=== PATIENT | male | born 1935 | race Caucasian/White ===

== ENCOUNTER 2016-07-13 09:41 | Day surgery (SDC) | payer OTHER ==
[2016-07-09 09:10] VITALS: BMI 25.0
--- NOTE | 2016-07-09 09:57 | PAT Medication Instructions ---
Service Date Jul 09, 2016. Current Home Medication List Cyanocobalamin (Vitamin B-12), Unknown Dose PO QD Enoxaparin (Lovenox), 120 MG BT Mesalamine (Asacol Hd), 1,600 MG PO QAM Omeprazole (Prilosec), 20 MG PO HS Warfarin Sod (Jantoven), 5 MG PO 4XWK Medication Instructions For Your Scheduled Surgery - Per surgeon/prescribing physician instructions: Enoxaparin (Lovenox), 120 MG BT Warfarin Sod (Jantoven), 5 MG PO 4XWK Mesalamine (Asacol Hd), 1,600 MG PO QAM - Hold the following medications the morning of surgery: Cyanocobalamin (Vitamin B-12), Unknown Dose PO QD - Take the following medications as scheduled the night before surgery: Omeprazole (Prilosec), 20 MG PO HS If you have any questions please call us at [phone] (Krystal Oviedo PA-C ) or [phone] or [phone]
[~2016-07-13] VITALS: Ht 172.7 cm; Wt 76.8 kg
[~2016-07-13 09:41] MED LIST: CEFAZOLIN 2000 MG/60 ML D5W 60 ML IV SCH; CYAN100T PO; ENOX120I BT; LACTATED RINGER'S 1000ML IV SCH; MESA800T6 PO; PRLSR20 PO; WARF5TAB7 PO
[2016-07-13 09:58] VITALS: BP 161/98; PULSE 65; TEMP 36.9; O2SAT 98; Ht 172.7 cm; Wt 76.8 kg
[2016-07-13 10:28] LABS: PARTIAL THROMBOPLASTIN RATIO 1.1
[2016-07-13] MEDS ORDERED: GLYCOPYRROLATE INJ 0.2 MG/ML VIAL ONE (10:42)
[2016-07-13] MEDS ORDERED: LIDOCAINE HCL 2% 2 ML VIAL (20MG/ML) ONE (10:42)
[2016-07-13] MEDS ORDERED: PROPOFOL IV EMULSION 10 MG/ML 20 ML VIAL IV ONE (10:42)
[2016-07-13] MEDS ORDERED: FENTANYL CITRATE INJ 50 MCG/1 ML 2 ML VIAL ONE ×2 (10:42→13:03)
[2016-07-13] MEDS ORDERED: DEXAMETHASONE SOD INJ 4 MG/ML VIAL ONE (10:42)
[2016-07-13] MEDS ORDERED: ONDANSETRON INJ 2 MG/ML 2 ML VIAL ONE (10:42)
[2016-07-13] MEDS ORDERED: NEOSTIGMINE METHYLSULFATE 5 MG/5 ML SYR ONE (10:42)
--- NOTE | 2016-07-13 10:59 | History & Physical Bridge Note ---
H&P Re-Evaluation Bridge Note: I have examined the patient, reviewed the History & Physical and in the interval since the performance of the History & Physical I have noted the following changes of clinical significance: No changes noted
[2016-07-13] MEDS ORDERED: LABETALOL HCL IV 5 MG/ML 20ML ONE (11:57)
[2016-07-13] MEDS ORDERED: ORM MISCELLANEOUS MED XX ONE ×2 (11:59→12:24)
[2016-07-13] MEDS ORDERED: EpHEDrine SULFATE INJ 50 MG/ML AMP IV PRN (12:00)
[2016-07-13] MEDS ORDERED: MEPERIDINE HCL 25 MG/ML CARP IV PRN (12:00)
[2016-07-13] MEDS ORDERED: FENTANYL CITRATE INJ 50 MCG/1 ML 2 ML VIAL IV PRN (12:00)
[2016-07-13] MEDS ORDERED: ATROPINE SULFATE 0.1 MG/ML 5ML SYR IV PRN (12:00)
[2016-07-13] MEDS ORDERED: ONDANSETRON INJ 2 MG/ML 2 ML VIAL IV PRN ×2 (12:00→12:45)
[2016-07-13] MEDS ORDERED: HYDROmorphone INJ 1 MG/ML SYR IV PRN (12:00)
[2016-07-13] MEDS ORDERED: LABETALOL HCL IV 5 MG/ML 20ML IV PRN (12:00)
[2016-07-13] MEDS ORDERED: HydrALAZINE HCL 20 MG/ML VIAL ONE (12:01)
[2016-07-13] MEDS ORDERED: KETOROLAC TROMETHAMINE 30 MG/ML VIAL ONE (12:39)
[2016-07-13] MEDS ORDERED: BUPIVACAINE 0.5 % 5 MG/1 ML MPF 30ML VIAL INJ ONE (12:41)
[2016-07-13] MEDS ORDERED: SODIUM CHLORIDE 0.9% 1000ML 1,000 ML IV SCH (12:44)
[2016-07-13] MEDS ORDERED: MoRPHine SULFATE 4 MG/ML 1 ML CARP\\VIAL IV PRN (12:45)
[2016-07-13] MEDS ORDERED: OXYCODONE/ACETAMINOPHEN 5-325 TAB PO PRN (12:45)
--- NOTE | 2016-07-13 12:51 | [facility] Post Operative Brief Note ---
Immediate Operative Summary Operative Date Jul 13, 2016. Pre-Operative Diagnosis Symptomatic cholelithiasis Post-Operative Diagnosis Same Procedure(s) Performed Laparoscopic Cholecystectomy Surgeon Dr Gustafson Aboriginal Liaison Officer Surgeon(s) none Estimated Blood Loss 5 ml Findings See dictation Specimens A. Gallbladder Drains None Anesthesia General Complication(s) None Disposition Recovery Room / PACU
--- NOTE | 2016-07-13 12:53 | Discharge Instructions ---
Discharge Instructions Admission Reason for Admission: Cholelithiasis Discharge Discharge Diagnosis / Problem: Same Discharge Goals Goal(s): Decrease discomfort Activity Recommendations Activity Limitations: per Instructions/Follow-up section Lifting Limitations: no more than 10 pounds Shower/Bathe: tomorrow (Shower only) . Instructions / Follow-Up Instructions / Follow-Up Post-Surgical ~ Discharge Instructions Activity Recommendations: - lifting limitation: (10 pounds for 2 weeks), - exercise/sex/sports limit: (nonstrenuous for 2 weeks), - driving or machine use limit: (none for 1 week), - Shower/bathe limit: (may shower beginning tomorrow) Diet: - Resume previous diet SPECIAL CARE INSTRUCTIONS: - May shower in 24 hours. Let water run over area and pat dry. - Leave steri strips on for one week. - Call the surgeon's office with any questions or concerns - - (ex. temperature higher than 101 degrees F, excessive bleeding or pain). MEDICATIONS: - Resume previous medications unless instructed otherwise by your surgeon. - Ibuprofen 600 mg every 6 hours with food - Percocet 1 every 4 hours, as needed for pain FOLLOW UP VISIT: - If not already scheduled, please call the office to schedule a two week follow-up appointment. Office number Current Hospital Diet Patient's current hospital diet: Discharge Diet Recommended Diet: Regular Diet Procedures Procedures Performed: Laparoscopic Cholecystectomy Pending Studies Studies pending at discharge: no Medical Emergencies . Who to Call and When: Medical Emergencies: If at any time you feel your situation is an emergency, please call 911 immediately. . Non-Emergent Contact Non-Emergency issues call your: Primary Care Provider, Surgeon Call Non-Emergent contact if: your pain is worsening, wound has increased redness, wound has increased pain . "Provider Documentation" section prepared by Emile Gustafson. VTE Core Measure Inpt VTE Proph given/why not?: Warfarin (Coumadin) (Resume as per coumadin clinic instructions)
--- NOTE | 2016-07-13 13:15 | OPERATIVE REPORT ---
DATE OF OPERATION: 07/13/2016 PREOPERATIVE DIAGNOSIS: Cholelithiasis, chronic cholecystitis. POSTOPERATIVE DIAGNOSIS: Same. PROCEDURE: Laparoscopic cholecystectomy. SURGEON: Dr. Gsutafson. FINDINGS: The gallbladder was mildly dilated. The cystic duct was not dilated. The liver was of normal size and contour. The visible bowel was normal. No stones were identified. OPERATION AND FINDINGS: TECHNIQUE: The patient was given a general anesthetic and the area was prepped and draped in the usual sterile fashion. Transverse incision was made below the umbilicus, carried down through the subcutaneous tissue to the fascia which was grasped with 2 Sushant clamps and incised between. The peritoneum was identified, incised, and the introducer was placed bluntly. The abdomen was then insufflated to a pressure of 15 mmHg with carbon dioxide. The upper midline, mid clavicular and anterior axillary introducers were placed under direct vision through small skin incisions. Traction was placed on the gallbladder beginning on the anterior surface of the infundibulum. There was a generous amount of fatty tissue. The peritoneum was opened and peeled down towards the common bile duct and then that dissection was carried towards the lateral and medial sides entering the triangle of Calot. Further dissection was carried out of the infundibulum away from the liver first on the lateral side, then the medial side allowing for better mobility. The fatty tissue was peeled and the cystic duct was identified. The cystic duct was skeletonized on the lateral and medial side, allowing me to identify the cystic duct gallbladder junction. I was then able to establish a plane behind the cystic duct isolating it 360 degrees. Three clips were placed on the proximal cystic duct, 1 near the gallbladder and it was divided. The infundibulum was elevated and dissection was carried out behind there. There was a tubular structure that was either a branch of the artery or a large lymphatic that was clipped. Further dissection was carried out exposing the cystic artery which was clipped 3 times proximally and once near the gallbladder and divided. The gallbladder was then peeled off the liver bed. There was some spillage of bile from the gallbladder and then one of the graspers created a hole. The gallbladder was dissected off the liver bed using cautery with ease. It was placed into an Endobag and brought out through the upper midline incision. The subdiaphragmatic and subhepatic spaces were irrigated and the irrigation was removed and that was repeated until the return was fairly clear. The gallbladder bed of the liver was inspected. There were a few areas of oozing that was easily controlled with cautery. That area was irrigated again and after irrigation was completed, this was inspected and there was no bleeding. The gas was allowed to escape and removed using suction. The introducers were removed and the fascia of the umbilical and upper midline introducer sites was closed with interrupted 0 Vicryl and skin of all the incisions was closed with 4-0 Monocryl in either an interrupted or running subcuticular fashion. The skin was anesthetized with 0.5% Marcaine. The skin was cleansed, dried, benzoin placed, Steri-Strips applied. Estimated blood loss was 5 mL. Sponge, needle and instrument counts were correct prior to closure. The patient tolerated the surgical procedure without complication and was transferred to recovery. I attest to the content of the Intraoperative Record and any orders documented therein. Any exceptio ns are noted below.
[2016-07-13 14:00] VITALS: BP 137/80; PULSE 61; TEMP 36.4; O2SAT 97
[2016-07-13 14:33] VITALS: BP 123/75; PULSE 62; TEMP 36.5; O2SAT 95
[2016-07-13 15:00] VITALS: BP 131/79; PULSE 75; O2SAT 99
--- NOTE | 2016-07-13 15:15 | Anesthesiology Progress Note ---
Anesthesia Post Op Note Date & Time Jul 13, 2016 at 15:15 Vital Signs Pain Intensity: 3 Vital Signs Past 12 Hours Date Time Temp Pulse Resp B/P Pulse Ox O2 Delivery O2 Flow Rate FiO2 07/13/16 14:33 36.5 62 16 123/75 95 Nasal Cannula 2 07/13/16 14:00 36.4 61 16 137/80 97 Room Air 07/13/16 13:50 36.0 61 16 121/78 96 Nasal Cannula 2 07/13/16 13:40 62 13 134/81 96 Nasal Cannula 2 07/13/16 13:30 65 12 133/80 96 Nasal Cannula 3 07/13/16 13:20 72 12 139/89 92 Nasal Cannula 3 07/13/16 13:10 70 16 141/89 99 Mask 10 07/13/16 13:00 70 15 142/86 99 Mask 10 07/13/16 12:52 36.2 71 18 137/89 99 Mask 10 07/13/16 09:58 36.9 65 20 161/98 98 Room Air Notes Mental Status: alert / awake / arousable, participated in evaluation Pt Amnestic to Procedure: Yes Nausea / Vomiting: adequately controlled Pain: adequately controlled Airway Patency, RR, SpO2: stable & adequate BP & HR: stable & adequate Hydration State: stable & adequate Anesthetic Complications: no major complications apparent
[2016-07-13 15:40] VITALS: BP 145/79; PULSE 75; TEMP 36.6; O2SAT 94
[2016-11-26] MEDS ORDERED: VITATAB19 PO (14:21)
[2016-11-26] MEDS ORDERED: FIBER PILL PO (14:21)
[2016-11-26] MEDS ORDERED: VITAMIN D PO (14:21)
[2016-11-26] MEDS ORDERED: TURMERIC PO (14:22)
== END 2016-07-13 15:45 | disposition home or self-care (01) ==
LOC: C.ACU 09:41
PROVIDERS: ATTEND Surgery
DX: K80.10 Calculus of gallbladder with chronic cholecystitis without obstruction (principal); D68.51 Activated protein C resistance; Z79.01 Long term (current) use of anticoagulants; Z87.891 Personal history of nicotine dependence

== ENCOUNTER 2016-12-06 08:12 | Day surgery (SDC) | payer OTHER ==
[2016-11-26 14:24] VITALS: BMI 27.0
[~2016-12-06] VITALS: Ht 167.6 cm; Wt 77.3 kg
[~2016-12-06 08:12] MED LIST changes: -CEFAZOLIN 2000 MG/60 ML D5W 60 ML IV SCH; +FIBER PILL PO; +LACTATED RINGER'S 1000ML 1,000 ML IV SCH; -LACTATED RINGER'S 1000ML IV SCH; +MESA1TAB4 PO; -MESA800T6 PO; +TURMERIC PO; +VITAMIN D PO; +VITATAB19 PO
[2016-12-06] MEDS ORDERED: LACTATED RINGER'S 1000ML 1,000 ML IV ONE (08:23)
[2016-12-06 08:45] VITALS: BP 149/87; PULSE 65; TEMP 36.8; O2SAT 97; Ht 167.6 cm; Wt 77.3 kg
[2016-12-06 08:51] LABS: HEMATOCRIT 45.1 % (42-52); MEAN CELL VOLUME 88.3 fL (80-100); MEAN CORPUSCULAR HEMOGLOBIN 27.2 pg (25-34); MEAN PLATELET VOLUME 9.8 fL (7.4-10.4); PLATELET COUNT 185 K/uL (130-400); RED BLOOD COUNT 5.11 M/uL (4.7-6.1); WHITE BLOOD COUNT 6.64 K/uL (4.8-10.8)
[2016-12-06] MEDS ORDERED: MIDAZOLAM HCL 1 MG/ML 2ML VIAL ONE (09:00)
[2016-12-06] MEDS ORDERED: FENTANYL CITRATE INJ 50 MCG/1 ML 2 ML VIAL ONE (09:00)
[2016-12-06] MEDS ORDERED: DEXAMETHASONE SOD INJ 4 MG/ML VIAL ONE (09:00)
[2016-12-06] MEDS ORDERED: LIDOCAINE HCL 2% 2 ML VIAL (20MG/ML) ONE (09:00)
[2016-12-06] MEDS ORDERED: LARYING-O-JET KIT (LTA) ONE ×2 (09:00)
[2016-12-06] MEDS ORDERED: PROPOFOL IV EMULSION 10 MG/ML 20 ML VIAL IV ONE (09:00)
[2016-12-06] MEDS ORDERED: ONDANSETRON INJ 2 MG/ML 2 ML VIAL ONE (09:00)
[2016-12-06] MEDS ORDERED: SUCCINYLCHOLINE CHLORIDE 20 MG/ML 10 ML VIAL IV ONE (09:00)
[2016-12-06 09:01] LABS: MEAN CORPUSCULAR HGB CONC 30.8 g/dl (32-36)
[2016-12-06 09:12] LABS: PARTIAL THROMBOPLASTIN RATIO 1.1; PROTHROMBIN TIME (PATIENT) 10.5 SECONDS (9.0-12.0)
[2016-12-06] MEDS ORDERED: MEPERIDINE HCL 25 MG/ML CARP IV PRN (09:45)
[2016-12-06] MEDS ORDERED: FENTANYL CITRATE INJ 50 MCG/1 ML 2 ML VIAL IV PRN (09:45)
[2016-12-06] MEDS ORDERED: HYDROmorphone INJ 2 MG/ML SYR/VIAL IV PRN (09:45)
[2016-12-06] MEDS ORDERED: LABETALOL HCL IV 5 MG/ML 20ML IV PRN (09:45)
[2016-12-06] MEDS ORDERED: EpHEDrine SULFATE INJ 50 MG/ML AMP IV PRN (09:45)
[2016-12-06] MEDS ORDERED: NALOXONE HCL 0.4 MG/1 ML VIAL/CARP IV PRN (09:45)
[2016-12-06] MEDS ORDERED: ONDANSETRON INJ 2 MG/ML 2 ML VIAL IV PRN ×2 (09:45→11:00)
[2016-12-06] MEDS ORDERED: ATROPINE SULFATE 0.1 MG/ML 5ML SYR IV PRN (09:45)
[2016-12-06] MEDS ORDERED: PHENYLEPHRINE 100MCG/ML 5ML SYR IV PRN (09:45)
[2016-12-06] MEDS ORDERED: FLUMAZENIL 0.1 MG/1 ML 10 ML VIAL IV PRN (09:45)
--- NOTE | 2016-12-06 09:45 | History & Physical Bridge Note ---
H&P Re-Evaluation Bridge Note: I have examined the patient, reviewed the History & Physical and in the interval since the performance of the History & Physical I have noted the following changes of clinical significance: No changes noted Plan EGD and EUS for evaluation of abdominal pain
--- NOTE | 2016-12-06 10:57 | [facility] Post Operative Brief Note ---
Immediate Operative Summary Operative Date Dec 06, 2016. Pre-Operative Diagnosis Right sided abdominal discomfort Post-Operative Diagnosis Same as preoperative diagnosis Procedure(s) Performed Upper Endoscopy, Upper Endoscopic Ultrasonography Surgeon Dr. José Luis Richards Voy[employer] Management System Operator Surgeon(s) None Estimated Blood Loss 0 mL Findings Mild gastritis Hiatal hernia Barretts esophagus Normal Common bile duct. Specimens Pathology specimens to be labeled and handled by endoscopy staff Anesthesia Genera Complication(s) None Disposition Recovery Room / PACU
--- NOTE | 2016-12-06 10:58 | Discharge Instructions ---
Endoscopy Patient Instructions Date / Procedure(s) Performed Dec 06, 2016. EGD, Other (Endoscopic Ultrasound) Allergy Information Coded Allergies: Red Dye (Unverified Allergy, Unknown, SEVERE MIGRAINES, 12/06/16) Unclassified Drugs (Unverified Allergy, Unknown, STEROIDS-FACIAL SWELLING, EXTREMITIES, 12/06/16) Aspirin (Verified Adverse Reaction, Mild, UPSETS STOMACH, 12/06/16) Codeine (Verified Adverse Reaction, Mild, "JUST DON'T SEEM TO AGREE WITH ME", 12/06/16) Discharge Date / Findings Dec 06, 2016. Mild gastritis Short Segment Barretts Esophagus Normal common bile duct. Medication Instructions Reported Home Medications Medications Dose Route/Sig Max Daily Dose Days Date Category Dose Instructions [Turmeric] 1 Tab PO QAM 11/26/16 Reported [Vitamin D] 1 Tab PO QAM 11/26/16 Reported Vitamin A (Vitamin A-Beta Carotene) 1 Tab Tab 1 Tab PO QAM 11/26/16 Reported [Fiber Pill ] 1 Tab PO QAM 11/26/16 Reported Vitamin B-12 (Cyanocobalamin) Unknown Strength Tab Unknown Dose PO QD 07/09/16 Reported TAKES ON OCC REPORTS THESE TABS ARE CHEWABLES Lovenox (Enoxaparin Sodium) 120 Mg/0.8 Ml Inj 120 Mg BT 07/09/16 Reported WILL FOLLOW INSTRUCTIONS GIVEN FROM [facility] Asacol Hd (Mesalamine) 800 Mg Tab 1,600 Mg PO QAM 06/13/16 Reported PT INSTRUCTED TO CHECK WITH SURGEON FOR DIRECTIONS- MAY TAKE UP TO 5X A DAY PRN Prilosec (Omeprazole) 20 Mg Capcr 20 Mg PO QPM 01/05/16 Reported Jantoven (Warfarin Sodium) 5 Mg Tab 5 Mg PO QPM 12/07/15 Reported PT WILL FOLLOW INSTRUCTIONS GIVEN FROM [facility]- PATIENT REPORTS TAKING ONE TABLET SOMETIMES AND OTHER DAYS TWO - PATIENT WILL NOT PROVIDE FURTHER DETAILS Provider Instructions Activity Restrictions - No exercising or heavy lifting for 24 hours. - Do not drink alcohol the day of the procedure. - Do not drive a car or operate machinery until the day after the procedure. - Do not make any important decisions or sign important papers in 24 hours after the procedure. Following Day: - Return to full activity which may include returning to work/school. Diet Start your diet with liquids and light foods (jello, soup, juice, toast). Then eat your usual diet if not nauseated. Treatment For Common After Affects For mild abdominal pain, bloating, or excessive gas: - Rest - Eat lightly - Lie on right side Follow-Up Information Follow-up with Dr. Richards in 6 months Try Bentyl 10 mg 3 times daily Anesthesia Information What You Should Know You have had a procedure that required some medicine to reduce anxiety and discomfort. This treatment is called moderate sedation. After receiving the treatment, you may be sleepy, but you will be able to breathe on your own. The effects of the treatment may last for several hours. Follow these instructions along with Activity/Diet recommendations noted above: * Do NOT do anything where dizziness or clumsiness would be dangerous. * Rest quietly at home today, then you can be up and about tomorrow. * Have a responsible person stay with you the rest of today. * You may have had an I.V. today. If so, you may take the dressing off later today. Recommendations Call your doctor if: * Trouble breathing * Continuous vomiting for more than 24 hours * Temperature above 101 degrees * Severe abdominal pain or bloating * Pain not relieved by pain medicine ordered * There is increased drainage or redness from any incision * A large amount of rectal bleeding greater than 2-3 tablespoons. (If you had a polyp/s removed or have hemorrhoids, a small amount of blood - from the rectum is to be expected.) * You have any unanswered questions or concerns. IN THE EVENT OF A SERIOUS EMERGENCY, GO TO THE NEAREST EMERGENCY ROOM Your discharge instructions were prepared by provider José Luis Richards. Patient Instructions Signature Page [facility] Patient (or Guardian) Signature/Date: I have read and understand the instructions given to me by my caregivers. Caregiver/RN/Doctor Signature/Date: The above-named patient and/or guardian has received patient instructions on this date. + Original Patient Signature Page (only) stays with chart. Please make copy for patient.
--- NOTE | 2016-12-06 11:03 | GI REPORT ---
Procedure Date: 12/06/2016 10:01 AM Procedure: Upper GI endoscopy Indications: Epigastric abdominal pain, Abdominal pain in the right upper quadrant Medicines: General Anesthesia Complications: No immediate complications. Estimated blood loss: Minimal. Estimated Blood Loss: Estimated blood loss was minimal. Procedure: Pre-Anesthesia Assessment: - Prior to the procedure, a History and Physical was performed, and patient medications, allergies and sensitivities were reviewed. The patient's tolerance of previous anesthesia was reviewed. - The risks and benefits of the procedure and the sedation options and risks were discussed with the patient. All questions were answered and informed consent was obtained. - Patient identification and proposed procedure were verified prior to the procedure by the physician, the nurse and the manager sound. The procedure was verified in the procedure room. - Pre-procedure physical examination revealed no contraindications to sedation. - ASA Grade Assessment: III - A patient with severe systemic disease. - After reviewing the risks and benefits, the patient was deemed in satisfactory condition to undergo the procedure. - The anesthesia plan was to use general anesthesia. - Immediately prior to administration of medications, the patient was re-assessed for adequacy to receive sedatives. - The heart rate, respiratory rate, oxygen saturations, blood pressure, adequacy of pulmonary ventilation, and response to care were monitored throughout the procedure. - The physical status of the patient was re-assessed after the procedure. After obtaining informed consent, the endoscope was passed under direct vision. Throughout the procedure, the patient's blood pressure, pulse, and oxygen saturations were monitored continuously. The scope was introduced through the mouth, and advanced to the third part of duodenum. The upper GI endoscopy was accomplished without difficulty. The patient tolerated the procedure well. Findings: Localized mild mucosal changes characterized by discoloration were found in the upper third of the esophagus. Biopsies were taken with a cold forceps for histology. Estimated blood loss was minimal. The esophagus and gastroesophageal junction were examined with white light. 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 These changes involved the mucosa at the upper extent of the gastric folds (38 cm from the incisors) extending to the Z-line (27 cm from the incisors). Circumferential salmon-colored mucosa was present from 27 to 38 cm. Biopsies were taken with a cold forceps for histology. Estimated blood loss was minimal. A small hiatus hernia was found. The proximal extent of the gastric folds (end of tubular esophagus) was 38 cm from the incisors. The hiatal narrowing was 40 cm from the incisors. The Z-line was 27 cm from the incisors. The entire examined stomach was normal. Biopsies were taken with a cold forceps for histology. Estimated blood loss was minimal. The examined duodenum was normal. Biopsies were taken with a cold forceps for histology. Estimated blood loss was minimal. Impression: - Discolored mucosa in the esophagus. Biopsied. 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 Biopsied. - Normal stomach. Biopsied. - Normal examined duodenum. Biopsied. Recommendation: - Perform an upper endoscopic ultrasound (UEUS) today. - Await pathology results. José Luis Richards D.O. José Luis Richards, 12/06/2016 11:02:52 AM This report has been signed electronically. Note Initiated On: 12/06/2016 10:01 AM I attest to the content of the Intraoperative Record and orders documented therein, exceptions below
--- NOTE | 2016-12-06 11:10 | GI REPORT ---
Procedure Date: 12/06/2016 10:30 AM Procedure: Upper EUS Indications: Suspected choledocholithiasis, Epigastric abdominal pain, Abdominal pain in the right upper quadrant Medicines: General Anesthesia Complications: No immediate complications. Estimated blood loss: Minimal. Estimated Blood Loss: Estimated blood loss was minimal. Procedure: Pre-Anesthesia Assessment: - Prior to the procedure, a History and Physical was performed, and patient medications, allergies and sensitivities were reviewed. The patient's tolerance of previous anesthesia was reviewed. - The risks and benefits of the procedure and the sedation options and risks were discussed with the patient. All questions were answered and informed consent was obtained. - Patient identification and proposed procedure were verified prior to the procedure by the physician, the nurse and the head athletic trainer/strength coach. The procedure was verified in the procedure room. - Pre-procedure physical examination revealed no contraindications to sedation. - ASA Grade Assessment: III - A patient with severe systemic disease. - After reviewing the risks and benefits, the patient was deemed in satisfactory condition to undergo the procedure. - The anesthesia plan was to use general anesthesia. - Immediately prior to administration of medications, the patient was re-assessed for adequacy to receive sedatives. - The heart rate, respiratory rate, oxygen saturations, blood pressure, adequacy of pulmonary ventilation, and response to care were monitored throughout the procedure. - The physical status of the patient was re-assessed after the procedure. After obtaining informed consent, the endoscope was passed under direct vision. Throughout the procedure, the patient's blood pressure, pulse, and oxygen saturations were monitored continuously. The Endosonoscope was introduced through the mouth, and advanced to the second part of duodenum. The upper EUS was accomplished without difficulty. The patient tolerated the procedure well. The Endosonoscope was introduced through the mouth, and advanced to the third part of duodenum. The upper EUS was accomplished without difficulty. Findings: Endosonographic Finding : There was no sign of significant endosonographic abnormality in the ampulla. No masses were identified. Evidence of a previous cholecystectomy was identified endosonographically. There was no sign of significant endosonographic abnormality in the common bile duct. The maximum diameter of the duct was 4.7 mm. No stones, no biliary sludge and ducts of normal caliber were identified. There was no sign of significant endosonographic abnormality in the left lobe of the liver. Homogeneous parenchyma and no focal pathology were identified. There was no sign of significant endosonographic abnormality in the entire pancreas. The pancreatic duct measured up to 3 mm in diameter in the head and 1.1 mm in the body. No masses, no cysts, the pancreatic duct was thin in caliber. There was no sign of significant endosonographic abnormality in the left adrenal gland. No abnormal echogenicity and no adrenal gland enlargement were identified. No lymph nodes were seen during endosonographic examination in the gastrohepatic ligament (level 18), in the celiac region (level 20), in the perigastric region, in the peripancreatic region and in the santiago hepatis region. One benign appearing lymph node was visualized with the ultrasound probe in the subcarinal mediastinum (level 7). The node was oval. It measured 11 mm by 5.6 mm. Impression: - Normal ampulla. - Evidence of a cholecystectomy. - Normal common bile duct. - There was no evidence of significant pathology in the left lobe of the liver. - There was no sign of significant pathology in the entire pancreas. - Endosonographic images of the left adrenal gland were unremarkable. - One benign appearing lymph node was visualized and measured in the subcarinal mediastinum (level 7). Recommendation: - Discharge patient to home (ambulatory). - Advance diet as tolerated today. - Observe patient's clinical course. - Try Bentyl 10 mg TID José Luis Richards D.O. José Luis Richards, 12/06/2016 11:09:56 AM This report has been signed electronically. Note Initiated On: 12/06/2016 10:30 AM I attest to the content of the Intraoperative Record and orders documented therein, exceptions below
[2016-12-06 11:45] VITALS: BP 147/87; PULSE 60; TEMP 36.7; O2SAT 94
[2016-12-06 12:15] VITALS: BP 136/87; PULSE 85; TEMP 36.7; O2SAT 97
[2016-12-06 12:45] VITALS: BP 131/80; PULSE 65; TEMP 36.2; O2SAT 99
--- NOTE | 2016-12-06 17:57 | Anesthesiology Progress Note ---
Anesthesia Post Op Note Date & Time Dec 06, 2016 at 17:56 Vital Signs Pain Intensity: 0 Vital Signs Past 12 Hours Date Time Temp Pulse Resp B/P (MAP) Pulse Ox O2 Delivery O2 Flow Rate FiO2 12/06/16 12:45 36.2 65 16 131/80 99 Room Air 0 12/06/16 12:15 36.7 85 16 136/87 97 Room Air 0 12/06/16 11:45 36.7 60 16 147/87 94 Room Air 0 12/06/16 11:30 36.5 79 16 141/87 94 Room Air 12/06/16 11:20 65 16 144/90 100 Room Air 12/06/16 11:10 68 16 157/91 100 Mask 10 12/06/16 11:00 57 16 132/83 98 Mask 10 12/06/16 10:50 36.1 56 16 130/79 98 Mask 10 12/06/16 08:45 36.8 65 20 149/87 (107) 97 Room Air Notes Mental Status: alert / awake / arousable, participated in evaluation Pt Amnestic to Procedure: Yes Nausea / Vomiting: adequately controlled Pain: adequately controlled Airway Patency, RR, SpO2: stable & adequate BP & HR: stable & adequate Hydration State: stable & adequate Anesthetic Complications: no major complications apparent
== END 2016-12-06 13:05 | disposition home or self-care (01) ==
LOC: C.ACU 08:12
PROVIDERS: ATTEND Internal Medicine Gastroenterology
DX: R10.13 Epigastric pain (principal); R10.11 Right upper quadrant pain; D68.51 Activated protein C resistance; K22.8 Other specified diseases of esophagus; Z88.5 Allergy status to narcotic agent; Z68.27 Body mass index [BMI] 27.0-27.9, adult; Z79.01 Long term (current) use of anticoagulants; Z86.718 Personal history of other venous thrombosis and embolism; Z87.891 Personal history of nicotine dependence; Z90.49 Acquired absence of other specified parts of digestive tract

== ENCOUNTER → 2017-06-13 | Outpatient (CLI) | payer OTHER ==
[~2017-06-13] MED LIST changes: -LACTATED RINGER'S 1000ML 1,000 ML IV SCH
--- NOTE | 2017-06-13 17:40 | DIAGNOSTIC IMAGING REPORT ---
R LOWER EXT JOINT WITHOUT CLINICAL HISTORY: 82 years-old Male presenting with KNEE PAIN, pain and difficulty ambulating, pain involving the entire right knee, no history of trauma or surgery, history of knee dislocation as a child, possible pars defect. TECHNIQUE: Multisequence, multiplanar MR imaging of the right knee was performed without the use of intravenous contrast. IV contrast: None. COMPARISON: None. FINDINGS: Localizer images: Unremarkable. Bony edema and subchondral cystic change in the patella and anterior aspect of the lateral femoral condyle. Associated with this is full-thickness articular cartilage defects in the lateral patellar facet and apposing lateral aspect of the trochlea. The patellar chondral defect measures up to 11 mm in width obliquely oriented from the superior median prominence toward the lateral aspect inferiorly. The trochlea is articular cartilage defect and ureters this distribution. Small focal defect in the posterior weightbearing surface of the lateral femoral condyle also appears full-thickness or near full-thickness and measures 3 mm in width. The remainder of the articular cartilage is intact. Anterior and posterior cruciate ligaments intact. Horizontal tear of the posterior horn of the medial meniscus extending to the tibial articular surface and involving the posterior aspect of the body of the medial meniscus. The lateral meniscus is intact. Meniscocapsular ligaments are grossly intact. Medial collateral ligament intact. Lateral collateral ligament complex including the biceps femoris tendon, fibular collateral ligament, popliteus tendon, and iliotibial band intact. Patellar and quadriceps tendons intact. Nonspecific anterior subcutaneous edema in the knee. Minimal infiltration of Hoffa's fat pad. Small knee joint effusion. No popliteal cyst. IMPRESSION: 1. 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 Extensive subchondral cystic change and bony edema further evidence the full-thickness cartilage injury. 2. Smaller focal cartilage defect in the posterior weightbearing surface of the lateral femoral condyle. 3. Degenerative type tear of the posterior horn of the medial meniscus. 4. Nonspecific subcutaneous edema. 5. Small knee joint effusion. Electronically signed by: Kameron Kaur M.D. 06/13/2017 5:39 PM Dictated Date/Time: 06/13/2017 5:32 PM
== END | disposition home or self-care (01) ==
LOC: C.MRIBC 16:14
PROVIDERS: ATTEND Orthopaedic Surgery
DX: M94.8X6 Other specified disorders of cartilage, lower leg (principal); M23.321 Other meniscus derangements, posterior horn of medial meniscus, right knee

== ENCOUNTER 2018-02-21 08:14 | Emergency (ER) | payer OTHER ==
[~2018-02-21] VITALS: Ht 175.3 cm; Wt 76.3 kg
[2018-02-21 08:19] VITALS: TEMP 36.9; Ht 175.3 cm; Wt 76.3 kg
--- NOTE | 2018-02-21 08:55 | EMERGENCY ROOM VISIT NOTE ---
History Report prepared by Sammy: [facility] Under the Supervision of: Dr. Andrew Foley D.O. First contact with patient: 08:33 Chief Complaint: CHEST PAIN Stated Complaint: CHEST PAIN Nursing Triage Summary: Pt c/o pain straight across chest on and off for the past week. pt reports the pain woke him from sleep this am. denies SOB. reports a slight headache History of Present Illness The patient is an 82 year old male who presents to the Emergency Room with complaints of intermittent chest pain that first presented last week. The patient states that he first experienced his chest discomfort last week. The pain was resolved for the past 2-3 days, and returned again this morning at 0300 , 6 hours ago. The pain is still randomly intermittent and is not worsened/ precipitated by exertion. He describes his chest pain as a "pressure." There is no radiation of the pain. The patient is also short of breath, but notes that he is always short of breath. He denies any nausea, but does have a headache. Source of History: patient Onset: last week, 6 hours Position: chest Quality: pressure Timing: intermittent Associated Symptoms: + headache, + SOB, No nausea Review of Systems See HPI for pertinent positives & negatives. A total of 10 systems reviewed and were otherwise negative. Past Medical & Surgical Medical Problems: (1) Appendicitis (2) Barretts esophagus (3) Diverticulitis Colon (W/O Ment Of Hemorrhage) (4) Esophageal Reflux (5) Factor V Leiden (6) History of DVT (deep vein thrombosis) (7) Ulcerative colitis Surgical Problems: (1) H/O colonoscopy (2) H/O esophagogastroduodenoscopy Family History No pertinent family history Social History Smoking Status: Former Smoker Alcohol Use: occasionally Drug Use: none Marital Status: Housing Status: lives with family Occupation Status: retired, other Current/Historical Medications Scheduled Cyanocobalamin (Vitamin B-12), Unknown Dose PO QD Mesalamine (Asacol Hd), 1,600 MG PO QAM Omeprazole (Prilosec), 20 MG PO QPM Warfarin Sod (Jantoven), 5 MG PO QPM [Fiber Pill ], 1 TAB PO QAM [Turmeric], 1 TAB PO QAM [Vitamin D], 1 TAB PO QAM Miscellaneous Medications Enoxaparin (Lovenox), 120 MG BT Allergies Coded Allergies: Red Dye (Unverified Allergy, Unknown, SEVERE MIGRAINES, 02/21/18) Unclassified Drugs (Unverified Allergy, Unknown, STEROIDS-FACIAL SWELLING, EXTREMITIES, 02/21/18) Aspirin (Verified Adverse Reaction, Mild, UPSETS STOMACH, 02/21/18) Codeine (Verified Adverse Reaction, Mild, "JUST DON'T SEEM TO AGREE WITH ME", 02/21/18) Physical Exam Vital Signs Date Time Temp Pulse Resp B/P (MAP) Pulse Ox O2 Delivery O2 Flow Rate FiO2 02/21/18 10:19 59 16 02/21/18 10:00 137/88 02/21/18 09:49 64 22 02/21/18 09:19 65 18 02/21/18 09:14 65 18 02/21/18 09:00 137/85 02/21/18 08:44 68 23 02/21/18 08:43 67 02/21/18 08:32 166/90 02/21/18 08:24 94 Room Air 02/21/18 08:19 36.9 72 20 159/82 99 Room Air Physical Exam CONSTITUTIONAL/VITAL SIGNS: Reviewed / noted above. GENERAL: Non-toxic in appearance. INTEGUMENTARY: Warm, dry, and [place]. HEAD: Normocephalic. EYES: without scleral icterus or trauma. ENT/OROPHARYNX: clear and moist. LYMPHADENOPATHY/NECK: Is supple without lymphadenopathy or meningismus. RESPIRATORY: Lungs clear and equal. CARDIOVASCULAR: Regular rate and rhythm. GI/ABDOMEN: Soft and nontender. No organomegaly or pulsatile mass. No rebound or guarding. Normal bowel sounds. EXTREMITIES: Warm and well perfused. BACK: No CVA tenderness. NEUROLOGICAL: Intact without focal deficits. PSYCHIATRIC: normal affect. MUSCULOSKELETAL: Normally developed with good muscle tone. Medical Decision & Procedures ER Provider Diagnostic Interpretation: Radiology results as stated below per my review and radiologist interpretation: CHEST ONE VIEW PORTABLE CLINICAL HISTORY: Evaluate Fever/Sepsis COMPARISON STUDY: 06/13/2016 FINDINGS: Mild stable cardiomegaly. Fixed lateral hernia. Lungs are clear. Diaphragms smooth. IMPRESSION: Chronic change. No acute process. The above report was generated using voice recognition software. It may contain grammatical, syntax or spelling errors. Electronically signed by: Emile Vann M.D. 02/21/2018 9:01 AM Dictated Date/Time: 02/21/2018 9:00 AM Laboratory Results 02/21/18 08:34 Red Blood Count 5.30, Mean Corpuscular Volume 91.1, Mean Corpuscular Hemoglobin 29.4, Mean Corpuscular Hemoglobin Concent 32.3, Mean Platelet Volume 10.1, Neutrophils (%) (Auto) 64.3, Lymphocytes (%) (Auto) 23.1, Monocytes (%) (Auto) 6.8, Eosinophils (%) (Auto) 5.2, Basophils (%) (Auto) 0.3, Neutrophils # (Auto) 4.18, Lymphocytes # (Auto) 1.50, Monocytes # (Auto) 0.44, Eosinophils # (Auto) 0.34, Basophils # (Auto) 0.02 02/21/18 08:34 Test 02/21/18 08:34 White Blood Count 6.50 K/uL (4.8-10.8) Red Blood Count 5.30 M/uL (4.7-6.1) Hemoglobin 15.6 g/dL (14.0-18.0) Hematocrit 48.3 % (42-52) Mean Corpuscular Volume 91.1 fL (80-100) Mean Corpuscular Hemoglobin 29.4 pg (25-34) Mean Corpuscular Hemoglobin Concent 32.3 g/dl (32-36) Platelet Count 170 K/uL (130-400) Mean Platelet Volume 10.1 fL (7.4-10.4) Neutrophils (%) (Auto) 64.3 % Lymphocytes (%) (Auto) 23.1 % Monocytes (%) (Auto) 6.8 % Eosinophils (%) (Auto) 5.2 % Basophils (%) (Auto) 0.3 % Neutrophils # (Auto) 4.18 K/uL (1.4-6.5) Lymphocytes # (Auto) 1.50 K/uL (1.2-3.4) Monocytes # (Auto) 0.44 K/uL (0.11-0.59) Eosinophils # (Auto) 0.34 K/uL (0-0.5) Basophils # (Auto) 0.02 K/uL (0-0.2) RDW Standard Deviation 47.6 fL (36.4-46.3) RDW Coefficient of Variation 14.2 % (11.5-14.5) Immature Granulocyte % (Auto) 0.3 % Immature Granulocyte # (Auto) 0.02 K/uL (0.00-0.02) Prothrombin Time 22.1 SECONDS (9.0-12.0) Prothromb Time International Ratio 2.1 (0.9-1.1) Activated Partial Thromboplast Time 33.5 SECONDS (21.0-31.0) Partial Thromboplastin Ratio 1.3 Anion Gap 8.0 mmol/L (3-11) Est Creatinine Clear Calc Drug Dose 66.2 ml/min Estimated GFR () 93.6 Estimated GFR (Non- 80.8 BUN/Creatinine Ratio 21.2 (10-20) Calcium Level 8.2 mg/dl (8.5-10.1) Total Bilirubin 0.5 mg/dl (0.2-1) Direct Bilirubin 0.2 mg/dl (0-0.2) Aspartate Amino Transf (AST/SGOT) 20 U/L (15-37) Alanine Aminotransferase (ALT/SGPT) 24 U/L (12-78) Alkaline Phosphatase 72 U/L (45-117) Total Creatine Kinase 72 U/L (39-308) Creatine Kinase MB 2.8 ng/ml (0.5-3.6) Creatine Kinase MB Ratio 3.9 (0-3.0) Troponin I < 0.015 ng/ml (0-0.045) Total Protein 7.0 gm/dl (6.4-8.2) Albumin 3.4 gm/dl (3.4-5.0) Lipase 124 U/L (73-393) Laboratory results as stated above per my review. Medications Administered Medications (Trade) Dose Ordered Sig/Oscar Route Start Time Stop Time Status Last Admin Dose Admin Ketorolac Tromethamine (Toradol Inj) 30 mg NOW STAT IV 02/21/18 10:31 02/21/18 10:32 DC 02/21/18 10:39 30 MG ECG Per My Interpretation Indication: chest pain Rate (beats per minute): 72 Rhythm: normal sinus Findings: no ectopy, other (No URMILA) ED Course 0849: Previous medical records were reviewed. The patient was evaluated in room A9B. A complete history and physical examination was performed. 1031: Ordered Toradol 30 mg IV. 1043: On reevaluation, the patient is resting in bed. I discussed the results and findings with the patient. She verbalized agreement of the treatment plan. The patient was discharged home. Medical Decision the differential was considered includes acute myocardial infarction, acute coronary syndrome, myocarditis, pericarditis, pericardial effusions /tamponade, esophageal perforation, thoracic aortic dissection, pulmonary embolism, pneumonia, pneumothorax, pancreatitis, shingles, acute cholecystitis, perforated abdominal viscus. . This is an 82-year-old male who presents to the ED with a chief complaint of chest pain. The patient states that last Tuesday he feels like he strained his chest by picking up some tables. He states that his pain lasted for a couple of days and then went away but his pain returned. He states that he had the pain this morning around 3 AM and described as a pressure. He reports that his pain seems to be random and comes and goes. He denies it being related to exertion. He denies recent illness, fevers or shortness of breath. He denies any nausea or diaphoresis. He has no additional symptoms. His physical exam was unremarkable. CBC is normal, INR is 2.1. He is on Coumadin for history of blood clots. Troponin was negative and a lipase was negative. Chest x-ray did not show acute process. EKG shows a sinus rhythm without ischemic changes. The patient was told the results. He was given Toradol IV for his discomfort. He was told to follow-up with his PCP for reevaluation and return for any new symptoms. He was advised that testing today was not predictive in nature and he is to return for any worsening or new concerns. Medication Reconcilliation Current Medication List: was personally reviewed by me Blood Pressure Screening Patient's blood pressure: Normal blood pressure Impression Primary Impression: Substernal precordial chest pain Scribe Attestation The scribe's documentation has been prepared under my direction and personally reviewed by me in its entirety. I confirm that the note above accurately reflects all work, treatment, procedures, and medical decision making performed by me. Departure Information Dispostion Home / Self-Care Referrals Chivo Velez D.O. (PCP) Patient Instructions My [facility] Additional Instructions Follow-up with your doctor for further care and evaluation in 1-2 days. Return to the emergency department for worsening or new symptoms or any concerns. You have been examined and treated today on an emergency basis only. This is not a substitute for, or an effort to provide, complete comprehensive medical care. It is impossible to recognize and treat all injuries or illnesses in a single emergency department visit. It is therefore important that you follow up closely with your doctor. Call as soon as possible for an appointment. Testing has no predictive value. Return for any worsening or new symptoms.
[2018-02-21 08:59] LABS: BASO % 0.3 %; BASO ABS # 0.02 K/uL (0-0.2); EOS % 5.2 %; EOS ABS # 0.34 K/uL (0-0.5); HEMATOCRIT 48.3 % (42-52); HEMOGLOBIN 15.6 g/dL (14.0-18.0); IG# 0.02 K/uL (0.00-0.02); LYMPH % 23.1 %; MEAN CELL VOLUME 91.1 fL (80-100); MEAN CORPUSCULAR HEMOGLOBIN 29.4 pg (25-34); MEAN CORPUSCULAR HGB CONC 32.3 g/dl (32-36); MEAN PLATELET VOLUME 10.1 fL (7.4-10.4); MONO % 6.8 %; MONO ABS # 0.44 K/uL (0.11-0.59); NEUT % 64.3 %; NEUT ABS # 4.18 K/uL (1.4-6.5); PLATELET COUNT 170 K/uL (130-400); RED CELL DISTRIBUTION WIDTH CV 14.2 % (11.5-14.5); RED CELL DISTRIBUTION WIDTH SD 47.6 fL (36.4-46.3)
--- NOTE | 2018-02-21 09:02 | DIAGNOSTIC IMAGING REPORT ---
CHEST ONE VIEW PORTABLE CLINICAL HISTORY: Evaluate Fever/Sepsis COMPARISON STUDY: 06/13/2016 FINDINGS: Mild stable cardiomegaly. Fixed lateral hernia. Lungs are clear. Diaphragms smooth. IMPRESSION: Chronic change. No acute process. The above report was generated using voice recognition software. It may contain grammatical, syntax or spelling errors. Electronically signed by: Emile Vann M.D. 02/21/2018 9:01 AM Dictated Date/Time: 02/21/2018 9:00 AM
[2018-02-21 09:07] LABS: INR 2.1 (0.9-1.1); PTT PATIENT 33.5 SECONDS (21.0-31.0)
[2018-02-21 09:11] LABS: ALBUMIN 3.4 gm/dl (3.4-5.0); ALKALINE PHOSPHATASE 72 U/L (45-117); ALT/SGPT 24 U/L (12-78); AST/SGOT 20 U/L (15-37); BLOOD UREA NITROGEN 19 mg/dl (7-18); CALCIUM 8.2 mg/dl (8.5-10.1); CARBON DIOXIDE 26 mmol/L (21-32); CKMB 2.8 ng/ml (0.5-3.6); CREATININE 0.89 mg/dl (0.60-1.40); GLUCOSE 105 mg/dl (70-99); LIPASE 124 U/L (73-393); POTASSIUM 3.3 mmol/L (3.5-5.1); SODIUM 141 mmol/L (136-145)
[2018-02-21] MEDS ORDERED: KETOROLAC TROMETHAMINE 30 MG/ML VIAL IV STA (10:31)
[2018-02-21 11:16] VITALS: BP 159/65; PULSE 65; O2SAT 95
== END 2018-02-21 11:15 | disposition home or self-care (01) ==
LOC: C.EDB 08:15 → C.EDA 11:15
DX: R07.2 Precordial pain (principal); K22.70 Barrett's esophagus without dysplasia; K21.9 Gastro-esophageal reflux disease without esophagitis; D68.51 Activated protein C resistance; Z86.718 Personal history of other venous thrombosis and embolism; Z87.891 Personal history of nicotine dependence; Z79.01 Long term (current) use of anticoagulants; Z79.899 Other long term (current) drug therapy; Z88.5 Allergy status to narcotic agent; Z88.6 Allergy status to analgesic agent; Z88.8 Allergy status to other drugs, medicaments and biological substances; Z91.048 Other nonmedicinal substance allergy status

== ENCOUNTER 2020-11-06 18:31 | Inpatient (IN) ==
--- NOTE | 2020-11-06 19:16 | Emergency Department Note ---
Impression & Plan Abdominal pain, Headache, Dizziness ED Provider Note Provider: Markos Almaguer MD DATE OF SERVICE: 11/06/2020 CHIEF COMPLAINT: Severe abdominal pain, dizziness, nausea HISTORY OF PRESENT ILLNESS: Patient is a 85-year-old gent with a past medical history including hearing loss, atrial fibrillation on Coumadin, ulcerative colitis, and recent evaluation here this past weekend for dizziness and vertiginous symptoms. These are persisted. Patient and state the patient did have some melanotic stools but this is resolved today he denies significant diarrhea. States he was sitting in was having dinner and had a bite or 2 and then all of a sudden had severe left upper quadrant abdominal pain. States 10 of 10 pain in left upper quadrant and tenderness here. EMS was called and received aspirin as well as some morphine prior to arrival his pain significantly improved. Denies any faintness or trauma. States he still feeling dizzy but denies any acute visual changes. Denies acute numbness or weakness in the extremities. States he does have a bit of a headache today. Left upper quadrant pain significantly improved now. Denies any radiation to the back. Patient was recently started on lisinopril yesterday. REVIEW OF SYSTEMS: A total of 10 review of systems was obtained and negative except as stated above in the HPI. PAST MEDICAL HISTORY: As noted above MEDICATIONS: Reviewed home medication list SOCIAL HISTORY: lives at home PHYSICAL EXAM: GENERAL: alert and oriented in no acute distress on stretcher, hard of hearing Head: normocephalic and atraumatic EYES: No injection, discharge or icterus. NECK: Trachea midline. ENT: Mucous membranes pink and moist. LUNGS: Airway patent. No retractions. Breath sounds clear HEART: Regular rate and rhythm. No chest wall tenderness ABDOMEN: Soft with some epigastric and left upperr quadrant tenderness even to mild touch. SKIN: Acyanotic, warm, dry, without rashes EXTREMITIES: Without swelling, tenderness or deformity NEUROLOGICAL: No focal deficits. No aphasia. No facial droop or slurred speech.. Sensation to gross touch normal. EK bpm normal sinus rhythm without PVC or PAC. No acute ST segment elevation or depression noted. Normal QTC. Normal axis. CONTINUOUS CARDIAC MONITORING: was ordered and showed a heart rate of 50s to 60s bpm in sinus bradycardia to normal sinus rhythm Patient's laboratory studies and imaging reviewed. Differential includes Infection, gastrointestinal, dehydration, metabolic abnormality, hypo/hyperglycemia, electrolyte disturbance, anemia, hypoxia, cardiac sources, intracerebral event, toxicologic, neurologic, as well as other pathologies. IMPRESSION/MEDICAL DECISION MAKING: Patient presents with sudden onset of severe upper abdominal pain and bloating after a bite or 2 of dinner. Patient received morphine and aspirin some improvement of pain for EMS. Has had chronic vertiginous and nausea symptoms over the past approximate 6 days but resolution of previous melanotic stools. Headache today reported which is new. Denies focal numbness or weakness. CT the head given the headache without significant findings. Would expect given the prolonged nature of his symptoms if this was truly a CVA some findings would be noted on the plain head CT. Still significantly tender in the upper left abdomen. Given this CT scan was completed here of the abdomen pelvis. CT scan without evidence of bowel obstruction or free air. Hiatal hernia is present wi thout evidence of diverticulitis and findings consistent with chronic inflammatory bowel disease. Cannot having significant diarrhea and lower suspicion for IBD flare. Chest x-ray with persistent hiatal hernia. Wonder if his symptoms are related to discomfort related to hiatal hernia. Lactate not elevated and pains improved at this point and lower suspicion for strangulation of the hernia or ischemic bowel. Blood work without significant anemia or leukocytosis. No severe electrolyte abnormalities signs of renal dysfunction. No evidence of LFT abnormality or lipase elevation. Blood pressure mildly elevated but she started lisinopril yesterday. Do not believe this consistent with hypertensive emergency given the mild to moderate nature of the hypertension. EKG and troponin without abnormality. Seems atypical of cardiac pain and low suspicion of this. Unsure the exact etiology of the pain but while moderated at this time, unsure after the morphine wears off the pain returned. Discussed with the patient could possibly gastritis or related to hiatal hernia. Discussion with the patient and his given his persistent dizziness symptoms however with a significant abdominal pain he has had were still somewhat vocal if he moves or touches the area discussed further observation here and possible GI consultation in the morning. Patient was agreeable with this plan and the hospitalist was contacted. DIAGNOSIS: Abdominal pain, dizziness, headache DISPOSITION: Hospitalist will evaluate Patient was agreeable with this plan. Past Med/Surg History Medical History Appendicitis Barretts esophagus "EGD 07/29/2014-shows Barretts Esophagus with no CA; follows with GI, Dr. José Luis Richards" Factor V Leiden "on chronic anticoagulation" Gastro-esophageal reflux disease with esophagitis History of DVT (deep vein thrombosis) Ulcerative colitis Surgical History H/O colonoscopy H/O esophagogastroduodenoscopy Family History Other Family history non-contributory Social History Smoking Status: Former smoker Tobacco Type: Cigarettes Cigarettes Per Day: "alot"; Second Hand Exposure: No; Do You Dip or Chew Tobacco: No; Hx Alcohol Use: Yes Alcohol type: wine Alcohol type Comment: "enough" Hx Substance Use: No Preferred Language: [place] Communication Ability: Effective Compliance Nurse Required: No Beliefs That Will Affect Care: None marital status: Current Living Situation: Spouse Other Information That Helps Us Care for You: No Feels Safe at Home: Yes Safety Concerns: Feels Safe At This Time Assistive Devices: Hearing Aid - Bilateral Allergies Allergies Allergy/AdvReac Type Severity Reaction Status Date / Time red dye Allergy Unknown SEVERE Unverified 11/01/20 11:15 MIGRAINES aspirin AdvReac Mild UPSETS Verified 11/01/20 11:15 STOMACH codeine AdvReac Mild "JUST Verified 11/01/20 11:15 DON'T SEEM TO AGREE WITH ME" Unclassified Drugs Allergy Unknown STEROIDS-FACIAL Uncoded 11/01/20 11:15 SWELLING,EXTREMITIES Home Meds Home Medications Medication Instructions Recorded Confirmed omeprazole 20 mg PO DAILY 03/15/18 11/06/20 mesalamine [Apriso] 0.75 g PO BID 07/21/19 11/06/20 warfarin 5 mg PO [id number] 07/21/19 11/06/20 warfarin 10 mg PO WK 07/21/19 11/06/20 lisinopril 20 mg PO DAILY 11/06/20 11/06/20 Previous Rx's Medication Instructions Recorded meclizine 25 mg PO TID PRN #14 tab 11/01/20 ondansetron 4 mg PO Q6H PRN #14 tab 11/01/20 Results & Data (ED) Vital Signs Vital Signs - 24 hr 11/06/20 18:46 11/06/20 19:00 11/06/20 19:11 Temperature 36.7 C Temperature Source Oral Pulse Rate 64 65 67 Pulse Rate from SpO2 Sensor 65 Pulse Rhythm Regular Pulse Strength Normal Respiratory Rate 18 17 18 Respiratory Effort / Characteristics Non-Labored Spontaneous Respiratory Depth Normal Respiratory Pattern Regular Blood Pressure 158/93 H 153/91 H 156/91 H Blood Pressure Mean 114 111 112 Blood Pressure Position Sitting Pulse Oximetry 95 94 96 Oxygen Delivery Method Room Air Room Air Room Air Sepsis Recent Fever Within 48 Hours No Sepsis New/Unexplained Change in Mental Status N/A Sepsis Action Taken by Nursing No Action Required 11/06/20 19:30 11/06/20 19:48 11/06/20 20:00 Temperature Temperature Source Pulse Rate 63 68 Pulse Rate from SpO2 Sensor 64 68 Pulse Rhythm Pulse Strength Respiratory Rate 15 19 Respiratory Effort / Characteristics Respiratory Depth Respiratory Pattern Blood Pressure 165/96 H 151/92 H Blood Pressure Mean 119 111 Blood Pressure Position Pulse Oximetry 96 95 94 Oxygen Delivery Method Room Air Room Air Room Air Sepsis Recent Fever Within 48 Hours Sepsis New/Unexplained Change in Mental Status Sepsis Action Taken by Nursing 11/06/20 20:30 11/06/20 20:51 11/06/20 21:00 Temperature Temperature Source Pulse Rate 63 63 65 Pulse Rate from SpO2 Sensor 63 64 Pulse Rhythm Pulse Strength Respiratory Rate 18 18 18 Respiratory Effort / Characteristics Respiratory Depth Respiratory Pattern Blood Pressure 154/90 H 140/87 152/89 H Blood Pressure Mean 111 104 110 Blood Pressure Position Pulse Oximetry 94 94 Oxygen Delivery Method Room Air Room Air Room Air Sepsis Recent Fever Within 48 Hours Sepsis New/Unexplained Change in Mental Status Sepsis Action Taken by Nursing 11/06/20 21:30 11/06/20 22:00 Temperature Temperature Source Pulse Rate 66 62 Pulse Rate from SpO2 Sensor 65 62 Pulse Rhythm Pulse Strength Respiratory Rate 16 20 Respiratory Effort / Characteristics Respiratory Depth Respiratory Pattern Blood Pressure 145/84 H 156/87 H Blood Pressure Mean 104 110 Blood Pressure Position Pulse Oximetry 95 96 Oxygen Delivery Method Room Air Room Air Sepsis Recent Fever Within 48 Hours Sepsis New/Unexplained Change in Mental Status Sepsis Action Taken by Nursing Laboratory Data Result diagrams: 11/06/20 18:59 11/06/20 18:18 Lab Results 11/06/20 11/06/20 11/06/20 Range/Units 18:18 18:59 18:59 WBC 7.05 (4.8-10.8) K/uL RBC 5.11 (4.7-6.1) M/uL Hgb 14.7 (14.0-18.0) g/dL Hct 45.7 (42-52) % MCV 89.4 (80-100) fL MCH 28.8 (25-34) pg MCHC 32.2 (32-36) g/dL RDW Std Deviation 47.0 H (36.4-46.3) fL RDW Coeff of Dmitri 14.4 (11.5-14.5) % Plt Count 201 (130-400) K/uL MPV 10.5 H (7.4-10.4) fL Immature Gran % (Auto) 0.1 % Neut % (Auto) 68.5 % Lymph % (Auto) 22.3 % [place] % (Auto) 6.7 % Eos % (Auto) 2.3 % Baso % (Auto) 0.1 % Neut # (Auto) 4.83 (1.4-6.5) K/uL Lymph # (Auto) 1.57 (1.2-3.4) K/uL [place] # (Auto) 0.47 (0.11-0.59) K/uL Eos # (Auto) 0.16 (0-0.5) K/uL Baso # (Auto) 0.01 (0-0.2) K/uL Immature Gran # (Auto) 0.01 (0.00-0.02) K/uL PT 19.2 H (9.0-12.0) Seconds INR 2.0 H (0.9-1.1) Sodium 142 (136-145) mmol/L Potassium 3.9 (3.5-5.1) mmol/L Chloride 109 H (98-107) mmol/L Carbon Dioxide 28 (21-32) mmol/L Anion Gap 5.0 (3-11) BUN 16 (7-18) mg/dl Creatinine 0.87 (0.6-1.4) mg/dl Est Cr Clr Drug Dosing 62.2 ml/min Est GFR ( Amer) 92.5 ml/min Est GFR (Non-Af Amer) 79.8 ml/min BUN/Creatinine Ratio 18.7 (10-20) Glucose 93 (70-99) mg/dl Lactate (0.4-2.0) mmol/L Calcium 8.5 (8.5-10.1) mg/dl Total Bilirubin 0.5 (0.2-1) mg/dl AST 25 (15-37) U/L ALT 23 (12-78) U/L Alkaline Phosphatase 88 (45-117) U/L Troponin I < 0.015 (0-0.045) ng/ml Total Protein 7.3 (6.4-8.2) gm/dl Albumin 3.7 (3.4-5.0) gm/dl Globulin 3.6 (2.5-4.0) gm/dl Albumin/Globulin Ratio 1.0 (0.9-2) Lipase 128 (73-393) U/L COVID-19 Eval Order SARS-CoV-2 (PCR) (Negative) 11/06/20 11/06/20 11/06/20 Range/Units 19:23 19:23 19:27 WBC (4.8-10.8) K/uL RBC (4.7-6.1) M/uL Hgb (14.0-18.0) g/dL Hct (42-52) % MCV (80-100) fL MCH (25-34) pg MCHC (32-36) g/dL RDW Std Deviation (36.4-46.3) fL RDW Coeff of Dmitri (11.5-14.5) % Plt Count (130-400) K/uL MPV (7.4-10.4) fL Immature Gran % (Auto) % Neut % (Auto) % Lymph % (Auto) % [place] % (Auto) % Eos % (Auto) % Baso % (Auto) % Neut # (Auto) (1.4-6.5) K/uL Lymph # (Auto) (1.2-3.4) K/uL [place] # (Auto) (0.11-0.59) K/uL Eos # (Auto) (0-0.5) K/uL Baso # (Auto) (0-0.2) K/uL Immature Gran # (Auto) (0.00-0.02) K/uL PT (9.0-12.0) Seconds INR (0.9-1.1) Sodium (136-145) mmol/L Potassium (3.5-5.1) mmol/L Chloride (98-107) mmol/L Carbon Dioxide (21-32) mmol/L Anion Gap (3-11) BUN (7-18) mg/dl Creatinine (0.6-1.4) mg/dl Est Cr Clr Drug Dosing ml/min Est GFR ( Amer) ml/min Est GFR (Non-Af Amer) ml/min BUN/Creatinine Ratio (10-20) Glucose (70-99) mg/dl Lactate 0.9 (0.4-2.0) mmol/L Calcium (8.5-10.1) mg/dl Total Bilirubin (0.2-1) mg/dl AST (15-37) U/L ALT (12-78) U/L Alkaline Phosphatase (45-117) U/L Troponin I (0-0.045) ng/ml Total Protein (6.4-8.2) gm/dl Albumin (3.4-5.0) gm/dl Globulin (2.5-4.0) gm/dl Albumin/Globulin Ratio (0.9-2) Lipase (73-393) U/L COVID-19 Eval Order Covid19 at [facility] SARS-CoV-2 (PCR) NEGATIVE (Negative) Administered Medications Pantoprazole Sodium 40 mg/ (Syringe) 10 mls @ 5 mls/min IV BID RAI Stop: 12/07/20 00:00 Last Admin: 11/06/20 23:56 Dose: 5 mls/min Documented by: [id number] Dextrose/Sodium Chloride (D5w And Nss) 1,000 mls @ 100 mls/hr IV .Q10H RAI Stop: 12/06/20 23:38 Last Admin: 11/06/20 23:56 Dose: 100 mls/hr Documented by: [id number] Miscellaneous (Apriso: Order Awaiting Action) 1 ea N/A QS RAI Stop: 12/07/20 00:00 Last Admin: 11/07/20 00:02 Dose: Not Given Documented by: [id number] Discontinued Medications Famotidine (Pepcid 20mg Iv Push) 20 mg in 5 mls @ 2.5 mls/min IV NOW STA Stop: 11/06/20 20:50 Last Admin: 11/06/20 21:04 Dose: 2.5 mls/min Documented by: [id number] Ioversol (Optiray 300 100ml) 86 ml IV ONCE ONE Stop: 11/06/20 19:49 Last Admin: 11/06/20 19:49 Dose: 86 ml Documented by: [id number] Imaging Data Radiologist's Impression: Abdomen/Pelvis CT 11/06/20 18:59 CT abd pelvis IV con only CLINICAL HISTORY: abdominal pain, nausea COMPARISON STUDY: 11/13/2020 TECHNIQUE: The patient was scanned in a dynamic helical fashion during intravenous administration of 86 cc of Optiray 300 A dose lowering technique was utilized adhering to the principles of ALARA. CT DOSE: FINDINGS: Lower chest: There are dependent airspace opacities, likely atelectatic. The heart is mildly enlarged. There are coronary calcifications. There is a large hiatal hernia, with a paraesophageal component.. Liver: The contrast-enhanced liver is normal in size, contour, and attenuation. There is no intrahepatic biliary ductal dilatation. The hepatic veins and portal veins are patent. Gallbladder: Surgically absent Spleen: Normal in size and attenuation. Pancreas: Unremarkable. Adrenal glands: There is mild bilateral nodular adrenal thickening. Kidneys: There are no solid renal masses. There is a 12 mm left renal cyst. Additional smaller renal hypodensities likely represent additional cysts. There is mild perinephric stranding. Bowel: There are no transition zones to indicate bowel obstruction. By history the appendix is surgically absent. There is no evidence of acute diverticulitis. There is submucosal fat deposition within the colon particularly the left colon. The findings suggest a chronic inflammatory process. Peritoneum: There is no intraperitoneal free air or abdominal ascites. There is a tiny fat-containing left inguinal hernia Vasculature: The abdominal aorta is normal in course and caliber. Adenopathy: None. Pelvic viscera: The prostate is enlarged. Skeletal structures: No destructive osseous lesions are seen. IMPRESSION: 1. No evidence of bowel obstruction. No evidence of free air 2. Moderate hiatal hernia with a paraesophageal component 3. No evidence of acute diverticulitis 4. Prostatomegaly 5. Submucosal fat deposition within the colon, a finding suggestive of chronic inflammatory bowel disease. ACT 112: Negative or not required by law. Electronically signed by: Paulino Perez M.D. 11/06/2020 7:[address] 11/06/20 19:13 CT head/brain wo con CLINICAL HISTORY: Dizziness, headache. ABDOMINAL PAIN COMPARISON STUDY: 11/13/2020 TECHNIQUE: Axial CT of the brain is performed from the vertex to the skull base. IV contrast was not administered for this examination. A dose lowering technique was utilized adhering to the principles of ALARA. CT DOSE: FINDINGS: No intra or extra-axial mass lesions are visualized. There is no CT evidence of acute cortical infarction. There is no evidence of midline shift. There is no acute hemorrhage. No calvarial fractures are visualized. There are patchy white matter hypodensities likely on a small vessel basis. There is no evidence of pathologic ventricular dilatation. There is no evidence of acute sinusitis IMPRESSION: No acute intracranial findings ACT 112: Negative or not required by law. Electronically signed by: Paulino Perez M.D. 11/06/2020 7:54 PM Chest X-Ray 11/06/20 19:21 XR chest 1V portable CLINICAL HISTORY: abd pain, dizzy COMPARISON STUDY: 11/13/2020 FINDINGS: The heart is borderline enlarged. There is a retrocardiac opacity consistent with a hiatal hernia. There is mild interstitial thickening similar to the prior study. There is no lobar consolidation. There are no large pleural effusions. There is no free intraperitoneal air.[ IMPRESSION: No significant change from the prior study. Persistent hiatal hernia. No acute findings. ACT 112: Negative or not required by law. Electronically signed by: Paulino Perez M.D. 11/06/2020 8:11 PM Discharge Plan Visit Data Chief Complaint: Abdominal Pain Stated Complaint: abd pain ED Provider: Markos Almaguer Discharge Problem: Abdominal pain, Headache, Dizziness Patient Disposition: Admitted As Inpatient Discharge Instructions Interventions: ED Discharge Assessment Last Done: 11/06/20 22:45 Discharge Problem: Abdominal pain Qualifiers: Abdominal location: upper abdomen, unspecified Qualified Code(s): R10.10 - Upper abdominal pain, unspecified Headache Qualifiers: Headache type: unspecified Headache chronicity pattern: acute headache Intractability: not intractable Qualified Code(s): R51.9 - Headache, unspecified
[2020-11-06 19:21] LABS: Basophils # (auto) 0.01 K/uL (0-0.2); Basophils % (auto) 0.1 %; Eosinophils # (auto) 0.16 K/uL (0-0.5); Eosinophils % (auto) 2.3 %; Hematocrit (blood only) 45.7 % (42-52); Hemoglobin 14.7 g/dL (14.0-18.0); Immature Granulocytes # (auto) 0.01 K/uL (0.00-0.02); Immature Granulocytes % (auto) 0.1 %; Lymphocytes # (auto) 1.57 K/uL (1.2-3.4); Lymphocytes % (auto) 22.3 %; Mean Corpuscular Hemoglobin 28.8 pg (25-34); Mean Corpuscular Hgb Conc 32.2 g/dL (32-36); Mean Corpuscular Volume 89.4 fL (80-100); Mean Platelet Volume 10.5 fL (7.4-10.4); Monocytes # (auto) 0.47 K/uL (0.11-0.59); Monocytes % (auto) 6.7 %; Neutrophils # (auto) 4.83 K/uL (1.4-6.5); Neutrophils % (auto) 68.5 %; Platelet Count 201 K/uL (130-400); RDW Coefficient of Variation 14.4 % (11.5-14.5); Red Blood Count 5.11 M/uL (4.7-6.1); White Blood Count 7.05 K/uL (4.8-10.8)
[2020-11-06 19:29] LABS: Alanine Aminotransferase 23 U/L (12-78); Albumin Level 3.7 gm/dl (3.4-5.0); Aspartate Aminotransferase 25 U/L (15-37); BUN Creatinine Ratio 18.7 (10-20); Blood Urea Nitrogen 16 mg/dl (7-18); Calcium 8.5 mg/dl (8.5-10.1); Carbon Dioxide 28 mmol/L (21-32); Chloride 109 mmol/L (98-107); Creatinine Clr Calc Pharmacy 62.2 ml/min; Est GFR (African American) 92.5 ml/min; Est GFR (Non-African American) 79.8 ml/min; Glucose 93 mg/dl (70-99); Lipase 128 U/L (73-393); Potassium 3.9 mmol/L (3.5-5.1); Sodium 142 mmol/L (136-145)
[2020-11-06 19:34] LABS: Alkaline Phosphatase 88 U/L (45-117); Bilirubin,Total 0.5 mg/dl (0.2-1); Globulin 3.6 gm/dl (2.5-4.0); Total Protein 7.3 gm/dl (6.4-8.2); Troponin I < 0.015 ng/ml (0-0.045)
[2020-11-06 19:38] LABS: Prothrombin Time 19.2 Seconds (9.0-12.0)
[2020-11-06] MEDS ORDERED: OPTIRAY 300 100mL IV ONE (19:48)
--- NOTE | 2020-11-06 19:56 | CT Scan Report ---
CT head/brain wo con CLINICAL HISTORY: Dizziness, headache. ABDOMINAL PAIN COMPARISON STUDY: 11/13/2020 TECHNIQUE: Axial CT of the brain is performed from the vertex to the skull base. IV contrast was not administered for this examination. A dose lowering technique was utilized adhering to the principles of ALARA. CT DOSE: FINDINGS: No intra or extra-axial mass lesions are visualized. There is no CT evidence of acute cortical infarc tion. There is no evidence of midline shift. There is no acute hemorrhage. No calvarial fractures ar e visualized. There are patchy white matter hypodensities likely on a small vessel basis. There is no evidence of pathologic ventricular dilatation. There is no evidence of acute sinusitis IMPRESSION: No acute intracranial findings ACT 112: Negative or not required by law. Electronically signed by: Paulino Perez M.D. 11/06/2020 7:54 PM
--- NOTE | 2020-11-06 20:01 | CT Scan Report ---
CT abd pelvis IV con only CLINICAL HISTORY: abdominal pain, nausea COMPARISON STUDY: 11/13/2020 TECHNIQUE: The patient was scanned in a dynamic helical fashion during intravenous administration of 86 cc of Optiray 300 A dose lowering technique was utilized adhering to the principles of ALARA. CT DOSE: FINDINGS: Lower chest: There are dependent airspace opacities, likely atelectatic. The heart is mildly enlarged . There are coronary calcifications. There is a large hiatal hernia, with a paraesophageal component. . Liver: The contrast-enhanced liver is normal in size, contour, and attenuation. There is no intrahepa tic biliary ductal dilatation. The hepatic veins and portal veins are patent. Gallbladder: Surgically absent Spleen: Normal in size and attenuation. Pancreas: Unremarkable. Adrenal glands: There is mild bilateral nodular adrenal thickening. Kidneys: There are no solid renal masses. There is a 12 mm left renal cyst. Additional smaller renal hypodensities likely represent additional cysts. There is mild perinephric stranding. Bowel: There are no transition zones to indicate bowel obstruction. By history the appendix is surgic ally absent. There is no evidence of acute diverticulitis. There is submucosal fat deposition within the colon particularly the left colon. The findings suggest a chronic inflammatory process. Peritoneum: There is no intraperitoneal free air or abdominal ascites. There is a tiny fat-containing left inguinal hernia Vasculature: The abdominal aorta is normal in course and caliber. Adenopathy: None. Pelvic viscera: The prostate is enlarged. Skeletal structures: No destructive osseous lesions are seen. IMPRESSION: 1. No evidence of bowel obstruction. No evidence of free air 2. Moderate hiatal hernia with a paraesophageal component 3. No evidence of acute diverticulitis 4. Prostatomegaly 5. Submucosal fat deposition within the colon, a finding suggestive of chronic inflammatory bowel dis ease. ACT 112: Negative or not required by law. Electronically signed by: Paulino Perez M.D. 11/06/2020 7:59 PM
--- NOTE | 2020-11-06 20:13 | XRay Report ---
XR chest 1V portable CLINICAL HISTORY: abd pain, dizzy COMPARISON STUDY: 11/13/2020 FINDINGS: The heart is borderline enlarged. There is a retrocardiac opacity consistent with a hiatal hernia. There is mild interstitial thickening similar to the prior study. There is no lobar consolida tion. There are no large pleural effusions. There is no free intraperitoneal air.[ IMPRESSION: No significant change from the prior study. Persistent hiatal hernia. No acute findings. ACT 112: Negative or not required by law. Electronically signed by: Paulino Perez M.D. 11/06/2020 8:11 PM
[2020-11-06] MEDS ORDERED: FAMOTIDINE 20MG IV PUSH 20 MG/5 ML SYR IV STA (20:49)
[2020-11-06] MEDS ORDERED: ONDANSETRON INJ 2 MG/ML 2 ML VIAL IV PRN (23:39)
[2020-11-06] MEDS ORDERED: ACETAMINOPHEN 325 MG TAB PO PRN (23:39)
[2020-11-06] MEDS ORDERED: HYDROmorphone INJ 0.5 MG/0.5 ML SYR IV PRN (23:39)
[2020-11-06] MEDS ORDERED: MECLIZINE HCL 25 MG TAB PO PRN (23:42)
[2020-11-06] MEDS: D5W AND NSS 1,000 ML IV SCH (23:56)
[2020-11-06] MEDS: PANTOprazole 40 MG in SYRINGE 0 ML IV SCH (23:56)
--- NOTE | 2020-11-07 00:09 | History and Physical Report ---
DATE OF ADMISSION: 11/06/2020 CHIEF COMPLAINT: Abdominal pain. HISTORY OF PRESENT ILLNESS: This is an 85-year-old male with past medical history significant for paroxysmal atrial fibrillation, venous thrombosis after a long flight, GERD, esophageal varices without bleeding, ulcerative proctitis, ulcerative colitis, Canales's esophagus, history of basal cell carcinoma, sensorineural hearing loss, factor V Leiden deficiency, who presents with severe abdominal pain in the epigastric region that started at 5:30 p.m. after eating half of his dinner. The pain was not resolving and he came to the ER. He says his pain was 10/10 in severity, no radiation. In the ER, he received famotidine, currently pain is improved. He is also having nausea and dizziness that is going for last 3 days. He said he was in the ER on 11/01/2020 with severe dizziness, and nausea. At that time imaging studies were done and was discharged home and today again he has some dizziness and nausea. Three days ago, he said he had a black stool, but that is resolved now, he no longer has black stools. No blood in the stools. Normal bladder movements. No hematuria or burning micturition. No chest pain, no shortness of breath, no cough. Currently has some mild headache, no blurred visions. Hard of hearing. No runny nose, no sore throat, no dysphagia. Appetite is okay. Otherwise, ambulates okay. Currently resting comfortably and hemodynamically stable. ALLERGIES: CODEINE, RED DYE, SALICYLATES. PAST MEDICAL HISTORY: As mentioned above. PAST SURGICAL HISTORY: Amputation of right toe, colonoscopy with biopsies, EGDs with biopsy, EGD with endoscopic ultrasound, laparoscopic cholecystectomy, laparoscopic appendectomy. MEDICATIONS: The patient is on lisinopril 20 mg p.o. daily, meclizine 25 mg p.o. t.i.d. p.r.n., mesalamine 0.75 g p.o. b.i.d., omeprazole 20 mg p.o. daily, Zofran 4 mg p.o. q. 6 hours p.r.n., warfarin 5 mg p.o. 6 times a week, warfarin 10 mg p.o. one time a week. FAMILY HISTORY: Significant for father ____ amputation, peripheral vascular disease. SOCIAL HISTORY: . Former smoker, quit in 1984, smoked 1.5 packs a day for 20 years. Alcohol, two glasses of wine daily. No drug use currently. REVIEW OF SYSTEMS: As per HPI. Rest of the review of systems negative. PHYSICAL EXAMINATION: GENERAL: The patient is of moderate build, not in acute distress. VITAL SIGNS: Temperature 36.7, pulse 63, respiratory rate 18, blood pressure 154/90, oxygen 94% on room air. HEENT: Pupils equal, round, and reactive to light. Oral mucosa moist. NECK: No JVD. No neck masses. CARDIOVASCULAR: S1, S2 heard, regular rate and rhythm, no murmur, no gallop. RESPIRATORY SYSTEM: Normal AP diameter. No accessory muscle use. No wheezing, no crackles. ABDOMEN: Soft, bowel sounds present. Tenderness in the epigastric region, mild guarding present. No distention. CENTRAL NERVOUS SYSTEM: Cranial nerves II-XII are grossly intact. Nonfocal. EXTREMITIES: No edema, no erythema. LABORATORY DATA: WBC 7, hemoglobin 14.7, hematocrit 45.7, platelets 201. PT 19.2, INR 2. Sodium 142, potassium 3.9, chloride 109, bicarbonate 28, BUN 16, creatinine 0.8, serum glucose 93, lactate 0.9, calcium 8.5, total bilirubin 0.5, AST 25, ALT 23, alkaline phosphatase 88. Troponin I less than 0.015. Lipase 128. SARS-CoV-2 PCR negative. IMAGING DATA: Chest x-ray, no significant change from prior study,no acute findings. CT of the head, no acute intracranial findings. CT of the abdomen and pelvis, no evidence of bowel obstruction, no evidence of free air, moderate hiatal hernia with paraesophageal component. No evidence of acute diverticulitis. Prostatomegaly. Submucosal fat deposition with the colon, findings suggestive of chronic inflammatory bowel disease. EKG: Normal sinus rhythm at a rate of 66, no significant change was found. ASSESSMENT AND PLAN: This is an 85-year-old male who presents with abdominal pain. 1. Abdominal pain in the epigastric region: Mostly possible gastritis, improved with the famotidine in the ER. Will continue with Protonix b.i.d. n.p.o., IV fluids, pain control. Consult GI in the a.m. 2. History of ulcerative colitis: Continue his mesalamine. 3. History of atrial fibrillation: Rate is under control, on Coumadin. INR is 2 currently. Holding Coumadin for any procedure tomorrow. 4. History of DVT and factor V Leiden deficiency. INR is 2. Coumadin on hold. If no procedure, to restart Coumadin tomorrow. Will follow the PT/INR. 5. Ongoing dizziness. 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 Deep venous thrombosis prophylaxis: Currently INR is 2. DISPOSITION: Closely monitor in the medical floor. Expect to discharge home and follow with family doctor. Level 1 full code. MTDD
[2020-11-07] MEDS ORDERED: PNEUMOCOCCAL POLYSACCHARIDES 25 MCG/0.5 ML VIAL/SYR IM ONE (00:38)
[2020-11-07 05:52] LABS: Basophils # (auto) 0.01 K/uL (0-0.2); Basophils % (auto) 0.2 %; Eosinophils # (auto) 0.15 K/uL (0-0.5); Eosinophils % (auto) 3.2 %; Hematocrit (blood only) 40.1 % (42-52); Hemoglobin 12.8 g/dL (14.0-18.0); Lymphocytes # (auto) 1.45 K/uL (1.2-3.4); Lymphocytes % (auto) 30.8 %; Mean Corpuscular Hemoglobin 29.2 pg (25-34); Mean Corpuscular Hgb Conc 31.9 g/dL (32-36); Mean Corpuscular Volume 91.3 fL (80-100); Mean Platelet Volume 10.3 fL (7.4-10.4); Monocytes % (auto) 8.5 %; Neutrophils % (auto) 57.3 %; Platelet Count 168 K/uL (130-400); RDW Coefficient of Variation 14.6 % (11.5-14.5); RDW Standard Deviation 49.3 fL (36.4-46.3); Red Blood Count 4.39 M/uL (4.7-6.1); White Blood Count 4.71 K/uL (4.8-10.8)
[2020-11-07 06:03] LABS: INR 2.1 (0.9-1.1); Prothrombin Time 19.7 Seconds (9.0-12.0)
[2020-11-07 06:16] LABS: Appearance Urine Clear (Clear); Bilirubin Urine Negative (Negative); Blood Urine Negative (Negative); Color Urine Yellow; Glucose Urine UA Negative (Negative); Ketones Urine Negative (Negative); Leukocyte Esterase Urine Negative (Negative); Nitrite Urine Negative (Negative); Protein Urine Negative (Negative); Specific Gravity Urine > 1.045 (1.000-1.030); Urobilinogen Urine Negative (Negative); pH Urine 5.5 (4.5-7.5)
[2020-11-07 06:37] LABS: Creatinine Clr Calc Pharmacy 80.8 ml/min; Est GFR (Non-African American) 88.9 ml/min; Magnesium 2.4 mg/dl (1.8-2.4); Potassium 3.6 mmol/L (3.5-5.1)
--- NOTE | 2020-11-07 08:26 | Hospitalist Progress Note ---
Date of Service November 07, 2020 Assessment & Plan (1) Abdominal pain: (2) Ulcerative colitis: (3) Barretts esophagus: This is an 85-year-old male who presents with abdominal pain. 1. Abdominal pain in the epigastric region: Mostly possible gastritis, improved with the famotidine in the ER. Continue with IV Protonix n.p.o. on admission, will try clear liquids, cont. IV fluids, pain control. Consult GI - cont. IV PPI, advance diet - clear liquid Pt will likely need outpt EGD/ colonoscopy Will discuss further details regarding the plan w/ GI 2. History of ulcerative colitis: Continue his mesalamine. 3. History of atrial fibrillation: Rate is under control, on Coumadin. INR is 2 currently. Holding Coumadin on admission for any poss. procedure. 4. History of DVT and factor V Leiden deficiency. INR is 2. Coumadin on hold. If no procedure, restart Coumadin. Will follow the PT/INR. (4) Vertigo: Ongoing dizziness. Recent ER visit CTA head and neck showed moderate stenosis at the origin of right vertebral artery, and moderate to severe multifocal stenoses, most pronounced within the b/l posterior cerebral arteries. 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 Also recommend cervical MRI to rule out spinal instability. For above mentioned arterial stenoses, patient is already on Coumadin, to continue. Will order cervical MRI, will continue Coumadin as long as there is no procedure planned per GI, will monitor INR DVT prophylaxis: Currently INR is 2. Admission and Anticipated Discharge Date Admission Date: November 06, 2020 Subjective Patient seen in follow-up of abdominal pain, dizziness, neck pain Patient presented with abdominal pain on current admission, however had to dizziness and presented in the ED on November 01 He currently still complains of some dizziness Abdominal pain, started last evening, comes and goes, feels a jabbing After eating last evening, patient reports having pain 10 out of 10, no nausea or vomiting or diarrhea Currently he is laying in bed, appears in no acute distress, his is at the bedside, helps with communication as patient has difficulty hearing Patient denies any chest pain or shortness of breath Reports he had another episode of driving abdominal/epigastric pain about an hour ago He has been n.p.o. since admission He was seen by GI in the morning, follow-up rounds planned for this afternoon Patient was seen by neurology, at this point recommend to obtain cervical imaging and likely BPPV, therefore Blake maneuvers. Patient however has some neck pain and these maneuvers may be difficult for him. Plan to obtain cervical imaging to rule out spinal instability Review of Systems Review of Systems: All systems reviewed & are unremarkable except as noted in HPI & below Constitutional: no fever and no chills Respiratory: no cough and no dyspnea Cardiovascular: no chest pain and no palpitations Gastrointestinal: + abdominal pain (on and off jabbing epigastric pain); no nausea and no vomiting Physical Exam Physical Exam: GENERAL: The patient is of moderate build, not in acute distress. HEENT: NC, EOMI, Pupils equal, round, and reactive to light. Oral mucosa moist. NECK: No JVD. No neck masses. CARDIOVASCULAR: S1, S2 heard, regular rate and rhythm, no murmur, no gallop. RESPIRATORY: Normal AP diameter. No accessory muscle use. CTAB No wheezing, rhonchi or crackles. ABDOMEN: Soft, bowel sounds present. Tenderness in the epigastric region, mild guarding present. No distention. NEURO: alert and oriented x3, speech fluent, no facial asymmetry, very hard of hearing, Cranial nerves II-XII are grossly intact. Moves extremities. EXTREMITIES: No edema, no erythema. Results & Data Results & Data ([facility]) Vital Signs (Past 12 Hours) Vital Signs Temp Pulse Pulse Resp BP BP Pulse Ox 11/07/20 06:10 36.6 C 57 L 18 145/79 H 96 11/06/20 23:20 36.7 C 59 L 16 179/98 H 97 11/06/20 22:30 58 L 15 138/81 95 11/06/20 22:00 62 20 156/87 H 96 11/06/20 21:30 66 16 145/84 H 95 11/06/20 21:00 65 18 152/89 H 11/06/20 20:51 63 18 140/87 94 11/06/20 20:30 63 18 154/90 H 94 Laboratory Results 11/07/20 11/07/20 11/07/20 Range/Units 06:05 05:28 05:28 WBC 4.71 L (4.8-10.8) K/uL RBC 4.39 L (4.7-6.1) M/uL Hgb 12.8 L (14.0-18.0) g/dL Hct 40.1 L (42-52) % MCV 91.3 (80-100) fL MCH 29.2 (25-34) pg MCHC 31.9 L (32-36) g/dL RDW Std Deviation 49.3 H (36.4-46.3) fL RDW Coeff of Dmitri 14.6 H (11.5-14.5) % Plt Count 168 (130-400) K/uL MPV 10.3 (7.4-10.4) fL Immature Gran % (Auto) 0.0 % Neut % (Auto) 57.3 % Lymph % (Auto) 30.8 % Collin % (Auto) 8.5 % Eos % (Auto) 3.2 % Baso % (Auto) 0.2 % Neut # (Auto) 2.70 (1.4-6.5) K/uL Lymph # (Auto) 1.45 (1.2-3.4) K/uL Collin # (Auto) 0.40 (0.11-0.59) K/uL Eos # (Auto) 0.15 (0-0.5) K/uL Baso # (Auto) 0.01 (0-0.2) K/uL Immature Gran # (Auto) 0.00 (0.00-0.02) K/uL PT (9.0-12.0) Seconds INR (0.9-1.1) Sodium 144 (136-145) mmol/L Potassium 3.6 (3.5-5.1) mmol/L Chloride 112 H (98-107) mmol/L Carbon Dioxide 29 (21-32) mmol/L Anion Gap 3.0 (3-11) BUN 18 (7-18) mg/dl Creatinine 0.67 (0.6-1.4) mg/dl Est Cr Clr Drug Dosing 80.8 ml/min Est GFR ( Amer) 103.0 ml/min Est GFR (Non-Af Amer) 88.9 ml/min BUN/Creatinine Ratio 26.0 H (10-20) Glucose 81 (70-99) mg/dl Lactate (0.4-2.0) mmol/L Calcium 8.0 L (8.5-10.1) mg/dl Magnesium 2.4 (1.8-2.4) mg/dl Total Bilirubin (0.2-1) mg/dl AST (15-37) U/L ALT (12-78) U/L Alkaline Phosphatase (45-117) U/L Troponin I (0-0.045) ng/ml Total Protein (6.4-8.2) gm/dl Albumin (3.4-5.0) gm/dl Globulin (2.5-4.0) gm/dl Albumin/Globulin Ratio (0.9-2) Lipase (73-393) U/L Urine Color Yellow Urine Appearance Clear (Clear) Urine pH 5.5 (4.5-7.5) Ur Specific [place] > 1.045 H (1.000-1.030) Urine Protein Negative (Negative) Urine Glucose (UA) Negative (Negative) Urine Ketones Negative (Negative) Urine Blood Negative (Negative) Urine Nitrite Negative (Negative) Urine Bilirubin Negative (Negative) Urine Urobilinogen Negative (Negative) Ur Leukocyte Esterase Negative (Negative) COVID-19 Eval Order SARS-CoV-2 (PCR) (Negative) 11/07/20 11/06/20 11/06/20 Range/Units 05:28 19:27 19:23 WBC (4.8-10.8) K/uL RBC (4.7-6.1) M/uL Hgb (14.0-18.0) g/dL Hct (42-52) % MCV (80-100) fL MCH (25-34) pg MCHC (32-36) g/dL RDW Std Deviation (36.4-46.3) fL RDW Coeff of Dmitri (11.5-14.5) % Plt Count (130-400) K/uL MPV (7.4-10.4) fL Immature Gran % (Auto) % Neut % (Auto) % Lymph % (Auto) % Collin % (Auto) % Eos % (Auto) % Baso % (Auto) % Neut # (Auto) (1.4-6.5) K/uL Lymph # (Auto) (1.2-3.4) K/uL [place]lin # (Auto) (0.11-0.59) K/uL Eos # (Auto) (0-0.5) K/uL Baso # (Auto) (0-0.2) K/uL Immature Gran # (Auto) (0.00-0.02) K/uL PT 19.7 H (9.0-12.0) Seconds INR 2.1 H (0.9-1.1) Sodium (136-145) mmol/L Potassium (3.5-5.1) mmol/L Chloride (98-107) mmol/L Carbon Dioxide (21-32) mmol/L Anion Gap (3-11) BUN (7-18) mg/dl Creatinine (0.6-1.4) mg/dl Est Cr Clr Drug Dosing ml/min Est GFR ( Amer) ml/min Est GFR (Non-Af Amer) ml/min BUN/Creatinine Ratio (10-20) Glucose (70-99) mg/dl Lactate 0.9 (0.4-2.0) mmol/L Calcium (8.5-10.1) mg/dl Magnesium (1.8-2.4) mg/dl Total Bilirubin (0.2-1) mg/dl AST (15-37) U/L ALT (12-78) U/L Alkaline Phosphatase (45-117) U/L Troponin I (0-0.045) ng/ml Total Protein (6.4-8.2) gm/dl Albumin (3.4-5.0) gm/dl Globulin (2.5-4.0) gm/dl Albumin/Globulin Ratio (0.9-2) Lipase (73-393) U/L Urine Color Urine Appearance (Clear) Urine pH (4.5-7.5) Ur Specific [place] (1.000-1.030) Urine Protein (Negative) Urine Glucose (UA) (Negative) Urine Ketones (Negative) Urine Blood (Negative) Urine Nitrite (Negative) Urine Bilirubin (Negative) Urine Urobilinogen (Negative) Ur Leukocyte Esterase (Negative) COVID-19 Eval Order SARS-CoV-2 (PCR) NEGATIVE (Negative) 11/06/20 11/06/20 11/06/20 Range/Units 19:23 18:59 18:59 WBC 7.05 (4.8-10.8) K/uL RBC 5.11 (4.7-6.1) M/uL Hgb 14.7 (14.0-18.0) g/dL Hct 45.7 (42-52) % MCV 89.4 (80-100) fL MCH 28.8 (25-34) pg MCHC 32.2 (32-36) g/dL RDW Std Deviation 47.0 H (36.4-46.3) fL RDW Coeff of Dmitri 14.4 (11.5-14.5) % Plt Count 201 (130-400) K/uL MPV 10.5 H (7.4-10.4) fL Immature Gran % (Auto) 0.1 % Neut % (Auto) 68.5 % Lymph % (Auto) 22.3 % Collin % (Auto) 6.7 % Eos % (Auto) 2.3 % Baso % (Auto) 0.1 % Neut # (Auto) 4.83 (1.4-6.5) K/uL Lymph # (Auto) 1.57 (1.2-3.4) K/uL Collin # (Auto) 0.47 (0.11-0.59) K/uL Eos # (Auto) 0.16 (0-0.5) K/uL Baso # (Auto) 0.01 (0-0.2) K/uL Immature Gran # (Auto) 0.01 (0.00-0.02) K/uL PT 19.2 H (9.0-12.0) Seconds INR 2.0 H (0.9-1.1) Sodium (136-145) mmol/L Potassium (3.5-5.1) mmol/L Chloride (98-107) mmol/L Carbon Dioxide (21-32) mmol/L Anion Gap (3-11) BUN (7-18) mg/dl Creatinine (0.6-1.4) mg/dl Est Cr Clr Drug Dosing ml/min Est GFR ( Amer) ml/min Est GFR (Non-Af Amer) ml/min BUN/Creatinine Ratio (10-20) Glucose (70-99) mg/dl Lactate (0.4-2.0) mmol/L Calcium (8.5-10.1) mg/dl Magnesium (1.8-2.4) mg/dl Total Bilirubin (0.2-1) mg/dl AST (15-37) U/L ALT (12-78) U/L Alkaline Phosphatase (45-117) U/L Troponin I (0-0.045) ng/ml Total Protein (6.4-8.2) gm/dl Albumin (3.4-5.0) gm/dl Globulin (2.5-4.0) gm/dl Albumin/Globulin Ratio (0.9-2) Lipase (73-393) U/L Urine Color Urine Appearance (Clear) Urine pH (4.5-7.5) Ur Specific [place] (1.000-1.030) Urine Protein (Negative) Urine Glucose (UA) (Negative) Urine Ketones (Negative) Urine Blood (Negative) Urine Nitrite (Negative) Urine Bilirubin (Negative) Urine Urobilinogen (Negative) Ur Leukocyte Esterase (Negative) COVID-19 Eval Order Covid19 at [facility] SARS-CoV-2 (PCR) (Negative) 11/06/20 Range/Units 18:18 WBC (4.8-10.8) K/uL RBC (4.7-6.1) M/uL Hgb (14.0-18.0) g/dL Hct (42-52) % MCV (80-100) fL MCH (25-34) pg MCHC (32-36) g/dL RDW Std Deviation (36.4-46.3) fL RDW Coeff of Dmitri (11.5-14.5) % Plt Count (130-400) K/uL MPV (7.4-10.4) fL Immature Gran % (Auto) % Neut % (Auto) % Lymph % (Auto) % [place]lin % (Auto) % Eos % (Auto) % Baso % (Auto) % Neut # (Auto) (1.4-6.5) K/uL Lymph # (Auto) (1.2-3.4) K/uL [place]lin # (Auto) (0.11-0.59) K/uL Eos # (Auto) (0-0.5) K/uL Baso # (Auto) (0-0.2) K/uL Immature Gran # (Auto) (0.00-0.02) K/uL PT (9.0-12.0) Seconds INR (0.9-1.1) Sodium 142 (136-145) mmol/L Potassium 3.9 (3.5-5.1) mmol/L Chloride 109 H (98-107) mmol/L Carbon Dioxide 28 (21-32) mmol/L Anion Gap 5.0 (3-11) BUN 16 (7-18) mg/dl Creatinine 0.87 (0.6-1.4) mg/dl Est Cr Clr Drug Dosing 62.2 ml/min Est GFR ( Amer) 92.5 ml/min Est GFR (Non-Af Amer) 79.8 ml/min BUN/Creatinine Ratio 18.7 (10-20) Glucose 93 (70-99) mg/dl Lactate (0.4-2.0) mmol/L Calcium 8.5 (8.5-10.1) mg/dl Magnesium (1.8-2.4) mg/dl Total Bilirubin 0.5 (0.2-1) mg/dl AST 25 (15-37) U/L ALT 23 (12-78) U/L Alkaline Phosphatase 88 (45-117) U/L Troponin I < 0.015 (0-0.045) ng/ml Total Protein 7.3 (6.4-8.2) gm/dl Albumin 3.7 (3.4-5.0) gm/dl Globulin 3.6 (2.5-4.0) gm/dl Albumin/Globulin Ratio 1.0 (0.9-2) Lipase 128 (73-393) U/L Urine Color Urine Appearance (Clear) Urine pH (4.5-7.5) Ur Specific [place] (1.000-1.030) Urine Protein (Negative) Urine Glucose (UA) (Negative) Urine Ketones (Negative) Urine Blood (Negative) Urine Nitrite (Negative) Urine Bilirubin (Negative) Urine Urobilinogen (Negative) Ur Leukocyte Esterase (Negative) COVID-19 Eval Order SARS-CoV-2 (PCR) (Negative) Medications Administered Current Inpatient Medications Acetaminophen (Acetaminophen 325 Mg Tab) 650 mg PO Q4H PRN PRN Reason: pain/fever Stop: 12/06/20 23:38 Hydromorphone HCl (Hydromorphone Inj 0.5 Mg/0.5 Ml Syr) 0.5 mg IV Q3H PRN PRN Reason: Pain Stop: 11/20/20 23:38 Pantoprazole Sodium 40 mg/ (Syringe) 10 mls @ 5 mls/min IV BID RAI Stop: 12/07/20 00:00 Last Admin: 11/06/20 23:56 Dose: 5 mls/min Documented by: Dextrose/Sodium Chloride (D5w And Nss) 1,000 mls @ 100 mls/hr IV .Q10H RAI Stop: 12/06/20 23:38 Last Admin: 11/06/20 23:56 Dose: 100 mls/hr Documented by: Lisinopril (Lisinopril 20 Mg Tab) 20 mg PO DAILY RAI Stop: 12/07/20 08:59 Meclizine HCl (Meclizine Hcl 25 Mg Tab) 25 mg PO TID PRN PRN Reason: dizziness Stop: 12/06/20 23:41 Miscellaneous (Apriso: Order Awaiting Action) 1 ea N/A QS RAI Stop: 12/07/20 00:00 Last Admin: 11/07/20 00:02 Dose: Not Given Documented by: Ondansetron HCl (Ondansetron Inj 2 Mg/Ml 2 Ml Vial) 4 mg IV Q6H PRN PRN Reason: Nausea Stop: 12/06/20 23:38 (1) Abdominal pain Abdominal location: upper abdomen, unspecified Qualified Code(s): R10.10 - Upper abdominal pain, unspecified (2) Ulcerative colitis Digestive disease complication type: without complication Ulcerative colitis location: unspecified ulcerative colitis location Qualified Code(s): K51.90 - Ulcerative colitis, unspecified, without complications
[2020-11-07] MEDS: lisinopril 20 MG TAB PO SCH (08:49)
[2020-11-07] MEDS: PANTOprazole 40 MG in SYRINGE 0 ML IV SCH ×2 (08:49→19:49)
--- NOTE | 2020-11-07 09:08 | Gastrointestinal Consultation ---
Date of Consultation November 07, 2020 Assessment & Plan (1) Abdominal pain: 85 year old male admitted w/ acute onset upper abd pain w/o nausea/vomiting or diarrhea. He does note that he had some black stools about 1 week ago but this has since resolved. No acute findings on CT but it does questi on chronic inflammation, he has known history of UC. Would treat conservatively Clear liquids for bowel rest then advance as tolerated GERD dietary and lifestyle changes ETOH and smoking cessation Analgesia PRN Antiemetics PRN IV PPI BID x 48 hours then PO PPI BID Continue home mesalamine OP EGD/Colonoscopy to be scheduled Recall with any questions. Thank you for allowing us to participate in the care of this patient. Please call with any acute changes, questions or concerns. Please see addendum below with additional recommendation from my supervising physician. Supervising Physician Co-Signing Physician Notes I performed a history and physical examination of the patient today, including specifically on physical exam - soft abdomen. I have discussed the patient's management with the advanced practitioner. Please refer to the nurse practitioner's note for the documented findings and plan of care. Pain resolved. CT unremarkable for acute pathology. EGD/colonoscopy as OP. PO PPI. Recall GI if needed. History of Present Illness Reason for Consultation: abd pain Requesting Physician: Mansi Attending Physician: Pete Nazario MD History of Present Illness 85 year old male with history of factor V, afib, UC, GERD, Barretts admitted through the ED with abd pain - GI asked to evaluate. Pt was seen and evaluated, chart reviewed. He is extremely hard of hearing, history is limited. He notes abd pain, acute onset yesterday. This was after PO. abd pain is midline, epigastric in location. Sharp, severe, stabbing. no associated symptoms. Denies nausea/vomiting. About 1 week before the pain he did notice some dark, brown/black stools. No black or bloody stools since per pt. The EMR does suggests some blood tinged stool last evening. Denies weight loss. no fever, chills, CP, SOB. CTAP 2020: . Submucosal fat deposition within the colon suggests a chronic inflammatory process. Prominent pericolonic vessels. These findings suggest colitis. Although age indeterminate, the findings are probably chronic. No definite acute inflammation. No bowel obstruction.Moderate sized hiatal hernia. CTAP 2020: . No evidence of bowel obstruction. No evidence of free airModerate hiatal hernia with a paraesophageal component No evidence of acute diverticulitis ProstatomegalySubmucosal fat deposition within the colon, a finding suggestive of chronic inflammatory bowel disease. EUS 2017: - Normal ampulla. - Evidence of a cholecystectomy. - Normal common bile duct. - There was no evidence of significant pathology in the left lobe of the liver. - There was no sign of significant pathology in the entire pancreas. - Endosonographic images of the left adrenal gland were unremarkable. - One benign appearing lymph node was visualized and measured in the subcarinal mediastinum EGD 2017: Discolored mucosa in the esophagus. 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 Biopsied.-Normal stomach. Biopsied.-Normal examined duodenum. Biopsied. EGD 2014: Tortuous esophagus. - 8 cm Hiatus hernia. 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 Biopsied at 30, 28 and 27 cm. - Normal gastric body, incisura and antrum. - Normal duodenal bulb and 2nd part of the duodenum. Colonoscopy 2018: Hemorrhoids found on digital rectal exam. - The examined portion of the ileum was normal. - Normal mucosa in the mid transverse colon, in the ascending colon and in the cecum. Biopsied. - Ulcerative colitis. Inflammation was found from the rectum to the mid-transverse colon. This was mild in severity. The findings are unchanged compared to previous examinations. Fluid aspiration performed. Biopsied. - Internal hemorrhoids. - Mild diverticulosis in the sigmoid colon. - The examination was otherwise normal. Allergies Allergy/AdvReac Type Severity Reaction Status Date / Time red dye Allergy Unknown SEVERE Unverified 11/01/20 11:15 MIGRAINES aspirin AdvReac Mild UPSETS Verified 11/01/20 11:15 STOMACH codeine AdvReac Mild "JUST Verified 11/01/20 11:15 DON'T SEEM TO AGREE WITH ME" Unclassified Drugs Allergy Unknown STEROIDS-FACIAL Uncoded 11/01/20 11:15 SWELLING,EXTREMITIES Home Medications Medication Instructions Recorded Confirmed Type omeprazole 20 mg PO DAILY 03/15/18 11/06/20 History mesalamine [Apriso] 0.75 g PO BID 07/21/19 11/06/20 History warfarin 5 mg PO [id number] 07/21/19 11/06/20 History warfarin 10 mg PO WK 07/21/19 11/06/20 History meclizine 25 mg PO TID PRN #14 tab 11/01/20 11/06/20 Rx ondansetron 4 mg PO Q6H PRN #14 tab 11/01/20 11/06/20 Rx lisinopril 20 mg PO DAILY 11/06/20 11/06/20 History Patient History Medical History Appendicitis Barretts esophagus "EGD 07/29/2014-shows Barretts Esophagus with no CA; follows with GI, Dr. José Luis Richards" Factor V Leiden "on chronic anticoagulation" Gastro-esophageal reflux disease with esophagitis History of DVT (deep vein thrombosis) Ulcerative colitis Surgical History H/O colonoscopy H/O esophagogastroduodenoscopy Family History Other Family history non-contributory Social History Smoking Status: Former smoker Tobacco Type: Cigarettes Cigarettes Per Day: "alot"; Second Hand Exposure: No; Do You Dip or Chew Tobacco: No; Hx Alcohol Use: Yes Alcohol type: wine Alcohol type Comment: "enough" Hx Substance Use: No Preferred Language: Urugu[place] Communication Ability: Impaired Controller Repairer And Tester Required: No Beliefs That Will Affect Care: None marital status: Current Living Situation: Spouse Other Information That Helps Us Care for You: No Feels Safe at Home: Yes Safety Concerns: Feels Safe At This Time Assistive Devices: Denture - Upper Review of Systems Review of Systems: All systems reviewed & are unremarkable except as noted in HPI & below Physical Exam Constitutional: well developed and well nourished; no acute distress and not ill appearing Neck: trachea midline, no thyromegaly Respiratory: normal respiratory effort, lungs clear to auscultation Cardiovascular: RRR, no murmur, no edema Gastrointestinal (Abdomen): normal bowel sounds, soft, nontender, no hepatosplenomegaly Skin: no rashes, warm and dry Results & Data ([facility]) Vital Signs (Past 12 Hours) Vital Signs Temp Pulse Pulse Resp BP BP Pulse Ox 11/07/20 06:10 36.6 C 57 L 18 145/79 H 96 11/06/20 23:20 36.7 C 59 L 16 179/98 H 97 11/06/20 22:30 58 L 15 138/81 95 11/06/20 22:00 62 20 156/87 H 96 11/06/20 21:30 66 16 145/84 H 95 Laboratory Results 11/07/20 11/07/20 11/07/20 Range/Units 06:05 05:28 05:28 WBC 4.71 L (4.8-10.8) K/uL RBC 4.39 L (4.7-6.1) M/uL Hgb 12.8 L (14.0-18.0) g/dL Hct 40.1 L (42-52) % MCV 91.3 (80-100) fL MCH 29.2 (25-34) pg MCHC 31.9 L (32-36) g/dL RDW Std Deviation 49.3 H (36.4-46.3) fL RDW Coeff of Dmitri 14.6 H (11.5-14.5) % Plt Count 168 (130-400) K/uL MPV 10.3 (7.4-10.4) fL Immature Gran % (Auto) 0.0 % Neut % (Auto) 57.3 % Lymph % (Auto) 30.8 % Hardeman % (Auto) 8.5 % Eos % (Auto) 3.2 % Baso % (Auto) 0.2 % Neut # (Auto) 2.70 (1.4-6.5) K/uL Lymph # (Auto) 1.45 (1.2-3.4) K/uL Hardeman # (Auto) 0.40 (0.11-0.59) K/uL Eos # (Auto) 0.15 (0-0.5) K/uL Baso # (Auto) 0.01 (0-0.2) K/uL Immature Gran # (Auto) 0.00 (0.00-0.02) K/uL PT (9.0-12.0) Seconds INR (0.9-1.1) Sodium 144 (136-145) mmol/L Potassium 3.6 (3.5-5.1) mmol/L Chloride 112 H (98-107) mmol/L Carbon Dioxide 29 (21-32) mmol/L Anion Gap 3.0 (3-11) BUN 18 (7-18) mg/dl Creatinine 0.67 (0.6-1.4) mg/dl Est Cr Clr Drug Dosing 80.8 ml/min Est GFR ( Amer) 103.0 ml/min Est GFR (Non-Af Amer) 88.9 ml/min BUN/Creatinine Ratio 26.0 H (10-20) Glucose 81 (70-99) mg/dl Lactate (0.4-2.0) mmol/L Calcium 8.0 L (8.5-10.1) mg/dl Magnesium 2.4 (1.8-2.4) mg/dl Total Bilirubin (0.2-1) mg/dl AST (15-37) U/L ALT (12-78) U/L Alkaline Phosphatase (45-117) U/L Troponin I (0-0.045) ng/ml Total Protein (6.4-8.2) gm/dl Albumin (3.4-5.0) gm/dl Globulin (2.5-4.0) gm/dl Albumin/Globulin Ratio (0.9-2) Lipase (73-393) U/L Urine Color Yellow Urine Appearance Clear (Clear) Urine pH 5.5 (4.5-7.5) Ur Specific [place] > 1.045 H (1.000-1.030) Urine Protein Negative (Negative) Urine Glucose (UA) Negative (Negative) Urine Ketones Negative (Negative) Urine Blood Negative (Negative) Urine Nitrite Negative (Negative) Urine Bilirubin Negative (Negative) Urine Urobilinogen Negative (Negative) Ur Leukocyte Esterase Negative (Negative) COVID-19 Eval Order SARS-CoV-2 (PCR) (Negative) 11/07/20 11/06/20 11/06/20 Range/Units 05:28 19:27 19:23 WBC (4.8-10.8) K/uL RBC (4.7-6.1) M/uL Hgb (14.0-18.0) g/dL Hct (42-52) % MCV (80-100) fL MCH (25-34) pg MCHC (32-36) g/dL RDW Std Deviation (36.4-46.3) fL RDW Coeff of Dmitri (11.5-14.5) % Plt Count (130-400) K/uL MPV (7.4-10.4) fL Immature Gran % (Auto) % Neut % (Auto) % Lymph % (Auto) % Hardeman % (Auto) % Eos % (Auto) % Baso % (Auto) % Neut # (Auto) (1.4-6.5) K/uL Lymph # (Auto) (1.2-3.4) K/uL Hardeman # (Auto) (0.11-0.59) K/uL Eos # (Auto) (0-0.5) K/uL Baso # (Auto) (0-0.2) K/uL Immature Gran # (Auto) (0.00-0.02) K/uL PT 19.7 H (9.0-12.0) Seconds INR 2.1 H (0.9-1.1) Sodium (136-145) mmol/L Potassium (3.5-5.1) mmol/L Chloride (98-107) mmol/L Carbon Dioxide (21-32) mmol/L Anion Gap (3-11) BUN (7-18) mg/dl Creatinine (0.6-1.4) mg/dl Est Cr Clr Drug Dosing ml/min Est GFR ( Amer) ml/min Est GFR (Non-Af Amer) ml/min BUN/Creatinine Ratio (10-20) Glucose (70-99) mg/dl Lactate 0.9 (0.4-2.0) mmol/L Calcium (8.5-10.1) mg/dl Magnesium (1.8-2.4) mg/dl Total Bilirubin (0.2-1) mg/dl AST (15-37) U/L ALT (12-78) U/L Alkaline Phosphatase (45-117) U/L Troponin I (0-0.045) ng/ml Total Protein (6.4-8.2) gm/dl Albumin (3.4-5.0) gm/dl Globulin (2.5-4.0) gm/dl Albumin/Globulin Ratio (0.9-2) Lipase (73-393) U/L Urine Color Urine Appearance (Clear) Urine pH (4.5-7.5) Ur Specific [place] (1.000-1.030) Urine Protein (Negative) Urine Glucose (UA) (Negative) Urine Ketones (Negative) Urine Blood (Negative) Urine Nitrite (Negative) Urine Bilirubin (Negative) Urine Urobilinogen (Negative) Ur Leukocyte Esterase (Negative) COVID-19 Eval Order SARS-CoV-2 (PCR) NEGATIVE (Negative) 11/06/20 11/06/20 11/06/20 Range/Units 19:23 18:59 18:59 WBC 7.05 (4.8-10.8) K/uL RBC 5.11 (4.7-6.1) M/uL Hgb 14.7 (14.0-18.0) g/dL Hct 45.7 (42-52) % MCV 89.4 (80-100) fL MCH 28.8 (25-34) pg MCHC 32.2 (32-36) g/dL RDW Std Deviation 47.0 H (36.4-46.3) fL RDW Coeff of Dmitri 14.4 (11.5-14.5) % Plt Count 201 (130-400) K/uL MPV 10.5 H (7.4-10.4) fL Immature Gran % (Auto) 0.1 % Neut % (Auto) 68.5 % Lymph % (Auto) 22.3 % Hardeman % (Auto) 6.7 % Eos % (Auto) 2.3 % Baso % (Auto) 0.1 % Neut # (Auto) 4.83 (1.4-6.5) K/uL Lymph # (Auto) 1.57 (1.2-3.4) K/uL Hardeman # (Auto) 0.47 (0.11-0.59) K/uL Eos # (Auto) 0.16 (0-0.5) K/uL Baso # (Auto) 0.01 (0-0.2) K/uL Immature Gran # (Auto) 0.01 (0.00-0.02) K/uL PT 19.2 H (9.0-12.0) Seconds INR 2.0 H (0.9-1.1) Sodium (136-145) mmol/L Potassium (3.5-5.1) mmol/L Chloride (98-107) mmol/L Carbon Dioxide (21-32) mmol/L Anion Gap (3-11) BUN (7-18) mg/dl Creatinine (0.6-1.4) mg/dl Est Cr Clr Drug Dosing ml/min Est GFR ( Amer) ml/min Est GFR (Non-Af Amer) ml/min BUN/Creatinine Ratio (10-20) Glucose (70-99) mg/dl Lactate (0.4-2.0) mmol/L Calcium (8.5-10.1) mg/dl Magnesium (1.8-2.4) mg/dl Total Bilirubin (0.2-1) mg/dl AST (15-37) U/L ALT (12-78) U/L Alkaline Phosphatase (45-117) U/L Troponin I (0-0.045) ng/ml Total Protein (6.4-8.2) gm/dl Albumin (3.4-5.0) gm/dl Globulin (2.5-4.0) gm/dl Albumin/Globulin Ratio (0.9-2) Lipase (73-393) U/L Urine Color Urine Appearance (Clear) Urine pH (4.5-7.5) Ur Specific [place] (1.000-1.030) Urine Protein (Negative) Urine Glucose (UA) (Negative) Urine Ketones (Negative) Urine Blood (Negative) Urine Nitrite (Negative) Urine Bilirubin (Negative) Urine Urobilinogen (Negative) Ur Leukocyte Esterase (Negative) COVID-19 Eval Order Cov[facility]19 at [facility] SARS-CoV-2 (PCR) (Negative) 11/06/20 Range/Units 18:18 WBC (4.8-10.8) K/uL RBC (4.7-6.1) M/uL Hgb (14.0-18.0) g/dL Hct (42-52) % MCV (80-100) fL MCH (25-34) pg MCHC (32-36) g/dL RDW Std Deviation (36.4-46.3) fL RDW Coeff of Dmitri (11.5-14.5) % Plt Count (130-400) K/uL MPV (7.4-10.4) fL Immature Gran % (Auto) % Neut % (Auto) % Lymph % (Auto) % Hardeman % (Auto) % Eos % (Auto) % Baso % (Auto) % Neut # (Auto) (1.4-6.5) K/uL Lymph # (Auto) (1.2-3.4) K/uL [place]eman # (Auto) (0.11-0.59) K/uL Eos # (Auto) (0-0.5) K/uL Baso # (Auto) (0-0.2) K/uL Immature Gran # (Auto) (0.00-0.02) K/uL PT (9.0-12.0) Seconds INR (0.9-1.1) Sodium 142 (136-145) mmol/L Potassium 3.9 (3.5-5.1) mmol/L Chloride 109 H (98-107) mmol/L Carbon Dioxide 28 (21-32) mmol/L Anion Gap 5.0 (3-11) BUN 16 (7-18) mg/dl Creatinine 0.87 (0.6-1.4) mg/dl Est Cr Clr Drug Dosing 62.2 ml/min Est GFR ( Amer) 92.5 ml/min Est GFR (Non-Af Amer) 79.8 ml/min BUN/Creatinine Ratio 18.7 (10-20) Glucose 93 (70-99) mg/dl Lactate (0.4-2.0) mmol/L Calcium 8.5 (8.5-10.1) mg/dl Magnesium (1.8-2.4) mg/dl Total Bilirubin 0.5 (0.2-1) mg/dl AST 25 (15-37) U/L ALT 23 (12-78) U/L Alkaline Phosphatase 88 (45-117) U/L Troponin I < 0.015 (0-0.045) ng/ml Total Protein 7.3 (6.4-8.2) gm/dl Albumin 3.7 (3.4-5.0) gm/dl Globulin 3.6 (2.5-4.0) gm/dl Albumin/Globulin Ratio 1.0 (0.9-2) Lipase 128 (73-393) U/L Urine Color Urine Appearance (Clear) Urine pH (4.5-7.5) Ur Specific [place] (1.000-1.030) Urine Protein (Negative) Urine Glucose (UA) (Negative) Urine Ketones (Negative) Urine Blood (Negative) Urine Nitrite (Negative) Urine Bilirubin (Negative) Urine Urobilinogen (Negative) Ur Leukocyte Esterase (Negative) COVID-19 Eval Order SARS-CoV-2 (PCR) (Negative) (1) Abdominal pain Abdominal location: upper abdomen, unspecified Qualified Code(s): R10.10 - Upper abdominal pain, unspecified
[2020-11-07] MEDS: D5W AND NSS 1,000 ML IV SCH ×2 (10:02→19:50)
[2020-11-07] MEDS: MESALAMINE PO SCH ×2 (14:58→19:49)
--- NOTE | 2020-11-07 15:56 | Communication Note ---
Date of Service: November 07, 2020 Nahid Wynn is an 85-year-old man who was admitted to the hospital last night for severe abdominal pain and also complained of neck pain which has been chronic headache which is also some degree of chronic and continued vertigo which sounds very much like benign positional vertigo has been present for perhaps several weeks and for which she was assessed in our emergency room fairly extensively about a week ago with MRI scan of the brain showing no evidence for an acoustic neuroma or cerebrovascular accident, CT angiography which revealed some mild stenosis of vertebral artery but nothing else of significance and he was also seen in follow-up by his primary care physician was told to drink extra fluids as this was part of the diagnostic impression (dehydration) and who now continues to have very short duration head position change induced vertigo which I think is reducing in frequency but still is present. He is able to compensate for it he knows how to precipitate it he cannot predict its occurrence and its more more annoyance than anything else at this time This is a reason we are asked to see him in neurologic consultation As an outpatient he has not been seen by ear nose and throat nor evaluated by vestibular therapy His other problems are outlined very well include chronic atrial fibrillation, factor V Leiden deficiency, chronic Coumadin therapy, sensorineural hearing loss of chronic type, ulcerative colitis, Canales's esophagus, chronic recurrent abdominal pain with rectal bleeding, history of appendicitis, and a history of endoscopy colonoscopy hypokalemia Medications at home include lisinopril, meclizine 25 mg 3 times a day as needed which has not really helped the vertigo nor will it in this particular situation (meclizine has very little effect on benign positional vertigo) mesalamine, omeprazole, Zofran, Coumadin, His allergies to red dye aspirin codeine Family history and social history are as recorded on other provider notes Systems review is positive only for the abdominal pain the vertigo and neck pain which is chronic and low-grade headaches probably are cervicogenic and otherwise reveals no's significant recent systemic illnesses no issues referable to HEENT other than the vertigo, no cardiovascular pulmonary gastrointestinal genitourinary musculoskeletal dermatologic or hematologic issues other than those related to his chronic illnesses On exam blood pressure 147/86 pulse is 57 respirations are 16 he is awake alert oriented 3 spheres with very hearing impaired Cranial nerve examination is normal terms of revealing no extraocular dysmotility visual field loss facial weakness loss of facial sensation dysarthric speech I can induce brief duration vertigo by lateral movements of the head and to some degree by vertical movements but horizontal movements seem to be most likely to reproduce his symptoms. Unfortunately he cannot really tolerate a lot of this because of his cervicogenic issues with a lot of pain with even mild head rotation I see no tremors tics or choreiform activity drift or pronation sign Reflexes 1+ symmetrical toes are downgoing no Mckinnon signs are seen Strength testing is normal and sensation is grossly intact I believe this vertigo is of the benign positional type. The history certainly supports this. He has had an evaluation including CT angiography and MR I imaging that exclude significant structural disease in the posterior fossa or significant vertebrobasilar ischemia At this point I would recommend physical therapy evaluation for potential Blake maneuver and vestibular exercises but he needs to be recognized that this man has very significant neck discomfort may not be able to fully participate in inpatient or outpatient therapy I understand he is going to be kept here for observation so I will suggest a physical therapy evaluation be scheduled although not sure this is going to be a possible on the weekend I do note that we have no records at least in our hospital system of any cervical spine imaging and since this is a major concern of the patient I wonder if an MRI of the cervical spine might not be a reasonable thing to do if he is going to be here for the next few days just to be sure there is no underlying spinal instability. I'll let this decision up to Roselia as well I am going to communicate my feelings to his hospitalist Dr. Veloz I do not see any further role for neurology in this case but will drop by periodically over the weekend see how he is doing or at least will make chart review rounds Mckinley Ramos MD
[2020-11-07] MEDS ORDERED: WARFARIN SOD 5 MG TAB PO STA (17:24)
--- NOTE | 2020-11-07 19:49 | Magnetic Resonance Report ---
MRI OF THE CERVICAL SPINE WITHOUT CONTRAST CLINICAL HISTORY: neck pain, dizziness/ eval for spinal instability COMPARISON: CT of the neck November 01, 2020. TECHNIQUE: Utilizing a 1.5 Karen magnet and dedicated coil, multiplanar, multiecho imaging of the ce rvical spine was performed without IV contrast. FINDINGS: Alignment of the cervical spine is anatomic. Vertebral body heights are maintained. Cervical cord sig nal and caliber are normal. There is no intracanalicular mass or fluid collection. There is no eviden ce for fracture. There is no suspicious marrow replacement. C2-C3: The central canal and neural foramen are patent. C3-C4: There is disc space narrowing. Posterior disc osteophyte complex contacts the ventral aspect of the cord. There is mild to moderate central canal stenosis. Mild right and severe left neural fora kyler stenosis is present. C4-C5: There is disc space narrowing. Posterior disc osteophyte complex is noted with ligamentous hy pertrophy. There is moderate central canal stenosis. There is severe bilateral neural foraminal steno sis. C5-C6: There is disc space narrowing with posterior disc osteophyte complex. There is moderate centr al canal stenosis. Severe bilateral neural foraminal stenosis is present. C6-C7: The central canal is patent. There is moderate bilateral neural foraminal stenosis. C7-T1: The central canal is patent. Neural foramen are patent. IMPRESSION: 1. No cervical spine fracture. No suspicious marrow replacement. 2. 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 Mild to moderate central canal stenosis at C3-C4. 3. Severe multilevel neural foraminal stenosis, as detailed above. ACT 112: Negative or not required by law. Electronically signed by: Jomar Hannah M.D. 11/07/2020 7:48 PM
--- NOTE | 2020-11-07 23:24 | Electrocardiogram Report ---
Test Reason : Blood Pressure : / mmHG Vent. Rate : 066 BPM Atrial Rate : 066 BPM P-R Int : 196 ms QRS Dur : 082 ms QT Int : 394 ms P-R-T Axes : 038 -07 027 degrees QTc Int : 413 ms Normal sinus rhythm Normal ECG When compared with ECG of 01-NOV-2020 09:03, No significant change was found Confirmed by Camden Alexander ([id number]) on 11/07/2020 11:24:02 PM Referred By: REFERRED SELF Confirmed By:Camden Alexander
[2020-11-08] MEDS: D5W AND NSS 1,000 ML IV SCH (05:28)
--- NOTE | 2020-11-08 08:00 | Hospitalist Progress Note ---
Date of Service November 08, 2020 Assessment & Plan (1) Abdominal pain: (2) Ulcerative colitis: (3) Barretts esophagus: This is an 85-year-old male who presents with abdominal pain. 1. Abdominal pain in the epigastric region: Mostly possible gastritis, improved with the famotidine in the ER. Continued with IV Protonix since admission n.p.o. on admission, tolerates clear liquids, interested in advancing diet, pain now resolved Consulted GI - cont. PO PPI BID, outpt EGD/ colonoscopy 2. History of ulcerative colitis: Continue his mesalamine. 3. History of atrial fibrillation: Rate is under control, on Coumadin. INR is 2 currently. Holding Coumadin on admission for any poss. procedure. 4. History of DVT and factor V Leiden deficiency. INR is 2. Cont. coumadin. Follow the PT/INR. (4) Vertigo: Recent ER visit CTA head and neck showed moderate stenosis at the origin of right vertebral artery, and moderate to severe multifocal stenoses, most pronounced within the b/l posterior cerebral arteries. 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 Also recommend cervical MRI to rule out spinal instability. For above mentioned arterial stenoses, patient is already on Coumadin, to continue. Obtained cervical MRI -no cervical spine fracture no suspicious marrow replacement. 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 Mild to moderate central canal stenosis at C3-C4. Severe multilevel neural foraminal stenosis, as detailed in full report. Discussed the findings of MRI with the patient, who reports that he is well aware, he had cervical spine issues for years, in early 90s he was evaluated and was supposed to undergo surgery at [facility]. Patient says that the surgeon decided not to operate at the last minute. He is very careful about his neck and at this moment does not wish to proceed with any surgical evaluation. Discussed that if that would change, any spine surgeon can now access his MRI for further consultation and recommendations. He is in full understanding and agreement. Dizziness is minimal at this time, and not very bothersome. Patient is interested in going home. DVT prophylaxis: on coumadin Admission and Anticipated Discharge Date Admission Date: November 06, 2020 Subjective Patient seen in follow-up of abdominal pain, dizziness, neck pain Patient presented with abdominal pain on current admission, however had dizziness and presented in the ED on November 01 His dizziness and abdominal discomfort is now much improved. Patient tolerated clear liquid diet, and would like to advance his diet, he is inquiring about going home. His dizziness is minimal, after discussing with neurology, Blake maneuvers, patient very hesitant about maneuvers due to chronic neck issues. Currently he is sitting up in bed, in no acute distress, his is at the bedside, helps with communication as patient has difficulty hearing Patient denies any chest pain or shortness of breath He was seen by GI yesterday, recommend PPI, this was discussed in detail with patient and Review of Systems Review of Systems: All systems reviewed & are unremarkable except as noted in HPI & below Constitutional: no fever and no chills Respiratory: no cough and no dyspnea Cardiovascular: no chest pain and no palpitations Gastrointestinal: no abdominal pain, no nausea and no vomiting Physical Exam Physical Exam: GENERAL: The patient is of moderate build, not in acute distress. HEENT: NC, EOMI, Pupils equal, round, and reactive to light. Oral mucosa moist. NECK: No JVD. No neck masses. CARDIOVASCULAR: S1, S2 heard, regular rate and rhythm, no murmur, no gallop. RESPIRATORY: Normal AP diameter. No accessory muscle use. CTAB No wheezing, rhonchi or crackles. ABDOMEN: Soft, bowel sounds present. No distention. No tenderness to palpation. NEURO: alert and oriented x3, speech fluent, no facial asymmetry, very hard of hearing, Cranial nerves II-XII are grossly intact. Moves extremities. EXTREMITIES: No edema, no erythema. Results & Data Results & Data ([facility]) Vital Signs (Past 12 Hours) Vital Signs Temp Pulse Resp BP Pulse Ox 11/08/20 07:26 36.9 C 57 L 16 152/73 H 97 11/07/20 22:32 37.2 C 56 L 16 156/87 H 97 Laboratory Results 11/08/20 11/08/20 11/08/20 Range/Units 08:10 08:10 08:10 WBC 4.15 L (4.8-10.8) K/uL RBC 4.75 (4.7-6.1) M/uL Hgb 13.9 L (14.0-18.0) g/dL Hct 43.9 (42-52) % MCV 92.4 (80-100) fL MCH 29.3 (25-34) pg MCHC 31.7 L (32-36) g/dL RDW Std Deviation 49.1 H (36.4-46.3) fL RDW Coeff of Dmitri 14.5 (11.5-14.5) % Plt Count 172 (130-400) K/uL MPV 10.4 (7.4-10.4) fL PT 17.7 H (9.0-12.0) Seconds INR 1.8 H (0.9-1.1) Sodium 143 (136-145) mmol/L Potassium 4.0 (3.5-5.1) mmol/L Chloride 112 H (98-107) mmol/L Carbon Dioxide 29 (21-32) mmol/L Anion Gap 2.0 L (3-11) BUN 9 D (7-18) mg/dl Creatinine 0.69 (0.6-1.4) mg/dl Est Cr Clr Drug Dosing 78.5 ml/min Est GFR ( Amer) 101.8 ml/min Est GFR (Non-Af Amer) 87.8 ml/min BUN/Creatinine Ratio 12.5 (10-20) Glucose 95 (70-99) mg/dl Calcium 8.3 L (8.5-10.1) mg/dl Phosphorus 2.7 (2.5-4.9) mg/dl Magnesium 2.3 (1.8-2.4) mg/dl Medications Administered Current Inpatient Medications Acetaminophen (Acetaminophen 325 Mg Tab) 650 mg PO Q4H PRN PRN Reason: pain/fever Stop: 12/06/20 23:38 Last Admin: 11/07/20 19:50 Dose: 650 mg Documented by: Hydromorphone HCl (Hydromorphone Inj 0.5 Mg/0.5 Ml Syr) 0.5 mg IV Q3H PRN PRN Reason: Pain Stop: 11/20/20 23:38 Pantoprazole Sodium 40 mg/ (Syringe) 10 mls @ 5 mls/min IV BID RAI Stop: 12/07/20 00:00 Last Admin: 11/07/20 19:49 Dose: 5 mls/min Documented by: Dextrose/Sodium Chloride (D5w And Nss) 1,000 mls @ 100 mls/hr IV .Q10H RAI Stop: 12/06/20 23:38 Last Admin: 11/08/20 05:28 Dose: 100 mls/hr Documented by: Lisinopril (Lisinopril 20 Mg Tab) 20 mg PO DAILY RAI Stop: 12/07/20 08:59 Last Admin: 11/07/20 08:49 Dose: 20 mg Documented by: Meclizine HCl (Meclizine Hcl 25 Mg Tab) 25 mg PO TID PRN PRN Reason: dizziness Stop: 12/06/20 23:41 Last Admin: 11/07/20 09:58 Dose: 25 mg Documented by: Mesalamine (Mesalamine Extended-Release 0.375g/Capsule) 2 ea PO BID RAI; Protocol Stop: 12/07/20 12:59 Last Admin: 11/07/20 19:49 Dose: 2 ea Documented by: Ondansetron HCl (Ondansetron Inj 2 Mg/Ml 2 Ml Vial) 4 mg IV Q6H PRN PRN Reason: Nausea Stop: 12/06/20 23:38 (1) Abdominal pain Abdominal location: upper abdomen, unspecified Qualified Code(s): R10.10 - Upper abdominal pain, unspecified (2) Ulcerative colitis Digestive disease complication type: without complication Ulcerative colitis location: unspecified ulcerative colitis location Qualified Code(s): K51.90 - Ulcerative colitis, unspecified, without complications
[2020-11-08 08:22] LABS: Hematocrit (blood only) 43.9 % (42-52); Hemoglobin 13.9 g/dL (14.0-18.0); Mean Corpuscular Hemoglobin 29.3 pg (25-34); Mean Corpuscular Hgb Conc 31.7 g/dL (32-36); Mean Corpuscular Volume 92.4 fL (80-100); Mean Platelet Volume 10.4 fL (7.4-10.4); Platelet Count 172 K/uL (130-400); RDW Coefficient of Variation 14.5 % (11.5-14.5); RDW Standard Deviation 49.1 fL (36.4-46.3); Red Blood Count 4.75 M/uL (4.7-6.1); White Blood Count 4.15 K/uL (4.8-10.8)
[2020-11-08 08:30] LABS: INR 1.8 (0.9-1.1); Prothrombin Time 17.7 Seconds (9.0-12.0)
[2020-11-08] MEDS: lisinopril 20 MG TAB PO SCH (08:33)
[2020-11-08] MEDS: MESALAMINE PO SCH (08:33)
[2020-11-08] MEDS: PANTOprazole 40 MG in SYRINGE 0 ML IV SCH (08:34)
[2020-11-08 08:53] LABS: BUN Creatinine Ratio 12.5 (10-20); Calcium 8.3 mg/dl (8.5-10.1); Creatinine Clr Calc Pharmacy 78.5 ml/min; Est GFR (African American) 101.8 ml/min; Est GFR (Non-African American) 87.8 ml/min; Magnesium 2.3 mg/dl (1.8-2.4); Phosphorus 2.7 mg/dl (2.5-4.9)
--- NOTE | 2020-11-08 11:44 | Communication Note ---
Date of Service: November 08, 2020 I saw Mckinley today exiting from the bathroom and we had a long conversation. He is walking well he still has a little vertigo when he moves his head rapidly f rom side to side but is aware of this and can inhibit these movements most of the time He did have a cervical MRI which shows multilevel degenerative disease but no odontoid instability or other issues of concern and when I mention the option of trying some pain management with injections he was not interested He is off the meclizine which I do not think was helping anyway and may have been contributing to some of the anticholinergic effects and may have even helped precipitate some of the acute abdominal pain and certainly would be something that would sedate him so I think at this point we can stop it and I do not think his vertigo will be changed in its absence His exam remains essentially normal neurologically I see no nystagmus ataxia cerebellar dysmetria or indeed any other concerning neurologic signs and mentally he is quite clear At this point neurology is going to sign off he is going to follow-up with Dr. Maki continue his Coumadin and follow-up with gastroenterology His MR shows no acoustic tumor or significant vascular issues, CT angiographic studies that showed a mild left vertebral artery stenosis and some intracranial atherosclerotic changes in the posterior circulation but at this point since he is already on Coumadin I certainly would not add antiplatelet drugs as a treatment for intracranial small vessel disease is either Coumadin or aspirin but not both as the risk of bleeding is heightened and the benefit is minimal At this point neurology is going to sign off. He does not need to see us in follow-up on outpatient basis and return Mckinley Ramos MD
--- NOTE | 2020-11-08 14:35 | Discharge Summary ---
Date of Service November 08, 2020 Admission HPI Per Admitting Provider This is an 85-year-old male with past medical history significant for paroxysmal atrial fibrillation, venous thrombosis after a long flight, GERD, esophageal varices without bleeding, ulcerative proctitis, ulcerative colitis, Canales's esophagus, history of basal cell carcinoma, sensorineural hearing loss, factor V Leiden deficiency, who presents with severe abdominal pain in the epigastric region that started at 5:30 p.m. after eating half of his dinner. The pain was not resolving and he came to the ER. He says his pain was 10/10 in severity, no radiation. In the ER, he received famotidine, currently pain is improved. He is also having nausea and dizziness that is going for last 3 days. He said he was in the ER on 11/01/2020 with severe dizziness, and nausea. At that time imaging studies were done and was discharged home and today again he has some dizziness and nausea. Three days ago, he said he had a black stool, but that is resolved now, he no longer has black stools. No blood in the stools. Normal bladder movements. No hematuria or burning micturition. No chest pain, no shortness of breath, no cough. Currently has some mild headache, no blurred visions. Hard of hearing. No runny nose, no sore throat, no dysphagia. Appetite is okay. Otherwise, ambulates okay. Currently resting comfortably and hemodynamically stable. Admission Exam Per Admitting Provider GENERAL: The patient is of moderate build, not in acute distress. VITAL SIGNS: Temperature 36.7, pulse 63, respiratory rate 18, blood pressure 154/90, oxygen 94% on room air. HEENT: Pupils equal, round, and reactive to light. Oral mucosa moist. NECK: No JVD. No neck masses. CARDIOVASCULAR: S1, S2 heard, regular rate and rhythm, no murmur, no gallop. RESPIRATORY SYSTEM: Normal AP diameter. No accessory muscle use. No wheezing, no crackles. ABDOMEN: Soft, bowel sounds present. Tenderness in the epigastric region, mild guarding present. No distention. CENTRAL NERVOUS SYSTEM: Cranial nerves II-XII are grossly intact. Nonfocal. EXTREMITIES: No edema, no erythema. Principal Diagnosis Abdominal pain, possibly due to gastritis Vertigo History of ulcerative colitis Discharge Exam GENERAL: The patient is of moderate build, not in acute distress. HEENT: NC, EOMI, Pupils equal, round, and reactive to light. Oral mucosa moist. NECK: No JVD. No neck masses. CARDIOVASCULAR: S1, S2 heard, regular rate and rhythm, no murmur, no gallop. RESPIRATORY: Normal AP diameter. No accessory muscle use. CTAB No wheezing, rhonchi or crackles. ABDOMEN: Soft, bowel sounds present. No distention. No tenderness to palpation. NEURO: alert and oriented x3, speech fluent, no facial asymmetry, very hard of hearing, Cranial nerves II-XII are grossly intact. Moves extremities. EXTREMITIES: No edema, no erythema. Discharge Data Allergies Allergy/AdvReac Type Severity Reaction Status Date / Time red dye Allergy Unknown SEVERE Unverified 11/01/20 11:15 MIGRAINES aspirin AdvReac Mild UPSETS Verified 11/01/20 11:15 STOMACH codeine AdvReac Mild "JUST Verified 11/01/20 11:15 DON'T SEEM TO AGREE WITH ME" Unclassified Drugs Allergy Unknown STEROIDS-FACIAL Uncoded 11/01/20 11:15 SWELLING,EXTREMITIES Consultations 11/06/20 21:06 ED Decision to Admit Stat 11/07/20 08:00 Consult Gastroenterology Routine Consult Neurology Routine Ordered Studies 11/06/20 18:59 CT abd pelvis IV con only Stat IMPRESSION: 1. Submucosal fat deposition within the colon suggests a chronic inflammatory process. Prominent pericolonic vessels. These findings suggest colitis. Although age indeterminate, the findings are probably chronic. No definite acute inflammation. No bowel obstruction. 2. Moderate sized hiatal hernia. 11/06/20 19:13 CT head/brain wo con Stat IMPRESSION: No acute intracranial findings 11/07/20 16:18 MR cervical spine wo con Urgent IMPRESSION: 1. No cervical spine fracture. No suspicious marrow replacement. 2. 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 Mild to moderate central canal stenosis at C3-C4. 3. Severe multilevel neural foraminal stenosis, as detailed in full report. Hospital Course (1) Abdominal pain: (2) Ulcerative colitis: (3) Barretts esophagus: This is an 85-year-old male who presents with abdominal pain. 1. Abdominal pain in the epigastric region: Mostly possible gastritis, improved with the famotidine in the ER. Continued with IV Protonix since admission n.p.o. on admission, tolerates clear liquids, interested in advancing diet, pain now resolved Consulted GI - cont. PO PPI BID, outpt EGD/ colonoscopy 2. History of ulcerative colitis: Continue his mesalamine. 3. History of atrial fibrillation: Rate is under control, on Coumadin. INR is 2 currently. Holding Coumadin on admission for any poss. procedure. 4. History of DVT and factor V Leiden deficiency. INR is 2. Cont. coumadin. Follow the PT/INR. (4) Vertigo: Recent ER visit CTA head and neck showed moderate stenosis at the origin of right vertebral artery, and moderate to severe multifocal stenoses, most pronounced within the b/l posterior cerebral arteries. 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 Also recommend cervical MRI to rule out spinal instability. For above mentioned arterial stenoses, patient is already on Coumadin, to continue. Obtained cervical MRI -no cervical spine fracture no suspicious marrow replacem ent. 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 Mild to moderate central canal stenosis at C3-C4. Severe multilevel neural foraminal stenosis, as detailed in full report. Discussed the findings of MRI with the patient, who reports that he is well aware, he had cervical spine issues for years, in early 90s he was evaluated and was supposed to undergo surgery at [facility]. Patient says that the surgeon decided not to operate at the last minute. He is very careful about his neck and at this moment does not wish to proceed with any surgical evaluation. Discussed that if that would change, any spine surgeon can now access his MRI for further consultation and recommendations. He is in full understanding and agreement. Dizziness is minimal at this time, and not very bothersome. Patient is interested in going home. Total Time Total Time Spent Total Time Spent (In Minutes): 40 Total Time Includes: Examination of the Patient, Discharge Planning, Medication Reconciliation and Communication With Other Providers Discharge Plan Discharge Items Patient Disposition: Home - Self-Care Reason For Visit: abd pain Discharge Diagnosis: Abdominal pain, possibly due to gastritis Vertigo History of ulcerative colitis Activity: Per Instructions section Non-emergency contact: Primary Care Provider and [employer] Web Developer Call non-emergency contact if: you have any medication questions and your symptoms worsen Follow-up/Referrals: Chivo Velez, DO [Primary Care Provider] - Diet: Regular Diet Comment: Recommend to avoid acidic, spicy or caffeinated foods or drinks Addtl Attending Provider Instructions: Follow-up with your primary care doctor and coordinator of rehabilitation services. Take pantoprazole twice a day until advised otherwise by your family doctor or coordinator of rehabilitation services. You may stop taking meclizine as it will likely not help with your type of vertigo. Per coordinator of rehabilitation services, you will need to have outpatient upper endoscopy and colonoscopy. If you wish to undergo consultation regarding your cervical spine in the future, MRI records can be obtained from this hospital at any time. Pending Studies at Discharge: No Stand-Alone Forms: [facility], Smoking Cessation Medications and DC Order Prescriptions: New pantoprazole 40 mg tablet,delayed release (DR/EC) 40 mg PO BID Qty: 60 RF: 0 Continued mesalamine [Apriso] 0.375 gram capsule,extended release 24hr 0.75 g PO BID RF: 0 warfarin 5 mg Tablet 5 mg PO [id number] RF: 0 warfarin 5 mg Tablet 10 mg PO WK RF: 0 ondansetron 4 mg tablet,disintegrating 4 mg PO Q6H PRN (Reason: nausea and vomiting) Qty: 14 RF: 0 lisinopril 20 mg tablet 20 mg PO DAILY RF: 0 Discontinued omeprazole 20 mg Capsule,Delayed Release(Dr/Ec) 20 mg PO DAILY RF: 0 meclizine 25 mg tablet 25 mg PO TID PRN (Reason: dizziness) Qty: 14 RF: 0 Discharge Orders: Discharge Order (Routine); Ordered 11/08/20 Ordered By: Pete Givens/Other Patient Handouts: Vertigo Staying Safe Admission Data Admit Date/Time: 11/06/20 22:11 Attending Provider: Pete Nazario Admit Provider: Jamel Villafana Primary Care Provider: Chivo Velez Other Providers: Jamel Villafana ; José Luis Richards ; Sonia Loza ; Mckinley Ramos ; Sonia Leslie ; Reed Ramírez
[2020-11-08] MEDS ORDERED: WARFARIN SOD 5 MG TAB PO SCH (16:00)
[2020-11-09] MEDS ORDERED: WARFARIN SOD 10 MG TAB PO SCH (16:00)
== END 2020-11-08 15:22 | disposition home or self-care (01) | DRG 392 ==
LOC: ED 18:31 → SUATTDRO 22:11 → 3N 22:11

== ENCOUNTER 2022-02-03 17:36 | Observation (INO) ==
[2022-02-03] MEDS ORDERED: SODIUM CHLORIDE 0.9% 1000ML 1,000 ML IV STA (17:41)
[2022-02-03] MEDS ORDERED: FAMOTIDINE 20MG IV PUSH 20 MG/5 ML SYR IV STA (17:58)
[2022-02-03 18:04] LABS: Basophils # (auto) 0.03 K/uL (0-0.2); Basophils % (auto) 0.4 %; Eosinophils # (auto) 0.22 K/uL (0-0.50); Eosinophils % (auto) 2.9 %; Hematocrit (blood only) 45.3 % (40.1-51.0); Hemoglobin 14.2 g/dl (14.0-18.0); Immature Granulocytes # (auto) 0.01 K/uL (0.00-0.02); Immature Granulocytes % (auto) 0.1 %; Lymphocytes # (auto) 1.65 K/uL (1.2-3.4); Lymphocytes % (auto) 21.9 %; Mean Corpuscular Hemoglobin 28.1 pg (25.0-34.0); Mean Corpuscular Hgb Conc 31.3 g/dL (32.0-36.0); Mean Corpuscular Volume 89.7 fL (80.0-100.0); Mean Platelet Volume 10.1 fL (9.4-12.4); Monocytes % (auto) 6.6 %; Neutrophils # (auto) 5.12 K/uL (1.4-6.5); Neutrophils % (auto) 68.1 %; Platelet Count 182 K/uL (130-400); RDW Standard Deviation 45.6 fL (36.4-46.3); Red Blood Count 5.05 M/uL (4.63-6.08); White Blood Count 7.53 K/ul (4.8-10.8)
[2022-02-03 18:21] LABS: D Dimer 410 ug/L FEU (0-500); INR 1.6 (0.9-1.1); Partial Thromboplastin Ratio 1.2; Partial Thromboplastin Time 32.5 Seconds (21.0-31.0)
[2022-02-03 18:34] LABS: Alanine Aminotransferase 12 U/L (7-52); Albumin Globulin Ratio 1.5 (0.9-2); Albumin Level 4.1 gm/dl (3.4-5.0); Alkaline Phosphatase 80 U/L (34-104); Anion Gap 7 (3-11); Aspartate Aminotransferase 17 U/L (13-39); BUN Creatinine Ratio 26.5 (10-20); Bilirubin,Total 0.7 mg/dl (0.2-1.0); Blood Urea Nitrogen 22 mg/dl (6-23); Calcium 8.8 mg/dl (8.5-10.1); Carbon Dioxide 26 mmol/L (21-32); Chloride 107 mmol/L (98-107); Est GFR (African American) 93.6 ml/min; Est GFR (Non-African American) 80.8 ml/min; Globulin 2.8 gm/dl (2.5-4.0); Glucose 96 mg/dl (70-99(Fasting)); Lipase 17 U/L (11-82); Potassium 3.6 mmol/L (3.5-5.1); Sodium 140 mmol/L (136-145); Total Protein 6.9 gm/dl (6.0-8.3)
[2022-02-03] MEDS ORDERED: MoRPHine SULFATE 2 MG/ML CARP IV PRN ×2 (20:28→23:36)
[2022-02-03] MEDS ORDERED: MoRPHine SULFATE 2 MG/ML CARP IV STA (20:28)
[2022-02-03] MEDS ORDERED: ACETAMINOPHEN 1000 MG/100 ML IV IV STA (20:28)
[2022-02-03] MEDS ORDERED: ONDANSETRON INJ 2 MG/ML 2 ML VIAL IV STA (20:29)
--- NOTE | 2022-02-03 20:33 | Emergency Department Note ---
Impression & Plan Precordial chest pain, Jaw pain, LUQ abdominal pain, Hiatal hernia ED Provider Note NAME: SHAWN ESTRELLA AGE: 86 SEX: M : 1935 ARRIVES VIA: Walk-In INFORMANT: [Patient] ED PROVIDER(S): [Yrn Thomson MD] CHIEF COMPLAINT: Abdominal and chest pain. HISTORY OF PRESENT ILLNESS: The patient is a 86-year-old male who presents with about 3 hours of epigastric and left upper quadrant abdominal pain. The pain really is also at the lower chest. The pain is a 6/10. There is some radiation of pain to the left jaw. The pain began while he was eating, it has been persistent. He does not feel short of breath although, taking a deep breath seems to worsen the pain. He has a bit of nausea. There has been no fever, no cough or congestion. The patient has been in baseline health. He has a history of what sounds like atrial fibrillation and is on Coumadin. He denies having any history of coronary disease. Of note, the patient has had his gallbladder and appendix removed. REVIEW OF SYSTEMS: See HPI for pertinent positives and negatives. A total of ten systems were reviewed and were otherwise negative. PMHx/PSHx: See Below SOCIAL HISTORY: See Below. PHYSICAL EXAM: GENERAL: Patient is in no acute distress. HEENT: No acute trauma, normocephalic atraumatic, mucous membranes moist, no nasal congestion, no scleral icterus. NECK: No stridor, no adenopathy, no meningismus, trachea is midline. LUNGS: Clear to auscultation bilaterally, no wheeze, no rhonchi, breath sounds equal. HEART: Without murmurs gallops or rubs, regular rate and rhythm. ABDOMEN: Soft, moderately tender in the epigastrium and left upper quadrant, no peritonitis. EXTREMITIES: No cyanosis or edema, full range of motion of all the joints without pain or difficulty, no signs for acute trauma. NEUROLOGIC: Oriented x 3, no acute motor or sensory deficits, no focal weakness. SKIN: No rash, no jaundice, no diaphoresis. DIFFERENTIAL DIAGNOSIS: Cardiac ischemia, aortic dissection, pulmonary embolism, pneumothorax, pneumonia, pericarditis, myocarditis, esophageal rupture, GERD, cholecystitis, pancreatitis, bowel obstruction, musculoskeletal, as well as other pathologies. EMERGENCY DEPARTMENT COURSE/PROCEDURES: ECG: Indication was abdominal and chest pain. The ECG shows a sinus bradycardia with a rate of 59. There is no ST elevation, no PVCs. The QTc is 417. Repeat ECG: Indication was chest pain. The ECG shows a sinus bradycardia with a rate of 58. There is no ST elevation, no PVCs. QTC was 416. No change in the ECG compared to the earlier 1 today. Continuous Cardiac Monitoring: An order was placed for continuous cardiac monitoring. The monitor shows a rate of 57 with sinus bradycardia. MEDICAL DECISION MAKING: There is no leukocytosis or concerning anemia. There is a normal platelet count. INR is 1.6, subtherapeutic for someone who uses Coumadin. There was no renal failure or significant electrolyte abnormality. No concerning liver enzyme elevation. No pancreatitis. D-dimer testing was negative. With a negative D-dimer and my low suspicion for PE, I will stop the work-up for this diagnosis. ECG showed a sinus bradycardia, no ischemia. Repeat EKG showed the same findings. Cardiac enzyme testing x2 does not suggest acute cardiac injury. Chest x-ray does not show mediastinal widening, pneumonia or pneumothorax. Abdominal and pelvis CT shows a hiatal hernia, no acute surgical process by CT imaging. On exam, the patient was tender in the epigastrium and left upper quadrant. He complained of lower chest pain and some occasional pain in the left jaw. He also had some left upper quadrant abdominal pain. The patient was given IV Tylenol, IV Pepcid, IV morphine and IV Zofran, he received IV saline. Patient does feel improved but still has some discomfort. At this point, the cause for his complaints is unclear. I do think a hospital stay, further testing, further work-up would be warranted. I did speak with the patient and case management. The on-call hospitalist was consulted. Past Med/Surg History Medical History Appendicitis Barretts esophagus "EGD 07/29/2014-shows Barretts Esophagus with no CA; follows with GI, Dr. José Luis Richards" Factor V Leiden "on chronic anticoagulation" Gastro-esophageal reflux disease with esophagitis History of DVT (deep vein thrombosis) Ulcerative colitis Surgical History H/O colonoscopy H/O esophagogastroduodenoscopy Family History Other Family history non-contributory Social History Smoking Status: Never smoker Tobacco Type: Cigarettes Cigarettes Per Day: "alot"; Second Hand Exposure: No; Hx Alcohol Use: Yes Alcohol type: wine Alcohol type Comment: "enough" Hx Substance Use: No Preferred Language: Malian Communication Ability: Impaired X Ray Nurse Required: No Beliefs That Will Affect Care: None marital status: Current Living Situation: Spouse Feels Safe at Home: Yes Assistive Devices: Hearing Aid - Bilateral Allergies Allergies Allergy/AdvReac Type Severity Reaction Status Date / Time red dye Allergy Severe SEVERE Verified 02/03/22 21:26 MIGRAINES aspirin AdvReac Intermediate UPSETS Verified 02/03/22 21:26 STOMACH codeine AdvReac Intermediate "JUST Verified 02/03/22 21:26 DON'T SEEM TO AGREE WITH ME" Unclassified Drugs Allergy Severe STEROIDS-FACIAL Uncoded 02/03/22 21:26 SWELLING,EXTREMITIES Home Meds Home Medications Medication Instructions Recorded Confirmed mesalamine 0.375 gram 0.75 g PO BID 07/21/19 02/03/22 capsule,extended release 24 hr (Apriso) warfarin 5 mg tablet See Rx Instructions .Route .COMPLEX 07/21/19 02/03/22 lisinopril 20 mg tablet 20 mg PO DAILY 11/06/20 02/03/22 omeprazole 20 mg capsule,delayed 20 mg PO DAILY 02/03/22 02/03/22 release Previous Rx's Medication Instructions Recorded ondansetron 4 mg disintegrating 4 mg PO Q6H PRN nausea and 11/01/20 tablet vomiting #14 tabs Results & Data (ED) Vital Signs Vital Signs - 24 hr 02/03/22 17:41 02/03/22 18:00 02/03/22 20:15 Temperature 36.6 C Temperature Source Temporal Artery Scan Pulse Rate 63 Pulse Rate [Apical] Respiratory Rate 18 Respiratory Effort / Characteristics Non-Labored Spontaneous Respiratory Depth Normal Blood Pressure 166/95 H Blood Pressure [Right Arm] Blood Pressure Mean 118 Blood Pressure Mean [Right Arm] Pulse Oximetry 97 98 Oxygen Delivery Method Room Air Room Air Room Air Sepsis Recent Fever Within 48 Hours No Sepsis New/Unexplained Change in Mental Status No Sepsis Action Taken by Nursing No Action Required 02/03/22 20:15 02/03/22 21:30 Temperature 36.8 C Temperature Source Oral Pulse Rate Pulse Rate [Apical] 57 L 58 L Respiratory Rate 18 18 Respiratory Effort / Characteristics Non-Labored Respiratory Depth Normal Blood Pressure Blood Pressure [Right Arm] 170/94 H 154/90 H Blood Pressure Mean Blood Pressure Mean [Right Arm] 119 111 Pulse Oximetry 98 96 Oxygen Delivery Method Room Air Room Air Sepsis Recent Fever Within 48 Hours Sepsis New/Unexplained Change in Mental Status Sepsis Action Taken by [facility] Medications Current Medication List: was personally reviewed by me Laboratory Data Attestation: I reviewed the patient's lab results. Result diagrams: 02/03/22 17:56 02/03/22 17:56 Lab Results 02/03/22 02/03/22 02/03/22 Range/Units 17:56 17:56 17:56 WBC 7.53 (4.8-10.8) K/ul RBC 5.05 (4.63-6.08) M/uL Hgb 14.2 (14.0-18.0) g/dl Hct 45.3 (40.1-51.0) % MCV 89.7 (80.0-100.0) fL MCH 28.1 (25.0-34.0) pg MCHC 31.3 L (32.0-36.0) g/dL RDW Std Deviation 45.6 (36.4-46.3) fL RDW Coeff of Dmitri 14.0 (11.5-14.5) % Plt Count 182 (130-400) K/uL MPV 10.1 (9.4-12.4) fL Immature Gran % (Auto) 0.1 % Neut % (Auto) 68.1 % Lymph % (Auto) 21.9 % Knox % (Auto) 6.6 % Eos % (Auto) 2.9 % Baso % (Auto) 0.4 % Neut # (Auto) 5.12 (1.4-6.5) K/uL Lymph # (Auto) 1.65 (1.2-3.4) K/uL [place] # (Auto) 0.50 (0.24-0.82) K/uL Eos # (Auto) 0.22 (0-0.50) K/uL Baso # (Auto) 0.03 (0-0.2) K/uL Immature Gran # (Auto) 0.01 (0.00-0.02) K/uL PT 17.0 H (9.0-12.0) Seconds INR 1.6 H (0.9-1.1) APTT 32.5 H (21.0-31.0) Seconds PTT Ratio 1.2 D-Dimer 410 (0-500) ug/L FEU Sodium 140 (136-145) mmol/L Potassium 3.6 (3.5-5.1) mmol/L Chloride 107 (98-107) mmol/L Carbon Dioxide 26 (21-32) mmol/L Anion Gap 7 (3-11) BUN 22 (6-23) mg/dl Creatinine 0.83 (0.6-1.4) mg/dl Est Cr Clr Drug Dosing Not Reportable Est GFR ( Amer) 93.6 ml/min Est GFR (Non-Af Amer) 80.8 ml/min BUN/Creatinine Ratio 26.5 H (10-20) Glucose 96 (70-99(Fasting)) mg/dl Calcium 8.8 (8.5-10.1) mg/dl Total Bilirubin 0.7 (0.2-1.0) mg/dl AST 17 (13-39) U/L ALT 12 (7-52) U/L Alkaline Phosphatase 80 (34-104) U/L Troponin I High Sens 4.0 (0-20) pg/ml Total Protein 6.9 (6.0-8.3) gm/dl Albumin 4.1 (3.4-5.0) gm/dl Globulin 2.8 (2.5-4.0) gm/dl Albumin/Globulin Ratio 1.5 (0.9-2) Lipase 17 (11-82) U/L 02/03/22 Range/Units 20:23 WBC (4.8-10.8) K/ul RBC (4.63-6.08) M/uL Hgb (14.0-18.0) g/dl Hct (40.1-51.0) % MCV (80.0-100.0) fL MCH (25.0-34.0) pg MCHC (32.0-36.0) g/dL RDW Std Deviation (36.4-46.3) fL RDW Coeff of Dmitri (11.5-14.5) % Plt Count (130-400) K/uL MPV (9.4-12.4) fL Immature Gran % (Auto) % Neut % (Auto) % Lymph % (Auto) % [place] % (Auto) % Eos % (Auto) % Baso % (Auto) % Neut # (Auto) (1.4-6.5) K/uL Lymph # (Auto) (1.2-3.4) K/uL Knox # (Auto) (0.24-0.82) K/uL Eos # (Auto) (0-0.50) K/uL Baso # (Auto) (0-0.2) K/uL Immature Gran # (Auto) (0.00-0.02) K/uL PT (9.0-12.0) Seconds INR (0.9-1.1) APTT (21.0-31.0) Seconds PTT Ratio D-Dimer (0-500) ug/L FEU Sodium (136-145) mmol/L Potassium (3.5-5.1) mmol/L Chloride (98-107) mmol/L Carbon Dioxide (21-32) mmol/L Anion Gap (3-11) BUN (6-23) mg/dl Creatinine (0.6-1.4) mg/dl Est Cr Clr Drug Dosing Est GFR ( Amer) ml/min Est GFR (Non-Af Amer) ml/min BUN/Creatinine Ratio (10-20) Glucose (70-99(Fasting)) mg/dl Calcium (8.5-10.1) mg/dl Total Bilirubin (0.2-1.0) mg/dl AST (13-39) U/L ALT (7-52) U/L Alkaline Phosphatase (34-104) U/L Troponin I High Sens 4.7 (0-20) pg/ml Total Protein (6.0-8.3) gm/dl Albumin (3.4-5.0) gm/dl Globulin (2.5-4.0) gm/dl Albumin/Globulin Ratio (0.9-2) Lipase (11-82) U/L Administered Medications Discontinued Medications Acetaminophen (Acetaminophen 1000 Mg/100 Ml Iv) 1,000 mg IV NOW STA Stop: 02/03/22 20:29 Last Admin: 02/03/22 20:50 Dose: 1,000 mg Documented By: RIZWAN Sodium Chloride (Nss 1000ml) 1,000 mls @ 999 mls/hr IV .Q1H1M STA Stop: 02/03/22 18:41 Last Infusion: 02/03/22 21:19 Dose: 0 mls/hr Documented By: Admin: 02/03/22 20:19 Dose: 999 mls/hr Documented By: ILA Famotidine (Pepcid 20mg Iv Push) 20 mg in 5 mls @ 2.5 mls/min IV NOW STA Stop: 02/03/22 17:59 Last Admin: 02/03/22 18:04 Dose: 2.5 mls/min Documented By: JODY Ioversol (Optiray 300 100ml) 83 ml IV ONCE ONE Stop: 02/03/22 21:13 Last Admin: 02/03/22 21:13 Dose: 83 ml Documented By: MARISSA Morphine Sulfate (Morphine Sulfate 2 Mg/Ml Carp) 2 mg IV NOW STA Stop: 02/03/22 20:29 Last Admin: 02/03/22 20:49 Dose: 2 mg Documented By: RIZWAN Ondansetron HCl (Ondansetron Inj 2 Mg/Ml 2 Ml Vial) 4 mg IV NOW STA Stop: 02/03/22 20:30 Last Admin: 02/03/22 20:49 Dose: 4 mg Documented By: RIZWAN Imaging Data Radiologist's Impression: Chest X-Ray 02/03/22 17:41 XR chest 1V portable HISTORY: 86 years-old Male Chest Pain acute atypical chest pain COMPARISON: Chest radiograph 11/06/2020 TECHNIQUE: AP view of the chest FINDINGS: Cardiac silhouette is enlarged. No pneumothorax, large pleural effusion or overt pulmonary edema. No lobar airspace consolidation. Hiatal hernia. Degenerative changes of the shoulders and spine. IMPRESSION: 1. Cardiomegaly without acute process. 2. Hiatal hernia. ACT 112: Negative or not required by law. The above report was generated using voice recognition software. It may contain grammatical, syntax or spelling errors. Electronically signed by: Mychal Ortega M.D. 02/03/2022 9:03 PM Abdominal and pelvis CT with IV contrast: No acute findings in the abdomen and pelvis. Status post cholecystectomy. Mild intrahepatic biliary dilatation, expected. Moderate hiatal hernia as previously seen. Status post appendectomy. Prostatomegaly. Right adrenal nodule, previously seen. Discharge Plan Visit Data Chief Complaint: Arrhythmia/Palpitations Stated Complaint: POSSIBLE HEART ATTACK ED Provider: Yrn Thomson Discharge Problem: Precordial chest pain, Jaw pain, LUQ abdominal pain, Hiatal hernia Patient Disposition: Admitted As Inpatient Condition: Fair Forms Stand Alone Forms: [facility] Prescriptions Prescriptions: No Action mesalamine [Apriso] 0.375 gram capsule,extended release 24hr 0.75 g PO BID warfarin 5 mg Tablet See Rx Instructions .ROUTE .COMPLEX Rx Instructions: 5 mg orally; TAKE 5 MG EVERY DAY EXCEPT TUESDAY; ON SUNDAYS TAKE 10 MG. ondansetron 4 mg tablet,disintegrating 4 mg PO Q6H PRN (Reason: nausea and vomiting) Qty: 14 0RF lisinopril 20 mg tablet 20 mg PO DAILY omeprazole 20 mg capsule,delayed release(DR/EC) 20 mg PO DAILY Referrals Referrals: Chivo Velez DO [Primary Care Provider] -
--- NOTE | 2022-02-03 21:05 | XRay Report ---
XR chest 1V portable HISTORY: 86 years-old Male Chest Pain acute atypical chest pain COMPARISON: Chest radiograph 11/06/2020 TECHNIQUE: AP view of the chest FINDINGS: Cardiac silhouette is enlarged. No pneumothorax, large pleural effusion or overt pulmonary edema. No lobar airspace consolidation. Hiatal hernia. Degenerative changes of the shoulders and spine. IMPRESSION: 1. Cardiomegaly without acute process. 2. Hiatal hernia. ACT 112: Negative or not required by law. The above report was generated using voice recognition software. It may contain grammatical, syntax o r spelling errors. Electronically signed by: Mychal Ortega M.D. 02/03/2022 9:03 PM
[2022-02-03] MEDS ORDERED: OPTIRAY 300 100mL IV ONE (21:12)
--- NOTE | 2022-02-03 22:24 | History & Physical Report ---
Date of Service February 03, 2022 Assessment & Plan (1) Chest pain: Plan: Rule out ACS hx PAF/recurrent DVT on Coumadin/history of factor V Leiden mutation INR subtherapeutic hypertension, slight elevated Canales's esophagus stable on regimen ulcerative colitis as per records, stable on current regimen Hyperglycemia, possible prediabetes, hemoglobin A1c of 5.8 from 2010 past tobacco abuse OBS PCU Aspirin for CAD prevention until ACS ruled out follow troponin Cardiology consult Re: Chest pain N.p.o. until patient seen by Cardiology in anticipation of ischemic work-up Hold Coumadin until patient seen by cardiology IV heparin interim in light of subtherapeutic INR Update hemoglobin A1c DVT prophylaxis. IV heparin DNR Text document was generated using [employer] voice recognition software. It may contain grammatical or spelling errors. Kindly contact undersigned for clarification of any documentation item in question. History of Present Illness Chief Complaint: Chest pain Primary Care Provider: Chivo Velez DO History obtained from patient and records. Medical history significant for PAF/recurrent DVT on Coumadin, history of factor V Leiden mutation, hypertension, Canales's esophagus, ulcerative colitis as per records, past tobacco abuse. Last confinement October 2020 for abdominal pain attributed to gastritis. Patient had left-sided chest pain last year. No inducible ischemia on outpatient stress test November 2020. Patient was about to have dinner a few hours ago when he experience achy left- sided abdominal pain going to the chest and jaw. May have had a short-lived episode 6 months ago as per patient. Different from reflux as per patient. Patient consulted ER for evaluation of symptoms. 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 Allergies Allergy/AdvReac Type Severity Reaction Status Date / Time red dye Allergy Severe SEVERE Verified 02/03/22 21:26 MIGRAINES aspirin AdvReac Intermediate UPSETS Verified 02/03/22 21:26 STOMACH codeine AdvReac Intermediate "JUST Verified 02/03/22 21:26 DON'T SEEM TO AGREE WITH ME" Unclassified Drugs Allergy Severe STEROIDS-FACIAL Uncoded 02/03/22 21:26 SWELLING,EXTREMITIES Home Medications Medication Instructions Recorded Confirmed Type mesalamine 0.375 gram 0.75 g PO BID 07/21/19 02/03/22 History capsule,extended release 24 hr (Apriso) warfarin 5 mg tablet See Rx Instructions .Route .COMPLEX 07/21/19 02/03/22 History ondansetron 4 mg disintegrating 4 mg PO Q6H PRN nausea and 11/01/20 02/03/22 Rx tablet vomiting #14 tabs lisinopril 20 mg tablet 20 mg PO DAILY 11/06/20 02/03/22 History omeprazole 20 mg capsule,delayed 20 mg PO DAILY 02/03/22 02/03/22 History release Past Med/Surg History Medical History Appendicitis Barretts esophagus "EGD 07/29/2014-shows Barretts Esophagus with no CA; follows with GI, Dr. José Luis Richards" Factor V Leiden "on chronic anticoagulation" Gastro-esophageal reflux disease with esophagitis History of DVT (deep vein thrombosis) Ulcerative colitis Surgical History H/O colonoscopy H/O esophagogastroduodenoscopy Family History Other Family history non-contributory Social History Smoking Status: Never smoker Tobacco Type: Cigarettes Cigarettes Per Day: "alot"; Second Hand Exposure: No; Hx Alcohol Use: No Hx Substance Use: No Preferred Language: Upper Sorbian Communication Ability: Effective Director Weights And Measures Required: No Beliefs That Will Affect Care: None marital status: Current Living Situation: Spouse Other Information That Helps Us Care for You: No Feels Safe at Home: Yes Assistive Devices: Denture - Upper, Glasses and Hearing Aid - Bilateral Review of Systems Review of Systems: As per HPI, all other systems reviewed and negative Physical Exam Physical Exam: GENERAL: Comfortable, pleasant, hard of hearing, looks younger for stated age, no respiratory distress SKIN: Normal color, warm HEENT: [place] palpebral conjunctivae, no ptosis, moist buccal mucosa NECK : Supple, no tenderness CHEST : CTA, no tenderness HEART : Bradycardic, systolic murmur noted over left sternal border ABDOMEN: Some distention, nontender EXTREMITIES : No LE swelling/tenderness, no other conspicuous deformities noted NEUROLOGIC : Coherent, no facial asymmetry, hard of hearing, gait and stance not assessed Results & Data Results & Data ([facility]) Vital Signs (Past 12 Hours) Vital Signs Temp Pulse Pulse Resp BP BP Pulse Ox 02/03/22 21:30 58 L 18 154/90 H 96 02/03/22 20:15 36.8 C 57 L 18 170/94 H 98 02/03/22 20:15 98 02/03/22 18:00 02/03/22 17:41 36.6 C 63 18 166/95 H 97 O2 Del Method 02/03/22 21:30 Room Air 02/03/22 20:15 Room Air 02/03/22 20:15 Room Air 02/03/22 18:00 Room Air 02/03/22 17:41 Room Air Laboratory Results Laboratory Results WBC 7.53 K/ul (4.8-10.8) 02/03/22 17:56 RBC 5.05 M/uL (4.63-6.08) 02/03/22 17:56 Hgb 14.2 g/dl (14.0-18.0) 02/03/22 17:56 Hct 45.3 % (40.1-51.0) 02/03/22 17:56 MCV 89.7 fL (80.0-100.0) 02/03/22 17:56 MCH 28.1 pg (25.0-34.0) 02/03/22 17:56 MCHC 31.3 g/dL (32.0-36.0) L 02/03/22 17:56 RDW Std Deviation 45.6 fL (36.4-46.3) 02/03/22 17:56 RDW Coeff of Dmitri 14.0 % (11.5-14.5) 02/03/22 17:56 Plt Count 182 K/uL (130-400) 02/03/22 17:56 MPV 10.1 fL (9.4-12.4) 02/03/22 17:56 Immature Gran % (Auto) 0.1 % 02/03/22 17:56 Neut % (Auto) 68.1 % 02/03/22 17:56 Lymph % (Auto) 21.9 % 02/03/22 17:56 [place] % (Auto) 6.6 % 02/03/22 17:56 Eos % (Auto) 2.9 % 02/03/22 17:56 Baso % (Auto) 0.4 % 02/03/22 17:56 Neut # (Auto) 5.12 K/uL (1.4-6.5) 02/03/22 17:56 Lymph # (Auto) 1.65 K/uL (1.2-3.4) 02/03/22 17:56 [place] # (Auto) 0.50 K/uL (0.24-0.82) 02/03/22 17:56 Eos # (Auto) 0.22 K/uL (0-0.50) 02/03/22 17:56 Baso # (Auto) 0.03 K/uL (0-0.2) 02/03/22 17:56 Immature Gran # (Auto) 0.01 K/uL (0.00-0.02) 02/03/22 17:56 PT 17.0 Seconds (9.0-12.0) H 02/03/22 17:56 INR 1.6 (0.9-1.1) H 02/03/22 17:56 APTT 32.5 Seconds (21.0-31.0) H 02/03/22 17:56 PTT Ratio 1.2 02/03/22 17:56 D-Dimer 410 ug/L FEU (0-500) 02/03/22 17:56 Sodium 140 mmol/L (136-145) 02/03/22 17:56 Potassium 3.6 mmol/L (3.5-5.1) 02/03/22 17:56 Chloride 107 mmol/L (98-107) 02/03/22 17:56 Carbon Dioxide 26 mmol/L (21-32) 02/03/22 17:56 Anion Gap 7 (3-11) 02/03/22 17:56 BUN 22 mg/dl (6-23) 02/03/22 17:56 Creatinine 0.83 mg/dl (0.6-1.4) 02/03/22 17:56 Est Cr Clr Drug Dosing Not Reportable 02/03/22 17:56 Est GFR ( Amer) 93.6 ml/min 02/03/22 17:56 Est GFR (Non-Af Amer) 80.8 ml/min 02/03/22 17:56 BUN/Creatinine Ratio 26.5 (10-20) H 02/03/22 17:56 Glucose 96 mg/dl (70-99(Fasting)) 02/03/22 17:56 Calcium 8.8 mg/dl (8.5-10.1) 02/03/22 17:56 Total Bilirubin 0.7 mg/dl (0.2-1.0) 02/03/22 17:56 AST 17 U/L (13-39) 02/03/22 17:56 ALT 12 U/L (7-52) 02/03/22 17:56 Alkaline Phosphatase 80 U/L (34-104) 02/03/22 17:56 Troponin I High Sens 4.7 pg/ml (0-20) 02/03/22 20:23 Total Protein 6.9 gm/dl (6.0-8.3) 02/03/22 17:56 Albumin 4.1 gm/dl (3.4-5.0) 02/03/22 17:56 Globulin 2.8 gm/dl (2.5-4.0) 02/03/22 17:56 Albumin/Globulin Ratio 1.5 (0.9-2) 02/03/22 17:56 Lipase 17 U/L (11-82) 02/03/22 17:56 Impressions Chest X-Ray 02/03/22 17:41 XR chest 1V portable HISTORY: 86 years-old Male Chest Pain acute atypical chest pain COMPARISON: Chest radiograph 11/06/2020 TECHNIQUE: AP view of the chest FINDINGS: Cardiac silhouette is enlarged. No pneumothorax, large pleural effusion or overt pulmonary edema. No lobar airspace consolidation. Hiatal hernia. Degenerative changes of the shoulders and spine. IMPRESSION: 1. Cardiomegaly without acute process. 2. Hiatal hernia. ACT 112: Negative or not required by law. The above report was generated using voice recognition software. It may contain grammatical, syntax or spelling errors. Electronically signed by: Mychal Ortega M.D. 02/03/2022 9:[address] abdomen pelvis initial read: No acute findings in the abdomen or pelvis. Status post cholecystectomywith mild intrahepatic biliarydilatation, which can be an expected finding in the postsurgical state. Moderate hiatal hernia, as seen previously. Status post appendectomy. Incidental findings: Prostatomegaly. 7 mmindeterminate right adrenal nodule, as seen previously EKG as per my interpretation : Rate 55, sinus bradycardia, normal axis, no ischemia
[2022-02-03] MEDS ORDERED: MESALAMINE 250 MG CAPCR PO STA (23:24)
[2022-02-03] MEDS ORDERED: Heparin IV Adult Wt-Based Standard *NO* Bolus Protocol IV SCH (23:24)
[2022-02-03] MEDS ORDERED: ASPIRIN 81 MG ECTAB PO STA ×2 (23:25→23:37)
[2022-02-03] MEDS ORDERED: LACTATED RINGER'S 1,000 ML IV ONE (23:36)
[2022-02-03] MEDS ORDERED: PROMETHAZINE HCL 6.25 MG in SODIUM CHLORIDE 0.9% 50 ML IV PRN (23:36)
[2022-02-03] MEDS ORDERED: traMADol HCL 50 MG TABLET PO PRN (23:36)
[2022-02-03] MEDS ORDERED: NITROGLYCERIN SL 0.4 MG/TAB TAB SL PRN (23:43)
[2022-02-03] MEDS ORDERED: ACETAMINOPHEN 325 MG TAB PO PRN (23:43)
[2022-02-03] MEDS ORDERED: HEPARIN SODIUM/DEXTROSE 25,000 UNITS/500 ML BAG IV SCH (23:45)
[2022-02-04] MEDS ORDERED: lisinopril 10 MG TAB PO SCH (06:30)
[2022-02-04 07:25] LABS: Basophils # (auto) 0.02 K/uL (0-0.2); Basophils % (auto) 0.4 %; Eosinophils # (auto) 0.21 K/uL (0-0.50); Eosinophils % (auto) 4.2 %; Hematocrit (blood only) 39.6 % (40.1-51.0); Hemoglobin 12.8 g/dl (14.0-18.0); Immature Granulocytes # (auto) 0.02 K/uL (0.00-0.02); Immature Granulocytes % (auto) 0.4 %; Lymphocytes # (auto) 1.47 K/uL (1.2-3.4); Lymphocytes % (auto) 29.1 %; Mean Corpuscular Hemoglobin 28.6 pg (25.0-34.0); Mean Corpuscular Hgb Conc 32.3 g/dL (32.0-36.0); Mean Corpuscular Volume 88.6 fL (80.0-100.0); Mean Platelet Volume 10.2 fL (9.4-12.4); Monocytes # (auto) 0.38 K/uL (0.24-0.82); Monocytes % (auto) 7.5 %; Neutrophils # (auto) 2.95 K/uL (1.4-6.5); Neutrophils % (auto) 58.4 %; Platelet Count 149 K/uL (130-400); RDW Coefficient of Variation 14.1 % (11.5-14.5); RDW Standard Deviation 45.1 fL (36.4-46.3); Red Blood Count 4.47 M/uL (4.63-6.08); White Blood Count 5.05 K/ul (4.8-10.8)
[2022-02-04 07:45] LABS: BUN Creatinine Ratio 24.7 (10-20); Calcium 7.9 mg/dl (8.5-10.1); Chol HDL Ratio 5.4 (0-5); Creatinine Clr Calc Pharmacy 71.4 ml/min; Est GFR (African American) 96.6 ml/min; Est GFR (Non-African American) 83.3 ml/min; Potassium 3.8 mmol/L (3.5-5.1)
[2022-02-04 07:50] LABS: Troponin I High Sensitivity 4.7 pg/ml (0-20)
[2022-02-04 07:55] LABS: INR 1.6 (0.9-1.1); Partial Thromboplastin Ratio > 5.1
[2022-02-04 08:11] LABS: Partial Thromboplastin Time > 139.0 Seconds (21.0-31.0)
--- NOTE | 2022-02-04 08:12 | CT Scan Report ---
CT OF THE ABDOMEN AND PELVIS WITH CONTRAST CLINICAL HISTORY: Epigastric pain. COMPARISON STUDY: CT of the abdomen and pelvis November 06, 2020. TECHNIQUE: Following IV administration of 83 mL of Optiray, axial images of the abdomen and pelvis we re obtained from the lung bases to the proximal femurs. Images were reviewed in the axial, sagittal, and coronal planes. IV contrast was administered without complication. Automated exposure control wa s utilized for the study. A dose lowering technique was utilized adhering to the principles of ALARA . CT DOSE: 343.63 mGy.cm FINDINGS: A hiatal hernia with partially intrathoracic stomach is noted. No pneumatosis, free air or portal venous gas is present. There is no significant biliary ductal dilatation status post cholecyst ectomy. No hepatic lesions are present. The spleen and pancreas are unremarkable as are the kidneys. Subcentimeter cyst within the upper pole the left kidney is noted. Small right adrenal nodules are un changed since prior CT. These are benign. The appendix is surgically absent. There is no evidence for a bowel obstruction. Submucosal fat deposition within the colon is again noted. Prostate is enlarged , measuring 5.3 cm in transverse dimension. There is no lymphadenopathy. Moderate atherosclerotic jorge que of the abdominal aorta is noted. No fluid collection is suggest an abscess. There is no acute fra cture or suspicious lesion within visualized skeletal structures. IMPRESSION: 1. No acute process within the abdomen or pelvis. 2. No bowel obstruction. No bowel wall thickening. 3. Hiatal hernia with partially intrathoracic stomach. ACT 112: Negative or not required by law. Electronically signed by: Jomar Hannah M.D. 02/04/2022 8:10 AM
[2022-02-04] MEDS ORDERED: ASPIRIN 81 MG ECTAB PO SCH (09:00)
[2022-02-04] MEDS ORDERED: lisinopril 20 MG TAB PO SCH (09:00)
[2022-02-04] MEDS ORDERED: PANTOprazole 40 MG TAB PO SCH (09:00)
--- NOTE | 2022-02-04 12:57 | Cardiology Consultation ---
Date of Consultation February 04, 2022 Assessment & Plan (1) Chest pain: (2) LUQ abdominal pain: (3) Hiatal hernia: Patient's presenting symptoms have resolved. High-sensitivity troponin negative x3 which is reassuring. Vague epigastric discomfort reproduced on exam today with negative CT of the abdomen and pelvis. At present recommend repeating EKG, and advancing his diet. EKG reveals stable findings, and he tolerates his diet, I think consideration could be made with regards to discharging the patient without further cardiac testing. 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 Given the nature of his symptoms especially with radiation, observation on telemetry overnight and measurement of serial troponin levels certainly had been indicated, but thus far work-up has been reassuring. (4) Factor V Leiden: - If discharged, Coumadin can be resumed. Currently his heparin bridge is on hold as his PTT has been high this morning. (5) Atrial fibrillation: -As noted above. History of Present Illness Attending Physician: Jaron Rubi MD History of Present Illness Nahid Harris is an 86-year-old male seen in cardiology consultation per the request of Dr. Dalal for the evaluation of epigastric and chest discomfort. 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 Medel of our practice. Patient is seen in the emergency department, as a telemetry hold patient, room C5. He is accompanied by his spouse, Paulette. The patient was in his normal state of health. The patient and spouse describe him as being very physically active, performing physical chores on a daily basis. Last evening after having a few bites of his evening meal he developed severe 6/10 epigastric and discomfort that radiated to his lower chest and even into his neck/jaw. The pain persisted for 5 hours. At the time of my assessment in the emergency room, patient was completely asymptomatic. High-sensitivity troponin has been negative x3 measurements of 4, 4.7, and 4.7 PG per mL. Initial EKG 02/03/2022 revealed sinus bradycardia, no repolarization changes. CT of the abdomen pelvis revealed no acute process, no bowel obstruction, there was hiatal hernia with partially visualized intrathoracic stomach. Patient has been seen by Dr. Medel in 2018 for a brief episode of atrial fibrillation with spontaneous conversion to sinus rhythm. He is not on AV ana maria blocking medication as chronic sinus bradycardia noted. He was previously treated with chronic Coumadin due to his history of factor V Leiden. His most recent ischemic work-up took place in November,, exercising into stage III, 7 minutes on a standard Fly protocol, with nonischemic stress echocardiogram at that time. Frequent PACs noted. PAST MEDICAL HISTORY: 1. Ulcerative colitis. 2. Depression. 3. Factor V Leiden, on chronic anticoagulation. 4. Canales esophagitis. 5. History of DVT. 6. GERD. 7. History of esophageal varices. 8. History of basal cell carcinoma. Allergies Allergy/AdvReac Type Severity Reaction Status Date / Time red dye Allergy Severe SEVERE Verified 02/03/22 21:26 MIGRAINES aspirin AdvReac Intermediate UPSETS Verified 02/03/22 21:26 STOMACH codeine AdvReac Intermediate "JUST Verified 02/03/22 21:26 DON'T SEEM TO AGREE WITH ME" Unclassified Drugs Allergy Severe STEROIDS-FACIAL Uncoded 02/03/22 21:26 SWELLING,EXTREMITIES Home Medications Medication Instructions Recorded Confirmed Type mesalamine 0.375 gram 0.75 g PO BID 07/21/19 02/03/22 History capsule,extended release 24 hr (Apriso) warfarin 5 mg tablet See Rx Instructions .Route .COMPLEX 07/21/19 02/03/22 History ondansetron 4 mg disintegrating 4 mg PO Q6H PRN nausea and 11/01/20 02/03/22 Rx tablet vomiting #14 tabs lisinopril 20 mg tablet 20 mg PO DAILY 11/06/20 02/03/22 History omeprazole 20 mg capsule,delayed 20 mg PO DAILY 02/03/22 02/03/22 History release Patient History Medical History Appendicitis Barretts esophagus "EGD 07/29/2014-shows Barretts Esophagus with no CA; follows with GI, Dr. José Luis Richards" Factor V Leiden "on chronic anticoagulation" Gastro-esophageal reflux disease with esophagitis History of DVT (deep vein thrombosis) Ulcerative colitis Surgical History H/O colonoscopy H/O esophagogastroduodenoscopy Family History Other Family history non-contributory Social History Smoking Status: Never smoker Tobacco Type: Cigarettes Cigarettes Per Day: "alot"; Second Hand Exposure: No; Hx Alcohol Use: No Hx Substance Use: No Preferred Language: Tajik Communication Ability: Effective Intelligence Operations Specialist Required: No Beliefs That Will Affect Care: None marital status: Current Living Situation: Spouse Other Information That Helps Us Care for You: No Feels Safe at Home: Yes Assistive Devices: Denture - Upper, Glasses and Hearing Aid - Bilateral Review of Systems Review of Systems: All systems reviewed & are unremarkable except as noted in HPI & below Physical Exam Physical Exam: Temp Pulse Resp BP Pulse Ox O2 Del Method O2 Flow Rate 36.8 C 52 L 22 140/88 94 2 02/03/22 20:15 02/04/22 09:00 02/04/22 11:00 02/04/22 10:00 02/04/22 11:00 02/04/22 06:00 02/04/22 06:00 Constitutional: WD/WN, vitals as above Eyes: PERRL, conjunctivae normal, anicteric sclerae Respiratory: normal respiratory effort, lungs clear to auscultation Cardiovascular: RRR, no murmur, no edema Gastrointestinal (Abdomen): Mild vague epigastric tenderness on palpation. Neurologic: PERRL, EOMI, accommodation nl, no face palsy, no dysarthria Results & Data ([facility]) Laboratory Results Cardiac Enzymes 02/03/22 02/03/22 02/04/22 Range/Units 17:56 20:23 07:14 AST 17 (13-39) U/L Troponin I High Sens 4.0 4.7 4.7 (0-20) pg/ml Coagulation 02/03/22 02/04/22 02/04/22 Range/Units 17:56 07:14 07:14 PT 17.0 H Cancelled 17.0 H (9.0-12.0) Seconds APTT 32.5 H > 139.0 H* (21.0-31.0) Seconds Lipids 02/04/22 Range/Units 07:14 Triglycerides 72 (0-150) mg/dl Cholesterol 156 (0-200) mg/dl HDL Cholesterol 29 mg/dl Cholesterol/HDL Ratio 5.4 H (0-5) CBC 02/03/22 02/04/22 Range/Units 17:56 07:14 WBC 7.53 5.05 (4.8-10.8) K/ul RBC 5.05 4.47 L (4.63-6.08) M/uL Hgb 14.2 12.8 L (14.0-18.0) g/dl Hct 45.3 39.6 L (40.1-51.0) % Plt Count 182 149 (130-400) K/uL Neut # (Auto) 5.12 2.95 (1.4-6.5) K/uL Lymph # (Auto) 1.65 1.47 (1.2-3.4) K/uL [place] # (Auto) 0.50 0.38 (0.24-0.82) K/uL Eos # (Auto) 0.22 0.21 (0-0.50) K/uL Baso # (Auto) 0.03 0.02 (0-0.2) K/uL Comprehensive Metabolic Panel 02/03/22 02/04/22 Range/Units 17:56 07:14 Sodium 140 139 (136-145) mmol/L Potassium 3.6 3.8 (3.5-5.1) mmol/L Chloride 107 108 H (98-107) mmol/L Carbon Dioxide 26 29 (21-32) mmol/L BUN 22 19 (6-23) mg/dl Creatinine 0.83 0.77 (0.6-1.4) mg/dl Glucose 96 84 (70-99(Fasting)) mg/dl Calcium 8.8 7.9 L (8.5-10.1) mg/dl AST 17 (13-39) U/L ALT 12 (7-52) U/L Alkaline Phosphatase 80 (34-104) U/L Total Protein 6.9 (6.0-8.3) gm/dl Albumin 4.1 (3.4-5.0) gm/dl
[2022-02-04] MEDS ORDERED: WARFARIN SOD 2.5 MG TAB PO ONE (14:45)
--- NOTE | 2022-02-04 15:00 | Discharge Summary ---
Date of Service February 04, 2022 Admission HPI Per Admitting Provider History obtained from patient and records. Medical history significant for PAF/recurrent DVT on Coumadin, history of factor V Leiden mutation, hypertension, Canales's esophagus, ulcerative colitis as per records, past tobacco abuse. Last confinement October 2020 for abdominal pain attributed to gastritis. Patient had left-sided chest pain last year. No inducible ischemia on outpatient stress test November 2020. Patient was about to have dinner a few hours ago when he experience achy left- sided abdominal pain going to the chest and jaw. May have had a short-lived episode 6 months ago as per patient. Different from reflux as per patient. Patient consulted ER for evaluation of symptoms. 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 Admission Exam Per Admitting Provider GENERAL: Comfortable, pleasant, hard of hearing, looks younger for stated age, no respiratory distress SKIN: Normal color, warm HEENT: [place] palpebral conjunctivae, no ptosis, moist buccal mucosa NECK : Supple, no tenderness CHEST : CTA, no tenderness HEART : Bradycardic, systolic murmur noted over left sternal border ABDOMEN: Some distention, nontender EXTREMITIES : No LE swelling/tenderness, no other conspicuous deformities noted NEUROLOGIC : Coherent, no facial asymmetry, hard of hearing, gait and stance not assessed Principal Diagnosis Chest pain rule out ACS 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 NAD, on RA. HEENT: No pallor, no icterus. Pupils equal, round and reactive to light. Oral mucosa moist. NECK: No JVD, no neck masses. HEART: S1 and S2 heard. Regular rate and rhythm. No murmur, no gallop. RESPIRATORY SYSTEM: Normal AP diameter. No accessory muscle use. No wheezing, no crackles. ABDOMEN: Soft, bowel sounds present, vague epi tender, no distention. surrounding erythema on recent biopsy site, nontender. CENTRAL NERVOUS SYSTEM: No facial droop. Speech is clear. Obeys simple commands. Moves extremities. EXTREMITIES: trace ble edema, no erythema seen. Discharge Data Allergies Allergy/AdvReac Type Severity Reaction Status Date / Time red dye Allergy Severe SEVERE Verified 02/03/22 21:26 MIGRAINES aspirin AdvReac Intermediate UPSETS Verified 02/03/22 21:26 STOMACH codeine AdvReac Intermediate "JUST Verified 02/03/22 21:26 DON'T SEEM TO AGREE WITH ME" Unclassified Drugs Allergy Severe STEROIDS-FACIAL Uncoded 02/03/22 21:26 SWELLING,EXTREMITIES Consultations 02/03/22 21:56 ED Decision to Admit Stat 02/03/22 23:43 Consult Cardiology Routine Ordered Studies 02/03/22 20:27 CT abd pelvis IV con only Urgent Hospital Course (1) Chest pain: Patient was admitted for chest pain rule out ACS, patient had upper epigastric pain for 4 hours which resolved after presenting to the ED yesterday night and no further chest pain. Patient does take small dose of omeprazole at home. Troponin x3 were negative, EKG without acute ST or T changes. Patient without further chest pain since last night. Discussed with cardiology, okay for discharge from cardiac standpoint. Patient symptomatology likely from acid peptic disease, will discharge patient on pantoprazole 40 mg twice a day and to be followed by PCP for further management. Patient advised to take [id number] Tums for acute flare of indigestion. Patient to follow-up with PCP and cardiology as an outpatient. Patient does also have some erythema surrounding the biopsy site in his belly, will discharge patient on Keflex for 7 days to cover for cellulitis. Patient's INR was 1.6 today, given extra dose of Coumadin 2.5 mg on top of his regular dose of 5 mg. Patient to follow-up with Coumadin clinic tomorrow and get PT/INR done and necessary dose adjustment on his Coumadin, patient and his made aware at bedside. Patient being discharged home with following instructions at the point of discharge: Follow-up with your primary care physician within 1 week time. Follow-up with cardiology as an outpatient. You are being discharged on pantoprazole 40 Mg twice a day for first 14 days then once a day. Follow-up with your primary care physician if symptoms do not improve/do not get controlled and for further discussion and management on this. You can also use [id number] Tums as needed for your acute indigestion. For your postbiopsy related cellulitis in your abdomen, you are being discharged on antibiotics for 7 days. Follow-up with your Coumadin clinic tomorrow, get your PT/INR done. Your PT/INR was 1.6 today and you were given 2.5 mg extra dose of Coumadin today on top of your regular 5 mg daily dose. Follow further instruction from your Coumadin clinic. Get your blood work CBC and CMP done in a week time and have the results forwarded to your primary care physician. Take your medications as prescribed. 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 Follow-up with cardiology as an outpatient. You are being discharged on pantoprazole 40 Mg twice a day for first 14 days then once a day. Follow-up with your primary care physician if symptoms do not improve/do not get controlled and for further discussion and management on this. You can also use [id number] Tums as needed for your acute indigestion. For your postbiopsy related cellulitis in your abdomen, you are being discharged on antibiotics for 7 days. Follow-up with your Coumadin clinic tomorrow, get your PT/INR done. Your PT/INR was 1.6 today and you were given 2.5 mg extra dose of Coumadin today on top of your regular 5 mg daily dose. Follow further instruction from your Coumadin clinic. Get your blood work CBC and CMP done in a week time and have the results forwarded to your primary care physician. Take your medications as prescribed. Pending Studies at Discharge: No Stand-Alone Forms: My [employer], Smoking Cessation Medications and DC Order Prescriptions: New cephalexin 500 mg Capsule 500 mg PO BID 7 Days Qty: 14 0RF pantoprazole 40 mg Tablet,Delayed Release (Dr/Ec) 40 mg PO BID Qty: 60 0RF Continued mesalamine [Apriso] 0.375 gram capsule,extended release 24hr 0.75 g PO BID warfarin 5 mg Tablet See Rx Instructions .ROUTE .COMPLEX Rx Instructions: 5 mg orally; TAKE 5 MG EVERY DAY EXCEPT TUESDAY; ON SUNDAYS TAKE 10 MG. ondansetron 4 mg tablet,disintegrating 4 mg PO Q6H PRN (Reason: nausea and vomiting) Qty: 14 0RF Changed lisinopril 20 mg tablet 30 mg PO DAILY Qty: 45 0RF Discontinued omeprazole 20 mg capsule,delayed release(DR/EC) 20 mg PO DAILY Discharge Orders: Discharge Order (Routine); Ordered 02/04/22 Ordered By: Jaron Rubi Admission Data Admit Date/Time: 02/03/22 23:34 Attending Provider: Jaron Rubi Admit Provider: Kevin Dalal Primary Care Provider: Chivo Velez Other Providers: Kevin Dalal ; Ozzy Medel ; Juan Carlos Khan ; Enrike Quiroz ; Jeffery Sanchez ; Murtaza Valdez ; Emile Burr ; Alley Moses ; Sonia Rahman ; Trista Koch ; Michael Baez
[2022-02-04] MEDS ORDERED: WARFARIN SOD 5 MG TAB PO SCH ×2 (16:00)
[2022-02-04] MEDS ORDERED: cephALEXin 500 MG CAP PO SCH (21:00)
--- NOTE | 2022-02-05 06:02 | Electrocardiogram Report ---
Test Reason : Blood Pressure : / mmHG Vent. Rate : 059 BPM Atrial Rate : 059 BPM P-R Int : 176 ms QRS Dur : 086 ms QT Int : 422 ms P-R-T Axes : -23 -04 032 degrees QTc Int : 417 ms Sinus bradycardia Otherwise normal ECG When compared with ECG of 06-NOV-2020 18:42, No significant change was found Confirmed by Camden Alexander ([id number]) on 02/05/2022 6:02:04 AM Referred By: REFERRED SELF Confirmed By:Camden Alexander
--- NOTE | 2022-02-06 05:44 | Electrocardiogram Report ---
Test Reason : Blood Pressure : / mmHG Vent. Rate : 057 BPM Atrial Rate : 057 BPM P-R Int : 172 ms QRS Dur : 074 ms QT Int : 422 ms P-R-T Axes : -26 002 032 degrees QTc Int : 410 ms Sinus bradycardia Otherwise normal ECG When compared with ECG of 03-FEB-2022 17:45, No significant change was found Confirmed by Camden Alexander ([id number]) on 02/06/2022 5:44:07 AM Referred By: REFERRED SELF Confirmed By:Camden Alexander
[2022-02-07] MEDS ORDERED: WARFARIN SOD 5 MG TAB PO SCH (16:00)
== END 2022-02-04 15:25 | disposition home or self-care (01) ==
LOC: EDINP 17:36 → ED 17:36 → EDINP 02-04 01:00
DX: Z88.6 Allergy status to analgesic agent; Z79.899 Other long term (current) drug therapy; Z79.01 Long term (current) use of anticoagulants; Z88.5 Allergy status to narcotic agent; R10.13 Epigastric pain; K44.9 Diaphragmatic hernia without obstruction or gangrene; R07.2 Precordial pain

== ENCOUNTER 2023-02-10 21:35 | Inpatient (IN) ==
[2023-02-10 22:37] LABS: Basophils # (auto) 0.04 K/uL (0-0.2); Basophils % (auto) 0.7 %; Eosinophils # (auto) 0.31 K/uL (0-0.50); Eosinophils % (auto) 5.5 %; Hematocrit (blood only) 39.8 % (42.0-52.0); Hemoglobin 12.9 g/dl (14.0-18.0); Immature Granulocytes # (auto) 0.01 K/uL (0.01-0.20); Immature Granulocytes % (auto) 0.2 %; Lymphocytes # (auto) 1.69 K/uL (1.2-3.4); Lymphocytes % (auto) 29.9 %; Mean Corpuscular Hemoglobin 28.6 pg (25.0-34.0); Mean Corpuscular Hgb Conc 32.4 g/dL (32.0-36.0); Mean Corpuscular Volume 88.2 fL (80.0-100.0); Mean Platelet Volume 10.6 fL (9.4-12.4); Monocytes # (auto) 0.49 K/uL (0.11-0.59); Monocytes % (auto) 8.7 %; Neutrophils # (auto) 3.11 K/uL (1.40-6.50); Platelet Count 179 K/uL (130-400); RDW Coefficient of Variation 14.7 % (11.5-14.5); RDW Standard Deviation 47.8 fL (36.4-46.3); Red Blood Count 4.51 M/uL (4.70-6.10); White Blood Count 5.65 K/ul (4.8-10.8)
[2023-02-10 23:00] LABS: Albumin Level 3.8 gm/dl (3.4-5.0); Anion Gap 6 (3-11); Bilirubin,Total 0.4 mg/dl (0.2-1.0); Calcium 8.7 mg/dl (8.6-10.3); Carbon Dioxide 27 mmol/L (21-32); Chloride 107 mmol/L (98-107); INR 2.6 (0.9-1.1); Magnesium 2.2 mg/dl (1.7-2.4); Partial Thromboplastin Ratio 1.3; Potassium 3.8 mmol/L (3.5-5.1); Prothrombin Time 27.2 Seconds (9.0-12.0); Sodium 140 mmol/L (136-145)
[2023-02-10 23:05] LABS: Troponin I High Sensitivity 4.1 pg/ml (0-20)
[2023-02-10 23:06] LABS: Alanine Aminotransferase 10 U/L (7-52); Albumin Globulin Ratio 1.5 (0.9-2); Alkaline Phosphatase 65 U/L (34-104); Aspartate Aminotransferase 15 U/L (13-39); BUN Creatinine Ratio 24.4 (10-20); Blood Urea Nitrogen 20 mg/dl (6-23); C Reactive Protein < 0.50 mg/dl (0-0.5); Creatine Kinase 77 U/L (30-223); Creatinine Clr Calc Pharmacy 63.7 ml/min; Est GFR (African American) 93.5 ml/min; Est GFR (Non-African American) 80.6 ml/min; Globulin 2.6 gm/dl (2.5-4.0); Glucose 94 mg/dl (70-99(Fasting)); Total Protein 6.4 gm/dl (6.0-8.3)
[2023-02-10 23:12] LABS: Lyme Ab IgG w/WB Rflx Negative (Negative); Lyme Ab IgM w/WB Rflx Negative (Negative)
[2023-02-10] MEDS ORDERED: IOVERSOL 350 MG 125mL Prefilled Syringe IV ONE (23:29)
[2023-02-10 23:56] LABS: Adenovirus PCR Not Detected (NotDetected); Bordetella parapertussis PCR Not Detected (NotDetected); Bordetella pertussis PCR Not Detected (NotDetected); Chlamydia pneumoniae PCR Not Detected (NotDetected); Coronavirus 229E PCR Not Detected (NotDetected); Coronavirus CoV-2 (COVID19)PCR Not Detected (NotDetected); Coronavirus HKU1 PCR Not Detected (NotDetected); Coronavirus NL63 PCR Not Detected (NotDetected); Coronavirus OC43PCR Not Detected (NotDetected); Human Metapneumovirus PCR Not Detected (NotDetected); Influenza A PCR Not Detected (NotDetected); Influenza B PCR Not Detected (NotDetected); Mycoplasma pneumoniae PCR Not Detected (NotDetected); Parainfluenza Virus 1 PCR Not Detected (NotDetected); Parainfluenza Virus 2 PCR Not Detected (NotDetected); Parainfluenza Virus 3 PCR Not Detected (NotDetected); Parainfluenza Virus 4 PCR Not Detected (NotDetected); Respiratory Syncytial VirusPCR Not Detected (NotDetected); Rhinovirus/Enterovirus PCR Not Detected (NotDetected)
--- NOTE | 2023-02-11 00:01 | Emergency Department Note ---
History of Present Illness General Chief complaint: Weakness Stated complaint: WEAKNESS, UNABLE TO STAND/AMBULATE Time Seen by Provider: 02/10/23 21:50 History of Present Illness This 87-year-old male presents to the ER complaining of his arms and legs feeling like rubber and weak for half hour tonight that have now pretty much resolved. He states his head slightly bothers him. Patient states he is normally pretty active gentleman. Patient denies chest pain, dyspnea, ascending paralysis, fever, chills, flulike illness. He had shingles a few weeks ago. He has been outside working in the yard. Unknown tick bite. Home Medications Medication Instructions Recorded Confirmed Type mesalamine 0.375 gram 0.75 g PO BID 07/21/19 02/10/23 History capsule,extended release 24 hr (Apriso) warfarin 5 mg tablet See Rx Instructions .Route .COMPLEX 07/21/19 02/10/23 History lisinopril 20 mg tablet 20 mg PO QAM 12/17/22 02/10/23 History hyoscyamine sulfate 0.125 mg tablet 0.125 mg PO AMPM 02/10/23 02/10/23 History pantoprazole 40 mg tablet,delayed 40 mg PO AMHS 02/10/23 02/10/23 History release Allergies Allergy/AdvReac Type Severity Reaction Status Date / Time red dye Allergy Severe SEVERE Verified 12/17/22 03:14 MIGRAINES aspirin AdvReac Intermediate UPSETS Verified 12/17/22 03:14 STOMACH codeine AdvReac Intermediate "JUST Verified 12/17/22 03:14 DON'T SEEM TO AGREE WITH ME" Unclassified Drugs Allergy Severe STEROIDS-FACIAL Uncoded 12/17/22 03:14 SWELLING,EXTREMITIES Past Med/Surg History Medical History Appendicitis Atrial fibrillation Barretts esophagus "EGD 07/29/2014-shows Barretts Esophagus with no CA; follows with GI, Dr. José Luis Richards" Factor V Leiden "on chronic anticoagulation" Gastro-esophageal reflux disease with esophagitis History of DVT (deep vein thrombosis) Ulcerative colitis Surgical History H/O colonoscopy H/O esophagogastroduodenoscopy Family History Other Family history non-contributory Social History Smoking Status: Former smoker Tobacco Type: Cigarettes Cigarettes Per Day: "alot"; Second Hand Exposure: No; Do You Dip or Chew Tobacco: No; Hx Alcohol Use: No Hx Substance Use: No Preferred Language: [place] Citizen Communication Ability: Effective Communication Ability Comment: No communication barrier 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 Beliefs That Will Affect Care: None marital status: Current Living Situation: Spouse Feels Safe at Home: Yes Assistive Devices: None Review of Systems A total of 10 systems reviewed and were otherwise negative Physical Exam Vital Signs Vital Signs - 24 hr 02/10/23 21:41 02/10/23 21:41 02/10/23 21:41 Temperature 36.8 C Temperature Source Oral Pulse Rate 69 Pulse Rate [Finger] Pulse Rhythm [Finger] Pulse Strength Normal Pulse Strength [Finger] Respiratory Rate 18 Respiratory Effort / Characteristics Non-Labored Spontaneous Respiratory Depth Normal Respiratory Pattern Regular Blood Pressure 155/85 H Blood Pressure [Right Arm] Blood Pressure Mean 108 Blood Pressure Mean [Right Arm] Blood Pressure Position Lying Blood Pressure Position [Right Arm] Pulse Oximetry 98 98 Oxygen Delivery Method Room Air Room Air Room Air Sepsis Recent Fever Within 48 Hours No Sepsis New/Unexplained Change in Mental Status No Sepsis Action Taken by Nursing No Action Required 02/10/23 23:03 02/10/23 22:47 02/10/23 23:00 Temperature Temperature Source Pulse Rate 60 60 Pulse Rate [Finger] Pulse Rhythm [Finger] Pulse Strength Pulse Strength [Finger] Respiratory Rate 20 20 Respiratory Effort / Characteristics Respiratory Depth Respiratory Pattern Blood Pressure 145/92 H 156/95 H Blood Pressure [Right Arm] Blood Pressure Mean 109 115 Blood Pressure Mean [Right Arm] Blood Pressure Position Blood Pressure Position [Right Arm] Pulse Oximetry 96 95 95 Oxygen Delivery Method Room Air Room Air Room Air Sepsis Recent Fever Within 48 Hours Sepsis New/Unexplained Change in Mental Status Sepsis Action Taken by Nursing 02/10/23 22:05 02/10/23 23:41 02/10/23 23:20 Temperature Temperature Source Pulse Rate 59 L 57 L Pulse Rate [Finger] 62 Pulse Rhythm [Finger] Regular Pulse Strength Pulse Strength [Finger] Normal Respiratory Rate 16 18 Respiratory Effort / Characteristics Non-Labored Spontaneous Respiratory Depth Normal Respiratory Pattern Regular Blood Pressure 170/145 H Blood Pressure [Right Arm] 170/145 H Blood Pressure Mean 153 Blood Pressure Mean [Right Arm] 153 Blood Pressure Position Blood Pressure Position [Right Arm] Lying Pulse Oximetry 96 95 Oxygen Delivery Method Room Air Room Air Sepsis Recent Fever Within 48 Hours Sepsis New/Unexplained Change in Mental Status Sepsis Action Taken by Nursing 02/11/23 00:00 02/11/23 01:00 Temperature Temperature Source Pulse Rate 56 L 54 L Pulse Rate [Finger] Pulse Rhythm [Finger] Pulse Strength Pulse Strength [Finger] Respiratory Rate 18 18 Respiratory Effort / Characteristics Respiratory Depth Respiratory Pattern Blood Pressure 150/83 H 171/96 H Blood Pressure [Right Arm] Blood Pressure Mean 105 121 Blood Pressure Mean [Right Arm] Blood Pressure Position Blood Pressure Position [Right Arm] Pulse Oximetry 94 96 Oxygen Delivery Method Room Air Room Air Sepsis Recent Fever Within 48 Hours Sepsis New/Unexplained Change in Mental Status Sepsis Action Taken by Nursing VITALS: Vitals are noted on the nurse's note and reviewed by myself. Vital signs stable. GENERAL: Pleasant gentleman able to ambulate without difficulties in front of me, in no acute distress, nondiaphoretic, well-developed well-nourished. SKIN: The skin was without rashes, erythema, edema, or bruising. There is no tenting of the skin. Capillary reflex less than 2 seconds. HEAD: Normocephalic atraumatic. EARS: External auditory canals clear, EYES: Pupils equal round and reactive to light and accommodation. Conjunctivae without injection, sclerae without icterus. Extraocular movements intact. NOSE: Patent, turbinates without inflammation or discharge. MOUTH: Mucous membranes moist. Pharynx without erythema or exudate. Uvula midline. Airway patent. Tongue does not deviate. NECK: Supple without nuchal rigidity. No lymphadenopathy. No thyromegaly. Cervical spine is nontender. No JVD. HEART: Regular rate and rhythm LUNGS: Clear to auscultation bilaterally without wheezes, rales or rhonchi. No retractions or accessory muscle use. ABDOMEN: Positive bowel sounds x 4. Normal tympanic percussion. Soft, nontender, without masses or organomegaly. Valle sign negative. No guarding or rebound tenderness. No CVA tenderness MUSCULOSKELETAL: No muscle atrophy, erythema, or edema noted. 5-5 strength throughout. NEURO: Patient was alert and oriented to person place and time. Normal sensation to light and sharp touch. Cranial nerves II through XII grossly intact. No pronator drift. Cerebellar exam intact. No focal neurological deficits. Course Administered Medications Discontinued Medications Ioversol (Ioversol 350 Mg 125ml Prefilled Syringe) 125 ml IV ONCE ONE Stop: 02/10/23 23:30 Last Admin: 02/10/23 23:30 Dose: 118 ml Documented By: JE Medical Decision Making Medical Records Attestation: I reviewed the patient's medical records. Home Medications Current Medication List: was personally reviewed by ne Laboratory Data Attestation: I reviewed the patient's lab results. 02/10/23 21:44 02/10/23 21:44 Lab Results 02/10/23 02/10/23 02/10/23 Range/Units 21:44 21:44 21:44 WBC 5.65 (4.8-10.8) K/ul RBC 4.51 L (4.70-6.10) M/uL Hgb 12.9 L (14.0-18.0) g/dl Hct 39.8 L (42.0-52.0) % MCV 88.2 (80.0-100.0) fL MCH 28.6 (25.0-34.0) pg MCHC 32.4 (32.0-36.0) g/dL RDW Std Deviation 47.8 H (36.4-46.3) fL RDW Coeff of Dmitri 14.7 H (11.5-14.5) % Plt Count 179 (130-400) K/uL MPV 10.6 (9.4-12.4) fL Immature Gran % (Auto) 0.2 % Neut % (Auto) 55.0 % Lymph % (Auto) 29.9 % Hyde % (Auto) 8.7 % Eos % (Auto) 5.5 % Baso % (Auto) 0.7 % Neut # (Auto) 3.11 (1.40-6.50) K/uL Lymph # (Auto) 1.69 (1.2-3.4) K/uL Hyde # (Auto) 0.49 (0.11-0.59) K/uL Eos # (Auto) 0.31 (0-0.50) K/uL Baso # (Auto) 0.04 (0-0.2) K/uL Immature Gran # (Auto) 0.01 (0.01-0.20) K/uL ESR (0-20) mm/hr PT (9.0-12.0) Seconds INR (0.9-1.1) APTT (21.0-31.0) Seconds PTT Ratio Sodium 140 (136-145) mmol/L Potassium 3.8 (3.5-5.1) mmol/L Chloride 107 (98-107) mmol/L Carbon Dioxide 27 (21-32) mmol/L Anion Gap 6 (3-11) BUN 20 (6-23) mg/dl Creatinine 0.82 (0.6-1.4) mg/dl Est Cr Clr Drug Dosing 63.7 ml/min Est GFR ( Amer) 93.5 ml/min Est GFR (Non-Af Amer) 80.6 ml/min BUN/Creatinine Ratio 24.4 H (10-20) Glucose 94 (70-99(Fasting)) mg/dl Calcium 8.7 (8.6-10.3) mg/dl Magnesium 2.2 (1.7-2.4) mg/dl Total Bilirubin 0.4 (0.2-1.0) mg/dl AST 15 (13-39) U/L ALT 10 (7-52) U/L Alkaline Phosphatase 65 (34-104) U/L Total Creatine Kinase 77 (30-223) U/L Troponin I High Sens 4.1 (0-20) pg/ml C-Reactive Protein < 0.50 (0-0.5) mg/dl Total Protein 6.4 (6.0-8.3) gm/dl Albumin 3.8 (3.4-5.0) gm/dl Globulin 2.6 (2.5-4.0) gm/dl Albumin/Globulin Ratio 1.5 (0.9-2) TSH (0.300-4.500) uIu/ml Urine Color Urine Appearance (Clear) Urine pH (4.5-7.5) Ur Specific [place] (1.000-1.030) Urine Protein (Negative) Urine Glucose (UA) (Negative) Urine Ketones (Negative) Urine Blood (Negative) Urine Nitrite (Negative) Urine Bilirubin (Negative) Urine Urobilinogen (Negative) Ur Leukocyte Esterase (Negative) Adenovirus (PCR) (NotDetected) Anaplasma Smear See Comment Babesia Smear See Comment B. pertussis DNA (PCR) (NotDetected) B.parapertussis DNA PCR (NotDetected) Lyme Disease IgG Ab Negative (Negative) Lyme Disease IgM Ab Negative (Negative) C. pneumoniae DNA (PCR) (NotDetected) Coronavirus OC43 (PCR) (NotDetected) Coronavirus HKU1 (PCR) (NotDetected) Coronavirus 229E (PCR) (NotDetected) SARS-CoV-2 (PCR) (NotDetected) Coronavirus NL63 (PCR) (NotDetected) Human Metapneumovir PCR (NotDetected) Influenza Type A (PCR) (NotDetected) Influenza Type B (PCR) (NotDetected) M. pneumoniae (PCR) (NotDetected) Parainfluenza 1 (PCR) (NotDetected) Parainfluenza 2 (PCR) (NotDetected) Parainfluenza 3 (PCR) (NotDetected) Parainfluenza 4 (PCR) (NotDetected) RSV (PCR) (NotDetected) Entero/Rhino (PCR) (NotDetected) 02/10/23 02/10/23 02/10/23 Range/Units 21:44 21:44 21:44 WBC (4.8-10.8) K/ul RBC (4.70-6.10) M/uL Hgb (14.0-18.0) g/dl Hct (42.0-52.0) % MCV (80.0-100.0) fL MCH (25.0-34.0) pg MCHC (32.0-36.0) g/dL RDW Std Deviation (36.4-46.3) fL RDW Coeff of Dmitri (11.5-14.5) % Plt Count (130-400) K/uL MPV (9.4-12.4) fL Immature Gran % (Auto) % Neut % (Auto) % Lymph % (Auto) % Hyde % (Auto) % Eos % (Auto) % Baso % (Auto) % Neut # (Auto) (1.40-6.50) K/uL Lymph # (Auto) (1.2-3.4) K/uL Hyde # (Auto) (0.11-0.59) K/uL Eos # (Auto) (0-0.50) K/uL Baso # (Auto) (0-0.2) K/uL Immature Gran # (Auto) (0.01-0.20) K/uL ESR 10 (0-20) mm/hr PT 27.2 H (9.0-12.0) Seconds INR 2.6 H (0.9-1.1) APTT 37.0 H (21.0-31.0) Seconds PTT Ratio 1.3 Sodium (136-145) mmol/L Potassium (3.5-5.1) mmol/L Chloride (98-107) mmol/L Carbon Dioxide (21-32) mmol/L Anion Gap (3-11) BUN (6-23) mg/dl Creatinine (0.6-1.4) mg/dl Est Cr Clr Drug Dosing ml/min Est GFR ( Amer) ml/min Est GFR (Non-Af Amer) ml/min BUN/Creatinine Ratio (10-20) Glucose (70-99(Fasting)) mg/dl Calcium (8.6-10.3) mg/dl Magnesium (1.7-2.4) mg/dl Total Bilirubin (0.2-1.0) mg/dl AST (13-39) U/L ALT (7-52) U/L Alkaline Phosphatase (34-104) U/L Total Creatine Kinase (30-223) U/L Troponin I High Sens (0-20) pg/ml C-Reactive Protein (0-0.5) mg/dl Total Protein (6.0-8.3) gm/dl Albumin (3.4-5.0) gm/dl Globulin (2.5-4.0) gm/dl Albumin/Globulin Ratio (0.9-2) TSH 2.853 (0.300-4.500) uIu/ml Urine Color Urine Appearance (Clear) Urine pH (4.5-7.5) Ur Specific [place] (1.000-1.030) Urine Protein (Negative) Urine Glucose (UA) (Negative) Urine Ketones (Negative) Urine Blood (Negative) Urine Nitrite (Negative) Urine Bilirubin (Negative) Urine Urobilinogen (Negative) Ur Leukocyte Esterase (Negative) Adenovirus (PCR) (NotDetected) Anaplasma Smear Babesia Smear B. pertussis DNA (PCR) (NotDetected) B.parapertussis DNA PCR (NotDetected) Lyme Disease IgG Ab (Negative) Lyme Disease IgM Ab (Negative) C. pneumoniae DNA (PCR) (NotDetected) Coronavirus OC43 (PCR) (NotDetected) Coronavirus HKU1 (PCR) (NotDetected) Coronavirus 229E (PCR) (NotDetected) SARS-CoV-2 (PCR) (NotDetected) Coronavirus NL63 (PCR) (NotDetected) Human Metapneumovir PCR (NotDetected) Influenza Type A (PCR) (NotDetected) Influenza Type B (PCR) (NotDetected) M. pneumoniae (PCR) (NotDetected) Parainfluenza 1 (PCR) (NotDetected) Parainfluenza 2 (PCR) (NotDetected) Parainfluenza 3 (PCR) (NotDetected) Parainfluenza 4 (PCR) (NotDetected) RSV (PCR) (NotDetected) Entero/Rhino (PCR) (NotDetected) 02/10/23 02/10/23 Range/Units 22:50 22:55 WBC (4.8-10.8) K/ul RBC (4.70-6.10) M/uL Hgb (14.0-18.0) g/dl Hct (42.0-52.0) % MCV (80.0-100.0) fL MCH (25.0-34.0) pg MCHC (32.0-36.0) g/dL RDW Std Deviation (36.4-46.3) fL RDW Coeff of Dmitri (11.5-14.5) % Plt Count (130-400) K/uL MPV (9.4-12.4) fL Immature Gran % (Auto) % Neut % (Auto) % Lymph % (Auto) % Hyde % (Auto) % Eos % (Auto) % Baso % (Auto) % Neut # (Auto) (1.40-6.50) K/uL Lymph # (Auto) (1.2-3.4) K/uL Hyde # (Auto) (0.11-0.59) K/uL Eos # (Auto) (0-0.50) K/uL Baso # (Auto) (0-0.2) K/uL Immature Gran # (Auto) (0.01-0.20) K/uL ESR (0-20) mm/hr PT (9.0-12.0) Seconds INR (0.9-1.1) APTT (21.0-31.0) Seconds PTT Ratio Sodium (136-145) mmol/L Potassium (3.5-5.1) mmol/L Chloride (98-107) mmol/L Carbon Dioxide (21-32) mmol/L Anion Gap (3-11) BUN (6-23) mg/dl Creatinine (0.6-1.4) mg/dl Est Cr Clr Drug Dosing ml/min Est GFR ( Amer) ml/min Est GFR (Non-Af Amer) ml/min BUN/Creatinine Ratio (10-20) Glucose (70-99(Fasting)) mg/dl Calcium (8.6-10.3) mg/dl Magnesium (1.7-2.4) mg/dl Total Bilirubin (0.2-1.0) mg/dl AST (13-39) U/L ALT (7-52) U/L Alkaline Phosphatase (34-104) U/L Total Creatine Kinase (30-223) U/L Troponin I High Sens (0-20) pg/ml C-Reactive Protein (0-0.5) mg/dl Total Protein (6.0-8.3) gm/dl Albumin (3.4-5.0) gm/dl Globulin (2.5-4.0) gm/dl Albumin/Globulin Ratio (0.9-2) TSH (0.300-4.500) uIu/ml Urine Color Dark Yellow Urine Appearance Clear (Clear) Urine pH 5.0 (4.5-7.5) Ur Specific [place] 1.023 (1.000-1.030) Urine Protein Negative (Negative) Urine Glucose (UA) Negative (Negative) Urine Ketones Negative (Negative) Urine Blood Negative (Negative) Urine Nitrite Negative (Negative) Urine Bilirubin Negative (Negative) Urine Urobilinogen Negative (Negative) Ur Leukocyte Esterase Negative (Negative) Adenovirus (PCR) Not Detected (NotDetected) Anaplasma Smear Babesia Smear B. pertussis DNA (PCR) Not Detected (NotDetected) B.parapertussis DNA PCR Not Detected (NotDetected) Lyme Disease IgG Ab (Negative) Lyme Disease IgM Ab (Negative) C. pneumoniae DNA (PCR) Not Detected (NotDetected) Coronavirus OC43 (PCR) Not Detected (NotDetected) Coronavirus HKU1 (PCR) Not Detected (NotDetected) Coronavirus 229E (PCR) Not Detected (NotDetected) SARS-CoV-2 (PCR) Not Detected (NotDetected) Coronavirus NL63 (PCR) Not Detected (NotDetected) Human Metapneumovir PCR Not Detected (NotDetected) Influenza Type A (PCR) Not Detected (NotDetected) Influenza Type B (PCR) Not Detected (NotDetected) M. pneumoniae (PCR) Not Detected (NotDetected) Parainfluenza 1 (PCR) Not Detected (NotDetected) Parainfluenza 2 (PCR) Not Detected (NotDetected) Parainfluenza 3 (PCR) Not Detected (NotDetected) Parainfluenza 4 (PCR) Not Detected (NotDetected) RSV (PCR) Not Detected (NotDetected) Entero/Rhino (PCR) Not Detected (NotDetected) Imaging Data Attestation: I personally reviewed and interpreted this imaging study as follows: Radiologist's Impression: Head CT 02/10/23 22:05 Exam(s): CT HEAD Without Contrast EXAM: CT Head Without Intravenous Contrast CLINICAL HISTORY: Reason for exam: weakness. TECHNIQUE: Axial computed tomography images of the head/brain without intravenous contrast. CTDI is 36.9 mGy and DLP is 624.41 mGy-cm. Automated exposure control was utilized for the study. A dose lowering technique was utilized adhering to the principles of ALARA. COMPARISON: No relevant prior studies available. FINDINGS: Brain: Unremarkable. No hemorrhage. No significant white matter disease. No edema. Ventricles: Unremarkable. No ventriculomegaly. Bones/joints: Unremarkable. No acute fracture. Soft tissues: Unremarkable. Sinuses: Unremarkable as visualized. No acute sinusitis. Mastoid air cells: Unremarkable as visualized. No mastoid effusion. IMPRESSION: Normal head/brain CT. Electronically signed by: Enrique Rowe MD 02/11/23 01:02 AM Head CTA 02/10/23 22:12 Exam(s): CTA HEAD With Contrast IV Amt: 116 ML OPTIRAY 350 EXAM: CT Angiography Head With Intravenous Contrast CLINICAL HISTORY: Reason for exam: extremity weakness. TECHNIQUE: Axial computed tomographic angiography images of the head with intravenous contrast. CTDI is 24.91 mGy and DLP is 456.85 mGy-cm. Automated exposure control was utilized for the study. A dose lowering technique was utilized adhering to the principles of ALARA. MIP reconstructed images were created and reviewed. CONTRAST: Patient received 116 ML OPTIRAY 350 of IV contrast COMPARISON: No relevant prior studies available. FINDINGS: Right internal carotid artery: No acute findings. Intracranial segment is patent with no significant stenosis. No aneurysm. Right anterior cerebral artery: Unremarkable. No occlusion or significant stenosis. No aneurysm. Right middle cerebral artery: Unremarkable. No occlusion or significant stenosis. No aneurysm. Right posterior cerebral artery: Unremarkable. No occlusion or significant stenosis. No aneurysm. Right vertebral artery: Unremarkable as visualized. Left internal carotid artery: No acute findings. Intracranial segment is patent with no significant stenosis. No aneurysm. Left anterior cerebral artery: Unremarkable. No occlusion or significant stenosis. No aneurysm. Left middle cerebral artery: Unremarkable. No occlusion or significant stenosis. No aneurysm. Left posterior cerebral artery: Unremarkable. No occlusion or significant stenosis. No aneurysm. Left vertebral artery: Unremarkable as visualized. Basilar artery: Unremarkable. No occlusion or significant stenosis. No aneurysm. IMPRESSION: Normal head CTA. Electronically signed by: Enrique Rowe MD 02/11/23 01:05 AM Neck CTA 02/10/23 22:12 Exam(s): CTA NECK With Contrast IV Amt: 116 ML OPTIRAY 350 EXAM: CT Angiography Neck With Intravenous Contrast CLINICAL HISTORY: Reason for exam: extremity weakness. TECHNIQUE: Routine carotid CT angiography protocol was performed with intravenous contrast. NASCET criteria using the distal ICAs for comparison were used for evaluation of stenoses. CTDI is 24.91 mGy and DLP is 12.46 mGy-cm. Automated exposure control was utilized for the study. A dose lowering technique was utilized adhering to the principles of ALARA. MIP reconstructed images were created and reviewed. CONTRAST: Patient received 116 ML OPTIRAY 350 of IV contrast COMPARISON: None. FINDINGS: VASCULATURE: Right common carotid artery: Unremarkable. No occlusion or significant stenosis. No dissection. Right internal carotid artery: Unremarkable. Extracranial segment is patent with no occlusion or significant stenosis. No dissection. Right external carotid artery: Unremarkable. No occlusion. Right vertebral artery: Unremarkable. No occlusion or significant stenosis. No dissection. Left common carotid artery: Unremarkable. No occlusion or significant stenosis. No dissection. Left internal carotid artery: Unremarkable. Extracranial segment is patent with no occlusion or significant stenosis. No dissection. Left external carotid artery: Unremarkable. No occlusion. Left vertebral artery: Unremarkable. No occlusion or significant stenosis. No dissection. NECK: Bones/joints: Unremarkable. Soft tissues: Unremarkable. Lung apices: Clear. CAROTID STENOSIS REFERENCE USING NASCET CRITERIA: % ICA stenosis = (1 - narrowest ICA diameter/diameter of distal cervical ICA) x 100. Mild - <50% stenosis. Moderate - 50-69% stenosis. Severe - 70-94% stenosis. Near occlusion - 95-99% stenosis. Occluded - 100% stenosis. IMPRESSION: Negative CTA neck. Electronically signed by: Enrique Rowe MD 02/11/23 01:04 AM [facility] Narrative Prior records/ancillary studies reviewed and summarized above. Nursing notes reviewed. Additional history obtained from family. The patient's history was concerning for difficulty moving his arms and legs for 30 minutes. Differential diagnosis: Etiologies such as metabolic, infection, hypo/hyperglycemia, electrolyte abno rmalities, cardiac sources, intracerebral event, toxicologic, neurologic, as well as others were entertained. Physical examination: As above. ER treatment provided: IV Lock An order was placed for continuous cardiac monitoring. The monitor shows a rate of 60-100 with a sinus rhythm per my interpretation. Patient was observed On reassessment the patient felt better. Diagnostics interpretation by me: ECG: Ordered for weakness EKG: Normal sinus, no acute ST-T wave changes, rate of 61. Impression normal sinus rhythm rate of 61 independent interpreted by myself The labs Independently Interpreted by myself revealed no worrisome leukocytosis, negative BioFire, negative Lyme's, therapeutic INR Imaging studies: Chest x-ray with no acute consolidation, pneumothorax or free air per my independent interpreted Head CT negative for intracranial bleed per my independent interpretation CTAs of the head and neck negative for stroke Brain MRI ordered at time of admission Consultation: A consultation was placed with the hospitalist. The case was discussed and diagnostics were reviewed. The patient was evaluated in the ER for further treatment. is requesting to be present when neurology is interviewing the . Admitting team was made aware. Exam and history seem consistent with extremity weakness and feeling like rubber for 30 minutes with unclear etiology. Labs and diagnostics were independent interpreted by myself. Radiology read the CAT scans. No obvious signs of infection. X-ray is clear. Negative BioFire. Negative Lyme's. Negative urin e. No signs of stroke on imaging. Medicine was consulted the case was discussed. Patient will be admitted for further evaluation and work-up. By the evaluation outlined above emergent etiologies such as infection, electrolyte abnormalities, cardiac sources, toxologic, abnormalities blood glucose, metabolic, as well as others were deemed relatively unlikely. The pt informed about the findings as listed above. All questions were answered and pleased with the treatment. The chart was completed utilizing [employer] Speech voice recognition software. Grammatical errors, random word insertions, pronoun errors, and incomplete sentences are an occassional consequence of this system due to software limitations, ambient noise, and hardware issues. Any formal questions or concerns about the content, text, or information contained within the body of this dictation should be directly addressed to the physician product safety technical assistant for clarification. Impression & Plan Weakness Discharge Plan Visit Data Chief Complaint: Weakness Stated Complaint: WEAKNESS, UNABLE TO STAND/AMBULATE ED Provider: Jennifer Grover ED Midlevel Provider: Paola Zamarripa Discharge Problem: Weakness Patient Disposition: Admitted As Inpatient Condition: Good Forms Stand Alone Forms: [facility] [employer] Prescriptions Prescriptions: No Action mesalamine [Apriso] 0.375 gram capsule,extended release 24hr 0.75 g PO BID warfarin 5 mg Tablet See Rx Instructions .ROUTE .COMPLEX Rx Instructions: 5 mg orally; TAKE 5 MG EVERY DAY EXCEPT TUESDAY; ON SUNDAYS TAKE 10 MG. hyoscyamine sulfate 0.125 mg tablet 0.125 mg PO AMPM pantoprazole 40 mg tablet,delayed release (DR/EC) 40 mg PO AMHS lisinopril 20 mg tablet 20 mg PO QAM Referrals Referrals: Chivo Velez, [Primary Care Provider] -
[2023-02-11 00:02] LABS: Appearance Urine Clear (Clear); Bilirubin Urine Negative (Negative); Blood Urine Negative (Negative); Color Urine Dark Yellow; Glucose Urine UA Negative (Negative); Ketones Urine Negative (Negative); Leukocyte Esterase Urine Negative (Negative); Nitrite Urine Negative (Negative); Protein Urine Negative (Negative); Specific Gravity Urine 1.023 (1.000-1.030); Urobilinogen Urine Negative (Negative)
--- NOTE | 2023-02-11 01:03 | CT Scan Report ---
Exam(s): CT HEAD Without Contrast EXAM: CT Head Without Intravenous Contrast CLINICAL HISTORY: Reason for exam: weakness. TECHNIQUE: Axial computed tomography images of the head/brain without intravenous contrast. CTDI is 36.9 mGy and DLP is 624.41 mGy-cm. Automated exposure control was utilized for the study. A dose lowering technique was utilized adhering to the principles of ALARA. COMPARISON: No relevant prior studies available. FINDINGS: Brain: Unremarkable. No hemorrhage. No significant white matter disease. No edema. Ventricles: Unremarkable. No ventriculomegaly. Bones/joints: Unremarkable. No acute fracture. Soft tissues: Unremarkable. Sinuses: Unremarkable as visualized. No acute sinusitis. Mastoid air cells: Unremarkable as visualized. No mastoid effusion. IMPRESSION: Normal head/brain CT. Electronically signed by: Enrique Rowe MD 02/11/23 01:02 AM
--- NOTE | 2023-02-11 01:05 | CT Scan Report ---
Exam(s): CTA NECK With Contrast IV Amt: 116 ML OPTIRAY 350 EXAM: CT Angiography Neck With Intravenous Contrast CLINICAL HISTORY: Reason for exam: extremity weakness. TECHNIQUE: Routine carotid CT angiography protocol was performed with intravenous contrast. NASCET criteria using the distal ICAs for comparison were used for evaluation of stenoses. CTDI is 24.91 mGy and DLP is 12.46 mGy-cm. Automated exposure control was utilized for the study. A dose lowering technique was utilized adhering to the principles of ALARA. MIP reconstructed images were created and reviewed. CONTRAST: Patient received 116 ML OPTIRAY 350 of IV contrast COMPARISON: None. FINDINGS: VASCULATURE: Right common carotid artery: Unremarkable. No occlusion or significant stenosis. No dissection. Right internal carotid artery: Unremarkable. Extracranial segment is patent with no occlusion or significant stenosis. No dissection. Right external carotid artery: Unremarkable. No occlusion. Right vertebral artery: Unremarkable. No occlusion or significant stenosis. No dissection. Left common carotid artery: Unremarkable. No occlusion or significant stenosis. No dissection. Left internal carotid artery: Unremarkable. Extracranial segment is patent with no occlusion or significant stenosis. No dissection. Left external carotid artery: Unremarkable. No occlusion. Left vertebral artery: Unremarkable. No occlusion or significant stenosis. No dissection. NECK: Bones/joints: Unremarkable. Soft tissues: Unremarkable. Lung apices: Clear. CAROTID STENOSIS REFERENCE USING NASCET CRITERIA: % ICA stenosis = (1 - narrowest ICA diameter/diameter of distal cervical ICA) x 100. Mild - <50% stenosis. Moderate - 50-69% stenosis. Severe - 70-94% stenosis. Near occlusion - 95-99% stenosis. Occluded - 100% stenosis. IMPRESSION: Negative CTA neck. Electronically signed by: Enrique Rowe MD 02/11/23 01:04 AM
--- NOTE | 2023-02-11 01:06 | CT Scan Report ---
Exam(s): CTA HEAD With Contrast IV Amt: 116 ML OPTIRAY 350 EXAM: CT Angiography Head With Intravenous Contrast CLINICAL HISTORY: Reason for exam: extremity weakness. TECHNIQUE: Axial computed tomographic angiography images of the head with intravenous contrast. CTDI is 24.91 mGy and DLP is 456.85 mGy-cm. Automated exposure control was utilized for the study. A dose lowering technique was utilized adhering to the principles of ALARA. MIP reconstructed images were created and reviewed. CONTRAST: Patient received 116 ML OPTIRAY 350 of IV contrast COMPARISON: No relevant prior studies available. FINDINGS: Right internal carotid artery: No acute findings. Intracranial segment is patent with no significant stenosis. No aneurysm. Right anterior cerebral artery: Unremarkable. No occlusion or significant stenosis. No aneurysm. Right middle cerebral artery: Unremarkable. No occlusion or significant stenosis. No aneurysm. Right posterior cerebral artery: Unremarkable. No occlusion or significant stenosis. No aneurysm. Right vertebral artery: Unremarkable as visualized. Left internal carotid artery: No acute findings. Intracranial segment is patent with no significant stenosis. No aneurysm. Left anterior cerebral artery: Unremarkable. No occlusion or significant stenosis. No aneurysm. Left middle cerebral artery: Unremarkable. No occlusion or significant stenosis. No aneurysm. Left posterior cerebral artery: Unremarkable. No occlusion or significant stenosis. No aneurysm. Left vertebral artery: Unremarkable as visualized. Basilar artery: Unremarkable. No occlusion or significant stenosis. No aneurysm. IMPRESSION: Normal head CTA. Electronically signed by: Enrique Rowe MD 02/11/23 01:05 AM
[2023-02-11] MEDS ORDERED: GADOBUTROL 65ML VIAL IV ONE (02:42)
--- NOTE | 2023-02-11 03:54 | History & Physical Report ---
Date of Service February 11, 2023 Assessment & Plan (1) Weakness: Plan: 87-year-old male with past med significant for paroxysmal atrial fibrillation, venous thrombosis, hypertension, ulcerative colitis, Canales's esophagus, GERD, history of basal cell carcinoma, history of sensory hearing loss, history of factor V Leiden deficiency presents with episode of generalized weakness and ambulatory dysfunction. Labs okay. Lyme screen negative. Respiratory bio fire negative Weakness Moosic rubbery feeling in the arms and legs for about half hour at 9 PM Fell down and had to crawl on the hands and legs and rollover Currently seems resolved Moosic dizzy when he was going to MRI scan. CT head and CTA head and neck unremarkable Currently exam grossly unremarkable Hemodynamically stable We will follow MRI scan If MRI scan Negative probably side effect of Levsin - which was started recently for abdominal pain and seems still taking it as per my discussion with the We will hold Levsin for now Neuro consult if any concerns We will check vitamin B12 levels PT OT Ulcerative colitis on mesalamine Canales's esophagus on Protonix History of A-fib Venous thrombosis History of factor V Leyden deficiency On Coumadin INR therapeutic History of hypertension On lisinopril recent shingles on abdomen in december Levsin was placed for abdominal pain if no improvement there was plan for pain management consult by GI but patient currently no significant complaints of abdominal pain. DVT prophylaxis on Coumadin Disposition med/telemetry Full code History of Present Illness Chief Complaint: Weakness and ambulatory dysfunction Primary Care Provider: Chivo Velez DO 87-year-old male with past med significant for paroxysmal atrial fibrillation, venous thrombosis, hypertension, ulcerative colitis, Canales's esophagus, GERD, history of basal cell carcinoma, history of sensory hearing loss, history of factor V Leiden deficiency presents with episode of generalized weakness and ambulatory dysfunction,. Patient states around 9 PM he suddenly felt rubbery feeling in his hands and legs and whole body he could not he could walk and fell down slowly has to crawl with hands and legs and roll over.It lasted for about half an hour . Patient states again it happened when he was going to MRI when he felt dizzy. Current resting comfortably and stable. Very hard of hearing. Able to give history appropriately. Currently has some headache. No cough. No fevers. No nausea. No chest pain or shortness of breath. No abdominal pain. No pain complaints. Hemodynamically stable. Past medical history as mentioned above Past surgical history amputation of right toe, colonoscopy with biopsy, EGD, EGD with biopsy, EGD with endoscopic ultrasound, laparoscopic cholecystectomy, laparoscopic appendectomy, bilateral cataract Social history quit smoking in 1984 smoked 1.5 packs a day for 20 years. Alcohol 2 glasses daily. No drugs. Family history father had peripheral vascular disease Allergies Allergy/AdvReac Type Severity Reaction Status Date / Time red dye Allergy Severe SEVERE Verified 12/17/22 03:14 MIGRAINES aspirin AdvReac Intermediate UPSETS Verified 12/17/22 03:14 STOMACH codeine AdvReac Intermediate "JUST Verified 12/17/22 03:14 DON'T SEEM TO AGREE WITH ME" Unclassified Drugs Allergy Severe STEROIDS-FACIAL Uncoded 12/17/22 03:14 SWELLING,EXTREMITIES Home Medications Medication Instructions Recorded Confirmed Type mesalamine 0.375 gram 0.75 g PO BID 07/21/19 02/10/23 History capsule,extended release 24 hr (Apriso) warfarin 5 mg tablet See Rx Instructions .Route .COMPLEX 07/21/19 02/10/23 History lisinopril 20 mg tablet 20 mg PO QAM 12/17/22 02/10/23 History hyoscyamine sulfate 0.125 mg tablet 0.125 mg PO AMPM 02/10/23 02/10/23 History pantoprazole 40 mg tablet,delayed 40 mg PO AMHS 02/10/23 02/10/23 History release Past Med/Surg History Medical History Appendicitis Atrial fibrillation Barretts esophagus "EGD 07/29/2014-shows Barretts Esophagus with no CA; follows with GI, Dr. José Luis Richards" Factor V Leiden "on chronic anticoagulation" Gastro-esophageal reflux disease with esophagitis History of DVT (deep vein thrombosis) Ulcerative colitis Surgical History H/O colonoscopy H/O esophagogastroduodenoscopy Family History Other Family history non-contributory Social History Smoking Status: Former smoker Tobacco Type: Cigarettes Cigarettes Per Day: "alot"; Second Hand Exposure: No; Do You Dip or Chew Tobacco: No; Hx Alcohol Use: No Hx Substance Use: No Preferred Language: Croatian Communication Ability: Effective Communication Ability Comment: No communication barrier 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 Heart- regular rate and rhythm; no murmur, no gallop. Abdomen- normal bowel sounds, soft, nontender, no distension. Extremities- no pretibial edema, no erythema seen Neuro- alert, oriented ; PERRL, EOMI; very hard of hearing.no facial palsy; no dysarthria; motor 4/5 bilaterally; coordination of movements normal no pronator drift Skin- warm & dry Results & Data Results & Data Vital Signs (Past 12 Hours) Vital Signs Temp Pulse Pulse Resp BP BP Pulse Ox 02/11/23 01:53 58 L 02/11/23 01:00 54 L 18 171/96 H 96 02/11/23 00:00 56 L 18 150/83 H 94 02/10/23 23:20 57 L 18 170/145 H 95 02/10/23 23:41 62 16 170/145 H 96 02/10/23 22:05 59 L 02/10/23 23:00 60 20 156/95 H 95 02/10/23 22:47 60 20 145/92 H 95 02/10/23 23:03 96 02/10/23 21:41 98 02/10/23 21:41 02/10/23 21:41 36.8 C 69 18 155/85 H 98 O2 Del Method 02/11/23 01:53 02/11/23 01:00 Room Air 02/11/23 00:00 Room Air 02/10/23 23:20 Room Air 02/10/23 23:41 Room Air 02/10/23 22:05 02/10/23 23:00 Room Air 02/10/23 22:47 Room Air 02/10/23 23:03 Room Air 02/10/23 21:41 Room Air 02/10/23 21:41 Room Air 02/10/23 21:41 Room Air Diagnostic Findings Laboratory Results WBC 5.65 K/ul (4.8-10.8) 02/10/23 21:44 RBC 4.51 M/uL (4.70-6.10) L 02/10/23 21:44 Hgb 12.9 g/dl (14.0-18.0) L 02/10/23 21:44 Hct 39.8 % (42.0-52.0) L 02/10/23 21:44 MCV 88.2 fL (80.0-100.0) 02/10/23 21:44 MCH 28.6 pg (25.0-34.0) 02/10/23 21:44 MCHC 32.4 g/dL (32.0-36.0) 02/10/23 21:44 RDW Std Deviation 47.8 fL (36.4-46.3) H 02/10/23 21:44 RDW Coeff of Dmitri 14.7 % (11.5-14.5) H 02/10/23 21:44 Plt Count 179 K/uL (130-400) 02/10/23 21:44 MPV 10.6 fL (9.4-12.4) 02/10/23 21:44 Immature Gran % (Auto) 0.2 % 02/10/23 21:44 Neut % (Auto) 55.0 % 02/10/23 21:44 Lymph % (Auto) 29.9 % 02/10/23 21:44 Barber % (Auto) 8.7 % 02/10/23 21:44 Eos % (Auto) 5.5 % 02/10/23 21:44 Baso % (Auto) 0.7 % 02/10/23 21:44 Neut # (Auto) 3.11 K/uL (1.40-6.50) 02/10/23 21:44 Lymph # (Auto) 1.69 K/uL (1.2-3.4) 02/10/23 21:44 Barber # (Auto) 0.49 K/uL (0.11-0.59) 02/10/23 21:44 Eos # (Auto) 0.31 K/uL (0-0.50) 02/10/23 21:44 Baso # (Auto) 0.04 K/uL (0-0.2) 02/10/23 21:44 Immature Gran # (Auto) 0.01 K/uL (0.01-0.20) 02/10/23 21:44 ESR 10 mm/hr (0-20) 02/10/23 21:44 PT 27.2 Seconds (9.0-12.0) H 02/10/23 21:44 INR 2.6 (0.9-1.1) H 02/10/23 21:44 APTT 37.0 Seconds (21.0-31.0) H 02/10/23 21:44 PTT Ratio 1.3 02/10/23 21:44 Sodium 140 mmol/L (136-145) 02/10/23 21:44 Potassium 3.8 mmol/L (3.5-5.1) 02/10/23 21:44 Chloride 107 mmol/L (98-107) 02/10/23 21:44 Carbon Dioxide 27 mmol/L (21-32) 02/10/23 21:44 Anion Gap 6 (3-11) 02/10/23 21:44 BUN 20 mg/dl (6-23) 02/10/23 21:44 Creatinine 0.82 mg/dl (0.6-1.4) 02/10/23 21:44 Est Cr Clr Drug Dosing 63.7 ml/min 02/10/23 21:44 Est GFR ( Amer) 93.5 ml/min 02/10/23 21:44 Est GFR (Non-Af Amer) 80.6 ml/min 02/10/23 21:44 BUN/Creatinine Ratio 24.4 (10-20) H 02/10/23 21:44 Glucose 94 mg/dl (70-99(Fasting)) 02/10/23 21:44 Calcium 8.7 mg/dl (8.6-10.3) 02/10/23 21:44 Magnesium 2.2 mg/dl (1.7-2.4) 02/10/23 21:44 Total Bilirubin 0.4 mg/dl (0.2-1.0) 02/10/23 21:44 AST 15 U/L (13-39) 02/10/23 21:44 ALT 10 U/L (7-52) 02/10/23 21:44 Alkaline Phosphatase 65 U/L (34-104) 02/10/23 21:44 Total Creatine Kinase 77 U/L (30-223) 02/10/23 21:44 Troponin I High Sens 4.1 pg/ml (0-20) 02/10/23 21:44 C-Reactive Protein < 0.50 mg/dl (0-0.5) 02/10/23 21:44 Total Protein 6.4 gm/dl (6.0-8.3) 02/10/23 21:44 Albumin 3.8 gm/dl (3.4-5.0) 02/10/23 21:44 Globulin 2.6 gm/dl (2.5-4.0) 02/10/23 21:44 Albumin/Globulin Ratio 1.5 (0.9-2) 02/10/23 21:44 TSH 2.853 uIu/ml (0.300-4.500) 02/10/23 21:44 Urine Color Dark Yellow 02/10/23 22:55 Urine Appearance Clear (Clear) 02/10/23 22:55 Urine pH 5.0 (4.5-7.5) 02/10/23 22:55 Ur Specific [place] 1.023 (1.000-1.030) 02/10/23 22:55 Urine Protein Negative (Negative) 02/10/23 22:55 Urine Glucose (UA) Negative (Negative) 02/10/23 22:55 Urine Ketones Negative (Negative) 02/10/23 22:55 Urine Blood Negative (Negative) 02/10/23 22:55 Urine Nitrite Negative (Negative) 02/10/23 22:55 Urine Bilirubin Negative (Negative) 02/10/23 22:55 Urine Urobilinogen Negative (Negative) 02/10/23 22:55 Ur Leukocyte Esterase Negative (Negative) 02/10/23 22:55 Adenovirus (PCR) Not Detected (NotDetected) 02/10/23 22:50 Anaplasma Smear See Comment 02/10/23 21:44 Babesia Smear See Comment 02/10/23 21:44 B. pertussis DNA (PCR) Not Detected (NotDetected) 02/10/23 22:50 B.parapertussis DNA PCR Not Detected (NotDetected) 02/10/23 22:50 Lyme Disease IgG Ab Negative (Negative) 02/10/23 21:44 Lyme Disease IgM Ab Negative (Negative) 02/10/23 21:44 C. pneumoniae DNA (PCR) Not Detected (NotDetected) 02/10/23 22:50 Coronavirus OC43 (PCR) Not Detected (NotDetected) 02/10/23 22:50 Coronavirus HKU1 (PCR) Not Detected (NotDetected) 02/10/23 22:50 Coronavirus 229E (PCR) Not Detected (NotDetected) 02/10/23 22:50 SARS-CoV-2 (PCR) Not Detected (NotDetected) 02/10/23 22:50 Coronavirus NL63 (PCR) Not Detected (NotDetected) 02/10/23 22:50 Human Metapneumovir PCR Not Detected (NotDetected) 02/10/23 22:50 Influenza Type A (PCR) Not Detected (NotDetected) 02/10/23 22:50 Influenza Type B (PCR) Not Detected (NotDetected) 02/10/23 22:50 M. pneumoniae (PCR) Not Detected (NotDetected) 02/10/23 22:50 Parainfluenza 1 (PCR) Not Detected (NotDetected) 02/10/23 22:50 Parainfluenza 2 (PCR) Not Detected (NotDetected) 02/10/23 22:50 Parainfluenza 3 (PCR) Not Detected (NotDetected) 02/10/23 22:50 Parainfluenza 4 (PCR) Not Detected (NotDetected) 02/10/23 22:50 RSV (PCR) Not Detected (NotDetected) 02/10/23 22:50 Entero/Rhino (PCR) Not Detected (NotDetected) 02/10/23 22:[address] 02/10/23 22:05 Exam(s): CT HEAD Without Contrast EXAM: CT Head Without Intravenous Contrast CLINICAL HISTORY: Reason for exam: weakness. TECHNIQUE: Axial computed tomography images of the head/brain without intravenous contrast. CTDI is 36.9 mGy and DLP is 624.41 mGy-cm. Automated exposure control was utilized for the study. A dose lowering technique was utilized adhering to the principles of ALARA. COMPARISON: No relevant prior studies available. FINDINGS: Brain: Unremarkable. No hemorrhage. No significant white matter disease. No edema. Ventricles: Unremarkable. No ventriculomegaly. Bones/joints: Unremarkable. No acute fracture. Soft tissues: Unremarkable. Sinuses: Unremarkable as visualized. No acute sinusitis. Mastoid air cells: Unremarkable as visualized. No mastoid effusion. IMPRESSION: Normal head/brain CT. Electronically signed by: Enrique Rowe MD 02/11/23 01:02 AM Head CTA 02/10/23 22:12 Exam(s): CTA HEAD With Contrast IV Amt: 116 ML OPTIRAY 350 EXAM: CT Angiography Head With Intravenous Contrast CLINICAL HISTORY: Reason for exam: extremity weakness. TECHNIQUE: Axial computed tomographic angiography images of the head with intravenous contrast. CTDI is 24.91 mGy and DLP is 456.85 mGy-cm. Automated exposure control was utilized for the study. A dose lowering technique was utilized adhering to the principles of ALARA. MIP reconstructed images were created and reviewed. CONTRAST: Patient received 116 ML OPTIRAY 350 of IV contrast COMPARISON: No relevant prior studies available. FINDINGS: Right internal carotid artery: No acute findings. Intracranial segment is patent with no significant stenosis. No aneurysm. Right anterior cerebral artery: Unremarkable. No occlusion or significant stenosis. No aneurysm. Right middle cerebral artery: Unremarkable. No occlusion or significant stenosis. No aneurysm. Right posterior cerebral artery: Unremarkable. No occlusion or significant stenosis. No aneurysm. Right vertebral artery: Unremarkable as visualized. Left internal carotid artery: No acute findings. Intracranial segment is patent with no significant stenosis. No aneurysm. Left anterior cerebral artery: Unremarkable. No occlusion or significant stenosis. No aneurysm. Left middle cerebral artery: Unremarkable. No occlusion or significant stenosis. No aneurysm. Left posterior cerebral artery: Unremarkable. No occlusion or significant stenosis. No aneurysm. Left vertebral artery: Unremarkable as visualized. Basilar artery: Unremarkable. No occlusion or significant stenosis. No aneurysm. IMPRESSION: Normal head CTA. Electronically signed by: Enrique Rowe MD 02/11/23 01:05 AM Neck CTA 02/10/23 22:12 Exam(s): CTA NECK With Contrast IV Amt: 116 ML OPTIRAY 350 EXAM: CT Angiography Neck With Intravenous Contrast CLINICAL HISTORY: Reason for exam: extremity weakness. TECHNIQUE: Routine carotid CT angiography protocol was performed with intravenous contrast. NASCET criteria using the distal ICAs for comparison were used for evaluation of stenoses. CTDI is 24.91 mGy and DLP is 12.46 mGy-cm. Automated exposure control was utilized for the study. A dose lowering technique was utilized adhering to the principles of ALARA. MIP reconstructed images were created and reviewed. CONTRAST: Patient received 116 ML OPTIRAY 350 of IV contrast COMPARISON: None. FINDINGS: VASCULATURE: Right common carotid artery: Unremarkable. No occlusion or significant stenosis. No dissection. Right internal carotid artery: Unremarkable. Extracranial segment is patent with no occlusion or significant stenosis. No dissection. Right external carotid artery: Unremarkable. No occlusion. Right vertebral artery: Unremarkable. No occlusion or significant stenosis. No dissection. Left common carotid artery: Unremarkable. No occlusion or significant stenosis. No dissection. Left internal carotid artery: Unremarkable. Extracranial segment is patent with no occlusion or significant stenosis. No dissection. Left external carotid artery: Unremarkable. No occlusion. Left vertebral artery: Unremarkable. No occlusion or significant stenosis. No dissection. NECK: Bones/joints: Unremarkable. Soft tissues: Unremarkable. Lung apices: Clear. CAROTID STENOSIS REFERENCE USING NASCET CRITERIA: % ICA stenosis = (1 - narrowest ICA diameter/diameter of distal cervical ICA) x 100. Mild - <50% stenosis. Moderate - 50-69% stenosis. Severe - 70-94% stenosis. Near occlusion - 95-99% stenosis. Occluded - 100% stenosis. IMPRESSION: Negative CTA neck. Electronically signed by: Enrique Rowe MD 02/11/23 01:04 AM ECG Additional Comments: ECG sinus rhythm with premature supraventricular complexes at rate of 61. No acute ST changes seen Code Status & VTE Plan VTE Prophylaxis Plan VTE Prophylaxis will be ordered: Yes
--- NOTE | 2023-02-11 05:41 | Magnetic Resonance Report ---
Exam(s): MRI HEAD W/WO Contrast IV Amt: 7.5cc gadavist EXAM: MR Head Without and With Intravenous Contrast CLINICAL HISTORY: Reason for exam: Peripheral weakness, headache. TECHNIQUE: Magnetic resonance images of the head/brain without and with intravenous contrast in multiple planes. CONTRAST: Patient received 7.5cc gadavist of IV contrast COMPARISON: No relevant prior studies available. FINDINGS: Brain: There is mild cerebral atrophy. Chronic periventricular ischemic demyelination changes seen due to small vessel disease. No hemorrhage. Ventricles: Unremarkable. No ventriculomegaly. Bones/joints: Unremarkable. Sinuses: Unremarkable as visualized. No acute sinusitis. Mastoid air cells: Unremarkable as visualized. No mastoid effusion. Orbits: Unremarkable as visualized. IMPRESSION: No acute intracranial abnormality Electronically signed by: Enrique Rowe MD 02/11/23 05:40 AM
[2023-02-11] MEDS ORDERED: ACETAMINOPHEN 325 MG TAB PO PRN (05:47)
[2023-02-11] MEDS ORDERED: SODIUM CHLORIDE 0.9% 1000ML 1,000 ML IV SCH (05:47)
[2023-02-11] MEDS ORDERED: POLYETHYLENE (MIRALAX) 17 GM PACK PO PRN (05:47)
--- NOTE | 2023-02-11 07:01 | XRay Report ---
XR chest 1V portable HISTORY: 87 years-old Male weakness acute weakness COMPARISON: 12/17/2022 TECHNIQUE: AP view of the chest FINDINGS: Cardiac mediastinal and hilar silhouettes are unchanged. Hiatal hernia. No pneumothorax, pleural effu gabi, airspace consolidation or pulmonary edema. Bones appear grossly intact. IMPRESSION: 1. No acute process of the chest. 2. Hiatal hernia. ACT 112: Negative or not required by law. The above report was generated using voice recognition software. It may contain grammatical, syntax o r spelling errors. Electronically signed by: Mychal Ortega M.D. 02/11/2023 7:00 AM
[2023-02-11 07:07] LABS: Basophils # (auto) 0.03 K/uL (0-0.2); Basophils % (auto) 0.5 %; Eosinophils # (auto) 0.28 K/uL (0-0.50); Hematocrit (blood only) 39.3 % (42.0-52.0); Hemoglobin 12.6 g/dl (14.0-18.0); Immature Granulocytes # (auto) 0.02 K/uL (0.01-0.20); Immature Granulocytes % (auto) 0.4 %; Lymphocytes # (auto) 1.36 K/uL (1.2-3.4); Lymphocytes % (auto) 24.1 %; Mean Corpuscular Hemoglobin 28.4 pg (25.0-34.0); Mean Corpuscular Hgb Conc 32.1 g/dL (32.0-36.0); Mean Corpuscular Volume 88.7 fL (80.0-100.0); Mean Platelet Volume 10.5 fL (9.4-12.4); Monocytes % (auto) 8.8 %; Neutrophils # (auto) 3.46 K/uL (1.40-6.50); Neutrophils % (auto) 61.2 %; Platelet Count 162 K/uL (130-400); RDW Coefficient of Variation 14.5 % (11.5-14.5); RDW Standard Deviation 46.8 fL (36.4-46.3); Red Blood Count 4.43 M/uL (4.70-6.10); White Blood Count 5.65 K/ul (4.8-10.8)
[2023-02-11 07:30] LABS: BUN Creatinine Ratio 22.9 (10-20); Calcium 8.3 mg/dl (8.6-10.3); Creatinine Clr Calc Pharmacy 74.6 ml/min; Est GFR (African American) 99.7 ml/min; Est GFR (Non-African American) 86.1 ml/min; Magnesium 2.2 mg/dl (1.7-2.4); Potassium 3.8 mmol/L (3.5-5.1)
[2023-02-11] MEDS ORDERED: HYOSCYAMINE SULFATE 0.125 MG TAB PO SCH (09:00)
[2023-02-11] MEDS ORDERED: lisinopril 20 MG TAB PO SCH (09:00)
[2023-02-11] MEDS ORDERED: PANTOprazole 40 MG TAB PO SCH (09:00)
--- NOTE | 2023-02-11 12:42 | Electrocardiogram Report ---
Test Reason : Blood Pressure : / mmHG Vent. Rate : 061 BPM Atrial Rate : 061 BPM P-R Int : 200 ms QRS Dur : 080 ms QT Int : 398 ms P-R-T Axes : 046 005 036 degrees QTc Int : 400 ms Sinus rhythm with Premature supraventricular complexes Otherwise normal ECG When compared with ECG of 17-DEC-2022 03:09, Premature supraventricular complexes are now Present Confirmed by Jose Raul Bruce ([id number]) on 02/11/2023 12:41:36 PM Referred By: REFERRED SELF Confirmed By:Jose Raul Bruce
--- NOTE | 2023-02-11 15:07 | Discharge Summary ---
Date of Service February 11, 2023 Admission HPI Per Admitting Provider 87-year-old male with past med significant for paroxysmal atrial fibrillation, venous thrombosis, hypertension, ulcerative colitis, Canales's esophagus, GERD, history of basal cell carcinoma, history of sensory hearing loss, history of factor V Leiden deficiency presents with episode of generalized weakness and ambulatory dysfunction,. Patient states around 9 PM he suddenly felt rubbery feeling in his hands and legs and whole body he could not he could walk and fell down slowly has to crawl with hands and legs and roll over.It lasted for about half an hour . Patient states again it happened when he was going to MRI when he felt dizzy. Current resting comfortably and stable. Very hard of hearing. Able to give history appropriately. Currently has some headache. No cough. No fevers. No nausea. No chest pain or shortness of breath. No abdominal pain. No pain complaints. Hemodynamically stable. Past medical history as mentioned above Past surgical history amputation of right toe, colonoscopy with biopsy, EGD, EGD with biopsy, EGD with endoscopic ultrasound, laparoscopic cholecystectomy, laparoscopic appendectomy, bilateral cataract Social history quit smoking in 1984 smoked 1.5 packs a day for 20 years. Alcohol 2 glasses daily. No drugs. Family history father had peripheral vascular disease Admission Exam Per Admitting Provider General- Not in distress Head- atraumatic Eyes- PERRL ENT- oropharynx clear Neck- supple, no JVD, no adenopathy, no thyromegaly; carotids +2/2, no bruits appreciated Lungs- clear to auscultation , no wheezing or crackles. Heart- regular rate and rhythm; no murmur, no gallop. Abdomen- normal bowel sounds, soft, nontender, no distension. Extremities- no pretibial edema, no erythema seen Neuro- alert, oriented ; PERRL, EOMI; very hard of hearing.no facial palsy; no dysarthria; motor 4/5 bilaterally; coordination of movements normal no pronator drift Skin- warm & dry Principal Diagnosis Weakness, stroke rule out. Discharge Exam Constitutional: WD/WN, vitals as above, NAD, sitting up in bed, pleasant, conversing easily Respiratory: normal respiratory effort, lungs clear to auscultation, no wheeze, rales, rhonchi. Normal insp/exp effort, no accessory muscle use Cardiovascular: RRR, no murmur, no edema Vessels: no JVD or carotid bruit Chest: normal inspection of chest Abdomen: normal bowel sounds, soft, nontender, no hepatosplenomegaly Musculoskeletal: no cyanosis or clubbing, extremities motor strength 5/5 Skin: no rashes, warm and dry normal turgor Neurologic: PERRL, EOMI, accommodation nl, no face palsy, no dysarthria CN's II- XI intact bilaterally and moves all extremities Psychiatric: A+Ox3, euthymic affect Discharge Data Allergies Allergy/AdvReac Type Severity Reaction Status Date / Time red dye Allergy Severe SEVERE Verified 12/17/22 03:14 MIGRAINES aspirin AdvReac Intermediate UPSETS Verified 12/17/22 03:14 STOMACH codeine AdvReac Intermediate "JUST Verified 12/17/22 03:14 DON'T SEEM TO AGREE WITH ME" Unclassified Drugs Allergy Severe STEROIDS-FACIAL Uncoded 12/17/22 03:14 SWELLING,EXTREMITIES Consultations 02/11/23 01:34 ED Decision to Admit Stat Ordered Studies 02/10/23 22:05 CT head/brain wo con Stat 02/10/23 22:12 CT angio neck with con Stat CTA head w con [CT angio head w con] Stat 02/11/23 01:34 MR brain wo/w con Stat Hospital Course (1) Weakness: 87-year-old male with past med significant for paroxysmal atrial fibrillation, venous thrombosis, hypertension, ulcerative colitis, Canales's esophagus, GERD, history of basal cell carcinoma, history of sensory hearing loss, history of factor V Leiden deficiency presents with episode of generalized weakness and ambulatory dysfunction. On presentation to the ED, patient was afebrile, normotensive and saturating well on room air. Patient underwent CT head without contrast which did not show any abnormality. MRI brain with/without contrast was done which did not show any abnormality. EKG showed sinus rhythm with PVC. High sensitive troponin was negative. CBC and CMP were within normal limits. Patient was walking on the hallways without any difficulty. No further episode of weakness observed. Patient insistent on getting discharged home soon as possible prior to PT OT evaluation. Patient discharged home with close follow-up with primary care doctor. Please note the above document was generated using voice recognition software. It may contain grammatical, syntax or spelling errors. Any formal questions or concerns about the content, text or information contained within the body of this dictation should be directly addressed to the provider for clarification Total Time Total Time Spent Total Time Spent (In Minutes): 36 Total Time Includes: Examination of the Patient, Discharge Planning, Medication Reconciliation, Communication With Other Providers and Other Discharge Plan Discharge Items Patient Disposition: Home - Self-Care Reason For Visit: WEAKNESS, AMBULATORY DYSFUNCTION, TIA? Discharge Diagnosis: Ambulatory dysfunction. Condition on Discharge: Good Activity: Resume your previous activity Non-emergency contact: Primary Care Provider Call non-emergency contact if: you have any medication questions and your symptoms worsen Follow-up/Referrals: Chivo Velez, DO [Primary Care Provider] - (Date & Time 02/18/2023 1:40 PMProvider Chivo Velez [facility] ) Diet: Regular Addtl Attending Provider Instructions: You were admitted to the hospital with generalized weakness. You had CT head and MRI brain done during the hospitalization which did not show any acute abnormality. The lab work done during the hospitalization also did not show any abnormality. An appointment will be set up with your primary care doctor for sometime next week. Pending Studies at Discharge: No Stand-Alone Forms: My [facility] [email or web address], Smoking Cessation Medications and DC Order Prescriptions: Continued mesalamine [Apriso] 0.375 gram capsule,extended release 24hr 0.75 g PO BID warfarin 5 mg Tablet See Rx Instructions .ROUTE .COMPLEX Rx Instructions: 5 mg orally; TAKE 5 MG EVERY DAY EXCEPT TUESDAY; ON SUNDAYS TAKE 10 MG. pantoprazole 40 mg tablet,delayed release (DR/EC) 40 mg PO AMHS lisinopril 20 mg tablet 20 mg PO QAM Discharge Orders: Discharge Order (Routine); Ordered 02/11/23 Ordered By: Ventura Amaral Admission Data Admit Date/Time: 02/11/23 03:31 Attending Provider: Ventura Amaral Admit Provider: Jaeml Villafana Primary Care Provider: Chivo Velez Other Providers: Jamel Villafana Other Interventions: Discharge Summary Assessment (RN) Last Done: 02/11/23 11:02
[2023-02-11] MEDS ORDERED: WARFARIN SOD 5 MG TAB PO SCH (16:00)
--- NOTE | 2023-02-11 16:40 | Communication Note ---
Date of Service: February 11, 2023 Code 44 attestation: The chart of the patient reviewed and found that he was appropriately managed and discharged in a reasonable stable condition. By CMS guidelines, a determination that the admission or continued stay is not medically necessary has been made by a member of the UR committee and a physician for this hospital stay, therefore a Code 44 will be completed and the Inpatient admission will be changed to outpatient. DR Lyndsay Mccauley Member UR Committee
[2023-02-15 05:22] LABS: Babesia microti DNA Not Detected (Not Detected)
[2023-02-16 14:10] LABS: Ehrlichia chaff DNA Bld Negative (Negative)
== END 2023-02-11 11:17 | disposition home or self-care (01) | DRG 948 ==
LOC: ED 21:35 → EDINP 02-11 03:31

== ENCOUNTER 2023-02-11 18:04 | Inpatient (IN) ==
--- NOTE | 2023-02-11 19:13 | Emergency Department Note ---
Impression & Plan Weakness ED Provider Note Provider: Markos Almaguer MD DATE OF SERVICE: 02/11/2023 CHIEF COMPLAINT: Episode of weakness and fall HISTORY OF PRESENT ILLNESS: Patient is a 87-year-old gentleman history of atrial flutter, factor V Leiden on Coumadin, hearing loss, and ulcerative colitis presenting here today after a weakness episode. Evaluated yesterday for similar and stayed overnight. Is feeling better by this morning and wanted to go home. Evidently did okay this afternoon and then just around dinnertime just after 5 PM felt rubbery and weak in all the extremities and went to the ground. No significant fall did not strike his head by his report. Does report he developed a bit of a posterior left lower headache at that time and this is new. Weakness seems to be improving some. Denies significant palpitations. Denies significant GI upset or nausea or vomiting. No fevers reported. States extensive work-up yesterday and is unsure what caused this. Denies history of similar significantly. No LOC reported. Later discussed both with him at bedside as well as his and daughter who later arrived and substantiate this general history. PAST MEDICAL HISTORY: As noted above MEDICATIONS: Reviewed home medications SOCIAL HISTORY: lives at home PHYSICAL EXAM: GENERAL: alert and oriented in no acute distress on stretcher somewhat hard of hearing Head: normocephalic and atraumatic with perhaps some slight tenderness without fluctuance left lateral skull. No evidence of swelling or trauma. EYES: No injection, discharge or icterus. NECK: Trachea midline. Supple without midline tenderness. ENT: Mucous membranes pink and moist. LUNGS: Airway patent. No retractions. Breath sounds clear with good air entry bilaterally. HEART: Regular rate and rhythm. No chest wall tenderness ABDOMEN: Soft and non-tender, without guarding or rebound. SKIN: Acyanotic, warm, dry, without rashes EXTREMITIES: Without swelling, tenderness or deformity NEUROLOGICAL: No focal deficits. No aphasia. No facial droop or slurred speech. Normal strength and tone in the extremities. Sensation to gross touch normal. EK bpm normal sinus rhythm. No PVC or PAC. No acute ST segment elevation or depression with QTc of 420. CONTINUOUS CARDIAC MONITORING: was ordered and showed a heart rate of 50s-60s bpm in normal sinus rhythm to sinus bradycardia GCS 15. Patient's laboratory studies and imaging reviewed. Differential includes Infection, dehydration, metabolic abnormality, hypo/hyperglycemia, electrolyte disturbance, anemia, hypoxia, cardiac sources, intracerebral event, toxicologic, neurologic, as well as other pathologies. IMPRESSION/MEDICAL DECISION MAKING: Patient without significant new focal deficits. Sounds like some generalized weakness but no clear loss of consciousness or syncope. No seizure-like activity reported. Headache there initially upon arrival but by time of reassessment after reviewing the medical records from recent admission this is much improved. Denies significant palpitations but does have a brief history of A-fib by his report. Could possibly be at play. Had extensive work including blood work and MRI. Given his headache complaint we will complete a CT of the head today but do not feel we need to repeat MRI or CT angiograms. Basic blood work obtained. At this point feel discussed with them staying for further evaluation and observation given the recurrence. Patient was reluctantly in agreement but family wished for this and I feel it is prudent given the second event. Does not seem like seizure. Does not appear meningitic. INR therapeutic and blood work otherwise reassuring without significant anemia or chemistry abnormalities. No distal thyroid dysfunction or DARRYL. Negative COVID. Discussed with the hospitalist for further care here given his recurrent episode. DIAGNOSIS: Episodes of weakness DISPOSITION: Hospitalist will evaluate Patient was agreeable with this plan. Past Med/Surg History Medical History Appendicitis Atrial fibrillation Barretts esophagus "EGD 07/29/2014-shows Barretts Esophagus with no CA; follows with GI, Dr. José Luis Richards" Factor V Leiden "on chronic anticoagulation" Gastro-esophageal reflux disease with esophagitis History of DVT (deep vein thrombosis) Ulcerative colitis Surgical History H/O colonoscopy H/O esophagogastroduodenoscopy Family History Other Family history non-contributory Social History Smoking Status: Current every day smoker Tobacco Type: Cigarettes Cigarettes Per Day: "alot"; Second Hand Exposure: No; Do You Dip or Chew Tobacco: No; Hx Alcohol Use: No Hx Substance Use: No Preferred Language: Greenlandic Communication Ability: Impaired Communication Ability Comment: deaf, 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, read writing Machine 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 Required: No Beliefs That Will Affect Care: None marital status: Current Living Situation: Spouse Other Information That Helps Us Care for You: No Feels Safe at Home: Yes Safety Concerns: Feels Safe At This Time Assistive Devices: None Allergies Allergies Allergy/AdvReac Type Severity Reaction Status Date / Time red dye Allergy Severe SEVERE Verified 02/11/23 20:47 MIGRAINES aspirin AdvReac Intermediate UPSETS Verified 02/11/23 20:47 STOMACH codeine AdvReac Intermediate "JUST Verified 02/11/23 20:47 DON'T SEEM TO AGREE WITH ME" steroids Allergy Facial & Uncoded 02/12/23 00:03 Extremity swelling Home Meds Home Medications Medication Instructions Recorded Confirmed mesalamine 0.375 gram 0.75 g PO BID 07/21/19 02/11/23 capsule,extended release 24 hr (Apriso) warfarin 5 mg tablet See Rx Instructions .Route .COMPLEX 07/21/19 02/11/23 lisinopril 20 mg tablet 20 mg PO QAM 12/17/22 02/11/23 pantoprazole 40 mg tablet,delayed 40 mg PO AMHS 02/10/23 02/11/23 release Results & Data (ED) Vital Signs Vital Signs - 24 hr 02/11/23 18:09 02/11/23 18:09 02/11/23 18:31 Temperature 36.6 C Temperature Source Oral Pulse Rate 62 62 Pulse Rate from SpO2 Sensor Respiratory Rate 18 Respiratory Effort / Characteristics Respiratory Depth Blood Pressure 139/77 Blood Pressure Mean 97 Pulse Oximetry 96 Oxygen Delivery Method Room Air Room Air Sepsis Recent Fever Within 48 Hours No Sepsis New/Unexplained Change in Mental Status No Sepsis Action Taken by Nursing No Action Required 02/11/23 19:00 02/11/23 19:57 02/11/23 18:32 Temperature Temperature Source Pulse Rate 63 Pulse Rate from SpO2 Sensor 64 Respiratory Rate 18 Respiratory Effort / Characteristics Non-Labored Respiratory Depth Normal Blood Pressure Blood Pressure Mean Pulse Oximetry 98 97 Oxygen Delivery Method Room Air Sepsis Recent Fever Within 48 Hours Sepsis New/Unexplained Change in Mental Status Sepsis Action Taken by Nursing 02/11/23 18:40 02/11/23 18:50 02/11/23 19:00 Temperature Temperature Source Pulse Rate 58 L 59 L 62 Pulse Rate from SpO2 Sensor 59 L 60 60 Respiratory Rate 19 19 17 Respiratory Effort / Characteristics Respiratory Depth Blood Pressure Blood Pressure Mean Pulse Oximetry 94 93 95 Oxygen Delivery Method Sepsis Recent Fever Within 48 Hours Sepsis New/Unexplained Change in Mental Status Sepsis Action Taken by Nursing 02/11/23 19:10 02/11/23 19:20 02/11/23 19:30 Temperature Temperature Source Pulse Rate 65 63 60 Pulse Rate from SpO2 Sensor 62 59 L Respiratory Rate 19 21 20 Respiratory Effort / Characteristics Respiratory Depth Blood Pressure Blood Pressure Mean Pulse Oximetry 94 94 Oxygen Delivery Method Sepsis Recent Fever Within 48 Hours Sepsis New/Unexplained Change in Mental Status Sepsis Action Taken by Nursing 02/11/23 19:40 02/11/23 19:50 02/11/23 20:00 Temperature Temperature Source Pulse Rate 63 61 60 Pulse Rate from SpO2 Sensor 63 61 60 Respiratory Rate 23 24 22 Respiratory Effort / Characteristics Respiratory Depth Blood Pressure Blood Pressure Mean Pulse Oximetry 95 95 97 Oxygen Delivery Method Sepsis Recent Fever Within 48 Hours Sepsis New/Unexplained Change in Mental Status Sepsis Action Taken by Nursing 02/11/23 20:08 02/11/23 20:08 02/11/23 20:10 Temperature Temperature Source Pulse Rate 61 62 Pulse Rate from SpO2 Sensor 62 57 L Respiratory Rate 25 H 19 Respiratory Effort / Characteristics Respiratory Depth Blood Pressure 159/92 H Blood Pressure Mean 102 Pulse Oximetry 96 99 Oxygen Delivery Method Sepsis Recent Fever Within 48 Hours Sepsis New/Unexplained Change in Mental Status Sepsis Action Taken by Nursing 02/11/23 20:20 02/11/23 20:39 02/11/23 20:40 Temperature Temperature Source Pulse Rate 62 60 61 Pulse Rate from SpO2 Sensor 62 63 55 L Respiratory Rate 18 14 16 Respiratory Effort / Characteristics Respiratory Depth Blood Pressure Blood Pressure Mean Pulse Oximetry 97 97 97 Oxygen Delivery Method Sepsis Recent Fever Within 48 Hours Sepsis New/Unexplained Change in Mental Status Sepsis Action Taken by Nursing 02/11/23 20:50 02/11/23 21:00 02/11/23 21:10 Temperature Temperature Source Pulse Rate 57 L 63 56 L Pulse Rate from SpO2 Sensor 57 L 57 L Respiratory Rate 22 21 19 Respiratory Effort / Characteristics Respiratory Depth Blood Pressure Blood Pressure Mean Pulse Oximetry 96 96 Oxygen Delivery Method Sepsis Recent Fever Within 48 Hours Sepsis New/Unexplained Change in Mental Status Sepsis Action Taken by Nursing 02/11/23 21:20 02/11/23 21:30 02/11/23 21:40 Temperature Temperature Source Pulse Rate 56 L 60 Pulse Rate from SpO2 Sensor 57 L 61 Respiratory Rate 17 13 Respiratory Effort / Characteristics Respiratory Depth Blood Pressure 137/77 Blood Pressure Mean 107 Pulse Oximetry 97 96 Oxygen Delivery Method Sepsis Recent Fever Within 48 Hours Sepsis New/Unexplained Change in Mental Status Sepsis Action Taken by Nursing 02/11/23 21:40 02/11/23 22:41 02/11/23 22:00 Temperature Temperature Source Pulse Rate 57 L 57 L Pulse Rate from SpO2 Sensor 58 L Respiratory Rate 14 Respiratory Effort / Characteristics Non-Labored Respiratory Depth Normal Blood Pressure Blood Pressure Mean Pulse Oximetry 94 Oxygen Delivery Method Room Air Sepsis Recent Fever Within 48 Hours Sepsis New/Unexplained Change in Mental Status Sepsis Action Taken by Nursing 02/11/23 21:50 02/11/23 22:00 02/11/23 22:00 Temperature Temperature Source Pulse Rate 55 L 55 L Pulse Rate from SpO2 Sensor 55 L 57 L Respiratory Rate 12 18 Respiratory Effort / Characteristics Respiratory Depth Blood Pressure 139/80 Blood Pressure Mean 107 Pulse Oximetry 94 92 Oxygen Delivery Method Sepsis Recent Fever Within 48 Hours Sepsis New/Unexplained Change in Mental Status Sepsis Action Taken by Nursing 02/11/23 22:10 02/11/23 22:20 02/11/23 22:30 Temperature Temperature Source Pulse Rate 58 L 58 L 62 Pulse Rate from SpO2 Sensor 57 L 58 L 62 Respiratory Rate 19 18 18 Respiratory Effort / Characteristics Respiratory Depth Blood Pressure Blood Pressure Mean Pulse Oximetry 94 95 97 Oxygen Delivery Method Sepsis Recent Fever Within 48 Hours Sepsis New/Unexplained Change in Mental Status Sepsis Action Taken by Nursing 02/11/23 22:40 02/11/23 22:50 Temperature Temperature Source Pulse Rate 58 L 56 L Pulse Rate from SpO2 Sensor 58 L 56 L Respiratory Rate 24 18 Respiratory Effort / Characteristics Respiratory Depth Blood Pressure Blood Pressure Mean Pulse Oximetry 96 95 Oxygen Delivery Method Sepsis Recent Fever Within 48 Hours Sepsis New/Unexplained Change in Mental Status Sepsis Action Taken by Nursing Laboratory Data 02/11/23 20:21 02/11/23 20:21 Lab Results 02/11/23 02/11/23 02/11/23 Range/Units 20:21 20:21 20:21 WBC 6.18 (4.8-10.8) K/ul RBC 4.52 L (4.70-6.10) M/uL Hgb 12.8 L (14.0-18.0) g/dl Hct 40.1 L (42.0-52.0) % MCV 88.7 (80.0-100.0) fL MCH 28.3 (25.0-34.0) pg MCHC 31.9 L (32.0-36.0) g/dL RDW Std Deviation 47.0 H (36.4-46.3) fL RDW Coeff of Dmitri 14.6 H (11.5-14.5) % Plt Count 169 (130-400) K/uL MPV 10.6 (9.4-12.4) fL Immature Gran % (Auto) 0.2 % Neut % (Auto) 64.7 % Lymph % (Auto) 23.5 % Alexander % (Auto) 7.1 % Eos % (Auto) 3.9 % Baso % (Auto) 0.6 % Neut # (Auto) 4.00 (1.40-6.50) K/uL Lymph # (Auto) 1.45 (1.2-3.4) K/uL Alexander # (Auto) 0.44 (0.11-0.59) K/uL Eos # (Auto) 0.24 (0-0.50) K/uL Baso # (Auto) 0.04 (0-0.2) K/uL Immature Gran # (Auto) 0.01 (0.01-0.20) K/uL PT (9.0-12.0) Seconds INR (0.9-1.1) Sodium 139 (136-145) mmol/L Potassium 3.9 (3.5-5.1) mmol/L Chloride 109 H (98-107) mmol/L Carbon Dioxide 26 (21-32) mmol/L Anion Gap 4 (3-11) BUN 17 (6-23) mg/dl Creatinine 0.72 (0.6-1.4) mg/dl Est Cr Clr Drug Dosing 75.0 ml/min Est GFR ( Amer) 98.6 ml/min Est GFR (Non-Af Amer) 85.1 ml/min BUN/Creatinine Ratio 23.6 H (10-20) Glucose 111 H (70-99(Fasting)) mg/dl Calcium 8.3 L (8.6-10.3) mg/dl Magnesium 2.2 (1.7-2.4) mg/dl Total Bilirubin 0.5 (0.2-1.0) mg/dl AST 14 (13-39) U/L ALT 9 (7-52) U/L Alkaline Phosphatase 63 (34-104) U/L Troponin I High Sens 3.5 (0-20) pg/ml Total Protein 6.1 (6.0-8.3) gm/dl Albumin 3.6 (3.4-5.0) gm/dl Globulin 2.5 (2.5-4.0) gm/dl Albumin/Globulin Ratio 1.4 (0.9-2) TSH 1.924 (0.300-4.500) uIu/ml 02/11/23 Range/Units 20:21 WBC (4.8-10.8) K/ul RBC (4.70-6.10) M/uL Hgb (14.0-18.0) g/dl Hct (42.0-52.0) % MCV (80.0-100.0) fL MCH (25.0-34.0) pg MCHC (32.0-36.0) g/dL RDW Std Deviation (36.4-46.3) fL RDW Coeff of Dmitri (11.5-14.5) % Plt Count (130-400) K/uL MPV (9.4-12.4) fL Immature Gran % (Auto) % Neut % (Auto) % Lymph % (Auto) % Alexander % (Auto) % Eos % (Auto) % Baso % (Auto) % Neut # (Auto) (1.40-6.50) K/uL Lymph # (Auto) (1.2-3.4) K/uL Alexander # (Auto) (0.11-0.59) K/uL Eos # (Auto) (0-0.50) K/uL Baso # (Auto) (0-0.2) K/uL Immature Gran # (Auto) (0.01-0.20) K/uL PT 21.5 H (9.0-12.0) Seconds INR 2.1 H (0.9-1.1) Sodium (136-145) mmol/L Potassium (3.5-5.1) mmol/L Chloride (98-107) mmol/L Carbon Dioxide (21-32) mmol/L Anion Gap (3-11) BUN (6-23) mg/dl Creatinine (0.6-1.4) mg/dl Est Cr Clr Drug Dosing ml/min Est GFR ( Amer) ml/min Est GFR (Non-Af Amer) ml/min BUN/Creatinine Ratio (10-20) Glucose (70-99(Fasting)) mg/dl Calcium (8.6-10.3) mg/dl Magnesium (1.7-2.4) mg/dl Total Bilirubin (0.2-1.0) mg/dl AST (13-39) U/L ALT (7-52) U/L Alkaline Phosphatase (34-104) U/L Troponin I High Sens (0-20) pg/ml Total Protein (6.0-8.3) gm/dl Albumin (3.4-5.0) gm/dl Globulin (2.5-4.0) gm/dl Albumin/Globulin Ratio (0.9-2) TSH (0.300-4.500) uIu/ml Administered Medications Discontinued Medications Pantoprazole Sodium (Pantoprazole 40 Mg Tab) 40 mg PO NOW STA Stop: 02/11/23 20:50 Last Admin: 02/11/23 21:00 Dose: 40 mg Documented By: DAMION Imaging Data Radiologist's Impression: Head CT 02/11/23 19:13 Exam(s): CT HEAD Without Contrast EXAM: CT Head Without Intravenous Contrast CLINICAL HISTORY: Fall. TECHNIQUE: Axial computed tomography images of the head/brain without intravenous contrast. CTDI is 35.92 mGy and DLP is 624.41 mGy-cm. Automated exposure control was utilized for the study. A dose lowering technique was utilized adhering to the principles of ALARA. COMPARISON: CT head 02/10/2023 FINDINGS: Brain: No intracranial hemorrhage, mass-effect or midline shift. No abnormal extra axial fluid. No evidence of acute infarct. Mild periventricular white matter hypodensities are most consistent with chronic microangiopathy. Ventricles: Unremarkable. No ventriculomegaly. Bones/joints: Unremarkable. No acute fracture. Soft tissues: Unremarkable. Sinuses: Unremarkable as visualized. No acute sinusitis. Mastoid air cells: Unremarkable as visualized. No mastoid effusion. IMPRESSION: No acute intracranial finding. Electronically signed by: Betty Jay MD 02/11/23 22:21 PM Discharge Plan Visit Data Chief Complaint: Weakness Stated Complaint: Weakness ED Provider: Markos Almaguer Discharge Problem: Weakness Patient Disposition: Being Evaluated by Hospitalist Discharge Instructions Interventions: ED Discharge Assessment Last Done: 02/12/23 00:18
[2023-02-11 20:39] LABS: Basophils # (auto) 0.04 K/uL (0-0.2); Basophils % (auto) 0.6 %; Eosinophils # (auto) 0.24 K/uL (0-0.50); Eosinophils % (auto) 3.9 %; Hematocrit (blood only) 40.1 % (42.0-52.0); Hemoglobin 12.8 g/dl (14.0-18.0); Immature Granulocytes # (auto) 0.01 K/uL (0.01-0.20); Immature Granulocytes % (auto) 0.2 %; Lymphocytes # (auto) 1.45 K/uL (1.2-3.4); Lymphocytes % (auto) 23.5 %; Mean Corpuscular Hemoglobin 28.3 pg (25.0-34.0); Mean Corpuscular Hgb Conc 31.9 g/dL (32.0-36.0); Mean Corpuscular Volume 88.7 fL (80.0-100.0); Mean Platelet Volume 10.6 fL (9.4-12.4); Monocytes # (auto) 0.44 K/uL (0.11-0.59); Monocytes % (auto) 7.1 %; Neutrophils % (auto) 64.7 %; Platelet Count 169 K/uL (130-400); RDW Coefficient of Variation 14.6 % (11.5-14.5); Red Blood Count 4.52 M/uL (4.70-6.10); White Blood Count 6.18 K/ul (4.8-10.8)
[2023-02-11] MEDS ORDERED: PANTOprazole 40 MG TAB PO STA (20:49)
[2023-02-11 20:57] LABS: INR 2.1 (0.9-1.1); Prothrombin Time 21.5 Seconds (9.0-12.0)
[2023-02-11 21:03] LABS: Albumin Globulin Ratio 1.4 (0.9-2); Albumin Level 3.6 gm/dl (3.4-5.0); BUN Creatinine Ratio 23.6 (10-20); Bilirubin,Total 0.5 mg/dl (0.2-1.0); Calcium 8.3 mg/dl (8.6-10.3); Est GFR (African American) 98.6 ml/min; Est GFR (Non-African American) 85.1 ml/min; Globulin 2.5 gm/dl (2.5-4.0); Magnesium 2.2 mg/dl (1.7-2.4); Potassium 3.9 mmol/L (3.5-5.1); Total Protein 6.1 gm/dl (6.0-8.3)
[2023-02-11 21:07] LABS: Troponin I High Sensitivity 3.5 pg/ml (0-20)
--- NOTE | 2023-02-11 22:22 | CT Scan Report ---
Exam(s): CT HEAD Without Contrast EXAM: CT Head Without Intravenous Contrast CLINICAL HISTORY: Fall. TECHNIQUE: Axial computed tomography images of the head/brain without intravenous contrast. CTDI is 35.92 mGy and DLP is 624.41 mGy-cm. Automated exposure control was utilized for the study. A dose lowering technique was utilized adhering to the principles of ALARA. COMPARISON: CT head 02/10/2023 FINDINGS: Brain: No intracranial hemorrhage, mass-effect or midline shift. No abnormal extra axial fluid. No evidence of acute infarct. Mild periventricular white matter hypodensities are most consistent with chronic microangiopathy. Ventricles: Unremarkable. No ventriculomegaly. Bones/joints: Unremarkable. No acute fracture. Soft tissues: Unremarkable. Sinuses: Unremarkable as visualized. No acute sinusitis. Mastoid air cells: Unremarkable as visualized. No mastoid effusion. IMPRESSION: No acute intracranial finding. Electronically signed by: Betty Jay MD 02/11/23 22:21 PM
--- NOTE | 2023-02-11 23:17 | History & Physical Report ---
Date of Service February 11, 2023 Assessment & Plan (1) Weakness: Plan: 87-year-old male with past med significant for paroxysmal atrial fibrillation, venous thrombosis, hypertension, ulcerative colitis, Canales's esophagus, GERD, history of basal cell carcinoma, history of sensory hearing loss, history of factor V Leiden deficiency presents with recurrent episode of generalized weakness and ambulatory dysfunction Generalized weakness Rubbery feeling of the body lasted for about hour Fell down Similar episode yesterday and work-up was done with CT head CTA head and neck and MRI scan which were unremarkable Labs unremarkable We will monitor on telemetry floor May need Holter PT OT when stable Chest discomfort EKG okay We will follow troponins and echocardiogram npo for now Consult cardiology in a.m. Ulcerative colitis on mesalamine Canales's esophagus on Protonix History of A-fib Venous thrombosis History of factor V Leyden deficiency On Coumadin INR therapeutic History of hypertension On lisinopril DVT prophylaxis on Coumadin will follow PT/INR Disposition telemetry floor Full code History of Present Illness Chief Complaint: Weakness and ambulatory dysfunction Primary Care Provider: Chivo Velez DO 87-year-old male with past med significant for paroxysmal atrial fibrillation, venous thrombosis, hypertension, ulcerative colitis, Canales's esophagus, GERD, history of basal cell carcinoma, history of sensory hearing loss, history of factor V Leiden deficiency presents with recurrent generalized weakness and ambulatory dysfunction where he felt rubbery feeling in his extremities and fell down but no loss of consciousness. Patient states it lasted for about 1 hour this time. Patient was in the hospital last night with a similar episode where labs Lyme screen anaplasmosis. Respiratory bio fire were fine. He also had CT head, CTA of the head and neck and MRI of the head which were unremarkable. He was recently started on Levisin which was stopped for possible cause of his symptoms. Patient did okay last night and and in the morning he was ambulating fine and wanted to be discharged. After going home patient did fine all day but again in the evening felt similar kind of episode and fell down and brought to the hospital. Patient Resting comfortably and hemodynamic stable. The rubbery feeling is gone. He had headache earlier that resolved. But he says he has some chest pain now. Denies shortness of breath. No nausea. No cough. No abdominal pain. Normal bowel movements. Very hard of hearing. Past medical history as mentioned above Past surgical history amputation of right toe, colonoscopy with biopsy, EGD, EGD with biopsy, EGD with endoscopic ultrasound, laparoscopic cholecystectomy, laparoscopic appendectomy, bilateral cataract Social history quit smoking in 1984 smoked 1.5 packs a day for 20 years. Alcohol 2 glasses daily. No drugs. Family history father had peripheral vascular disease Allergies Allergy/AdvReac Type Severity Reaction Status Date / Time red dye Allergy Severe SEVERE Verified 02/11/23 20:47 MIGRAINES aspirin AdvReac Intermediate UPSETS Verified 02/11/23 20:47 STOMACH codeine AdvReac Intermediate "JUST Verified 02/11/23 20:47 DON'T SEEM TO AGREE WITH ME" steroids Allergy Facial & Uncoded 02/12/23 00:03 Extremity swelling Home Medications Medication Instructions Recorded Confirmed Type mesalamine 0.375 gram 0.75 g PO BID 07/21/19 02/11/23 History capsule,extended release 24 hr (Apriso) warfarin 5 mg tablet See Rx Instructions .Route .COMPLEX 07/21/19 02/11/23 History lisinopril 20 mg tablet 20 mg PO QAM 12/17/22 02/11/23 History pantoprazole 40 mg tablet,delayed 40 mg PO AMHS 02/10/23 02/11/23 History release Past Med/Surg History Medical History Appendicitis Atrial fibrillation Barretts esophagus "EGD 07/29/2014-shows Barretts Esophagus with no CA; follows with GI, Dr. José Luis Richards" Factor V Leiden "on chronic anticoagulation" Gastro-esophageal reflux disease with esophagitis History of DVT (deep vein thrombosis) Ulcerative colitis Surgical History H/O colonoscopy H/O esophagogastroduodenoscopy Family History Other Family history non-contributory Social History Smoking Status: Current every day smoker Tobacco Type: Cigarettes Cigarettes Per Day: "alot"; Second Hand Exposure: No; Do You Dip or Chew Tobacco: No; Hx Alcohol Use: No Hx Substance Use: No Preferred Language: Hong Konger Communication Ability: Impaired Communication Ability Comment: deaf, 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, read writing 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 Abdomen- normal bowel sounds, soft, nontender, no distension. Extremities- no pretibial edema, no erythema seen Neuro- alert, oriented x 3; PERRL, ; no facial palsy; no dysarthria; motor 4/5 bilaterally; no pronator drift. obeys commands Skin- warm & dry Results & Data Results & Data Vital Signs (Past 12 Hours) Vital Signs Temp Pulse Resp BP Pulse Ox O2 Del Method 02/11/23 22:50 56 L 18 95 02/11/23 22:40 58 L 24 96 02/11/23 22:30 62 18 97 02/11/23 22:20 58 L 18 95 02/11/23 22:10 58 L 19 94 02/11/23 22:00 55 L 18 92 02/11/23 22:00 139/80 02/11/23 21:50 55 L 12 94 02/11/23 22:00 Room Air 02/11/23 22:41 57 L 02/11/23 21:40 57 L 14 94 02/11/23 21:40 137/77 02/11/23 21:30 60 13 96 02/11/23 21:20 56 L 17 97 02/11/23 21:10 56 L 19 96 02/11/23 21:00 63 21 02/11/23 20:50 57 L 22 96 02/11/23 20:40 61 16 97 02/11/23 20:39 60 14 97 02/11/23 20:20 62 18 97 02/11/23 20:10 62 19 99 02/11/23 20:08 159/92 H 02/11/23 20:08 61 25 H 96 02/11/23 20:00 60 22 97 02/11/23 19:50 61 24 95 02/11/23 19:40 63 23 95 02/11/23 19:30 60 20 94 02/11/23 19:20 63 21 94 02/11/23 19:10 65 19 02/11/23 19:00 62 17 95 02/11/23 18:50 59 L 19 93 02/11/23 18:40 58 L 19 94 02/11/23 18:32 63 18 97 02/11/23 19:00 98 Room Air 02/11/23 18:31 62 02/11/23 18:09 Room Air 02/11/23 18:09 36.6 C 62 18 139/77 96 Room Air Diagnostic Findings Laboratory Results WBC 6.18 K/ul (4.8-10.8) 02/11/23 20:21 RBC 4.52 M/uL (4.70-6.10) L 02/11/23 20:21 Hgb 12.8 g/dl (14.0-18.0) L 02/11/23 20:21 Hct 40.1 % (42.0-52.0) L 02/11/23 20:21 MCV 88.7 fL (80.0-100.0) 02/11/23 20:21 MCH 28.3 pg (25.0-34.0) 02/11/23 20:21 MCHC 31.9 g/dL (32.0-36.0) L 02/11/23 20:21 RDW Std Deviation 47.0 fL (36.4-46.3) H 02/11/23 20:21 RDW Coeff of Dmitri 14.6 % (11.5-14.5) H 02/11/23 20:21 Plt Count 169 K/uL (130-400) 02/11/23 20:21 MPV 10.6 fL (9.4-12.4) 02/11/23 20:21 Immature Gran % (Auto) 0.2 % 02/11/23 20:21 Neut % (Auto) 64.7 % 02/11/23 20:21 Lymph % (Auto) 23.5 % 02/11/23 20:21 [place] % (Auto) 7.1 % 02/11/23 20:21 Eos % (Auto) 3.9 % 02/11/23 20:21 Baso % (Auto) 0.6 % 02/11/23 20:21 Neut # (Auto) 4.00 K/uL (1.40-6.50) 02/11/23 20:21 Lymph # (Auto) 1.45 K/uL (1.2-3.4) 02/11/23 20:21 [place] # (Auto) 0.44 K/uL (0.11-0.59) 02/11/23 20:21 Eos # (Auto) 0.24 K/uL (0-0.50) 02/11/23 20:21 Baso # (Auto) 0.04 K/uL (0-0.2) 02/11/23 20:21 Immature Gran # (Auto) 0.01 K/uL (0.01-0.20) 02/11/23 20:21 PT 21.5 Seconds (9.0-12.0) H 02/11/23 20:21 INR 2.1 (0.9-1.1) H 02/11/23 20:21 Sodium 139 mmol/L (136-145) 02/11/23 20:21 Potassium 3.9 mmol/L (3.5-5.1) 02/11/23 20:21 Chloride 109 mmol/L (98-107) H 02/11/23 20:21 Carbon Dioxide 26 mmol/L (21-32) 02/11/23 20:21 Anion Gap 4 (3-11) 02/11/23 20:21 BUN 17 mg/dl (6-23) 02/11/23 20:21 Creatinine 0.72 mg/dl (0.6-1.4) 02/11/23 20:21 Est Cr Clr Drug Dosing 75.0 ml/min 02/11/23 20:21 Est GFR ( Amer) 98.6 ml/min 02/11/23 20:21 Est GFR (Non-Af Amer) 85.1 ml/min 02/11/23 20:21 BUN/Creatinine Ratio 23.6 (10-20) H 02/11/23 20:21 Glucose 111 mg/dl (70-99(Fasting)) H 02/11/23 20:21 Calcium 8.3 mg/dl (8.6-10.3) L 02/11/23 20:21 Magnesium 2.2 mg/dl (1.7-2.4) 02/11/23 20:21 Total Bilirubin 0.5 mg/dl (0.2-1.0) 02/11/23 20:21 AST 14 U/L (13-39) 02/11/23 20:21 ALT 9 U/L (7-52) 02/11/23 20:21 Alkaline Phosphatase 63 U/L (34-104) 02/11/23 20:21 Troponin I High Sens 3.5 pg/ml (0-20) 02/11/23 20:21 Total Protein 6.1 gm/dl (6.0-8.3) 02/11/23 20:21 Albumin 3.6 gm/dl (3.4-5.0) 02/11/23 20:21 Globulin 2.5 gm/dl (2.5-4.0) 02/11/23 20:21 Albumin/Globulin Ratio 1.4 (0.9-2) 02/11/23 20:21 TSH 1.924 uIu/ml (0.300-4.500) 02/11/23 20:21 SARS-CoV-2, RNA, NAAT NEGATIVE (NEGATIVE) 02/11/[address] 02/11/23 19:13 Exam(s): CT HEAD Without Contrast EXAM: CT Head Without Intravenous Contrast CLINICAL HISTORY: Fall. TECHNIQUE: Axial computed tomography images of the head/brain without intravenous contrast. CTDI is 35.92 mGy and DLP is 624.41 mGy-cm. Automated exposure control was utilized for the study. A dose lowering technique was utilized adhering to the principles of ALARA. COMPARISON: CT head 02/10/2023 FINDINGS: Brain: No intracranial hemorrhage, mass-effect or midline shift. No abnormal extra axial fluid. No evidence of acute infarct. Mild periventricular white matter hypodensities are most consistent with chronic microangiopathy. Ventricles: Unremarkable. No ventriculomegaly. Bones/joints: Unremarkable. No acute fracture. Soft tissues: Unremarkable. Sinuses: Unremarkable as visualized. No acute sinusitis. Mastoid air cells: Unremarkable as visualized. No mastoid effusion. IMPRESSION: No acute intracranial finding. Electronically signed by: Betty Jay MD 02/11/23 22:21 PM ECG Additional Comments: ECG sinus bradycardia rate of 58 no significant change was found Code Status & VTE Plan VTE Prophylaxis Plan VTE Prophylaxis will be ordered: Yes
[2023-02-12] MEDS ORDERED: SODIUM CHLORIDE 0.9% 1,000 ML IV SCH (00:46)
[2023-02-12] MEDS ORDERED: POLYETHYLENE (MIRALAX) 17 GM PACK PO PRN (00:46)
[2023-02-12] MEDS ORDERED: NITROGLYCERIN SL 0.4 MG/TAB TAB SL PRN (00:46)
[2023-02-12] MEDS: ACETAMINOPHEN 325 MG TAB PO PRN ×2 (02:46→11:08)
[2023-02-12 06:52] LABS: BUN Creatinine Ratio 20.8 (10-20); Calcium 8.2 mg/dl (8.6-10.3); Est GFR (African American) 98.6 ml/min; Est GFR (Non-African American) 85.1 ml/min; Magnesium 2.2 mg/dl (1.7-2.4); Potassium 3.7 mmol/L (3.5-5.1)
[2023-02-12 06:59] LABS: Troponin I High Sensitivity 4.6 pg/ml (0-20)
[2023-02-12 07:30] LABS: Basophils # (auto) 0.03 K/uL (0-0.2); Basophils % (auto) 0.5 %; Eosinophils # (auto) 0.29 K/uL (0-0.50); Eosinophils % (auto) 4.7 %; Hematocrit (blood only) 38.8 % (42.0-52.0); Hemoglobin 12.6 g/dl (14.0-18.0); Immature Granulocytes # (auto) 0.01 K/uL (0.01-0.20); Immature Granulocytes % (auto) 0.2 %; Lymphocytes # (auto) 1.62 K/uL (1.2-3.4); Lymphocytes % (auto) 26.3 %; Mean Corpuscular Hemoglobin 28.7 pg (25.0-34.0); Mean Corpuscular Hgb Conc 32.5 g/dL (32.0-36.0); Mean Corpuscular Volume 88.4 fL (80.0-100.0); Mean Platelet Volume 10.8 fL (9.4-12.4); Monocytes # (auto) 0.44 K/uL (0.11-0.59); Monocytes % (auto) 7.1 %; Neutrophils # (auto) 3.77 K/uL (1.40-6.50); Neutrophils % (auto) 61.2 %; Platelet Count 170 K/uL (130-400); RDW Coefficient of Variation 14.6 % (11.5-14.5); RDW Standard Deviation 47.3 fL (36.4-46.3); Red Blood Count 4.39 M/uL (4.70-6.10); White Blood Count 6.16 K/ul (4.8-10.8)
[2023-02-12 07:56] LABS: INR 1.9 (0.9-1.1); Prothrombin Time 19.7 Seconds (9.0-12.0)
--- NOTE | 2023-02-12 08:13 | Cardiology Consultation ---
Date of Consultation February 12, 2023 Assessment & Plan (1) Weakness: (2) Atypical chest pain: (3) Paroxysmal atrial fibrillation: (4) Factor V Leiden: (5) Hiatal hernia: Plan 87-year-old patient presents with profound weakness and fall. Transient episode of atypical left-sided abdominal and lower chest discomfort reported overnight. No ischemic ECG changes, elevated troponin, or dysrhythmia on telemetry. Bedside echocardiogram demonstrating normal wall motion. Possibly related to hiatal hernia. Continue telemetry monitoring and conservative medical management at this time. Outpatient follow-up to consider stress testing. Thank you for allowing me to participate in care of your patient. History of Present Illness Reason for Consultation: chest pain Requesting Physician: Dr. Villafana Attending Physician: Ventura Amaral MD History of Present Illness 87-year-old patient with history of paroxysmal atrial fibrillation, factor V Leiden, DVT, and esophageal varices presented to the emergency department due to generalized weakness and ambulatory dysfunction. Reports legs feeling "rubbery" with a subsequent fall. No loss of consciousness. Patient had presented to the emergency department approximately 24 hours earlier with similar symptoms. After returning home, symptoms recurred. Admitted to the progressive care unit. Feeling somewhat better currently however feeling extremely fatigued. Notes transient episode of left-sided abd ominal and left lower rib pain overnight. Symptoms spontaneously resolved without intervention. Resting comfortably. present at bedside. Denies orthopnea, PND, or lower extremity edema. No fever, chills, or sick contacts. No recent known, tick exposure. Allergies Allergy/AdvReac Type Severity Reaction Status Date / Time red dye Allergy Severe SEVERE Verified 02/11/23 20:47 MIGRAINES aspirin AdvReac Intermediate UPSETS Verified 02/11/23 20:47 STOMACH codeine AdvReac Intermediate "JUST Verified 02/11/23 20:47 DON'T SEEM TO AGREE WITH ME" steroids Allergy Facial & Uncoded 02/12/23 00:03 Extremity swelling Home Medications Medication Instructions Recorded Confirmed Type mesalamine 0.375 gram 0.75 g PO BID 07/21/19 02/11/23 History capsule,extended release 24 hr (Apriso) warfarin 5 mg tablet See Rx Instructions .Route .COMPLEX 07/21/19 02/11/23 History lisinopril 20 mg tablet 20 mg PO QAM 06/23/23 08/18/23 History pantoprazole 40 mg tablet,delayed 40 mg PO AMHS 02/10/23 02/11/23 History release Patient History Medical History Appendicitis Atrial fibrillation Barretts esophagus "EGD 07/29/2014-shows Barretts Esophagus with no CA; follows with GI, Dr. José Luis Richards" Factor V Leiden "on chronic anticoagulation" Gastro-esophageal reflux disease with esophagitis History of DVT (deep vein thrombosis) Ulcerative colitis Surgical History H/O colonoscopy H/O esophagogastroduodenoscopy Family History Other Family history non-contributory Social History Smoking Status: Current every day smoker Tobacco Type: Cigarettes Cigarettes Per Day: "alot"; Second Hand Exposure: No; Do You Dip or Chew Tobacco: No; Hx Alcohol Use: No Hx Substance Use: No Preferred Language: Mongolian Communication Ability: Effective Communication Ability Comment: deaf, 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, read writing 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 Beliefs That Will Affect Care: None marital status: Current Living Situation: Spouse Other Information That Helps Us Care for You: No Feels Safe at Home: Yes Safety Concerns: Feels Safe At This Time Assistive Devices: None Review of Systems Review of Systems: All systems reviewed & are unremarkable except as noted in Subjective Physical Exam Constitutional: well nourished; no acute distress Respiratory: no respiratory distress, no labored breathing and no retractions Auscultation: no crackles, no rales, no rhonchi and no wheezes Cardiovascular: Rate/Rhythm: regular rate and regular rhythm Heart Sounds: normal S1 and normal S2; no murmur Gastrointestinal (Abdomen): Inspection/Auscultation: abdomen not distended and + abnormal bowel sounds Percussion/Palpation: abdomen soft; abdomen nontender, no guarding and abdomen not rigid Neurologic: CN's II-XI intact bilaterally and moves all extremities Results & Data Vital Signs (Past 12 Hours) Vital Signs Temp Pulse Pulse Pulse Resp BP BP 02/12/23 07:00 62 02/12/23 07:26 36.8 C 63 20 147/75 H 02/12/23 04:01 36.9 C 76 16 144/80 H 02/12/23 01:08 36.6 C 67 18 160/96 H 02/12/23 00:46 36.6 C 67 18 160/96 H 02/12/23 00:46 02/12/23 01:10 65 02/12/23 00:18 82 16 143/92 H 02/11/23 22:50 56 L 18 02/11/23 22:40 58 L 24 02/11/23 22:30 62 18 02/11/23 22:20 58 L 18 02/11/23 22:10 58 L 19 02/11/23 22:00 55 L 18 02/11/23 22:00 139/80 02/11/23 21:50 55 L 12 02/11/23 22:00 02/11/23 22:41 57 L 02/11/23 21:40 57 L 14 02/11/23 21:40 137/77 02/11/23 21:30 60 13 02/11/23 21:20 56 L 17 02/11/23 21:10 56 L 19 02/11/23 21:00 63 21 02/11/23 20:50 57 L 22 02/11/23 20:40 61 16 02/11/23 20:39 60 14 02/11/23 20:20 62 18 02/11/23 20:10 62 19 Pulse Ox Pulse Ox O2 Del Method O2 Del Method 02/12/23 07:00 02/12/23 07:26 95 Room Air 02/12/23 04:01 95 Room Air 02/12/23 01:08 97 Room Air 02/12/23 00:46 97 Room Air 02/12/23 00:46 97 Room Air 02/12/23 01:10 02/12/23 00:18 98 Room Air 02/11/23 22:50 95 02/11/23 22:40 96 02/11/23 22:30 97 02/11/23 22:20 95 02/11/23 22:10 94 02/11/23 22:00 92 02/11/23 22:00 02/11/23 21:50 94 02/11/23 22:00 Room Air 02/11/23 22:41 02/11/23 21:40 94 02/11/23 21:40 02/11/23 21:30 96 02/11/23 21:20 97 02/11/23 21:10 96 02/11/23 21:00 02/11/23 20:50 96 02/11/23 20:40 97 02/11/23 20:39 97 02/11/23 20:20 97 02/11/23 20:10 99 Laboratory Results Cardiac Enzymes 02/11/23 02/12/23 Range/Units 20:21 05:36 AST 14 (13-39) U/L Troponin I High Sens 3.5 4.6 (0-20) pg/ml Coagulation 02/11/23 02/12/23 Range/Units 20:21 05:36 PT 21.5 H 19.7 H (9.0-12.0) Seconds CBC 02/11/23 02/12/23 Range/Units 20:21 05:36 WBC 6.18 6.16 (4.8-10.8) K/ul RBC 4.52 L 4.39 L (4.70-6.10) M/uL Hgb 12.8 L 12.6 L (14.0-18.0) g/dl Hct 40.1 L 38.8 L (42.0-52.0) % Plt Count 169 170 (130-400) K/uL Neut # (Auto) 4.00 3.77 (1.40-6.50) K/uL Lymph # (Auto) 1.45 1.62 (1.2-3.4) K/uL [place] # (Auto) 0.44 0.44 (0.11-0.59) K/uL Eos # (Auto) 0.24 0.29 (0-0.50) K/uL Baso # (Auto) 0.04 0.03 (0-0.2) K/uL Comprehensive Metabolic Panel 02/11/23 02/12/23 Range/Units 20:21 05:36 Sodium 139 140 (136-145) mmol/L Potassium 3.9 3.7 (3.5-5.1) mmol/L Chloride 109 H 110 H (98-107) mmol/L Carbon Dioxide 26 27 (21-32) mmol/L BUN 17 15 (6-23) mg/dl Creatinine 0.72 0.72 (0.6-1.4) mg/dl Glucose 111 H 79 (70-99(Fasting)) mg/dl Calcium 8.3 L 8.2 L (8.6-10.3) mg/dl AST 14 (13-39) U/L ALT 9 (7-52) U/L Alkaline Phosphatase 63 (34-104) U/L Total Protein 6.1 (6.0-8.3) gm/dl Albumin 3.6 (3.4-5.0) gm/dl Intake and Output 02/11/23 02/12/23 02/12/23 22:59 06:59 14:59 Other: Other Intake Source NPO Weight 76.4 kg 72.5 kg Weight Measurement Method Built in [employer] Built in [facility] ECG Additional Comments: ECG: Sinus bradycardia, otherwise normal ECG.
[2023-02-12] MEDS ORDERED: HEPARIN SOD 5,000 UNIT/0.5 ML VIAL SQ SCH (09:00)
[2023-02-12] MEDS: lisinopril 20 MG TAB PO SCH (09:27)
[2023-02-12] MEDS: PANTOprazole 40 MG TAB PO SCH ×2 (09:28→20:32)
[2023-02-12] MEDS: MESALAMINE 0.375 GM PO SCH ×2 (11:09→20:34)
--- NOTE | 2023-02-12 11:41 | Neurology Consultation ---
Date of Consultation February 12, 2023 Assessment & Plan (1) Episodic weakness: Plan 87-year-old male with 2 recent episodes of generalized weakness lasting about 30 minutes, and mild associated dizziness, or a feeling of fullness in the head. No associated alteration in awareness. No associated muscle pain, weakness at baseline, diplopia, vision loss, dysarthria or hemiparesis. No specific or localizing findings on neurological examination other than relatively reduced deep tendon reflexes in the lower limbs that may be consistent with a mild idiopathic peripheral neuropathy. No hypokalemia. Normal TSH and inflammatory markers. He does have a mild anemia. These episodes do not seem consistent with seizures, stroke, Guillain-Christian syndrome or migraine. His examination is not consistent with myopathy or myasthenia gravis. I agree with telemetry monitoring and further outpatient cardiology assessment. I do not think an EEG is necessary. Outpatient EMG/NCV with repetitive stimulation may be useful to assess for underlying peripheral neuropathy (although not likely related to his current presentation), and to further exclude muscle or defect of neuromuscular junction function. Consider checking labs for Lambert-Eaton myasthenic syndrome and acetylcholine r eceptor antibodies. Consider checking a vitamin B12 level. If patient develops persistent, progressive weakness would recommend a lumbar puncture to evaluate for possible Guillain-Christian syndrome in that context. Again, however, the episodic character of his symptoms thus far would argue against GBS at this time. Could also consider hypokalemic periodic paralysis although his potassium levels have been normal. History of Present Illness Reason for Consultation: Episodic weakness Requesting Physician: Munir Attending Physician: Ventura Amaral MD History of Present Illness The patient is an 87-year-old male with a chief complaint of 2 episodes of generalized weakness. The first episode occurred on February 10 and was characterized by sudden onset feeling of generalized weakness, inability to stand up and walk, was able to crawl on his hands and legs with some difficulty. The episode resolved within about 30 minutes. He endorsed some mild dizziness with the episode, no vertigo, headache, diplopia, or change in speech. He had another identical episode last night, prior to his assessment in the emergency department. He denies muscle or spinal pain. A CT of the head including CTA of the head and neck completed in February 10 were unremarkable. A brain MRI completed yesterday was unremarkable as well. I did independently review these images. There is mild cerebral atrophy and chronic small vessel ischemic disease. There is no hydrocephalus. There is no cerebellar or midbrain atrophy. A previous cervical spine MRI completed in October 2020 revealed moderate multilevel degenerative changes with moderate central canal stenosis at C4-5 and C5-6 and mild to moderate central canal stenosis at C3-4. Cervical spinal cord signal normal. I independently reviewed the above images. He has had mild sinus bradycardia on several recent ECGs and premature supraventricular complexes. He was seen by cardiology today, history notable for paroxysmal atrial fibrillation, on warfarin. Recommendation was to continue telemetry monitoring, consider outpatient stress testing. Allergies Allergy/AdvReac Type Severity Reaction Status Date / Time red dye Allergy Severe SEVERE Verified 02/11/23 20:47 MIGRAINES aspirin AdvReac Intermediate UPSETS Verified 02/11/23 20:47 STOMACH codeine AdvReac Intermediate "JUST Verified 02/11/23 20:47 DON'T SEEM TO AGREE WITH ME" steroids Allergy Facial & Uncoded 02/12/23 00:03 Extremity swelling Home Medications Medication Instructions Recorded Confirmed Type mesalamine 0.375 gram 0.75 g PO BID 07/21/19 02/11/23 History capsule,extended release 24 hr (Apriso) warfarin 5 mg tablet See Rx Instructions .Route .COMPLEX 07/21/19 02/11/23 History lisinopril 20 mg tablet 20 mg PO QAM 12/17/22 02/11/23 History pantoprazole 40 mg tablet,delayed 40 mg PO AMHS 02/10/23 02/11/23 History release Patient History Medical History Appendicitis Atrial fibrillation Barretts esophagus "EGD 07/29/2014-shows Barretts Esophagus with no CA; follows with GI, Dr. José Luis Richards" Factor V Leiden "on chronic anticoagulation" Gastro-esophageal reflux disease with esophagitis History of DVT (deep vein thrombosis) Ulcerative colitis Surgical History H/O colonoscopy H/O esophagogastroduodenoscopy Family History Other Family history non-contributory Social History Smoking Status: Current every day smoker Tobacco Type: Cigarettes Cigarettes Per Day: "alot"; Second Hand Exposure: No; Do You Dip or Chew Tobacco: No; Hx Alcohol Use: No Hx Substance Use: No Preferred Language: [place] Citizen Communication Ability: Effective Communication Ability Comment: deaf, 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, read writing Septic Tank Installer Required: No Beliefs That Will Affect Care: None marital status: Current Living Situation: Spouse Other Information That Helps Us Care for You: No Feels Safe at Home: Yes Safety Concerns: Feels Safe At This Time Assistive Devices: None Review of Systems Constitutional: no fever and no chills Eyes: no blind spots and no diplopia Ear, Nose, Mouth, Throat: + hearing loss Respiratory: no cough and no dyspnea Cardiovascular: no chest pain and no palpitations Gastrointestinal: no nausea and no vomiting Genitourinary: no urinary incontinence Musculoskeletal: no back pain, no neck pain and no myalgia Integumentary: no rash and no lesions Neurologic: as per Subjective / HPI, + generalized weakness (Episodic, as per HPI) and + dizziness; no loss of sensation, no paresthesia, no lack of coordination, no tremor(s), no abnormal movements, no headache(s), no abnormal speech, no confusion and no memory loss Psychiatric: no depression and no anxiety Hematologic / Lymphatic: no easy bleeding and no easy bruising Exam (Neuro) Constitutional: well developed and well nourished; no acute distress Eyes: normal visual donovan by confrontation, PERRL and EOM intact bilaterally Neurologic: Oriented to:: Person, Place and Time Memory: Short Term Intact and Remote Intact Attention: Span Intact and Concentration Intact Speech Fluency: negative Dysarthria or Dysfluency Speech Aphasia: negative Aphasia Fund of Knowledge: Current Events, Past History and Vocabulary Cranial Nerves: Normal II, III, IV, , V, VII, IX, X, XI and XII; Abnorm VIII Motor Strength: Normal Lower Extremities and Normal Upper Extremities Motor Tone: Normal Lower Extremities and Normal Upper Extremities Muscle Bulk/Involuntary Movements: No Involuntary Movements; negative Muscle Atrophy Sensation: Light Touch Intact, Pain/Temperature Intact, Vibration Intact and Proprioception Intact Coordination: negative Dysdiadochokinesia, Finger-Nose Abnormal or Heel-Rodriguez Abnormal Deep Tendon Reflexes: Rt Triceps: 1+, Lt Triceps: 1+, Rt Biceps: 1+, Lt Biceps: 1+, Rt Brachioradialis: 1+, Lt Brachioradialis: 1+, Rt Patellar: 1+, Lt Patellar: 1+, Rt Ankle: 0 and Lt Ankle: 0 Special Tests: negative Babinski Present Details: Gait cannot be tested Results & Data Vital Signs (Past 12 Hours) Vital Signs Temp Pulse Pulse Pulse Resp BP BP 02/12/23 07:00 62 02/12/23 07:26 36.8 C 63 20 147/75 H 02/12/23 04:01 36.9 C 76 16 144/80 H 02/12/23 01:08 36.6 C 67 18 160/96 H 02/12/23 00:46 36.6 C 67 18 160/96 H 02/12/23 00:46 02/12/23 01:10 65 02/12/23 00:18 82 16 143/92 H Pulse Ox Pulse Ox O2 Del Method O2 Del Method 02/12/23 07:00 02/12/23 07:26 95 Room Air 02/12/23 04:01 95 Room Air 02/12/23 01:08 97 Room Air 02/12/23 00:46 97 Room Air 02/12/23 00:46 97 Room Air 02/12/23 01:10 02/12/23 00:18 98 Room Air Laboratory Results WBC 6.16, hemoglobin 12.6, hematocrit 38.8, MCV 88.4, platelet count 170, sodium 140, potassium 3.7, BUN 15, creatinine 0.72, glucose 79, calcium 8.2, magnesium 2.2, AST 14, ALT 9, total CK 77, CRP less than 0.50, ESR 10, TSH 1.924 Lyme screening negative, SARS-CoV-2 negative Coding Level of Care Code 29472 INT INP/OBS CARE 2/55MIN Diagnoses Episodic weakness R53.1
--- NOTE | 2023-02-12 12:49 | Hospitalist Progress Note ---
Date of Service February 12, 2023 Assessment & Plan (1) Weakness: Plan: 87-year-old male with past med significant for paroxysmal atrial fibrillation, venous thrombosis, hypertension, ulcerative colitis, Canales's esophagus, GERD, history of basal cell carcinoma, history of sensory hearing loss, history of factor V Leiden deficiency presents with recurrent episode of generalized weakness and ambulatory dysfunction Generalized weakness Patient had 2 episode of generalized weakness on February 10 and Last admission, stroke work-up was done including CT head and MRI brain which was unremarkable Patient is back to the hospital due to recurrent episode. Labs reviewed; unremarkable. CT head without contrast personally reviewed; no acute finding EKG reviewed personally; sinus rhythm; no ST or T wave changes. Neurology's recommendation noted; will add vitamin B12 level, Lambert-Eaton antibodies and myasthenia gravis antibodies Cardiology's recommendation noted; continue to monitor on telemetry to rule out arrhythmia. Ulcerative colitis on mesalamine Canales's esophagus on Protonix History of A-fib Venous thrombosis History of factor V Leyden deficiency On Coumadin INR therapeutic History of hypertension On lisinopril DVT prophylaxis on Coumadin will follow PT/INR Time spent evaluating patient, direct bedside care, chart review, placing orders, interpretation of diagnostic studies, discussion with consultants, patient, and family members, as well as other required patient management activities is 60 minutes. Please note the above document was generated using voice recognition software. It may contain grammatical, syntax or spelling errors. Any formal questions or concerns about the content, text or information contained within the body of this dictation should be directly addressed to the provider for clarification Admission and Anticipated Discharge Date Admission Date: February 11, 2023 Subjective Patient seen and examined at bedside. He is sitting up on the bed; not in distress. No complaints of weakness. Review of Systems Review of Systems: All systems reviewed & are unremarkable except as noted in Subjective Physical Exam Physical Exam: Constitutional: WD/WN, vitals as above, NAD, sitting up in bed, pleasant, conversing easily Respiratory: normal respiratory effort, lungs clear to auscultation, no wheeze, rales, rhonchi. Normal insp/exp effort, no accessory muscle use Cardiovascular: RRR, no murmur, no edema Vessels: no JVD or carotid bruit Chest: normal inspection of chest Abdomen: normal bowel sounds, soft, nontender, no hepatosplenomegaly Musculoskeletal: no cyanosis or clubbing, extremities motor strength 5/5 Skin: no rashes, warm and dry normal turgor Neurologic: PERRL, EOMI, accommodation nl, no face palsy, no dysarthria CN's II- XI intact bilaterally and moves all extremities Psychiatric: A+Ox3, euthymic affect Results & Data Results & Data Vital Signs (Past 12 Hours) Vital Signs Temp Pulse Pulse Pulse Resp BP Pulse Ox 02/12/23 11:59 36.6 C 59 L 18 141/80 H 97 02/12/23 07:00 62 02/12/23 07:26 36.8 C 63 20 147/75 H 95 02/12/23 04:01 36.9 C 76 16 144/80 H 95 02/12/23 01:08 36.6 C 67 18 160/96 H 97 02/12/23 00:46 36.6 C 67 18 160/96 H 97 02/12/23 00:46 02/12/23 01:10 65 Pulse Ox O2 Del Method O2 Del Method 02/12/23 11:59 Room Air 02/12/23 07:00 02/12/23 07:26 Room Air 02/12/23 04:01 Room Air 02/12/23 01:08 Room Air 02/12/23 00:46 Room Air 02/12/23 00:46 97 Room Air 02/12/23 01:10 Laboratory Results Laboratory Results WBC 6.16 K/ul (4.8-10.8) 02/12/23 05:36 RBC 4.39 M/uL (4.70-6.10) L 02/12/23 05:36 Hgb 12.6 g/dl (14.0-18.0) L 02/12/23 05:36 Hct 38.8 % (42.0-52.0) L 02/12/23 05:36 MCV 88.4 fL (80.0-100.0) 02/12/23 05:36 MCH 28.7 pg (25.0-34.0) 02/12/23 05:36 MCHC 32.5 g/dL (32.0-36.0) 02/12/23 05:36 RDW Std Deviation 47.3 fL (36.4-46.3) H 02/12/23 05:36 RDW Coeff of Dmitri 14.6 % (11.5-14.5) H 02/12/23 05:36 Plt Count 170 K/uL (130-400) 02/12/23 05:36 MPV 10.8 fL (9.4-12.4) 02/12/23 05:36 Immature Gran % (Auto) 0.2 % 02/12/23 05:36 Neut % (Auto) 61.2 % 02/12/23 05:36 Lymph % (Auto) 26.3 % 02/12/23 05:36 [place] % (Auto) 7.1 % 02/12/23 05:36 Eos % (Auto) 4.7 % 02/12/23 05:36 Baso % (Auto) 0.5 % 02/12/23 05:36 Neut # (Auto) 3.77 K/uL (1.40-6.50) 02/12/23 05:36 Lymph # (Auto) 1.62 K/uL (1.2-3.4) 02/12/23 05:36 [place] # (Auto) 0.44 K/uL (0.11-0.59) 02/12/23 05:36 Eos # (Auto) 0.29 K/uL (0-0.50) 02/12/23 05:36 Baso # (Auto) 0.03 K/uL (0-0.2) 02/12/23 05:36 Immature Gran # (Auto) 0.01 K/uL (0.01-0.20) 02/12/23 05:36 PT 19.7 Seconds (9.0-12.0) H 02/12/23 05:36 INR 1.9 (0.9-1.1) H 02/12/23 05:36 Sodium 140 mmol/L (136-145) 02/12/23 05:36 Potassium 3.7 mmol/L (3.5-5.1) 02/12/23 05:36 Chloride 110 mmol/L (98-107) H 02/12/23 05:36 Carbon Dioxide 27 mmol/L (21-32) 02/12/23 05:36 Anion Gap 3 (3-11) 02/12/23 05:36 BUN 15 mg/dl (6-23) 02/12/23 05:36 Creatinine 0.72 mg/dl (0.6-1.4) 02/12/23 05:36 Est Cr Clr Drug Dosing 75.0 ml/min 02/12/23 05:36 Est GFR ( Amer) 98.6 ml/min 02/12/23 05:36 Est GFR (Non-Af Amer) 85.1 ml/min 02/12/23 05:36 BUN/Creatinine Ratio 20.8 (10-20) H 02/12/23 05:36 Glucose 79 mg/dl (70-99(Fasting)) 02/12/23 05:36 Calcium 8.2 mg/dl (8.6-10.3) L 02/12/23 05:36 Magnesium 2.2 mg/dl (1.7-2.4) 02/12/23 05:36 Total Bilirubin 0.5 mg/dl (0.2-1.0) 02/11/23 20:21 AST 14 U/L (13-39) 02/11/23 20:21 ALT 9 U/L (7-52) 02/11/23 20:21 Alkaline Phosphatase 63 U/L (34-104) 02/11/23 20:21 Troponin I High Sens 3.9 pg/ml (0-20) 02/12/23 11:04 Total Protein 6.1 gm/dl (6.0-8.3) 02/11/23 20:21 Albumin 3.6 gm/dl (3.4-5.0) 02/11/23 20:21 Globulin 2.5 gm/dl (2.5-4.0) 02/11/23 20:21 Albumin/Globulin Ratio 1.4 (0.9-2) 02/11/23 20:21 TSH 1.924 uIu/ml (0.300-4.500) 02/11/23 20:21 SARS-CoV-2, RNA, NAAT NEGATIVE (NEGATIVE) 02/11/[address] 02/11/23 19:13 Exam(s): CT HEAD Without Contrast EXAM: CT Head Without Intravenous Contrast CLINICAL HISTORY: Fall. TECHNIQUE: Axial computed tomography images of the head/brain without intravenous contrast. CTDI is 35.92 mGy and DLP is 624.41 mGy-cm. Automated exposure control was utilized for the study. A dose lowering technique was utilized adhering to the principles of ALARA. COMPARISON: CT head 02/10/2023 FINDINGS: Brain: No intracranial hemorrhage, mass-effect or midline shift. No abnormal extra axial fluid. No evidence of acute infarct. Mild periventricular white matter hypodensities are most consistent with chronic microangiopathy. Ventricles: Unremarkable. No ventriculomegaly. Bones/joints: Unremarkable. No acute fracture. Soft tissues: Unremarkable. Sinuses: Unremarkable as visualized. No acute sinusitis. Mastoid air cells: Unremarkable as visualized. No mastoid effusion. IMPRESSION: No acute intracranial finding. Electronically signed by: Betty Jay MD 02/11/23 22:21 PM
[2023-02-12] MEDS ORDERED: WARFARIN SOD 5 MG TAB PO SCH (16:00)
[2023-02-12] MEDS ORDERED: PHARMACIST DISCHARGE MED REC CONSULT PRN (18:36)
--- NOTE | 2023-02-12 18:40 | CT Scan Report ---
CT head/brain wo con CLINICAL HISTORY: 87 years-old Male with right side weakness. Acute stroke like symptoms TECHNIQUE: Multiple axial CT images of the head were obtained without contrast. A dose lowering tech nique was utilized adhering to the principles of ALARA. COMPARISON: 02/11/2023 FINDINGS: No acute intracranial hemorrhage, midline shift, intracranial mass, hydrocephalus, territorial ischem ia or abnormal extra-axial collection. Involutional changes with chronic microvascular ischemic disea se. The calvarium is intact. Prior bilateral lens repair. The paranasal sinuses, mastoid air cells, and m iddle ear cavities are clear. IMPRESSION: No acute intracranial abnormality. ACT 112: Negative or not required by law. The above report was generated using voice recognition software. It may contain grammatical, syntax o r spelling errors. Electronically signed by: Mychal Ortega M.D. 02/12/2023 6:39 PM
[2023-02-12] MEDS ORDERED: ASPIRIN CHEW 324 MG PO STA (18:42)
--- NOTE | 2023-02-12 18:47 | CT Scan Report ---
CT cervical spine wo con CT DOSE: 1095.67 mGy.cm CLINICAL HISTORY: 87 years-old Male with right side weakness. Acute strokelike symptoms COMPARISON: CTA neck 02/10/2023 TECHNIQUE: Multiple axial CT images of the cervical spine were obtained without contrast. A dose low ering technique was utilized adhering to the principles of ALARA. FINDINGS: Multilevel degenerative changes are again seen. No acute fracture or subluxation identified . The cervical soft tissues appear unremarkable. The visualized lung apices appear clear. IMPRESSION: No acute cervical spine fracture or subluxation. ACT 112: Negative or not required by law. The above report was generated using voice recognition software. It may contain grammatical, syntax o r spelling errors. Electronically signed by: Mychal Ortega M.D. 02/12/2023 6:45 PM
[2023-02-12] MEDS ORDERED: CLOPIDOGREL BISULFATE 300 MG TAB PO STA (19:30)
[2023-02-12] MEDS: ATORVASTATIN 40 MG TAB PO SCH (20:31)
[2023-02-13] MEDS: ACETAMINOPHEN 325 MG TAB PO PRN (06:41)
[2023-02-13 07:39] LABS: Basophils # (auto) 0.04 K/uL (0-0.2); Basophils % (auto) 0.6 %; Eosinophils # (auto) 0.29 K/uL (0-0.50); Eosinophils % (auto) 4.6 %; Hematocrit (blood only) 41.5 % (42.0-52.0); Hemoglobin 13.7 g/dl (14.0-18.0); Immature Granulocytes # (auto) 0.02 K/uL (0.01-0.20); Immature Granulocytes % (auto) 0.3 %; Lymphocytes # (auto) 1.56 K/uL (1.2-3.4); Lymphocytes % (auto) 24.6 %; Mean Corpuscular Hemoglobin 28.7 pg (25.0-34.0); Mean Corpuscular Volume 86.8 fL (80.0-100.0); Mean Platelet Volume 10.7 fL (9.4-12.4); Monocytes # (auto) 0.41 K/uL (0.11-0.59); Monocytes % (auto) 6.5 %; Neutrophils # (auto) 4.01 K/uL (1.40-6.50); Neutrophils % (auto) 63.4 %; Platelet Count 178 K/uL (130-400); RDW Coefficient of Variation 14.6 % (11.5-14.5); RDW Standard Deviation 46.9 fL (36.4-46.3); Red Blood Count 4.78 M/uL (4.70-6.10); White Blood Count 6.33 K/ul (4.8-10.8)
[2023-02-13 07:55] LABS: BUN Creatinine Ratio 24.3 (10-20); Calcium 8.3 mg/dl (8.6-10.3); Chol HDL Ratio 5.7 (0-5); Creatinine Clr Calc Pharmacy 77.2 ml/min; Est GFR (African American) 99.7 ml/min; Est GFR (Non-African American) 86.1 ml/min; Potassium 3.8 mmol/L (3.5-5.1)
[2023-02-13 08:02] LABS: Troponin I High Sensitivity 5.4 pg/ml (0-20)
--- NOTE | 2023-02-13 08:06 | Cardiology Progress Note ---
Date of Service February 13, 2023 Assessment & Plan (1) Weakness: (2) Atypical chest pain: (3) Paroxysmal atrial fibrillation: (4) Factor V Leiden: (5) Hiatal hernia: Plan 87-year-old patient admitted with profound weakness and fall. Right-sided weakness reported suggestive of TIA. Neurology recommending addition of aspirin. With factor V Leiden there are concerns regarding thrombosis/paradoxical embolism. Repeat limited echocardiogram to exclude PFO. Recurrent chest discomfort this a.m. without ECG changes. Assess D-dimer. Consider CTA of the chest for further evaluation. Repeat high-sensitivity troponin. Bedside echocardiogram for reassessment of wall motion. Discomfort possibly related to hiatal hernia. Continue telemetry monitoring and conservative medical management at this time. Outpatient follow-up to consider stress testing. Thank you for allowing me to participate in care of your patient. Addendum: Preliminary review of bedside limited echocardiogram without evidence of intracardiac shunt. No evidence of PFO. No regional wall motion abnor malities. Admission and Anticipated Discharge Date Admission Date: February 11, 2023 Subjective Patient seen and examined at the bedside. Recurrent episode of chest discomfort reported this AM. Symptoms lasting nearly 1 hour. Serial ECG within normal limits. Yesterday, patient developed right-sided upper and lower extremity weakness. Review of Systems Review of Systems: All systems reviewed & are unremarkable except as noted in Subjective Physical Exam Constitutional: well nourished; no acute distress Respiratory: no respiratory distress, no labored breathing and no retractions Auscultation: no crackles, no rales, no rhonchi and no wheezes Cardiovascular: Rate/Rhythm: regular rate and regular rhythm Heart Sounds: normal S1 and normal S2; no murmur Gastrointestinal (Abdomen): Inspection/Auscultation: abdomen not distended and + abnormal bowel sounds Percussion/Palpation: abdomen soft; abdomen nontender, no guarding and abdomen not rigid Neurologic: CN's II-XI intact bilaterally and moves all extremities Results & Data Vital Signs (Past 12 Hours) Vital Signs Temp Pulse Pulse Resp BP Pulse Ox O2 Del Method 02/13/23 07:00 58 L 02/13/23 07:22 36.8 C 64 20 139/76 92 Room Air 02/13/23 03:00 36.4 C L 67 18 140/81 93 Room Air 02/12/23 23:00 36.9 C 97 H 16 136/85 95 Room Air 02/12/23 22:30 94 H 02/12/23 22:03 62 Laboratory Results Cardiac Enzymes 02/12/23 02/13/23 Range/Units 11:04 06:43 Troponin I High Sens 3.9 5.4 (0-20) pg/ml Lipids 02/13/23 Range/Units 06:43 Triglycerides 110 (0-150) mg/dl Cholesterol 187 (0-200) mg/dl HDL Cholesterol 33 mg/dl Cholesterol/HDL Ratio 5.7 H (0-5) CBC 02/13/23 Range/Units 06:35 WBC 6.33 (4.8-10.8) K/ul RBC 4.78 (4.70-6.10) M/uL Hgb 13.7 L (14.0-18.0) g/dl Hct 41.5 L (42.0-52.0) % Plt Count 178 (130-400) K/uL Neut # (Auto) 4.01 (1.40-6.50) K/uL Lymph # (Auto) 1.56 (1.2-3.4) K/uL [place] # (Auto) 0.41 (0.11-0.59) K/uL Eos # (Auto) 0.29 (0-0.50) K/uL Baso # (Auto) 0.04 (0-0.2) K/uL Comprehensive Metabolic Panel 02/13/23 Range/Units 06:43 Sodium 140 (136-145) mmol/L Potassium 3.8 (3.5-5.1) mmol/L Chloride 110 H (98-107) mmol/L Carbon Dioxide 26 (21-32) mmol/L BUN 17 (6-23) mg/dl Creatinine 0.70 (0.6-1.4) mg/dl Glucose 81 (70-99(Fasting)) mg/dl Calcium 8.3 L (8.6-10.3) mg/dl Intake and Output 02/12/23 02/13/23 02/13/23 22:59 06:59 14:59 Intake Total 1600 / 1600 Balance 1600 / 1600 Intake: IV 1000 / 1000 Sodium Chloride 0.9% 1000ML 1, 1000 / 1000 000 ml @ 80 mls/hr IV .[id number] REPLACED BY [facility] Rx#:[id number] Oral 600 / 600 Other: Weight 73.1 kg Weight Measurement Method Built in [facility]
[2023-02-13 08:14] LABS: INR 1.5 (0.9-1.1); Prothrombin Time 16.5 Seconds (9.0-12.0)
[2023-02-13] MEDS: MESALAMINE 0.375 GM PO SCH ×2 (09:11→20:58)
[2023-02-13] MEDS: PANTOprazole 40 MG TAB PO SCH ×2 (09:12→20:58)
[2023-02-13] MEDS: ATORVASTATIN 40 MG TAB PO SCH (09:12)
[2023-02-13 09:58] LABS: D Dimer 450 ug/L FEU (0-500)
--- NOTE | 2023-02-13 10:16 | Neurology Progress Note ---
Date of Service February 13, 2023 Assessment & Plan (1) Stroke: Plan Probable stroke localizing to the left cerebral hemisphere, likely left AMBER territory, although a small pontine stroke is also possible. History notable for paroxysmal atrial fibrillation and factor V Leiden mutation. Patient has been on warfarin although his pro time was subtherapeutic this morning. No obvious PFO on recent echocardiogram, no obvious embolic source. He did receive a one-time dose of aspirin last night. Atorvastatin has been added to his medication regimen. He has been seen again by cardiology today. Would recommend a repeat noncontrast brain MRI to reassess for acute stroke. I agree with the addition of atorvastatin, goal LDL less than 70. May continue to allow for permissive hypertension, systolic blood pressure 140 to 160 mmHg, long-term blood pressure goal less than 130/80. Continue management of warfarin, optimize pro time. However, would consider switching to Eliquis. Consultations with PT/OT. Outpatient follow-up with cardiology and PCP. Additional outpatient neurology follow-up can be considered for assessment of possible idiopathic peripheral neuropathy. His vitamin B12 status is marginally low, may benefit from oral supplementation. Admission and Anticipated Discharge Date Admission Date: February 11, 2023 Subjective Follow-up regarding suspected stroke The patient is an 87-year-old male who presented to the emergency department 2 days ago complaining of 2 recent episodes of generalized weakness without associated hemiparesis, dysarthria, diplopia, or vision loss. He had an unremarkable CT angiogram of the brain and neck as well as an unremarkable brain MRI. He had an intact neurological examination, other than reduced deep tendon reflexes in the lower limbs potentially consistent with a mild idiopathic peripheral neuropathy. At that time, his presentation did not seem consistent with seizure, stroke, Guillain-Christian syndrome, myopathy, myasthenia gravis, or migraine. See my consultation report from yesterday for additional details. I was contacted by Dr. Amaral yesterday regarding a recurrence of weakness, although he was noted to have a right hemiparesis, leg greater than arm, symptoms improving. No associated aphasia or dysarthria. No arrhythmia on telemetry. An urgent CT of the head was negative for hemorrhage or acute process, I did independently review these images. Patient has been on warfarin and has a therapeutic pro time. Since yesterday morning, patient's systolic blood pressure has ranged from 134 to 160 mmHg in the context of permissive hypertension. His spouse is at bedside this morning. He continues to complain of mild right-sided weakness, leg greater than arm, no associated facial droop or dysarthria. He does complain of a low-grade headache. Review of Systems Constitutional: no fever Eyes: no blind spots and no diplopia Cardiovascular: + chest pain Neurologic: as per Subjective / HPI, + localized weakness, + loss of sensation and + headache(s) Results & Data Vital Signs (Past 12 Hours) Vital Signs Temp Pulse Pulse Resp BP Pulse Ox O2 Del Method 02/13/23 07:00 58 L 02/13/23 07:22 36.8 C 64 20 139/76 92 Room Air 02/13/23 03:00 36.4 C L 67 18 140/81 93 Room Air 02/12/23 23:00 36.9 C 97 H 16 136/85 95 Room Air 02/12/23 22:30 94 H 02/12/23 22:03 62 Laboratory Results WBC 6.33, hemoglobin 13.7, hematocrit 41.5, platelet count 178, INR 1.5, sodium 140, potassium 3.8, BUN 17, creatinine 0.7, glucose 81, magnesium 2.2, high- sensitivity troponin 5.4, triglycerides 110, cholesterol 187, LDL 132, VLDL 22, HDL 33, vitamin B12 193 Diagnostic Findings An echocardiogram completed yesterday revealed normal left ventricular systolic function, EF 60 to 65%, mild concentric LVH, normal left ventricular wall motion, normal left atrial size, no atrial septal defect, no obvious PFO. Exam (Neuro) Constitutional: well developed; no acute distress Neurologic: Oriented to:: Person, Place and Time Memory: Short Term Intact and Remote Intact Attention: Span Intact and Concentration Intact Speech Fluency: negative Dysarthria or Dysfluency Speech Aphasia: negative Aphasia Fund of Knowledge: Current Events, Past History and Vocabulary Cranial Nerves: Normal II, III, IV, , V, VII, IX, X, XI and XII; Abnorm VIII Motor Strength: Hemiparesis (Leg greater than arm, no associated facial droop) Laterality: Right Motor Tone: Normal Lower Extremities and Normal Upper Extremities Muscle Bulk/Involuntary Movements: No Involuntary Movements Sensation: negative Light Touch Intact (Diminished sensation noted for the right leg) Coordination: Heel-Rodriguez Abnormal Laterality: Right; negative Finger-Nose Abnormal Coding Level of Care Code 39336 SUB INP/OBS CARE MIN Diagnoses Stroke I63.9
--- NOTE | 2023-02-13 11:48 | Ultrasound Report ---
BILATERAL LOWER EXTREMITY VENOUS DOPPLER HISTORY: Leg numbness. Leg paresthesias. Rule out DVT COMPARISON STUDY: None. FINDINGS: There is normal compressibility, flow, and augmentation within the bilateral lower extremit y deep venous systems. IMPRESSION: No DVT within the right or left lower extremity. ACT 112: Negative or not required by law. Electronically signed by: Errol Jarrett M.D. 02/13/2023 11:46 AM
--- NOTE | 2023-02-13 12:25 | Magnetic Resonance Report ---
Brain MRI WITHOUT CONTRAST HISTORY: Right side weakness, rule out stroke TECHNIQUE: Multiplanar multisequence MRI of the brain was performed without the use of contrast. COMPARISON STUDY: Head CT 02/12/2023. Brain MRI 09/05/2020. FINDINGS: There is a single punctate focus of restricted diffusion within the right medial temporal l obe on axial image 10. This could represent a punctate acute infarct or artifact. Additional punctate focus of restricted diffusion of the right cerebellar hemisphere on image 5 is also indeterminate bu t may represent artifact. The midline structures are intact. Scattered foci of T2 hyperintensity agai n noted within the white matter of the supratentorial brain and jeanne. These are similar to the prior study and favor mild to moderate microvascular ischemic change. There is no mass, hematoma, midline s hift. Prior bilateral lens replacement. The paranasal sinuses and mastoid air cells are clear. The ma shaina vascular flow-voids at the skull base are well-maintained. The ventricles and sulci demonstrate m ild to moderate age-related involutional changes. This is also similar to the prior study. IMPRESSION: 1. There 2 punctate foci of restricted diffusion at the right medial temporal lobe and within the rig ht cerebellar hemisphere. These are indeterminate and could represent punctate lacunar infarcts versu s artifact. No large territorial infarct identified. 2. Atrophy and microvascular ischemic changes again noted. ACT 112: Negative or not required by law. Electronically signed by: Errol Jarrett M.D. 02/13/2023 12:23 PM
[2023-02-13] MEDS: CLOPIDOGREL BISULFATE 75 MG TAB PO SCH (12:30)
--- NOTE | 2023-02-13 14:25 | Hospitalist Progress Note ---
Date of Service February 13, 2023 Assessment & Plan (1) Weakness: Plan: 87-year-old male with past med significant for paroxysmal atrial fibrillation, venous thrombosis, hypertension, ulcerative colitis, Canales's esophagus, GERD, history of basal cell carcinoma, history of sensory hearing loss, history of factor V Leiden deficiency presents with recurrent episode of generalized weakness and ambulatory dysfunction Right-sided weakness. Acute stroke in right medial temporal lobe and right cerebral hemisphere Patient had 2 episode of generalized weakness on February 10 and Last admission, stroke work-up was done including CT head and MRI brain which was unremarkable Patient is back to the hospital due to recurrent episode. On the evening of February 12; patient had acute onset of right-sided weakness on right arm and leg. CT head without contrast reviewed; no acute finding. CT cervical spine did not show any acute abnormality Telemetry did not show any arrhythmia MRI brain without contrast showed 2 punctate foci of restricted diffusion at the right medial temporal lobe and within the right cerebellar hemisphere. Discussion done with Dr. Page(neurology) and Dr. Sanchez(cardiology); Given the distribution of the stroke; likely cardioembolic source. Patient INR in last 2 days has been 1.9 and 1.5. Decision made to switch over to Eliquis from warfarin. Discussed this with the patient. Also on Plavix and Lipitor. Continue to monitor inpatient. PT OT eval. Ulcerative colitis on mesalamine Canales's esophagus on Protonix History of A-fib Venous thrombosis History of factor V Leyden deficiency Started on Eliquis. History of hypertension On lisinopril; currently on hold for permissive hypertension. DVT prophylaxis on Eliquis Time spent evaluating patient, direct bedside care, chart review, placing orders, interpretation of diagnostic studies, discussion with consultants, patient, and family members, as well as other required patient management activities is 60 minutes. Please note the above document was generated using voice recognition software. It may contain grammatical, syntax or spelling errors. Any formal questions or concerns about the content, text or information contained within the body of this dictation should be directly addressed to the provider for clarification Admission and Anticipated Discharge Date Admission Date: February 11, 2023 Subjective Patient seen and examined at bedside. Patient reports weakness in right leg; weakness in right arm has improved compared to admission. Telemetry overnight did not show any abnormality Review of Systems Review of Systems: All systems reviewed & are unremarkable except as noted in Subjective Physical Exam Physical Exam: Constitutional: WD/WN, vitals as above, NAD, sitting up in bed, pleasant, conversing easily Respiratory: normal respiratory effort, lungs clear to auscultation, no wheeze, rales, rhonchi. Normal insp/exp effort, no accessory muscle use Cardiovascular: RRR, no murmur, no edema Vessels: no JVD or carotid bruit Chest: normal inspection of chest Abdomen: normal bowel sounds, soft, nontender, no hepatosplenomegaly Musculoskeletal: no cyanosis or clubbing, extremities motor strength 5/5 Skin: no rashes, warm and dry normal turgor Neurologic: PERRL, EOMI, accommodation nl, no face palsy, no dysarthria CN's II- XI intact bilaterally and moves all extremities Psychiatric: A+Ox3, euthymic affect Results & Data Results & Data Vital Signs (Past 12 Hours) Vital Signs Temp Pulse Pulse Resp BP Pulse Ox O2 Del Method 02/13/23 12:16 36.5 C 70 18 155/86 H 94 Room Air 02/13/23 07:00 58 L 02/13/23 07:22 36.8 C 64 20 139/76 92 Room Air 02/13/23 03:00 36.4 C L 67 18 140/81 93 Room Air Laboratory Results Laboratory Results WBC 6.33 K/ul (4.8-10.8) 02/13/23 06:35 RBC 4.78 M/uL (4.70-6.10) 02/13/23 06:35 Hgb 13.7 g/dl (14.0-18.0) L 02/13/23 06:35 Hct 41.5 % (42.0-52.0) L 02/13/23 06:35 MCV 86.8 fL (80.0-100.0) 02/13/23 06:35 MCH 28.7 pg (25.0-34.0) 02/13/23 06:35 MCHC 33.0 g/dL (32.0-36.0) 02/13/23 06:35 RDW Std Deviation 46.9 fL (36.4-46.3) H 02/13/23 06:35 RDW Coeff of Dmitri 14.6 % (11.5-14.5) H 02/13/23 06:35 Plt Count 178 K/uL (130-400) 02/13/23 06:35 MPV 10.7 fL (9.4-12.4) 02/13/23 06:35 Immature Gran % (Auto) 0.3 % 02/13/23 06:35 Neut % (Auto) 63.4 % 02/13/23 06:35 Lymph % (Auto) 24.6 % 02/13/23 06:35 Alfalfa % (Auto) 6.5 % 02/13/23 06:35 Eos % (Auto) 4.6 % 02/13/23 06:35 Baso % (Auto) 0.6 % 02/13/23 06:35 Neut # (Auto) 4.01 K/uL (1.40-6.50) 02/13/23 06:35 Lymph # (Auto) 1.56 K/uL (1.2-3.4) 02/13/23 06:35 Alfalfa # (Auto) 0.41 K/uL (0.11-0.59) 02/13/23 06:35 Eos # (Auto) 0.29 K/uL (0-0.50) 02/13/23 06:35 Baso # (Auto) 0.04 K/uL (0-0.2) 02/13/23 06:35 Immature Gran # (Auto) 0.02 K/uL (0.01-0.20) 02/13/23 06:35 PT 16.5 Seconds (9.0-12.0) H 02/13/23 06:35 INR 1.5 (0.9-1.1) H 02/13/23 06:35 D-Dimer 450 ug/L FEU (0-500) 02/13/23 08:22 Sodium 140 mmol/L (136-145) 02/13/23 06:43 Potassium 3.8 mmol/L (3.5-5.1) 02/13/23 06:43 Chloride 110 mmol/L (98-107) H 02/13/23 06:43 Carbon Dioxide 26 mmol/L (21-32) 02/13/23 06:43 Anion Gap 4 (3-11) 02/13/23 06:43 BUN 17 mg/dl (6-23) 02/13/23 06:43 Creatinine 0.70 mg/dl (0.6-1.4) 02/13/23 06:43 Est Cr Clr Drug Dosing 77.2 ml/min 02/13/23 06:43 Est GFR ( Amer) 99.7 ml/min 02/13/23 06:43 Est GFR (Non-Af Amer) 86.1 ml/min 02/13/23 06:43 BUN/Creatinine Ratio 24.3 (10-20) H 02/13/23 06:43 Glucose 81 mg/dl (70-99(Fasting)) 02/13/23 06:43 Calcium 8.3 mg/dl (8.6-10.3) L 02/13/23 06:43 Magnesium 2.2 mg/dl (1.7-2.4) 02/12/23 05:36 Total Bilirubin 0.5 mg/dl (0.2-1.0) 02/11/23 20:21 AST 14 U/L (13-39) 02/11/23 20:21 ALT 9 U/L (7-52) 02/11/23 20:21 Alkaline Phosphatase 63 U/L (34-104) 02/11/23 20:21 Troponin I High Sens 5.4 pg/ml (0-20) 02/13/23 06:43 Total Protein 6.1 gm/dl (6.0-8.3) 02/11/23 20:21 Albumin 3.6 gm/dl (3.4-5.0) 02/11/23 20:21 Globulin 2.5 gm/dl (2.5-4.0) 02/11/23 20:21 Albumin/Globulin Ratio 1.4 (0.9-2) 02/11/23 20:21 Triglycerides 110 mg/dl (0-150) 02/13/23 06:43 Cholesterol 187 mg/dl (0-200) 02/13/23 06:43 LDL Cholesterol, Calc 132 mg/dl 02/13/23 06:43 VLDL Cholesterol, Calc 22 mg/dl (0-30) 02/13/23 06:43 HDL Cholesterol 33 mg/dl 02/13/23 06:43 Cholesterol/HDL Ratio 5.7 (0-5) H 02/13/23 06:43 Vitamin B12 193 pg/ml (180-914) 02/13/23 06:35 TSH 1.924 uIu/ml (0.300-4.500) 02/11/23 20:21 SARS-CoV-2, RNA, NAAT NEGATIVE (NEGATIVE) 02/11/23 Unknown Impressions Cervical Spine CT 02/12/23 17:48 CT cervical spine wo con CT DOSE: 1095.67 mGy.cm CLINICAL HISTORY: 87 years-old Male with right side weakness. Acute strokelike symptoms COMPARISON: CTA neck 02/10/2023 TECHNIQUE: Multiple axial CT images of the cervical spine were obtained without contrast. A dose lowering technique was utilized adhering to the principles of ALARA. FINDINGS: Multilevel degenerative changes are again seen. No acute fracture or subluxation identified. The cervical soft tissues appear unremarkable. The visualized lung apices appear clear. IMPRESSION: No acute cervical spine fracture or subluxation. ACT 112: Negative or not required by law. The above report was generated using voice recognition software. It may contain grammatical, syntax or spelling errors. Electronically signed by: Mychal Ortega M.D. 02/12/2023 6:[address] 02/12/23 17:48 CT head/brain wo con CLINICAL HISTORY: 87 years-old Male with right side weakness. Acute stroke like symptoms TECHNIQUE: Multiple axial CT images of the head were obtained without contrast. A dose lowering technique was utilized adhering to the principles of ALARA. COMPARISON: 02/11/2023 FINDINGS: No acute intracranial hemorrhage, midline shift, intracranial mass, hy drocephalus, territorial ischemia or abnormal extra-axial collection. Involutional changes with chronic microvascular ischemic disease. The calvarium is intact. Prior bilateral lens repair. The paranasal sinuses, mastoid air cells, and middle ear cavities are clear. IMPRESSION: No acute intracranial abnormality. ACT 112: Negative or not required by law. The above report was generated using voice recognition software. It may contain grammatical, syntax or spelling errors. Electronically signed by: Mychal Ortega M.D. 02/12/2023 6:39 PM Venous Doppler Study 02/13/23 08:06 BILATERAL LOWER EXTREMITY VENOUS DOPPLER HISTORY: Leg numbness. Leg paresthesias. Rule out DVT COMPARISON STUDY: None. FINDINGS: There is normal compressibility, flow, and augmentation within the bilateral lower extremity deep venous systems. IMPRESSION: No DVT within the right or left lower extremity. ACT 112: Negative or not required by law. Electronically signed by: Errol Jarrett M.D. 02/13/2023 11:46 AM Brain MRI 02/13/23 10:22 Brain MRI WITHOUT CONTRAST HISTORY: Right side weakness, rule out stroke TECHNIQUE: Multiplanar multisequence MRI of the brain was performed without the use of contrast. COMPARISON STUDY: Head CT 02/12/2023. Brain MRI 09/05/2020. FINDINGS: There is a single punctate focus of restricted diffusion within the right medial temporal lobe on axial image 10. This could represent a punctate acute infarct or artifact. Additional punctate focus of restricted diffusion of the right cerebellar hemisphere on image 5 is also indeterminate but may represent artifact. The midline structures are intact. Scattered foci of T2 hyperintensity again noted within the white matter of the supratentorial brain and jeanne. These are similar to the prior study and favor mild to moderate microvascular ischemic change. There is no mass, hematoma, midline shift. Prior bilateral lens replacement. The paranasal sinuses and mastoid air cells are clear. The major vascular flow-voids at the skull base are well-maintained. The ventricles and sulci demonstrate mild to moderate age-related involutional changes. This is also similar to the prior study. IMPRESSION: 1. There 2 punctate foci of restricted diffusion at the right medial temporal lobe and within the right cerebellar hemisphere. These are indeterminate and could represent punctate lacunar infarcts versus artifact. No large territorial infarct identified. 2. Atrophy and microvascular ischemic changes again noted. ACT 112: Negative or not required by law. Electronically signed by: Errol Jarrett M.D. 02/13/2023 12:23 PM
[2023-02-13] MEDS: APIXABAN 5 MG TABLET PO SCH ×2 (15:49→20:58)
[2023-02-13] MEDS ORDERED: WARFARIN SOD 10 MG TAB PO SCH (16:00)
[2023-02-14 07:09] LABS: Basophils # (auto) 0.02 K/uL (0-0.2); Basophils % (auto) 0.4 %; Eosinophils # (auto) 0.24 K/uL (0-0.50); Eosinophils % (auto) 4.2 %; Hematocrit (blood only) 40.8 % (42.0-52.0); Hemoglobin 13.4 g/dl (14.0-18.0); Immature Granulocytes # (auto) 0.01 K/uL (0.01-0.20); Immature Granulocytes % (auto) 0.2 %; Lymphocytes # (auto) 1.48 K/uL (1.2-3.4); Lymphocytes % (auto) 26.2 %; Mean Corpuscular Hemoglobin 28.3 pg (25.0-34.0); Mean Corpuscular Hgb Conc 32.8 g/dL (32.0-36.0); Mean Corpuscular Volume 86.1 fL (80.0-100.0); Mean Platelet Volume 10.6 fL (9.4-12.4); Monocytes # (auto) 0.42 K/uL (0.11-0.59); Monocytes % (auto) 7.4 %; Neutrophils # (auto) 3.48 K/uL (1.40-6.50); Neutrophils % (auto) 61.6 %; Platelet Count 171 K/uL (130-400); RDW Coefficient of Variation 14.5 % (11.5-14.5); RDW Standard Deviation 45.8 fL (36.4-46.3); Red Blood Count 4.74 M/uL (4.70-6.10); White Blood Count 5.65 K/ul (4.8-10.8)
[2023-02-14 07:26] LABS: BUN Creatinine Ratio 25.9 (10-20); Calcium 8.2 mg/dl (8.6-10.3); Creatinine Clr Calc Pharmacy 66.7 ml/min; Est GFR (African American) 93.9 ml/min; Potassium 3.8 mmol/L (3.5-5.1)
[2023-02-14 07:36] LABS: INR 1.5 (0.9-1.1); Prothrombin Time 16.1 Seconds (9.0-12.0)
[2023-02-14 07:58] LABS: Estimated Average Glucose 117 mg/dl; Hemoglobin A1C 5.7 % (4.5-5.6)
[2023-02-14] MEDS: ATORVASTATIN 40 MG TAB PO SCH (08:30)
[2023-02-14] MEDS: MESALAMINE 0.375 GM PO SCH ×2 (08:30→20:02)
[2023-02-14] MEDS: PANTOprazole 40 MG TAB PO SCH ×2 (08:30→20:02)
[2023-02-14] MEDS: APIXABAN 5 MG TABLET PO SCH (08:30)
[2023-02-14] MEDS: CLOPIDOGREL BISULFATE 75 MG TAB PO SCH (08:30)
--- NOTE | 2023-02-14 08:48 | Electrocardiogram Report ---
Test Reason : Blood Pressure : / mmHG Vent. Rate : 060 BPM Atrial Rate : 060 BPM P-R Int : 172 ms QRS Dur : 082 ms QT Int : 420 ms P-R-T Axes : -12 -04 040 degrees QTc Int : 420 ms Normal sinus rhythm Normal ECG When compared with ECG of 10-FEB-2023 21:38, Premature supraventricular complexes are no longer Present Confirmed by Geovany De La Cruz ([id number]) on 02/14/2023 8:48:22 AM Referred By: REFERRED SELF Confirmed By:Geovany De La Cruz
--- NOTE | 2023-02-14 08:55 | Electrocardiogram Report ---
Test Reason : Blood Pressure : / mmHG Vent. Rate : 058 BPM Atrial Rate : 058 BPM P-R Int : 172 ms QRS Dur : 074 ms QT Int : 402 ms P-R-T Axes : 046 021 042 degrees QTc Int : 394 ms Sinus bradycardia Otherwise normal ECG When compared with ECG of 11-FEB-2023 18:22, (unconfirmed) No significant change was found Confirmed by Geovany De La Cruz ([id number]) on 02/14/2023 8:55:39 AM Referred By: REFERRED SELF Confirmed By:Geovany De La Cruz
--- NOTE | 2023-02-14 09:04 | Electrocardiogram Report ---
Test Reason : Blood Pressure : / mmHG Vent. Rate : 059 BPM Atrial Rate : 059 BPM P-R Int : 170 ms QRS Dur : 082 ms QT Int : 412 ms P-R-T Axes : -22 000 036 degrees QTc Int : 407 ms Sinus bradycardia Low voltage QRS Borderline ECG When compared with ECG of 11-FEB-2023 20:04, (unconfirmed) No significant change was found Confirmed by Geovany De La Cruz ([id number]) on 02/14/2023 9:03:53 AM Referred By: REFERRED SELF Confirmed By:Geovany De La Cruz
--- NOTE | 2023-02-14 10:00 | Electrocardiogram Report ---
Test Reason : Blood Pressure : / mmHG Vent. Rate : 062 BPM Atrial Rate : 062 BPM P-R Int : 170 ms QRS Dur : 082 ms QT Int : 404 ms P-R-T Axes : -22 -06 031 degrees QTc Int : 410 ms Normal sinus rhythm Low voltage QRS Borderline ECG When compared with ECG of 12-FEB-2023 06:07, (unconfirmed) No significant change was found Confirmed by Geovany De La Cruz ([id number]) on 02/14/2023 10:00:26 AM Referred By: REFERRED SELF Confirmed By:Geovany De La Cruz
--- NOTE | 2023-02-14 10:03 | Electrocardiogram Report ---
Test Reason : Blood Pressure : / mmHG Vent. Rate : 067 BPM Atrial Rate : 067 BPM P-R Int : 164 ms QRS Dur : 080 ms QT Int : 400 ms P-R-T Axes : -25 -10 025 degrees QTc Int : 422 ms Normal sinus rhythm Normal ECG When compared with ECG of 13-FEB-2023 04:53, (unconfirmed) No significant change was found Confirmed by Geovany De La Cruz ([id number]) on 02/14/2023 10:03:10 AM Referred By: REFERRED SELF Confirmed By:Geovany De La Cruz
--- NOTE | 2023-02-14 12:39 | Cardiology Progress Note ---
Date of Service February 14, 2023 Assessment & Plan (1) Stroke: (2) Subtherapeutic international normalized ratio (INR): (3) Factor V Leiden: (4) Paroxysmal atrial fibrillation: (5) Weakness: (6) Atypical chest pain: (7) Hiatal hernia: Plan 87-year-old patient admitted with profound weakness and fall. Right-sided weakness reported suggestive of TIA vs. CVA. MRI suggestive of possible CVA. Neurology recommending discontinuation of warfarin in favor of apixaban plus aspirin in the setting of factor V Leiden and subtherapeutic INR. Noncardiac chest pain reported during hospitalization. Continue telemetry monitoring and conservative medical management at this time. Outpatient follow-up to consider stress testing. Thank you for allowing me to participate in care of your patient. Cardiology will sign off. Please call with questions/concerns Admission and Anticipated Discharge Date Admission Date: February 11, 2023 Subjective Patient seen and examined at bedside. Feeling well today. Denies recurrent chest discomfort or shortness of breath overnight. No recurrent weakness. Warfarin transition to apixaban. Offers no new concerns/complaints. Review of Systems Review of Systems: All systems reviewed & are unremarkable except as noted in Subjective Physical Exam Constitutional: well nourished; no acute distress Respiratory: no respiratory distress, no labored breathing and no retractions Auscultation: no crackles, no rales, no rhonchi and no wheezes Cardiovascular: Rate/Rhythm: regular rate and regular rhythm Heart Sounds: normal S1 and normal S2; no murmur Gastrointestinal (Abdomen): Inspection/Auscultation: abdomen not distended and + abnormal bowel sounds Percussion/Palpation: abdomen soft; abdomen nontender, no guarding and abdomen not rigid Neurologic: CN's II-XI intact bilaterally and moves all extremities Results & Data Vital Signs (Past 12 Hours) Vital Signs Temp Pulse Pulse Resp BP Pulse Ox O2 Del Method 02/14/23 11:59 36.9 C 62 18 151/78 H 96 Room Air 02/14/23 08:00 36.9 C 63 18 139/69 95 Room Air 02/14/23 08:30 Room Air 02/14/23 09:22 58 L 02/14/23 08:00 37.0 C 77 20 148/63 H 96 Room Air 02/14/23 03:02 36.7 C 61 16 153/89 H 95 Room Air
[2023-02-14] MEDS ORDERED: ASPIRIN 81 MG CHEW PO SCH (12:45)
--- NOTE | 2023-02-14 15:58 | Hospitalist Progress Note ---
Date of Service February 14, 2023 Assessment & Plan (1) Weakness: Plan: 87-year-old male with past med significant for paroxysmal atrial fibrillation, venous thrombosis, hypertension, ulcerative colitis, Canales's esophagus, GERD, history of basal cell carcinoma, history of sensory hearing loss, history of factor V Leiden deficiency presents with recurrent episode of generalized weakness and ambulatory dysfunction Acute stroke in right medial temporal lobe and right cerebral hemisphere Patient had 2 episode of generalized weakness on February 10 and Last admission, stroke work-up was done including CT head and MRI brain which was unremarkable Patient is back to the hospital due to recurrent episode. On the evening of February 12; patient had acute onset of right-sided weakness on right arm and leg. CT head without contrast reviewed; no acute finding. CT cervical spine did not show any acute abnormality Telemetry did not show any arrhythmia MRI brain without contrast showed 2 punctate foci of restricted diffusion at the right medial temporal lobe and within the right cerebellar hemisphere. Discussion done with Dr. Page(neurology) and Dr. Sanchez(cardiology); Given the distribution of the stroke; likely cardioembolic source. Patient INR in last 2 days has been 1.9 and 1.5. Decision was made to initially to switch over to Eliquis. However, cost of Eliquis prohibits its use. Lujan of Xarelto also checked; also not covered by insurance. Discussed extensively with the patient; patient wants to go back to Coumadin. Will give dose of Coumadin 10 mg today. Eliquis switched over to Lovenox. PT OT recommends home. No antiplatelet indicated as per neurology. will continue on statin for the time being. Ulcerative colitis on mesalamine Canales's esophagus on Protonix History of A-fib Venous thrombosis History of factor V Leyden deficiency Switched over to Coumadin again History of hypertension On lisinopril; DVT prophylaxis Lovenox/Coumadin. Time spent evaluating patient, direct bedside care, chart review, placing orders, interpretation of diagnostic studies, discussion with consultants, patient, and family members, as well as other required patient management activities is 60 minutes. Please note the above document was generated using voice recognition software. It may contain grammatical, syntax or spelling errors. Any formal questions or concerns about the content, text or information contained within the body of this dictation should be directly addressed to the provider for clarification Admission and Anticipated Discharge Date Admission Date: February 11, 2023 Subjective Patient seen and examined at bedside. He reports that he is feeling much better. No complaint of weakness or imbalance. Vital stable. No alarms on telemetry. Review of Systems Review of Systems: All systems reviewed & are unremarkable except as noted in Subjective Physical Exam Physical Exam: Constitutional: WD/WN, vitals as above, NAD, sitting up in bed, pleasant, conversing easily Respiratory: normal respiratory effort, lungs clear to auscultation, no wheeze, rales, rhonchi. Normal insp/exp effort, no accessory muscle use Cardiovascular: RRR, no murmur, no edema Vessels: no JVD or carotid bruit Chest: normal inspection of chest Abdomen: normal bowel sounds, soft, nontender, no hepatosplenomegaly Musculoskeletal: no cyanosis or clubbing, extremities motor strength 5/5 Skin: no rashes, warm and dry normal turgor Neurologic: PERRL, EOMI, accommodation nl, no face palsy, no dysarthria CN's II- XI intact bilaterally and moves all extremities Psychiatric: A+Ox3, euthymic affect Results & Data Results & Data Vital Signs (Past 12 Hours) Vital Signs Temp Pulse Pulse Resp BP Pulse Ox O2 Del Method 02/14/23 11:59 36.9 C 62 18 151/78 H 96 Room Air 02/14/23 08:00 36.9 C 63 18 139/69 95 Room Air 02/14/23 08:30 Room Air 02/14/23 09:22 58 L 02/14/23 08:00 37.0 C 77 20 148/63 H 96 Room Air Laboratory Results Laboratory Results WBC 5.65 K/ul (4.8-10.8) 02/14/23 06:34 RBC 4.74 M/uL (4.70-6.10) 02/14/23 06:34 Hgb 13.4 g/dl (14.0-18.0) L 02/14/23 06:34 Hct 40.8 % (42.0-52.0) L 02/14/23 06:34 MCV 86.1 fL (80.0-100.0) 02/14/23 06:34 MCH 28.3 pg (25.0-34.0) 02/14/23 06:34 MCHC 32.8 g/dL (32.0-36.0) 02/14/23 06:34 RDW Std Deviation 45.8 fL (36.4-46.3) 02/14/23 06:34 RDW Coeff of Dmitri 14.5 % (11.5-14.5) 02/14/23 06:34 Plt Count 171 K/uL (130-400) 02/14/23 06:34 MPV 10.6 fL (9.4-12.4) 02/14/23 06:34 Immature Gran % (Auto) 0.2 % 02/14/23 06:34 Neut % (Auto) 61.6 % 02/14/23 06:34 Lymph % (Auto) 26.2 % 02/14/23 06:34 [place] % (Auto) 7.4 % 02/14/23 06:34 Eos % (Auto) 4.2 % 02/14/23 06:34 Baso % (Auto) 0.4 % 02/14/23 06:34 Neut # (Auto) 3.48 K/uL (1.40-6.50) 02/14/23 06:34 Lymph # (Auto) 1.48 K/uL (1.2-3.4) 02/14/23 06:34 [place] # (Auto) 0.42 K/uL (0.11-0.59) 02/14/23 06:34 Eos # (Auto) 0.24 K/uL (0-0.50) 02/14/23 06:34 Baso # (Auto) 0.02 K/uL (0-0.2) 02/14/23 06:34 Immature Gran # (Auto) 0.01 K/uL (0.01-0.20) 02/14/23 06:34 PT 16.1 Seconds (9.0-12.0) H 02/14/23 06:34 INR 1.5 (0.9-1.1) H 02/14/23 06:34 D-Dimer 450 ug/L FEU (0-500) 02/13/23 08:22 Sodium 141 mmol/L (136-145) 02/14/23 06:34 Potassium 3.8 mmol/L (3.5-5.1) 02/14/23 06:34 Chloride 111 mmol/L (98-107) H 02/14/23 06:34 Carbon Dioxide 26 mmol/L (21-32) 02/14/23 06:34 Anion Gap 4 (3-11) 02/14/23 06:34 BUN 21 mg/dl (6-23) 02/14/23 06:34 Creatinine 0.81 mg/dl (0.6-1.4) 02/14/23 06:34 Est Cr Clr Drug Dosing 66.7 ml/min 02/14/23 06:34 Est GFR ( Amer) 93.9 ml/min 02/14/23 06:34 Est GFR (Non-Af Amer) 81.0 ml/min 02/14/23 06:34 BUN/Creatinine Ratio 25.9 (10-20) H 02/14/23 06:34 Glucose 81 mg/dl (70-99(Fasting)) 02/14/23 06:34 Estimat Average Glucose 117 mg/dl 02/13/23 06:35 Hemoglobin A1c 5.7 % (4.5-5.6) H 02/13/23 06:35 Calcium 8.2 mg/dl (8.6-10.3) L 02/14/23 06:34 Magnesium 2.2 mg/dl (1.7-2.4) 02/12/23 05:36 Total Bilirubin 0.5 mg/dl (0.2-1.0) 02/11/23 20:21 AST 14 U/L (13-39) 02/11/23 20:21 ALT 9 U/L (7-52) 02/11/23 20:21 Alkaline Phosphatase 63 U/L (34-104) 02/11/23 20:21 Troponin I High Sens 5.4 pg/ml (0-20) 02/13/23 06:43 Total Protein 6.1 gm/dl (6.0-8.3) 02/11/23 20:21 Albumin 3.6 gm/dl (3.4-5.0) 02/11/23 20:21 Globulin 2.5 gm/dl (2.5-4.0) 02/11/23 20:21 Albumin/Globulin Ratio 1.4 (0.9-2) 02/11/23 20:21 Triglycerides 110 mg/dl (0-150) 02/13/23 06:43 Cholesterol 187 mg/dl (0-200) 02/13/23 06:43 LDL Cholesterol, Calc 132 mg/dl 02/13/23 06:43 VLDL Cholesterol, Calc 22 mg/dl (0-30) 02/13/23 06:43 HDL Cholesterol 33 mg/dl 02/13/23 06:43 Cholesterol/HDL Ratio 5.7 (0-5) H 02/13/23 06:43 Vitamin B12 193 pg/ml (180-914) 02/13/23 06:35 TSH 1.924 uIu/ml (0.300-4.500) 02/11/23 20:21 SARS-CoV-2, RNA, NAAT NEGATIVE (NEGATIVE) 02/11/23 Unknown Impressions Cervical Spine CT 02/12/23 17:48 CT cervical spine wo con CT DOSE: 1095.67 mGy.cm CLINICAL HISTORY: 87 years-old Male with right side weakness. Acute strokelike symptoms COMPARISON: CTA neck 02/10/2023 TECHNIQUE: Multiple axial CT images of the cervical spine were obtained without contrast. A dose lowering technique was utilized adhering to the principles of ALARA. FINDINGS: Multilevel degenerative changes are again seen. No acute fracture or subluxation identified. The cervical soft tissues appear unremarkable. The visualized lung apices appear clear. IMPRESSION: No acute cervical spine fracture or subluxation. ACT 112: Negative or not required by law. The above report was generated using voice recognition software. It may contain grammatical, syntax or spelling errors. Electronically signed by: Mychal Ortega M.D. 02/12/2023 6:[address] 02/12/23 17:48 CT head/brain wo con CLINICAL HISTORY: 87 years-old Male with right side weakness. Acute stroke like symptoms TECHNIQUE: Multiple axial CT images of the head were obtained without contrast. A dose lowering technique was utilized adhering to the principles of ALARA. COMPARISON: 02/11/2023 FINDINGS: No acute intracranial hemorrhage, midline shift, intracranial mass, hydrocephalus, territorial ischemia or abnormal extra-axial collection. Involutional changes with chronic microvascular ischemic disease. The calvarium is intact. Prior bilateral lens repair. The paranasal sinuses, mastoid air cells, and middle ear cavities are clear. IMPRESSION: No acute intracranial abnormality. ACT 112: Negative or not required by law. The above report was generated using voice recognition software. It may contain grammatical, syntax or spelling errors. Electronically signed by: Mychal Ortega M.D. 02/12/2023 6:39 PM Venous Doppler Study 02/13/23 08:06 BILATERAL LOWER EXTREMITY VENOUS DOPPLER HISTORY: Leg numbness. Leg paresthesias. Rule out DVT COMPARISON STUDY: None. FINDINGS: There is normal compressibility, flow, and augmentation within the bilateral lower extremity deep venous systems. IMPRESSION: No DVT within the right or left lower extremity. ACT 112: Negative or not required by law. Electronically signed by: Errol Jarrett M.D. 02/13/2023 11:46 AM Brain MRI 02/13/23 10:22 Brain MRI WITHOUT CONTRAST HISTORY: Right side weakness, rule out stroke TECHNIQUE: Multiplanar multisequence MRI of the brain was performed without the use of contrast. COMPARISON STUDY: Head CT 02/12/2023. Brain MRI 09/05/2020. FINDINGS: There is a single punctate focus of restricted diffusion within the right medial temporal lobe on axial image 10. This could represent a punctate acute infarct or artifact. Additional punctate focus of restricted diffusion of the right cerebellar hemisphere on image 5 is also indeterminate but may represent artifact. The midline structures are intact. Scattered foci of T2 hyperintensity again noted within the white matter of the supratentorial brain and jeanne. These are similar to the prior study and favor mild to moderate microvascular ischemic change. There is no mass, hematoma, midline shift. Prior bilateral lens replacement. The paranasal sinuses and mastoid air cells are goldie ar. The major vascular flow-voids at the skull base are well-maintained. The ventricles and sulci demonstrate mild to moderate age-related involutional changes. This is also similar to the prior study. IMPRESSION: 1. There 2 punctate foci of restricted diffusion at the right medial temporal lobe and within the right cerebellar hemisphere. These are indeterminate and could represent punctate lacunar infarcts versus artifact. No large territorial infarct identified. 2. Atrophy and microvascular ischemic changes again noted. ACT 112: Negative or not required by law. Electronically signed by: Errol Jarrett M.D. 02/13/2023 12:23 PM
[2023-02-14] MEDS ORDERED: WARFARIN SOD 10 MG TAB PO SCH (16:00)
[2023-02-14] MEDS: ENOXAPARIN 80 MG/0.8 ML SYR SQ SCH (20:02)
--- NOTE | 2023-02-15 07:11 | Pharmacy Report ---
- Date of Service February 15, 2023 - Pharmacy CVA/TIA Medication Review Medications to Prevent Stroke handout has been added to the patients discharge packet. Antiplatelet(s) * No antiplatelet indicated per provider notes Cholesterol * High intensity statin: atorvastatin 40 mg daily Therapeutic Anticoagulation * Hx Afib/Aflutter noted, and patient is currently receiving warfarin/lovenox bridge Type 2 Diabetes * Patient does not have T2DM
[2023-02-15 08:08] LABS: Basophils # (auto) 0.03 K/uL (0-0.2); Basophils % (auto) 0.5 %; Eosinophils # (auto) 0.24 K/uL (0-0.50); Eosinophils % (auto) 4.2 %; Hematocrit (blood only) 41.6 % (42.0-52.0); Hemoglobin 13.7 g/dl (14.0-18.0); Immature Granulocytes # (auto) 0.01 K/uL (0.01-0.20); Immature Granulocytes % (auto) 0.2 %; Lymphocytes # (auto) 1.42 K/uL (1.2-3.4); Mean Corpuscular Hemoglobin 28.4 pg (25.0-34.0); Mean Corpuscular Hgb Conc 32.9 g/dL (32.0-36.0); Mean Corpuscular Volume 86.1 fL (80.0-100.0); Mean Platelet Volume 10.4 fL (9.4-12.4); Monocytes # (auto) 0.42 K/uL (0.11-0.59); Monocytes % (auto) 7.4 %; Neutrophils # (auto) 3.55 K/uL (1.40-6.50); Neutrophils % (auto) 62.7 %; Platelet Count 170 K/uL (130-400); RDW Coefficient of Variation 14.3 % (11.5-14.5); RDW Standard Deviation 45.2 fL (36.4-46.3); Red Blood Count 4.83 M/uL (4.70-6.10); White Blood Count 5.67 K/ul (4.8-10.8)
[2023-02-15 08:13] LABS: INR 1.3 (0.9-1.1); Prothrombin Time 13.9 Seconds (9.0-12.0)
[2023-02-15] MEDS: PANTOprazole 40 MG TAB PO SCH (08:28)
[2023-02-15] MEDS: MESALAMINE 0.375 GM PO SCH (08:30)
[2023-02-15] MEDS: ATORVASTATIN 40 MG TAB PO SCH (08:30)
[2023-02-15] MEDS: ENOXAPARIN 80 MG/0.8 ML SYR SQ SCH (08:30)
[2023-02-15] MEDS: lisinopril 20 MG TAB PO SCH (08:30)
[2023-02-15 08:37] LABS: BUN Creatinine Ratio 27.8 (10-20); Calcium 8.4 mg/dl (8.6-10.3); Creatinine Clr Calc Pharmacy 68.4 ml/min; Est GFR (African American) 94.9 ml/min; Est GFR (Non-African American) 81.9 ml/min; Potassium 3.7 mmol/L (3.5-5.1)
--- NOTE | 2023-02-15 13:24 | Hospitalist Progress Note ---
Date of Service February 15, 2023 Assessment & Plan (1) Weakness: Plan: Patient is an 87 yr old male with past med significant for paroxysmal atrial fibrillation, venous thrombosis, hypertension, ulcerative colitis, Canales's esophagus, GERD, history of basal cell carcinoma, history of sensory hearing loss, history of factor V Leiden deficiency presents with recurrent episode of generalized weakness and ambulatory dysfunction Acute stroke in right medial temporal lobe and right cerebral hemisphere On the evening of February 12; patient had acute onset of right-sided weakness on right arm and leg. --CT head without contrast reviewed; no acute finding. CT cervical spine did not show any acute abnormality --MRI brain without contrast showed 2 punctate foci of restricted diffusion at the right medial temporal lobe and within the right cerebellar hemisphere. --ECHO:No interatrial shunt --No arrhythmias on telemetry Prior hospitalist discussed with Dr. Page(neurology) and Dr. Sanchez(cardiology):Given the distribution of the stroke; likely cardioembolic source in setting of Subtherapeutic INR --Discussed with Cardiology today: Recommends to give Aspirin 81mg at least for 30 days and then can discontinue especially given subtherapeutic INR Continue Lovenox and Coumadin until INR is therapeutic INR 1.3 today Plan to give Coumadin 10mg today PT OT recommends home. Continue statin Ulcerative colitis Continue mesalamine Canales's esophagus Continue Protonix H/O A-fib Venous thrombosis H/O factor V Leyden deficiency Continue anticoagulation as above Hypertension Continue lisinopril DVT Px: Lovenox/Coumadin. Admission and Anticipated Discharge Date Admission Date: February 11, 2023 Subjective Patient is seen and examined at bedside States feeling well today No new complaints Eager to get discharged Denies any chest pain, dyspnea, dizziness, nausea, abd pain Review of Systems Review of Systems: All systems reviewed & are unremarkable except as noted in Subjective Physical Exam Physical Exam: Physical Exam: Vitals signs as noted above General Appearance:Moderately built and nourished, no apparent distress Head: normocephalic, Atraumatic Eyes: normal inspection, EOMI Neck: supple, Trachea midline Respiratory/Chest: Normal breath sounds, CTA, No accessory muscle use Cardiovascular: S1, S2, No murmur Abdomen/GI:Soft, Non tender, Bowel sounds present Extremities/Musculoskeletal:normal inspection, no edema Neurologic/Psych:AAOX3, grossly no focal neurological deficits,+Hearing impairment Skin: normal color, warm Results & Data Results & Data Vital Signs (Past 12 Hours) Vital Signs Temp Pulse Pulse Resp BP BP Pulse Ox 02/15/23 10:53 36.3 C L 63 20 153/86 H 96 02/15/23 07:00 57 L 02/15/23 07:18 37.1 C 64 19 162/77 H 95 02/15/23 03:54 37.1 C 63 17 157/81 H 96 O2 Del Method 02/15/23 10:53 Room Air 02/15/23 07:00 02/15/23 07:18 Room Air 02/15/23 03:54 Room Air Laboratory Results Short CBC 02/15/23 Range/Units 07:26 WBC 5.67 (4.8-10.8) K/ul Hgb 13.7 L (14.0-18.0) g/dl Hct 41.6 L (42.0-52.0) % Plt Count 170 (130-400) K/uL BMP 02/15/23 07:26 Sodium 139 Potassium 3.7 Chloride 108 H Carbon Dioxide 26 BUN 22 Creatinine 0.79 Glucose 80 Calcium 8.4 L
[2023-02-15] MEDS ORDERED: ASPIRIN 81 MG ECTAB PO SCH (13:30)
[2023-02-15] MEDS ORDERED: STROKE PATIENT DISCHARGE STA (14:02)
--- NOTE | 2023-02-15 14:04 | Discharge Summary ---
Date of Service February 15, 2023 Admission HPI Per Admitting Provider 87-year-old male with past med significant for paroxysmal atrial fibrillation, venous thrombosis, hypertension, ulcerative colitis, Canales's esophagus, GERD, history of basal cell carcinoma, history of sensory hearing loss, history of factor V Leiden deficiency presents with recurrent generalized weakness and ambulatory dysfunction where he felt rubbery feeling in his extremities and fell down but no loss of consciousness. Patient states it lasted for about 1 hour this time. Patient was in the hospital last night with a similar episode where labs Lyme screen anaplasmosis. Respiratory bio fire were fine. He also had CT head, CTA of the head and neck and MRI of the head which were unremarkable. He was recently started on Levisin which was stopped for possible cause of his symptoms. Patient did okay last night and and in the morning he was ambulating fine and wanted to be discharged. After going home patient did fine all day but again in the evening felt similar kind of episode and fell down and brought to the hospital. Patient Resting comfortably and hemodynamic stable. The rubbery feeling is gone. He had headache earlier that resolved. But he says he has some chest pain now. Denies shortness of breath. No nausea. No cough. No abdominal pain. Normal bowel movements. Very hard of hearing. Past medical history as mentioned above Past surgical history amputation of right toe, colonoscopy with biopsy, EGD, EGD with biopsy, EGD with endoscopic ultrasound, laparoscopic cholecystectomy, laparoscopic appendectomy, bilateral cataract Social history quit smoking in 1984 smoked 1.5 packs a day for 20 years. Alcohol 2 glasses daily. No drugs. Family history father had peripheral vascular disease Admission Exam Per Admitting Provider General- not in distress Head- atraumatic Eyes- PERRL, ENT- oropharynx clear Neck- supple, no JVD Heart- regular rhythm; no murmur, no gallop. Abdomen- normal bowel sounds, soft, nontender, no distension. Extremities- no pretibial edema, no erythema seen Neuro- alert, oriented x 3; PERRL, ; no facial palsy; no dysarthria; motor 4/5 bilaterally; no pronator drift. obeys commands Skin- warm & dry Principal Diagnosis Acute stroke Discharge Data Allergies Allergy/AdvReac Type Severity Reaction Status Date / Time red dye Allergy Severe SEVERE Verified 02/11/23 20:47 MIGRAINES aspirin AdvReac Intermediate UPSETS Verified 02/11/23 20:47 STOMACH codeine AdvReac Intermediate "JUST Verified 02/11/23 20:47 DON'T SEEM TO AGREE WITH ME" steroids Allergy Facial & Uncoded 02/12/23 00:03 Extremity swelling Consultations 02/11/23 21:35 ED Decision to Admit Stat 02/12/23 08:00 Consult Cardiology Routine 02/12/23 10:42 Consult Neurology Routine Procedures Performed Laboratory Results WBC 5.67 K/ul (4.8-10.8) 02/15/23 07:26 RBC 4.83 M/uL (4.70-6.10) 02/15/23 07:26 Hgb 13.7 g/dl (14.0-18.0) L 02/15/23 07:26 Hct 41.6 % (42.0-52.0) L 02/15/23 07:26 MCV 86.1 fL (80.0-100.0) 02/15/23 07:26 MCH 28.4 pg (25.0-34.0) 02/15/23 07:26 MCHC 32.9 g/dL (32.0-36.0) 02/15/23 07:26 RDW Std Deviation 45.2 fL (36.4-46.3) 02/15/23 07:26 RDW Coeff of Dmitri 14.3 % (11.5-14.5) 02/15/23 07:26 Plt Count 170 K/uL (130-400) 02/15/23 07:26 MPV 10.4 fL (9.4-12.4) 02/15/23 07:26 Immature Gran % (Auto) 0.2 % 02/15/23 07:26 Neut % (Auto) 62.7 % 02/15/23 07:26 Lymph % (Auto) 25.0 % 02/15/23 07:26 Kay % (Auto) 7.4 % 02/15/23 07:26 Eos % (Auto) 4.2 % 02/15/23 07:26 Baso % (Auto) 0.5 % 02/15/23 07:26 Neut # (Auto) 3.55 K/uL (1.40-6.50) 02/15/23 07:26 Lymph # (Auto) 1.42 K/uL (1.2-3.4) 02/15/23 07:26 Kay # (Auto) 0.42 K/uL (0.11-0.59) 02/15/23 07:26 Eos # (Auto) 0.24 K/uL (0-0.50) 02/15/23 07:26 Baso # (Auto) 0.03 K/uL (0-0.2) 02/15/23 07:26 Immature Gran # (Auto) 0.01 K/uL (0.01-0.20) 02/15/23 07:26 PT 13.9 Seconds (9.0-12.0) H 02/15/23 07:26 INR 1.3 (0.9-1.1) H 02/15/23 07:26 D-Dimer 450 ug/L FEU (0-500) 02/13/23 08:22 Sodium 139 mmol/L (136-145) 02/15/23 07:26 Potassium 3.7 mmol/L (3.5-5.1) 02/15/23 07:26 Chloride 108 mmol/L (98-107) H 02/15/23 07:26 Carbon Dioxide 26 mmol/L (21-32) 02/15/23 07:26 Anion Gap 5 (3-11) 02/15/23 07:26 BUN 22 mg/dl (6-23) 02/15/23 07:26 Creatinine 0.79 mg/dl (0.6-1.4) 02/15/23 07:26 Est Cr Clr Drug Dosing 68.4 ml/min 02/15/23 07:26 Est GFR ( Amer) 94.9 ml/min 02/15/23 07:26 Est GFR (Non-Af Amer) 81.9 ml/min 02/15/23 07:26 BUN/Creatinine Ratio 27.8 (10-20) H 02/15/23 07:26 Glucose 80 mg/dl (70-99(Fasting)) 02/15/23 07:26 Estimat Average Glucose 117 mg/dl 02/13/23 06:35 Hemoglobin A1c 5.7 % (4.5-5.6) H 02/13/23 06:35 Calcium 8.4 mg/dl (8.6-10.3) L 02/15/23 07:26 Magnesium 2.2 mg/dl (1.7-2.4) 02/12/23 05:36 Total Bilirubin 0.5 mg/dl (0.2-1.0) 02/11/23 20:21 AST 14 U/L (13-39) 02/11/23 20:21 ALT 9 U/L (7-52) 02/11/23 20:21 Alkaline Phosphatase 63 U/L (34-104) 02/11/23 20:21 Troponin I High Sens 5.4 pg/ml (0-20) 02/13/23 06:43 Total Protein 6.1 gm/dl (6.0-8.3) 02/11/23 20:21 Albumin 3.6 gm/dl (3.4-5.0) 02/11/23 20:21 Globulin 2.5 gm/dl (2.5-4.0) 02/11/23 20:21 Albumin/Globulin Ratio 1.4 (0.9-2) 02/11/23 20:21 Triglycerides 110 mg/dl (0-150) 02/13/23 06:43 Cholesterol 187 mg/dl (0-200) 02/13/23 06:43 LDL Cholesterol, Calc 132 mg/dl 02/13/23 06:43 VLDL Cholesterol, Calc 22 mg/dl (0-30) 02/13/23 06:43 HDL Cholesterol 33 mg/dl 02/13/23 06:43 Cholesterol/HDL Ratio 5.7 (0-5) H 02/13/23 06:43 Vitamin B12 193 pg/ml (180-914) 02/13/23 06:35 TSH 1.924 uIu/ml (0.300-4.500) 02/11/23 20:21 SARS-CoV-2, RNA, NAAT NEGATIVE (NEGATIVE) 02/11/23 Unknown Impressions Cervical Spine CT 02/12/23 17:48 CT cervical spine wo con CT DOSE: 1095.67 mGy.cm CLINICAL HISTORY: 87 years-old Male with right side weakness. Acute strokelike symptoms COMPARISON: CTA neck 02/10/2023 TECHNIQUE: Multiple axial CT images of the cervical spine were obtained without contrast. A dose lowering technique was utilized adhering to the principles of ALARA. FINDINGS: Multilevel degenerative changes are again seen. No acute fracture or subluxation identified. The cervical soft tissues appear unremarkable. The visualized lung apices appear clear. IMPRESSION: No acute cervical spine fracture or subluxation. ACT 112: Negative or not required by law. The above report was generated using voice recognition software. It may contain grammatical, syntax or spelling errors. Electronically signed by: Mychal Ortega M.D. 02/12/2023 6:[address] 02/12/23 17:48 CT head/brain wo con CLINICAL HISTORY: 87 years-old Male with right side weakness. Acute stroke like symptoms TECHNIQUE: Multiple axial CT images of the head were obtained without contrast. A dose lowering technique was utilized adhering to the principles of ALARA. COMPARISON: 02/11/2023 FINDINGS: No acute intracranial hemorrhage, midline shift, intracranial mass, hydrocephalus, territorial ischemia or abnormal extra-axial collection. Involutional changes with chronic microvascular ischemic disease. The calvarium is intact. Prior bilateral lens repair. The paranasal sinuses, mastoid air cells, and middle ear cavities are clear. IMPRESSION: No acute intracranial abnormality. ACT 112: Negative or not required by law. The above report was generated using voice recognition software. It may contain grammatical, syntax or spelling errors. Electronically signed by: Mychal Ortega M.D. 02/12/2023 6:39 PM Venous Doppler Study 02/13/23 08:06 BILATERAL LOWER EXTREMITY VENOUS DOPPLER HISTORY: Leg numbness. Leg paresthesias. Rule out DVT COMPARISON STUDY: None. FINDINGS: There is normal compressibility, flow, and augmentation within the bilateral lower extremity deep venous systems. IMPRESSION: No DVT within the right or left lower extremity. ACT 112: Negative or not required by law. Electronically signed by: Errol Jarrett M.D. 02/13/2023 11:46 AM Brain MRI 02/13/23 10:22 Brain MRI WITHOUT CONTRAST HISTORY: Right side weakness, rule out stroke TECHNIQUE: Multiplanar multisequence MRI of the brain was performed without the use of contrast. COMPARISON STUDY: Head CT 02/12/2023. Brain MRI 09/05/2020. FINDINGS: There is a single punctate focus of restricted diffusion within the right medial temporal lobe on axial image 10. This could represent a punctate acute infarct or artifact. Additional punctate focus of restricted diffusion of the right cerebellar hemisphere on image 5 is also indeterminate but may represent artifact. The midline structures are intact. Scattered foci of T2 hyperintensity again noted within the white matter of the supratentorial brain and jeanne. These are similar to the prior study and favor mild to moderate microvascular ischemic change. There is no mass, hematoma, midline shift. Prior bilateral lens replacement. The paranasal sinuses and mastoid air cells are clear. The major vascular flow-voids at the skull base are well-maintained. The ventricles and sulci demonstrate mild to moderate age-related involutional changes. This is also similar to the prior study. IMPRESSION: 1. There 2 punctate foci of restricted diffusion at the right medial temporal lobe and within the right cerebellar hemisphere. These are indeterminate and could represent punctate lacunar infarcts versus artifact. No large territorial infarct identified. 2. Atrophy and microvascular ischemic changes again noted. ACT 112: Negative or not required by law. Electronically signed by: Errol Jarrett M.D. 02/13/2023 12:23 PM Ordered Studies 02/11/23 19:13 CT head/brain wo con Stat 02/12/23 17:48 CT cervical spine wo con Urgent CT head/brain wo con Urgent 02/13/23 08:06 US venous duplex leg [US venous doppler LE BI] Routine 02/13/23 10:22 MRI Brain [MR brain wo con] Urgent Hospital Course (1) Weakness: Patient is an 87 yr old male with past med significant for paroxysmal atrial fibrillation, venous thrombosis, hypertension, ulcerative colitis, Canales's esophagus, GERD, history of basal cell carcinoma, history of sensory hearing loss, history of factor V Leiden deficiency presents with recurrent episode of generalized weakness and ambulatory dysfunction Acute stroke in right medial temporal lobe and right cerebral hemisphere On the evening of February 12; patient had acute onset of right-sided weakness on right arm and leg. --CT head without contrast reviewed; no acute finding. CT cervical spine did not show any acute abnormality --MRI brain without contrast showed 2 punctate foci of restricted diffusion at the right medial temporal lobe and within the right cerebellar hemisphere. --ECHO:No interatrial shunt --No arrhythmias on telemetry Prior hospitalist discussed with Dr. Page(neurology) and Dr. Sanchez(cardiology):Given the distribution of the stroke; likely cardioembolic source in setting of Subtherapeutic INR --Discussed with Cardiology today: Recommends to give Aspirin 81mg at least for 30 days and then can discontinue especially given subtherapeutic INR Continue Lovenox and Coumadin until INR is therapeutic INR 1.3 today Plan to give Coumadin 10mg today PT OT recommends home. Continue statin Ulcerative colitis Continue mesalamine Canales's esophagus Continue Protonix H/O A-fib Venous thrombosis H/O factor V Leyden deficiency Continue anticoagulation as above Hypertension Continue lisinopril DVT Px: Lovenox/Coumadin. Total Time Total Time Spent Total Time Spent (In Minutes): 45 minutes Discharge Plan Discharge Items Patient Disposition: Home - Self-Care Reason For Visit: WEAKNESS,CHEST PAIN Discharge Diagnosis: Acute stroke Activity: Per Instructions section Exercise/Sports: Gradually increase as tolerated Non-emergency contact: Primary Care Provider and Neurologist Call non-emergency contact if: you have any medication questions, your symptoms worsen, your pain is concerning for you and you have a fever Follow-up/Referrals: Chivo Velez, [Primary Care Provider] - Diet: Heart Healthy Addtl Attending Provider Instructions: Follow up with your Primary Care physician in 1 week Follow up with your Neurologist Dr.Hyman agarwal 4-6 weeks Follow up with Coumadin Clinic for further management in 1-2 days as recommended. --Continue Lovenox subcutaneous 70mg Twice a day until your INR is therapeutic between 2.0 to 3.0 --Your PT/INR is 1.3 today. Take 10mg Coumadin today. --Get Blood Test (PT/INR) tomorrow --02/16/23 and follow up with Coumadin clinic for further instructions on Coumadin and Lovenox as instructed. --Your Immunological studies for muscle weakness are pending at the time of discharge. Follow up with your physician for results. --Continue taking Aspirin 81mg daily for 30 days and stop as recommended by your Therapist. Seek immediate medical attention if your symptoms reoccur or worsen Please take all medications as instructed on discharge list below. Please call if you have any questions or problems. You can reach a [facility] hospitalist on duty at [facility] 24 hours a day by calling [phone] Risk Factors for Stroke: You can reduce your chances of stroke by working with your medical provider to adopt a healthy lifestyle. Some specific ways to lower your chance of stroke are: * If you are a smoker, now is the time to stop smoking cigarettes * If you are diabetic, improve the control of your blood sugars * Avoid excessive amounts of alcohol * Control high blood pressure * Lose weight if you are overweight * Be sure to lead an active lifestyle * Eat a healthy diet low in salt, cholesterol and fat You should know about other risk factors for stroke that you are unable to control. These include: * Age 55 years or older * Male gender * Certain racial groups: , or / * Family History of Stroke, Mini stroke or Heart Attack * Sickle Cell Disease Follow Up: It is important for you to keep your follow up appointments with your medical provider. Who to Call and When: Medical Emergencies: Call 911 immediately if you experience any of the fo llowing warning signs and symptoms of Stroke: * Sudden numbness or weakness of the face, arm or leg, especially on one side of the body * Sudden confusion, trouble speaking or understanding * Sudden trouble seeing in one or both eyes * Sudden trouble walking, dizziness, loss of balance or coordination * Sudden severe headache with no cause Do not delay calling 911 if you experience any warning signs or symptoms of a stroke. Delay in seeking medical attention may affect what treatments can be given to you. . Pending Studies at Discharge: Yes Studies:: Immunological studies for muscle weakness Stand-Alone Forms: My [facility], Smoking Cessation, Medications to Prevent Stroke Medications and DC Order Prescriptions: New enoxaparin [Lovenox] 80 mg/0.8 mL Syringe 70 mg subcut Q12H 5 Days Qty: 7 0RF atorvastatin 40 mg Tablet 40 mg PO QAM Qty: 30 1RF aspirin 81 mg Tablet,Delayed Release (Dr/Ec) 81 mg PO QAM Qty: 30 0RF Continued mesalamine [Apriso] 0.375 gram capsule,extended release 24hr 0.75 g PO BID warfarin 5 mg Tablet See Rx Instructions .ROUTE .COMPLEX Rx Instructions: 5 mg orally; TAKE 5 MG EVERY DAY EXCEPT TUESDAY; ON SUNDAYS TAKE 10 MG. pantoprazole 40 mg tablet,delayed release (DR/EC) 40 mg PO [facility]HS lisinopril 20 mg tablet 20 mg PO QAM Discharge Orders: Discharge Order (Routine); Ordered 02/15/23 Ordered By: Dante Ricardo Admission Data Admit Date/Time: 02/11/23 23:06 Attending Provider: Dante Ricardo Admit Provider: Jamel Villafana Primary Care Provider: Chivo Velez Other Providers: Jamel Villafana ; Nitish Page
--- NOTE | 2023-02-18 10:38 | Pharmacy Report ---
Pharmacist Stroke Counseling - Date of Service February 18, 2023 - Scope: Pharmacy has been consulted to provide medication discharge counseling for this patient admitted with ischemic stroke as per the Pharmacist Discharge Counseling for Stroke Patients Protocol. - Medications on Discharge: Home Medications Medication Instructions Recorded Confirmed mesalamine 0.375 gram 0.75 g PO BID 07/21/19 02/11/23 capsule,extended release 24 hr (Apriso) warfarin 5 mg tablet See Rx Instructions .Route .COMPLEX 07/21/19 02/11/23 lisinopril 20 mg tablet 20 mg PO QAM 12/17/22 02/11/23 pantoprazole 40 mg tablet,delayed 40 mg PO [facility] 02/10/23 02/11/23 release New Rx's Medication Instructions Recorded aspirin 81 mg tablet,delayed 81 mg PO QAM #30 tabs 02/15/23 release atorvastatin 40 mg tablet 40 mg PO QAM #30 tabs 02/15/23 enoxaparin 80 mg/0.8 mL 70 mg (0.7 mL) subcut Q12H 5 days 02/15/23 subcutaneous syringe (Lovenox) #7 mL - Action: The above medications, specifically ones for stroke treatment/prophylaxis, have been reviewed in detail with the patient and/or patient outside industrial sales representative(s) prior to discharge. This includes indication, common adverse reactions, drug interactions, and medication administration. Medication counseling has been employed using the teach-back method to ensure understanding. - Outcome: The patient and/or patient outside industrial sales representative(s) have demonstrated understanding of the medications. Additional comments: * Patient [id number] and unable to talk on phone. Discussed medication changes with patient's . * Patient outside industrial sales representative reports INR is now therapeutic at 2.5 and Lovenox has been stopped. * Reports picking up prescriptions and has follow-up appointment later today with PCP. * No concerns identified at this time. Thank you for allowing pharmacy to be involved in the care of this patient. Please call [phone] with any additional questions
[2023-03-02 13:26] LABS: Acetylcholine Recep Modulating 3; Anti-Striated Muscle NEGATIVE (NEGATIVE); Receptor Binding Ab <0.30 nmol/L; Voltage-gated Ca Channel Ab <30 pmol/L (<30)
== END 2023-02-15 15:03 | disposition home or self-care (01) | DRG 65 ==
LOC: ED 18:04 → 2S 23:06 → SUATTDRO 23:06 → 2S 02-12 00:18

== ENCOUNTER 2025-01-31 16:49 | Inpatient (IN) ==
[2025-01-31] MEDS: PERCOCET 5/325MG HOMEPACK PO ONE (17:18)
--- NOTE | 2025-01-31 17:20 | Emergency Department Note ---
History of Present Illness General Chief complaint: Pain (Generalized) Stated complaint: PAIN LEG/ARM Time Seen by Provider: 01/31/25 16:57 History of Present Illness Provider complaint: Pain Maximum Pain Intensity: 10 89-year-old male presents emergency department for pain. Patient states he has been in severe pain for the last 3 weeks. He reports pain in his right hip and back. Patient reports no falls or traumas. He states he has been to pain management and states that he has been trying the gabapentin, baclofen, and Tylenol but is not helping his pain. Patient and family report no recent falls. No fever. Pain is made worse with touching the area and movement. Patient states this is his third visit to the emergency department and his pain is not any better. Patient not reporting any chest pain headache or abdominal pain. No difficulty breathing. Home Medications Medication Instructions Recorded Confirmed Type lisinopril 20 mg tablet 20 mg PO QAM 12/17/22 01/28/25 History pantoprazole 40 mg tablet,delayed 40 mg PO AMHS 02/10/23 01/28/25 History release atorvastatin 40 mg tablet 40 mg PO QAM #30 tabs 09/17/24 01/28/25 Rx mesalamine 0.375 gram 0.75 g PO AMPM 12/01/24 01/28/25 History capsule,extended release 24 hr psyllium husk 0.52 gram capsule 0.52 g PO QAM 12/01/24 01/28/25 History (Fiber-Caps (psyllium husk)) aspirin 81 mg tablet,delayed 81 mg PO DAILY #90 tabs 12/24/24 01/28/25 Rx release (Enteric Coated Aspirin) warfarin 5 mg tablet (Jantoven) See Rx Instructions PO UD #115 tabs 01/17/25 01/28/25 Rx gabapentin 300 mg capsule 300 mg PO TID 01/18/25 01/28/25 History baclofen 10 mg tablet 10 mg PO BID #60 tabs 01/29/25 Rx oxycodone 5 mg tablet 5 mg PO Q8H PRN pain #31 tabs 01/31/25 Rx Allergies Allergy/AdvReac Type Severity Reaction Status Date / Time red dye AdvReac Severe SEVERE Verified 01/28/25 14:30 MIGRAINES aspirin AdvReac Intermediate UPSETS Verified 01/28/25 14:30 STOMACH codeine AdvReac Intermediate "JUST Verified 01/28/25 14:30 DON'T SEEM TO AGREE WITH ME" cyclobenzaprine AdvReac Intermediate Hallucinati Verified 01/28/25 14:30 [From Flexeril] ng salicylates AdvReac Intermediate doesnt Verified 01/28/25 14:30 agree with pt steroids Allergy Intermediate Facial & Uncoded 01/28/25 14:30 Extremity swelling Past Med/Surg History Problem List (Updated 01/31/25 @ 19:51 by Trey Ribera MD) Tylenol toxicity (Acute) Transaminitis (Acute) Supratherapeutic INR (Acute) Elevated INR (Acute) Chronic pain (Acute) Gluteal pain Myofascial pain Hematoma (Acute) Fecal impaction Constipation History of colitis Rectal bleed Anticoagulant long-term use (Acute) Vitamin B12 deficiency Subtherapeutic international normalized ratio (INR) Stroke Episodic weakness Paroxysmal atrial fibrillation Atypical chest pain Weakness (Acute) Weakness (Acute) Atrial fibrillation (Chronic) Chest pain Precordial chest pain (Acute) Jaw pain (Acute) LUQ abdominal pain (Acute) Hiatal hernia (Acute) Headache (Acute) Dizziness (Acute) Sensorineural hearing loss (SNHL) of both ears Sudden left hearing loss Hypokalemia Rectal bleeding (Acute) Colitis Abdominal pain (Acute) Factor V Leiden (Chronic) "on chronic anticoagulation" Barretts esophagus (Chronic) "EGD 07/29/2014-shows Barretts Esophagus with no CA; follows with GI, Dr. José Luis Richards" Ulcerative colitis (Chronic) H/O esophagogastroduodenoscopy (Chronic) H/O colonoscopy (Chronic) Appendicitis Medical History Gastro-esophageal reflux disease with esophagitis History of DVT (deep vein thrombosis) Family History Other Family history non-contributory Social History Smoking Status: Never smoker Tobacco Type: Cigarettes Age Started Using Tobacco: 17; Age Quit Using Tobacco: 47; packs per day: 0.5; Cigarettes Per Day: "alot"; Second Hand Exposure: No; Do You Dip or Chew Tobacco: No; Hx Alcohol Use: No Hx Substance Use: No Preferred Language: [place] Citizen Communication Ability: Effective Communication Ability Comment: deaf, 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, read writing 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 Beliefs That Will Affect Care: None marital status: Current Living Situation: Spouse Feels Safe at Home: Yes Assistive Devices: None Physical Exam Vital Signs Vital Signs - 24 hr 01/31/25 16:50 01/31/25 17:24 01/31/25 17:41 Temperature 36.9 C Temperature Source Temporal Artery Scan Pulse Rate 60 Pulse Rate from SpO2 Sensor Respiratory Rate 19 Respiratory Effort / Characteristics Non-Labored Spontaneous Respiratory Depth Normal Blood Pressure 141/81 H 141/98 H Blood Pressure Mean 101 101 Pulse Oximetry 99 92 Oxygen Delivery Method Room Air Room Air Sepsis Recent Fever Within 48 Hours No Sepsis New/Unexplained Change in Mental Status N/A Sepsis Action Taken by Nursing No Action Required 01/31/25 17:48 01/31/25 18:00 01/31/25 18:30 Temperature Temperature Source Pulse Rate 59 L 58 L 61 Pulse Rate from SpO2 Sensor 58 L Respiratory Rate 19 16 Respiratory Effort / Characteristics Respiratory Depth Blood Pressure 138/83 147/79 H Blood Pressure Mean 95 89 Pulse Oximetry 95 Oxygen Delivery Method Sepsis Recent Fever Within 48 Hours Sepsis New/Unexplained Change in Mental Status Sepsis Action Taken by Nursing 01/31/25 19:00 01/31/25 19:03 01/31/25 19:30 Temperature Temperature Source Pulse Rate 54 L Pulse Rate from SpO2 Sensor 54 L Respiratory Rate 8 L Respiratory Effort / Characteristics Respiratory Depth Blood Pressure 143/80 H 146/92 H Blood Pressure Mean 106 123 Pulse Oximetry 95 Oxygen Delivery Method Sepsis Recent Fever Within 48 Hours Sepsis New/Unexplained Change in Mental Status Sepsis Action Taken by Nursing 01/31/25 19:30 01/31/25 19:30 01/31/25 19:30 Temperature Temperature Source Pulse Rate 56 L Pulse Rate from SpO2 Sensor 57 L Respiratory Rate 15 Respiratory Effort / Characteristics Respiratory Depth Blood Pressure 146/92 H 146/92 H Blood Pressure Mean 123 123 Pulse Oximetry 96 Oxygen Delivery Method Sepsis Recent Fever Within 48 Hours Sepsis New/Unexplained Change in Mental Status Sepsis Action Taken by Nursing Physical Exam GENERAL: oriented to person, place, and time. appears well-developed and well- nourished. HENT: Exam performed. - Head: Normocephalic and atraumatic. EYES: Conjunctivae and EOM are normal. Right eye exhibits no discharge. Left eye exhibits no discharge. No scleral icterus. NECK: Normal range of motion. Neck supple. No JVD present. CV: Normal rate, regular rhythm, normal heart sounds and intact distal pulses. There is no peripheral edema. Palpable radial pulses bue. PULM/CHEST: Effort normal and breath sounds normal. No respiratory distress. No stridor. no wheezes. no rales. ABD: The abdomen is soft. There is no tenderness. NEURO: Motor and sensation grossly intact. MUSC: Palpable DP and PT pulses. Pain on palpation of the right hip and gluteal area. There is no hematoma present. Ecchymosis over the right inner thigh. Course Course 1656: The patient was evaluated in room B9. A complete history and physical exam was performed Medical records reviewed. This is the patient's second visit to the emergency department for such pain. On his last visit to the emergency department on January 18, 2025 the patient had blood work done which showed a hemoglobin of 13 and INR of 2.9. Imaging from the visit on January 06, [address], ultrasound negative for DVT, CT angio chest abdomen pelvis was negative. Patient was discharged Patient was seen by pain management on January 28, 3 days ago. Patient was given a trial of gluteal trigger point injections and is supposed to have a MRI scheduled for next week. Patient describes same type of pain that he is having today in the emergency department. Patient and family are requesting that MRI be performed today in the emergency department. I explained that there is no indication for that he would have to wait until his regular scheduled MRI next week. Patient and family then stated that he needs opiates to control his pain until he can get the MRI next week. PDMP was reviewed and there are no red flags. Patient will be discharged with prescription oxycodone. First dose given the emergency department as well as home pack. DISCHARGE - Plan of care discussed with patient and questions answered. The patient was given both verbal and printed discharge instructions. The patient verbalized understanding and ability to comply. The patient is to seek outpatient follow up as noted in the discharge instructions. The patient verbalized understanding and ability to comply. The patient is discharged in stable condition. The patient was instructed to return for worsening symptoms. 1730: At time of discharge the patient and began to mention that the patient has been having black tarry stools. He reports no abdominal pain. I went and reassessed the patient he states he forgot to mention the black stools. Medical records were reviewed patient is on Coumadin. His last INR was 2.9. External medical records were reviewed and the patient was recently admitted to the hospital for GI bleed from December 01 to December 04, 2024. Colonoscopy did show ulcerative colitis findings. Rectal exam was performed with female nursing product safety engineer Holly at bedside. Patient is Hemoccult positive. Labs will be checked and patient be started on Protonix bolus and drip. 1904: Vital signs stable. Received call from Dr. Wong. Patient follows up with her in the anticoagulation clinic. She states that the patient's INR is 4.4. She recommends vitamin K 2.5 mg p.o. She states that she thinks the INR level is elevated because the patient has been taking exorbitant amounts of Tylenol. Given this information we will check Tylenol and salicylate level on the patient. 1936: Vital signs stable. Serum salicylate and acetaminophen levels are within normal limits. However the patient's LFTs are elevated his AST is 81 last month it was 28 and his ALT is 104 with his last level being 26. Patient states he is not sure when his last Tylenol intake was, he states it was either noon or 3 PM. Discussed case with poison control. They recommend administering N- acetylcysteine given his elevated liver enzymes and Tylenol level being greater than 10. Patient will be admitted to the [facility] hospitalist team. Administered Medications Pantoprazole Sodium 40 mg/ (Dextrose) 100 mls @ 20 mls/hr IV Q5H RAI Stop: 03/02/25 17:44 Last Admin: 01/31/25 18:30 Dose: 8 mg/hr, 20 mls/hr Documented By: JERE Discontinued Medications Pantoprazole Sodium 80 mg/ (Dextrose) 120 mls @ 480 mls/hr IV NOW ONE Stop: 01/31/25 17:44 Last Infusion: 01/31/25 18:39 Dose: Infused Documented By: Admin: 01/31/25 18:15 Dose: 480 mls/hr Documented By: JERE Oxycodone/Acetaminophen (Percocet 5/325mg Homepack) 1 each PO UD ONE Stop: 01/31/25 17:07 Last Admin: 01/31/25 17:18 Dose: 1 each Documented By: JERE Oxycodone/Acetaminophen (Oxycodone/Acetaminophen 5mg/325mg Tab) 1 tab PO NOW STA Stop: 01/31/25 17:07 Last Admin: 01/31/25 17:17 Dose: 1 tab Documented By: JERE Pantoprazole Sodium (Pantoprazole Bolus/Drip) 1 each IV NOW STA Stop: 01/31/25 17:31 Last Admin: 01/31/25 18:06 Dose: Not Given Documented By: JERE Phytonadione (Phytonadione 5 Mg Tab) 2.5 mg PO NOW STA Stop: 01/31/25 19:05 Last Admin: 01/31/25 19:35 Dose: 2.5 mg Documented By: JERE Critical Care Time Critical Care Time: Yes Total Critical Care Time: 49 I have personally spent greater than 49 minutes of critical care time in the direct management of this patient. This includes bedside care, interpretation of diagnostic studies, and testing, discussion with consultants, patient, and family members, and other required patient management activities. This 49 minutes is in excess of all separately billable procedures. Medical Decision Making Laboratory Data Attestation: I reviewed the patient's lab results. 01/31/25 17:41 01/31/25 17:41 Lab Results 01/31/25 01/31/25 Range/Units 17:41 17:50 WBC 5.86 (4.8-10.8) K/ul RBC 4.16 L (4.70-6.10) M/uL Hgb 11.9 L (14.0-18.0) g/dl Hct 38.0 L (42.0-52.0) % MCV 91.3 (80.0-100.0) fL MCH 28.6 (25.0-34.0) pg MCHC 31.3 L (32.0-36.0) g/dL RDW Std Deviation 52.6 H (36.4-46.3) fL RDW Coeff of Dmitri 15.8 H (11.5-14.5) % Plt Count 139 (130-400) K/uL MPV 10.5 (9.4-12.4) fL Immature Gran % (Auto) 0.3 % Neut % (Auto) 61.2 % Lymph % (Auto) 23.5 % Cameron % (Auto) 9.4 % Eos % (Auto) 5.3 % Baso % (Auto) 0.3 % Neut # (Auto) 3.58 (1.40-6.50) K/uL Lymph # (Auto) 1.38 (1.20-3.40) K/uL Cameron # (Auto) 0.55 (0.11-0.59) K/uL Eos # (Auto) 0.31 (0.00-0.50) K/uL Baso # (Auto) 0.02 (0.00-0.20) K/uL Immature Gran # (Auto) 0.02 (0.01-0.20) K/uL PT 41.6 H (9.0-12.0) Seconds INR 4.4 H (0.9-1.1) APTT 44 H (21-31) Seconds PTT Ratio 1.6 Sodium 141 (136-145) mmol/L Potassium 3.7 (3.5-5.1) mmol/L Chloride 108 H (98-107) mmol/L Carbon Dioxide 29 (21-32) mmol/L Anion Gap 4 (3-11) BUN 22 (6-23) mg/dl Creatinine 0.79 (0.6-1.4) mg/dl Est Cr Clr Drug Dosing 61.6 ml/min eGFR 85.98 BUN/Creatinine Ratio 27.8 H (10-20) Glucose 112 H (70-99(Fasting)) mg/dl Calcium 8.4 L (8.6-10.3) mg/dl Total Bilirubin 0.6 (0.2-1.0) mg/dl Direct Bilirubin 0.1 (0-0.2) mg/dl AST 81 H (13-39) U/L ALT 104 H (7-52) U/L Alkaline Phosphatase 79 (34-104) U/L Total Protein 6.3 (6.0-8.3) gm/dl Albumin 3.5 (3.4-5.0) gm/dl Lipase 34 (11-82) U/L Salicylates < 3.0 L (3.0-30) mg/dl Acetaminophen 12 (10-30) ug/ml Blood Type O Positive Antibody Screen NEGATIVE ECG Data Attestation: I personally reviewed and interpreted this ECG as follows: Rate (beats per minute): 62 Rhythm: + normal sinus ECG Intervals/blocks: + Normal DE and + Normal QT-c ECG ST segments: + Normal ST segments Additional Comments: QRS 72 MDM Narrative 1657: The patient was evaluated in room B9. A complete history and physical exam was performed Medical records reviewed. This is the patient's second visit to the emergency department for such pain. On his last visit to the emergency department on January 18, 2025 the patient had blood work done which showed a hemoglobin of 13 and INR of 2.9. Imaging from the visit on January 06, [address], ultrasound negative for DVT, CT angio chest abdomen pelvis was negative. Patient was discharged Patient was seen by pain management on January 28, 3 days ago. Patient was given a trial of gluteal trigger point injections and is supposed to have a MRI scheduled for next week. Patient describes same type of pain that he is having today in the emergency department. Patient and family are requesting that MRI be performed today in the emergency department. I explained that there is no indication for that he would have to wait until his regular scheduled MRI next week. Patient and family then stated that he needs opiates to control his pain until he can get the MRI next week. PDMP was reviewed and there are no red flags. Patient will be discharged with prescription oxycodone. First dose given the emergency department as well as home pack. DISCHARGE - Plan of care discussed with patient and questions answered. The patient was given both verbal and printed discharge instructions. The patient verbalized understanding and ability to comply. The patient is to seek outpatient follow up as noted in the discharge instructions. The patient verbalized understanding and ability to comply. The patient is discharged in stable condition. The patient was instructed to return for worsening symptoms. 1730: At time of discharge the patient and began to mention that the patient has been having black tarry stools. He reports no abdominal pain. I went and reassessed the patient he states he forgot to mention the black stools. Medical records were reviewed patient is on Coumadin. His last INR was 2.9. External medical records were reviewed and the patient was recently admitted to the hospital for GI bleed from December 01 to December 04, 2024. Colonoscopy did show ulcerative colitis findings. Rectal exam was performed with female nursing product safety engineer Holly at bedside. Patient is Hemoccult positive. Labs will be checked and patient be started on Protonix bolus and drip. 1905: Vital signs stable. Received call from Dr. Wong. Patient follows up with her in the anticoagulation clinic. She states that the patient's INR is 4.4. She recommends vitamin K 2.5 mg p.o. She states that she thinks the INR level is elevated because the patient has been taking exorbitant amounts of Tylenol. Given this information we will check Tylenol and salicylate level on the patient. 1936: Vital signs stable. Serum salicylate and acetaminophen levels are within normal limits. However the patient's LFTs are elevated his AST is 81 last month it was 28 and his ALT is 104 with his last level being 26. Patient states he is not sure when his last Tylenol intake was, he states it was either noon or 3 PM. Discussed case with poison control. They recommend administering N- acetylcysteine given his elevated liver enzymes and Tylenol level being greater than 10. [facility] Impression & Plan Chronic pain, Elevated INR, Supratherapeutic INR, Transaminitis, Tylenol toxicity Discharge Plan Visit Data Chief Complaint: Pain (Generalized) Stated Complaint: PAIN LEG/ARM ED Provider: Trey Ribera Discharge Problem: Chronic pain, Elevated INR, Supratherapeutic INR, Transaminitis, Tylenol toxicity Patient Disposition: Admitted As Inpatient Condition: Serious Forms Stand Alone Forms: My [facility], Important Visit Information Prescriptions Prescriptions: New oxycodone 5 mg tablet 5 mg PO Q8H PRN (Reason: pain) Qty: 31 0RF No Action warfarin [Jantoven] 5 mg tablet See Rx Instructions PO UD Qty: 115 0RF Rx Instructions: TAKE 2 TABLETS BY MOUTH ON SUNDAYS & WEDNESDAYS, TAKE 1 TABLET ALL OTHER DAYS OF WEEK--- EVENINGS atorvastatin 40 mg tablet 40 mg PO QAM Qty: 30 5RF baclofen 10 mg tablet 10 mg PO BID Qty: 60 1RF aspirin [Enteric Coated Aspirin] 81 mg tablet,delayed release (DR/EC) 81 mg PO DAILY Qty: 90 3RF pantoprazole 40 mg tablet,delayed release (DR/EC) 40 mg PO AMHS lisinopril 20 mg tablet 20 mg PO QAM gabapentin 300 mg capsule 300 mg PO TID mesalamine 0.375 gram capsule,extended release 24hr 0.75 g PO AMPM Rx Instructions: TAKE 2 CAPSULES IN AM & PM psyllium husk [Fiber-Caps (psyllium husk)] 0.52 gram Capsule 0.52 g PO QAM Referrals Referrals: Royal Ley PA-C [Physician Flight Control Specialist] - (Follow-up in 1-7 days.) Will Mueller DO [Primary Care Provider] - (Follow-up in 1-7 days.)
[2025-01-31] MEDS: PANTOPRAZOLE BOLUS/DRIP IV STA (18:06)
[2025-01-31 18:08] LABS: Hematocrit (blood only) 38.0 % (42.0-52.0); Hemoglobin 11.9 g/dl (14.0-18.0); Immature Granulocytes # (auto) 0.02 K/uL (0.01-0.20); Immature Granulocytes % (auto) 0.3 %; Mean Corpuscular Hemoglobin 28.6 pg (25.0-34.0); Mean Corpuscular Volume 91.3 fL (80.0-100.0); Platelet Count 139 K/uL (130-400); RDW Standard Deviation 52.6 fL (36.4-46.3); Red Blood Count 4.16 M/uL (4.70-6.10); White Blood Count 5.86 K/ul (4.8-10.8)
[2025-01-31 18:23] LABS: Anion Gap 4.0 (3-11); Blood Urea Nitrogen 22.0 mg/dl (6-23); Calcium 8.4 mg/dl (8.6-10.3); Carbon Dioxide 29.0 mmol/L (21-32); Chloride 108.0 mmol/L (98-107); Creatinine Clr Calc Pharmacy 61.6 ml/min; Glucose 112.0 mg/dl (70-99(Fasting)); Potassium 3.7 mmol/L (3.5-5.1); Sodium 141.0 mmol/L (136-145)
[2025-01-31] MEDS: PANTOprazole 40 MG in DEXTROSE 5% MINI-B 100 ML IV SCH (18:30)
[2025-01-31 19:01] LABS: INR 4.4 (0.9-1.1); Partial Thromboplastin Time 44 Seconds (21-31); Prothrombin Time 41.6 Seconds (9.0-12.0)
[2025-01-31 19:27] LABS: Alanine Aminotransferase 104.0 U/L (7-52); Alkaline Phosphatase 79.0 U/L (34-104); Bilirubin,Total 0.6 mg/dl (0.2-1.0); Lipase 34.0 U/L (11-82); Total Protein 6.3 gm/dl (6.0-8.3)
[2025-01-31 19:33] LABS: Acetaminophen 12 ug/ml (10-30); Salicylate < 3.0 mg/dl (3.0-30)
[2025-01-31] MEDS: PHYTONADIONE 5 MG TAB PO STA (19:35)
[2025-01-31] MEDS: ACETYLCYSTEINE IV ONE ×2 (20:37→22:12)
[2025-01-31] MEDS: DEXTROSE 5% IV ONE ×2 (20:37→22:12)
--- NOTE | 2025-01-31 20:41 | History & Physical Report ---
Date of Service January 31, 2025 Assessment & Plan (1) Tylenol toxicity: (2) Transaminitis: (3) Supratherapeutic INR: (4) Gastro-esophageal reflux disease with esophagitis: (5) Chronic pain: (6) Stroke: (7) Paroxysmal atrial fibrillation: (8) Ulcerative colitis: Plan 89yo male presenting with acute on chronic right hip/back pain. Elevated INR, melenic stools. Also with mild elevation of LFTs and detectable Tylenol level. Tylenol=13. Patient has not been taking toxic levels (3gm daily). #Possible Tylenol Toxicity - poison control contacted by ER -NAC per protocol -Repeat INR, LFTs and Acetaminophen levels in AM -Avoid futher Tylenol products for now #Transaminitis - possibly secondary to Tylenol use? -Repeat LFTs in AM -If increasing would obtain RUQUS and acute hepatic panel -Hold Atorvastatin #Supratheraputic INR -Hold Coumadin -Repeat INR in AM #Melena - patient with history of GERD/Barretts esophagus. Is on anticoagulation with Coumadin with supratherapeutic INR -Maintain two large bore PIVs -Monitor CBC q 8 hours - transfuse for active bleed, symptomatic anemia or Hgb < 8 -Protonix gtt -GI consultation appreciated -Hold ASA an Eliquis #Chronic pain -Multimodal pain management -Heat -Tramadol 50mg po q 4 hours -Valium 2mg po BID PRN spasm -Continue Gabapentin 300mg po TID -Avoid Tylenol due to elevated LFTs. Avoid NSAIDs due to GIB -PT/OT evaluation #Hypertension -Lisinopril 20mg po qAM #UC -Continue mesalamine BID History of Present Illness Chief Complaint: right hip pain melena Primary Care Provider: Will Mueller DO Mckinley Wynn is an 89yo male with history of GERD/Barretts Esophagus (per EGD 2014), Ulcerative colitis, PAF on Coumadin anticoagulation, HTN presenting with right hip and back pain as well as melenic stools. Patient reports chronic, longstanding history of back pain which has been worse in the last 3 weeks. He denies fall, trauma or strain. He has been taking Tylenol for his pain - approximately 1gm TID. Has seen pain management in the past. He has been taking Gabapentin and Baclofen at home with no improvement. Patient additionally describes episodic epigastric pain, sharp and stabbing in nature as well as two days of black, tarry stools. He has had some nausea but no vomiting. He is on ASA 81mg po daiy and does drink 1.5 drinks per day. No Ibuprofen or NSAID use, no steroids. In the ER patient afebrile, HD stable ER Course: Oxycodone x 2 tabs Protonix bolus and drip NAC Vitamin K 2.5mg PO Allergies Allergy/AdvReac Type Severity Reaction Status Date / Time red dye AdvReac Severe SEVERE Verified 01/31/25 20:00 MIGRAINES aspirin AdvReac Intermediate UPSETS Verified 01/31/25 20:00 STOMACH codeine AdvReac Intermediate "JUST Verified 01/31/25 20:00 DON'T SEEM TO AGREE WITH ME" cyclobenzaprine AdvReac Intermediate Hallucinati Verified 01/31/25 20:00 [From Flexeril] ng salicylates AdvReac Intermediate doesnt Verified 01/31/25 20:00 agree with pt steroids Allergy Intermediate Facial & Uncoded 01/31/25 20:00 Extremity swelling Home Medications Medication Instructions Recorded Confirmed Type lisinopril 20 mg tablet 20 mg PO QAM 12/17/22 01/31/25 History pantoprazole 40 mg tablet,delayed 40 mg PO AMHS 02/10/23 01/31/25 History release atorvastatin 40 mg tablet 40 mg PO QAM #30 tabs 09/17/24 01/31/25 Rx mesalamine 0.375 gram 0.75 g PO AMPM 12/01/24 01/31/25 History capsule,extended release 24 hr psyllium husk 0.52 gram capsule 0.52 g PO QAM 12/01/24 01/31/25 History (Fiber-Caps (psyllium husk)) aspirin 81 mg tablet,delayed 81 mg PO DAILY #90 tabs 12/24/24 01/31/25 Rx release (Enteric Coated Aspirin) warfarin 5 mg tablet (Jantoven) See Rx Instructions PO UD #115 tabs 01/17/25 01/31/25 Rx gabapentin 300 mg capsule 300 mg PO TID 01/18/25 01/31/25 History baclofen 10 mg tablet 10 mg PO BID #60 tabs 01/29/25 01/31/25 Rx melatonin 3 mg tablet 6 mg PO HS 01/31/25 01/31/25 History oxycodone 5 mg tablet 5 mg PO Q8H PRN pain #31 tabs 01/31/25 Rx Past Med/Surg History Problem List Tylenol toxicity (Acute) Transaminitis (Acute) Supratherapeutic INR (Acute) Elevated INR (Acute) Chronic pain (Acute) Gluteal pain Myofascial pain Hematoma (Acute) Fecal impaction Constipation History of colitis Rectal bleed Anticoagulant long-term use (Acute) Vitamin B12 deficiency Subtherapeutic international normalized ratio (INR) Stroke Episodic weakness Paroxysmal atrial fibrillation Atypical chest pain Weakness (Acute) Weakness (Acute) Atrial fibrillation (Chronic) Chest pain Precordial chest pain (Acute) Jaw pain (Acute) LUQ abdominal pain (Acute) Hiatal hernia (Acute) Headache (Acute) Dizziness (Acute) Sensorineural hearing loss (SNHL) of both ears Sudden left hearing loss Hypokalemia Rectal bleeding (Acute) Colitis Abdominal pain (Acute) Factor V Leiden (Chronic) "on chronic anticoagulation" Barretts esophagus (Chronic) "EGD 07/29/2014-shows Barretts Esophagus with no CA; follows with GI, Dr. José Luis Richards" Ulcerative colitis (Chronic) H/O esophagogastroduodenoscopy (Chronic) H/O colonoscopy (Chronic) Appendicitis Medical History Gastro-esophageal reflux disease with esophagitis History of DVT (deep vein thrombosis) Family History Other Family history non-contributory Social History Smoking Status: Never smoker Tobacco Type: Cigarettes Age Started Using Tobacco: 17; Age Quit Using Tobacco: 47; packs per day: 0.5; Cigarettes Per Day: "alot"; Second Hand Exposure: No; Do You Dip or Chew Tobacco: No; Hx Alcohol Use: No Hx Substance Use: No Preferred Language: Swedish Communication Ability: Effective Communication Ability Comment: deaf, 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, read writing Bag Printer Required: No Beliefs That Will Affect Care: None marital status: Current Living Situation: Spouse Feels Safe at Home: Yes Assistive Devices: None Review of Systems Review of Systems: All systems reviewed & are unremarkable except as noted in HPI & below Physical Exam Physical Exam: General: patient resting comfortably, NAD, non-toxic in appearance, AA&O x 4 Skin: warm, dry, intact, no rashes or lesions, bruising on right inner thigh HEENT: NC/AT, PERRL, EOMI, anicteric sclera, conjunctiva without injection, external ear normal to inspection and nontender, nares patent, moist mucus membranes, dentition intact, no oropharyngeal lesions, neck supple, trachea midline, no LAD, no thyromegaly, no JVD Heart: +S1/S2, regular, no m/r/g Lungs: equal air entry bilaterally, no rales/rhonchi/wheezes Abd: +BS, soft, NT/ND, no masses/organomegaly/ascites Ext: warm, 2+ pulses in UE/LE bilaterally, no clubbing/cyanosis or edema Neuro: nonfocal, patient AA&O x 4, speech intact, no facial droop, moving all extremities on command with equal strength 5/5 Results & Data Results & Data Vital Signs (Past 12 Hours) Vital Signs Temp Pulse Pulse Resp BP BP Pulse Ox 01/31/25 20:00 36.6 C 57 L 16 170/93 H 95 01/31/25 19:30 56 L 15 96 01/31/25 19:30 146/92 H 01/31/25 19:30 146/92 H 01/31/25 19:30 146/92 H 01/31/25 19:03 54 L 8 L 95 01/31/25 19:00 143/80 H 01/31/25 18:30 61 16 147/79 H 95 01/31/25 18:00 58 L 19 138/83 01/31/25 17:48 59 L 01/31/25 17:41 141/98 H 01/31/25 17:24 92 01/31/25 16:50 36.9 C 60 19 141/81 H 99 O2 Del Method 01/31/25 20:00 Room Air 01/31/25 19:30 01/31/25 19:30 01/31/25 19:30 01/31/25 19:30 01/31/25 19:03 01/31/25 19:00 01/31/25 18:30 01/31/25 18:00 01/31/25 17:48 01/31/25 17:41 01/31/25 17:24 Room Air 01/31/25 16:50 Room Air Laboratory Results Laboratory Results WBC 5.86 K/ul (4.8-10.8) 01/31/25 17:41 RBC 4.16 M/uL (4.70-6.10) L 01/31/25 17:41 Hgb 11.9 g/dl (14.0-18.0) L 01/31/25 17:41 Hct 38.0 % (42.0-52.0) L 01/31/25 17:41 MCV 91.3 fL (80.0-100.0) 01/31/25 17:41 MCH 28.6 pg (25.0-34.0) 01/31/25 17:41 MCHC 31.3 g/dL (32.0-36.0) L 01/31/25 17:41 RDW Std Deviation 52.6 fL (36.4-46.3) H 01/31/25 17:41 RDW Coeff of Dmitri 15.8 % (11.5-14.5) H 01/31/25 17:41 Plt Count 139 K/uL (130-400) 01/31/25 17:41 MPV 10.5 fL (9.4-12.4) 01/31/25 17:41 Immature Gran % (Auto) 0.3 % 01/31/25 17:41 Neut % (Auto) 61.2 % 01/31/25 17:41 Lymph % (Auto) 23.5 % 01/31/25 17:41 [place] % (Auto) 9.4 % 01/31/25 17:41 Eos % (Auto) 5.3 % 01/31/25 17:41 Baso % (Auto) 0.3 % 01/31/25 17:41 Neut # (Auto) 3.58 K/uL (1.40-6.50) 01/31/25 17:41 Lymph # (Auto) 1.38 K/uL (1.20-3.40) 01/31/25 17:41 [place] # (Auto) 0.55 K/uL (0.11-0.59) 01/31/25 17:41 Eos # (Auto) 0.31 K/uL (0.00-0.50) 01/31/25 17:41 Baso # (Auto) 0.02 K/uL (0.00-0.20) 01/31/25 17:41 Immature Gran # (Auto) 0.02 K/uL (0.01-0.20) 01/31/25 17:41 PT 41.6 Seconds (9.0-12.0) H 01/31/25 17:41 INR 4.4 (0.9-1.1) H 01/31/25 17:41 APTT 44 Seconds (21-31) H 01/31/25 17:41 PTT Ratio 1.6 01/31/25 17:41 Sodium 141 mmol/L (136-145) 01/31/25 17:41 Potassium 3.7 mmol/L (3.5-5.1) 01/31/25 17:41 Chloride 108 mmol/L (98-107) H 01/31/25 17:41 Carbon Dioxide 29 mmol/L (21-32) 01/31/25 17:41 Anion Gap 4 (3-11) 01/31/25 17:41 BUN 22 mg/dl (6-23) 01/31/25 17:41 Creatinine 0.79 mg/dl (0.6-1.4) 01/31/25 17:41 Est Cr Clr Drug Dosing 61.6 ml/min 01/31/25 17:41 eGFR 85.98 01/31/25 17:41 BUN/Creatinine Ratio 27.8 (10-20) H 01/31/25 17:41 Glucose 112 mg/dl (70-99(Fasting)) H 01/31/25 17:41 Calcium 8.4 mg/dl (8.6-10.3) L 01/31/25 17:41 Total Bilirubin 0.6 mg/dl (0.2-1.0) 01/31/25 17:41 Direct Bilirubin 0.1 mg/dl (0-0.2) 01/31/25 17:41 AST 81 U/L (13-39) H 01/31/25 17:41 ALT 104 U/L (7-52) H 01/31/25 17:41 Alkaline Phosphatase 79 U/L (34-104) 01/31/25 17:41 Total Protein 6.3 gm/dl (6.0-8.3) 01/31/25 17:41 Albumin 3.5 gm/dl (3.4-5.0) 01/31/25 17:41 Lipase 34 U/L (11-82) 01/31/25 17:41 Salicylates < 3.0 mg/dl (3.0-30) L 01/31/25 17:41 Acetaminophen 12 ug/ml (10-30) 01/31/25 17:41 Blood Type O Positive 01/31/25 17:50 Antibody Screen NEGATIVE 01/31/25 17:50 Impressions Hip X-Ray 01/31/25 20:40 Exam(s): XR RIGHT HIP EXAM: XR Right Hip With Pelvis When Performed, 2 or 3 Views CLINICAL HISTORY: Reason for exam: severe pain. TECHNIQUE: Two or three views of the right hip with pelvis when performed. COMPARISON: No relevant prior studies available. FINDINGS: Bones/joints: No acute fracture or malalignment. Right hip joint space is preserved. IMPRESSION: No acute fracture or malalignment. Electronically signed by: Ed Preciado MD 01/31/25 21:35 PM PG Care Time/CCT Total # of Minutes Spent Total Time Spent with Patient: Total time spent is greater than 50% in coordination of care (as documented) at patient's floor/unit and/or counseling patient: Coding Level of Care Code 67100 INT INP/OBS CARE 3/75MIN Diagnoses Tylenol toxicity T39.1X1A Transaminitis R74.01 Supratherapeutic INR R79.1 Gastro-esophageal reflux disease with esophagitis K21.00 Chronic pain G89.29 Stroke I63.9 Paroxysmal atrial fibrillation I48.0 Ulcerative colitis K51.90 Digestive disease complication type: without complication Ulcerative colitis location: unspecified ulcerative colitis location (8) Ulcerative colitis Digestive disease complication type: without complication Ulcerative colitis location: unspecified ulcerative colitis location Qualified Code(s): K51.90 - Ulcerative colitis, unspecified, without complications
[2025-01-31] MEDS: STAT IV/IM STA (20:49)
[2025-01-31] MEDS: AcetylCYSTEINE IV 21 HR REGIMEN (>40KG) IV STA (20:50)
--- NOTE | 2025-01-31 21:36 | XRay Report ---
Exam(s): XR RIGHT HIP EXAM: XR Right Hip With Pelvis When Performed, 2 or 3 Views CLINICAL HISTORY: Reason for exam: severe pain. TECHNIQUE: Two or three views of the right hip with pelvis when performed. COMPARISON: No relevant prior studies available. FINDINGS: Bones/joints: No acute fracture or malalignment. Right hip joint space is preserved. IMPRESSION: No acute fracture or malalignment. Electronically signed by: Ed Preciado MD 01/31/25 21:35 PM
[2025-01-31] MEDS ORDERED: ONDANSETRON INJ 2 MG/ML 2 ML VIAL IV PRN (23:34)
[2025-02-01] MEDS: GABAPENTIN 300 MG CAP PO SCH (00:39)
[2025-02-01] MEDS: MELATONIN 3 MG TAB PO SCH (00:57)
[2025-02-01] MEDS: DEXTROSE 5% IV ONE (02:45)
[2025-02-01] MEDS: ACETYLCYSTEINE IV ONE (02:45)
[2025-02-01 04:46] LABS: Hematocrit (blood only) 36.4 % (42.0-52.0); Hemoglobin 11.9 g/dl (14.0-18.0); Mean Corpuscular Hemoglobin 29.2 pg (25.0-34.0); Mean Corpuscular Volume 89.4 fL (80.0-100.0); Platelet Count 127 K/uL (130-400); RDW Standard Deviation 50.6 fL (36.4-46.3); Red Blood Count 4.07 M/uL (4.70-6.10); White Blood Count 5.01 K/ul (4.8-10.8)
[2025-02-01 05:03] LABS: Alanine Aminotransferase 95.0 U/L (7-52); Alkaline Phosphatase 71.0 U/L (34-104); Anion Gap 7.0 (3-11); Bilirubin,Total 0.7 mg/dl (0.2-1.0); Blood Urea Nitrogen 16.0 mg/dl (6-23); Calcium 8.3 mg/dl (8.6-10.3); Carbon Dioxide 27.0 mmol/L (21-32); Chloride 107.0 mmol/L (98-107); Creatinine Clr Calc Pharmacy 85.4 ml/min; Glucose 102.0 mg/dl (70-99(Fasting)); Potassium 3.6 mmol/L (3.5-5.1); Sodium 141.0 mmol/L (136-145); Total Protein 5.8 gm/dl (6.0-8.3)
[2025-02-01 05:13] LABS: INR 4.7 (0.9-1.1); Prothrombin Time 44.7 Seconds (9.0-12.0)
--- NOTE | 2025-02-01 08:17 | Electrocardiogram Report ---
Test Reason : Blood Pressure : */* mmHG Vent. Rate : 62 BPM Atrial Rate : 62 BPM P-R Int : 176 ms QRS Dur : 72 ms QT Int : 412 ms P-R-T Axes : 64 10 37 degrees QTcB Int : 418 ms Normal sinus rhythm Normal ECG When compared with ECG of 18-Jan-2025 23:08, No significant change was found Confirmed by Mauricio Canchola ([id number]) on 02/01/2025 8:17:14 AM Referred By: REFERRED SELF Confirmed By: Mauricio Canchola
--- NOTE | 2025-02-01 09:22 | Gastrointestinal Consultation ---
Date of Consultation February 01, 2025 Assessment & Plan (1) Abdominal pain: (2) Transaminitis: (3) Chronic pain: (4) Melena: Plan Patient presents with back/stomach pain, dark stools, and some transaminitis. He does note that he has been having some bleeding in his gums and it is unclear if maybe this is contributing to the dark stools, but it does not sound like an active GI bleed. - discussed case with Dr. Harris. - can hold off on EGD for now since hgb is stable and it does not seem to be an active GI bleed. dark stools may even be gums that were bleeding. - follow up hgb/hct. transfuse as needed. - continue with PPI drip for now. - continue to hold coumadin. - discussed with patient and his daughter. They are requesting MRI of chest/abdomen/pelvis. I do feel like it would be reasonable to update a CT abd/pelvis given his pain. I discussed this with Dr. Weston of the hospitalist team, who advised holding off for now. He is going to see the patient and decide on imaging. Will defer imaging to primary service. - continue to follow lfts. it is questionable if transaminitis was secondary to tylenol use. - will continue to follow. Supervising Physician Co-Signing Physician Notes I personally saw and examined the patient. I have reviewed the chart and agree with the documentation provided by the LAB COORDINATOR including discussion about the assessment, treatment and plan. Briefly, 89 year old male with history of GERD/Barretts Esophagus (per EGD 2014), Ulcerative colitis, PAF on Coumadin anticoagulation, HTN who presented to the ED 01/31 with complaints of right hip and back pain as well as melenic stools. He reports that he has been having 1 bowel movement a day, but they have been black over the past two days. he also is reporting that he has been bleeding from his gums and spitting out blood and is not sure if maybe this is playing a factor. He has a known large hiatal hernia and Canales's disease. For this, he has been treated with PPI daily. He states that he has been having a dark hard bowel movement daily especially since he has been on oxycodone for his hip pain. The main thing that is bothering him is his right hip pain. His abdominal pain is resolved after Saha was placed and he had 4 L of urine removed. I suspect the dark stool is likely gingival bleeding he may have a component of esophagitis. His hemoglobin on arrival has been stable and he is hemodynamically stable. I would just put him on PPI twice daily during his admission and then switch him back down to once daily. There is no acute role for an upper endoscopy especially given his INR is elevated to 4.9. I would continue to hold his Coumadin as you are doing. 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 There was no dysplasia noted. I would continue his oral mesalamine for this. GI has no further recommendations we will sign off. Please call us if he has any persistent bleeding or if his hemoglobin shifts. History of Present Illness Reason for Consultation: melena / UGIB Requesting Physician: Lashonda Best DO Attending Physician: Lazaro Weston MD History of Present Illness Patient is an 89 year old male with history of GERD/Barretts Esophagus (per EGD 2014), Ulcerative colitis, PAF on Coumadin anticoagulation, HTN who presented to the ED 01/31 with complaints of right hip and back pain as well as melenic stools. He reports that he has been having 1 bowel movement a day, but they have been black over the past two days. he also is reporting that he has been bleeding from his gums and spitting out blood and is not sure if maybe this is playing a factor. Patient reports chronic, longstanding history of back pain which has been worse in the last 3 weeks. He denies fall, trauma or strain. He has been taking Tylenol for his pain - approximately 1gm TID. No nsaid use. He also reports epigastric pain that is sharp in his abdomen. 02/01/25 hgb 11.9, hct 36.4, wbc 5, plts 127. INR 4.7. BUN 16, Creatinine 0.57. AST 63, ALT 95, alk 71, d bili 0.2, T bili 0.7. lipase 34. acetaminophen <3. EGD 2021 with Canales's esophagus and large hiatal hernia Colonoscopy 11/2024 internal hemorrhoids and UC. Allergies Allergy/AdvReac Type Severity Reaction Status Date / Time red dye AdvReac Severe SEVERE Verified 01/31/25 20:00 MIGRAINES aspirin AdvReac Intermediate UPSETS Verified 01/31/25 20:00 STOMACH codeine AdvReac Intermediate "JUST Verified 01/31/25 20:00 DON'T SEEM TO AGREE WITH ME" cyclobenzaprine AdvReac Intermediate Hallucinati Verified 01/31/25 20:00 [From Flexeril] ng salicylates AdvReac Intermediate doesnt Verified 01/31/25 20:00 agree with pt steroids Allergy Intermediate Facial & Uncoded 01/31/25 20:00 Extremity swelling Home Medications Medication Instructions Recorded Confirmed Type lisinopril 20 mg tablet 20 mg PO QAM 12/17/22 01/31/25 History pantoprazole 40 mg tablet,delayed 40 mg PO AMHS 02/10/23 01/31/25 History release atorvastatin 40 mg tablet 40 mg PO QAM #30 tabs 09/17/24 01/31/25 Rx mesalamine 0.375 gram 0.75 g PO AMPM 12/01/24 01/31/25 History capsule,extended release 24 hr psyllium husk 0.52 gram capsule 0.52 g PO QAM 12/01/24 01/31/25 History (Fiber-Caps (psyllium husk)) aspirin 81 mg tablet,delayed 81 mg PO DAILY #90 tabs 12/24/24 01/31/25 Rx release (Enteric Coated Aspirin) warfarin 5 mg tablet (Jantoven) See Rx Instructions PO UD #115 tabs 01/17/25 01/31/25 Rx gabapentin 300 mg capsule 300 mg PO TID 01/18/25 01/31/25 History baclofen 10 mg tablet 10 mg PO BID #60 tabs 01/29/25 01/31/25 Rx melatonin 3 mg tablet 6 mg PO HS 01/31/25 01/31/25 History oxycodone 5 mg tablet 5 mg PO Q8H PRN pain #31 tabs 01/31/25 Rx Patient History Medical History Gastro-esophageal reflux disease with esophagitis History of DVT (deep vein thrombosis) Family History Other Family history non-contributory Social History Smoking Status: Never smoker Tobacco Type: Cigarettes Age Started Using Tobacco: 17; Age Quit Using Tobacco: 47; packs per day: 0.5; Cigarettes Per Day: "alot"; Second Hand Exposure: No; Do You Dip or Chew Tobacco: No; Hx Alcohol Use: No Hx Substance Use: No Preferred Language: Congolese Communication Ability: Effective Communication Ability Comment: deaf, 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, read writing Transcription Coordinator Required: No Beliefs That Will Affect Care: None marital status: Current Living Situation: Spouse Feels Safe at Home: Yes Safety Concerns: Feels Safe At This Time Assistive Devices: Hearing Aid - Right Review of Systems Review of Systems: All systems reviewed & are unremarkable except as noted in HPI & below Physical Exam Constitutional: WD/WN, vitals as above ENMT: Hard of hearing Respiratory: normal respiratory effort, lungs clear to auscultation Cardiovascular: Rate/Rhythm: regular rate and regular rhythm Gastrointestinal (Abdomen): diffuse tenderness, some guarding, normal bowel sounds, Psychiatric: Orientation: alert and oriented x 3 Results & Data Vital Signs (Past 12 Hours) Vital Signs Temp Pulse Pulse Resp BP BP Pulse Ox 02/01/25 08:01 164/100 H 02/01/25 08:00 66 20 02/01/25 07:10 63 02/01/25 07:00 62 15 175/110 H 94 02/01/25 06:11 175/91 H 02/01/25 06:00 199/111 H 02/01/25 05:57 64 17 94 02/01/25 03:56 169/93 H 02/01/25 03:00 56 L 16 190/97 H 96 02/01/25 02:22 54 L 16 159/86 H 98 02/01/25 02:00 60 16 159/86 H 98 02/01/25 00:00 63 16 199/111 H 93 02/01/25 00:00 54 L 17 155/81 H 94 01/31/25 23:00 97.9 F 55 L 16 141/76 H 97 01/31/25 22:00 57 L 17 150/86 H 94 01/31/25 21:34 51 L O2 Del Method 02/01/25 08:01 02/01/25 08:00 02/01/25 07:10 02/01/25 07:00 Room Air 02/01/25 06:11 02/01/25 06:00 02/01/25 05:57 Room Air 02/01/25 03:56 02/01/25 03:00 Room Air 02/01/25 02:22 Room Air 02/01/25 02:00 Room Air 02/01/25 00:00 Room Air 02/01/25 00:00 Room Air 01/31/25 23:00 Room Air 01/31/25 22:00 Room Air 01/31/25 21:34 Coding Level of Care Code 68481 INT INP/OBS CARE 2/55MIN Diagnoses Abdominal pain R10.30 Abdominal location: lower abdomen, unspecified Transaminitis R74.01 Chronic pain G89.29 Melena K92.1 (1) Abdominal pain Abdominal location: lower abdomen, unspecified Qualified Code(s): R10.30 - Lower abdominal pain, unspecified
[2025-02-01 09:50] LABS: Appearance Urine Clear (Clear); Glucose Urine UA Negative (Negative)
[2025-02-01] MEDS: MESALAMINE ER 0.375 GM PO SCH (10:02)
[2025-02-01] MEDS: TAMSULOSIN HCL 0.4 MG CAP PO SCH (10:05)
--- NOTE | 2025-02-01 11:50 | Hospitalist Progress Note ---
Date of Service February 01, 2025 Assessment & Plan (1) Tylenol toxicity: (2) Transaminitis: (3) Supratherapeutic INR: (4) Gastro-esophageal reflux disease with esophagitis: (5) Chronic pain: (6) Stroke: (7) Paroxysmal atrial fibrillation: (8) Ulcerative colitis: (9) Urine retention: (10) Right lumbar radiculopathy: Plan 89yo male presenting with acute on chronic right hip/back pain. Elevated INR, melenic stools. Also with mild elevation of LFTs and detectable Tylenol level. Tylenol=13. Patient has not been taking toxic levels (3gm daily). #Urine retention Cause of suprapubic pain now resolved s/p avalos catheter 1040ml on bladder POCUS, patient unable to pass urine with suprapubic pain on exam Avalos catheter inserted with approximately 1000ml output UA pending Start tamsulosin 0.4mg PO daily Trial without avalos as an outpatient with urology Follow #Acute on chronic lumbar radiculopathy pain -Multimodal pain management -Heat -Tramadol 50mg po q 4 hours -Valium 2mg po BID PRN spasm -Continue Gabapentin 300mg po TID -Avoid Tylenol due to elevated LFTs. Avoid NSAIDs due to possible GIB -PT/OT evaluation - oxycodone helping, plan to get MRI lumbar spine (already arranged as outpatient) as inpatient due to new urine retention to rule out cauda equina #Possible Tylenol Toxicity - poison control contacted by ER -NAC per protocol, discussed with poison control and will discontinue as planned today -Avoid further Tylenol products for now #Transaminitis Suspected secondary to acetaminophen use, improving, repeat wiht AM labs, do not think INR is related to this given warfarin use and Plt normal -Hold Atorvastatin #Supratherapeutic INR -Continue to hold warfarin -Repeat INR in AM #Melena - patient with history of GERD/Barretts esophagus. Is on anticoagulation with Coumadin with supratherapeutic INR -Hemoglobin appears stable, can reduce pantoprazole to 40mg IV BID and -GI consultation appreciated -Hold ASA an warfarin -ok to start diet #Hypertension -Lisinopril 20mg po qAM #UC -Continue mesalamine BID VTE Prophylaxis - INR supratherapeutic Disposition - continued admission to med/tele Admission and Anticipated Discharge Date Admission Date: January 31, 2025 Subjective Difficulty passing urine this morning. Suprapubic pain on exam. POCUS US for 1040ml. Pain relieved with avalos catheter insertion. He continues to report black stool. Physical Exam Constitutional: WD/WN, vitals as above Respiratory: normal respiratory effort, lungs clear to auscultation Cardiovascular: RRR, no murmur, no edema Gastrointestinal (Abdomen): Inspection/Auscultation: + abdomen distended Percussion/Palpation: + abdomen tender (suprapubic) and abdomen soft; no guarding and abdomen not rigid Skin: no rashes, warm and dry Neurologic: + focal motor deficit (4/5 left hip flex ion, ankle plantar/dorsiflexion) Results & Data Results & Data Vital Signs (Past 12 Hours) Vital Signs Pulse Pulse Resp BP BP Pulse Ox O2 Del Method 02/01/25 10:06 69 14 170/97 H Room Air 02/01/25 09:00 161/118 H 02/01/25 08:57 65 24 94 Room Air 02/01/25 08:01 164/100 H 02/01/25 08:00 66 20 02/01/25 07:10 63 02/01/25 07:00 62 15 175/110 H 94 Room Air 02/01/25 06:11 175/91 H 02/01/25 06:00 199/111 H 02/01/25 05:57 64 17 94 Room Air 02/01/25 03:56 169/93 H 02/01/25 03:00 56 L 16 190/97 H 96 Room Air 02/01/25 02:22 54 L 16 159/86 H 98 Room Air 02/01/25 02:00 60 16 159/86 H 98 Room Air 02/01/25 00:00 63 16 199/111 H 93 Room Air 02/01/25 00:00 54 L 17 155/81 H 94 Room Air PG Care Time/CCT Total # of Minutes Spent Total Time Spent with Patient: Total time spent is greater than 50% in coordination of care (as documented) at patient's floor/unit and/or counseling patient: Coding Level of Care Code 28714 SUB INP/OBS CARE 3/50MIN Diagnoses Tylenol toxicity T39.1X1A Transaminitis R74.01 Supratherapeutic INR R79.1 Gastro-esophageal reflux disease with esophagitis K21.00 Chronic pain G89.29 Stroke I63.9 Paroxysmal atrial fibrillation I48.0 Ulcerative colitis K51.90 Digestive disease complication type: without complication Ulcerative colitis location: unspecified ulcerative colitis location Urine retention R33.9 Right lumbar radiculopathy M54.16 (8) Ulcerative colitis Digestive disease complication type: without complication Ulcerative colitis location: unspecified ulcerative colitis location Qualified Code(s): K51.90 - Ulcerative colitis, unspecified, without complications
--- NOTE | 2025-02-01 12:01 | Magnetic Resonance Report ---
MR lumbar spine wo con CLINICAL HISTORY: 89 years-old Male with right sided L3 distribution pain. COMPARISON: CT lumbar spine 01/06/2025 TECHNIQUE: Multiplanar, multi sequence MRI of the lumbar spine was performed without intravenous cont rast. FINDINGS: The lumbar alignment is normal. The vertebral body heights are normal. 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 Mild intermixed noted degenerative changes are most pronounced at L2 and L4-L5. Evqf-gr-oauj rate multilevel intervertebral disc space narrowing with moderate spondylitic spurring and facet arth rosis. There is no T1 fracture line or marrow replacement process. The conus terminates at L1-L2. T he visualized spinal cord and cauda equina are normal. There is no paraspinal edema, mass, or prever tebral fluid collection. The intra-abdominal structures are grossly unremarkable. T12-L1: Moderate intervertebral disc space narrowing with circumferential disc osteophyte complex. 2 mm retrolisthesis. Moderate facet arthrosis. Central canal and left neural foramen are patent. Mild right neural foraminal narrowing. L1-L2: Mild intervertebral disc space narrowing with spondylitic spurring and small circumferential annular disc bulge. Moderate facet arthrosis. Patent central canal. Mild bilateral foraminal narrowin g. L2-L3: Mild to moderate intervertebral disc space narrowing. Spondylotic spurring with circumferenti al annular disc bulge/disc osteophyte complex which is eccentric to the left neural foramen. Ligament um flavum thickening with moderate facet arthrosis. Mild central canal stenosis, AP dimension of the thecal sac measuring 9 mm. Lkgu-zd-bojipcvp right with mild left neural foraminal narrowing. L3-L4: Mild to moderate intervertebral disc space narrowing. Spondylitic spurring with circumferenti al annular disc bulge. Ligamentum flavum thickening with moderate facet arthrosis. Moderate central c anal stenosis with AP dimension of the thecal sac measuring 7 mm. Mild to moderate narrowing of the l ateral recesses. Moderate right with mild to moderate left neural foraminal narrowing. L4-L5: Moderate intervertebral disc space narrowing. Circumferential disc osteophyte complex with po sterior annular fissure and central disc protrusion measuring 1.3 x 0.4 cm. Ligamentum flavum thicken ing with moderate facet arthrosis. Severe central canal stenosis with AP dimension of the thecal sac measuring 5 mm. Severe narrowing of lateral recesses. Ibex-wl-cfxlyenc left with moderate right neura l foraminal narrowing. L5-S1: Moderate intervertebral disc space narrowing with spondylitic spurring. Small posterior annul ar disc bulge. Moderate facet arthrosis. Central canal is patent. Mild right with ykez-rx-uaimqjsl le ft neural foraminal narrowing. Possible tiny central disc protrusion. IMPRESSION: 1. No acute fracture or significant bone marrow edema. 2. Spondylotic spurring with facet arthrosis as above results in multilevel central canal and neural foraminal narrowing. ACT 112: Negative or not required by law. The above report was generated using voice recognition software. It may contain grammatical, syntax o r spelling errors. Electronically signed by: Mychal Ortega M.D. 02/01/2025 11:59 AM
[2025-02-01 13:20] LABS: Hematocrit (blood only) 38.5 % (42.0-52.0); Hemoglobin 12.0 g/dl (14.0-18.0); Mean Corpuscular Hemoglobin 28.3 pg (25.0-34.0); Mean Corpuscular Volume 90.8 fL (80.0-100.0); Platelet Count 134 K/uL (130-400); RDW Standard Deviation 51.6 fL (36.4-46.3); Red Blood Count 4.24 M/uL (4.70-6.10); White Blood Count 7.26 K/ul (4.8-10.8)
--- NOTE | 2025-02-01 15:20 | Electrocardiogram Report ---
Test Reason : Blood Pressure : */* mmHG Vent. Rate : 60 BPM Atrial Rate : 60 BPM P-R Int : 184 ms QRS Dur : 76 ms QT Int : 410 ms P-R-T Axes : 46 8 42 degrees QTcB Int : 410 ms Sinus rhythm with occasional Premature ventricular complexes Otherwise normal ECG When compared with ECG of 31-Jan-2025 17:45, Premature ventricular complexes are now Present Confirmed by Mauricio Canchola ([id number]) on 02/01/2025 3:20:32 PM Referred By: REFERRED SELF Confirmed By: Mauricio Canchola
[2025-02-01] MEDS: LIDOCAINE 5% 1 PATCH TD SCH (16:25)
[2025-02-01] MEDS: PANTOprazole 40 MG/10 ML SYR IV SCH (21:41)
[2025-02-01] MEDS: REMOVE LIDODERM PATCH SCH (21:42)
[2025-02-02 03:00] VITALS: RESP 16
[2025-02-02 07:13] LABS: Hematocrit (blood only) 34.6 % (42.0-52.0); Hemoglobin 10.9 g/dl (14.0-18.0); Mean Corpuscular Hemoglobin 28.3 pg (25.0-34.0); Mean Corpuscular Volume 89.9 fL (80.0-100.0); Platelet Count 131 K/uL (130-400); RDW Standard Deviation 51.8 fL (36.4-46.3); Red Blood Count 3.85 M/uL (4.70-6.10); White Blood Count 6.67 K/ul (4.8-10.8)
[2025-02-02 07:40] LABS: Alanine Aminotransferase 81.0 U/L (7-52); Albumin Globulin Ratio 1.5 (0.9-2); Alkaline Phosphatase 66.0 U/L (34-104); Anion Gap 3.0 (3-11); Bilirubin,Total 0.8 mg/dl (0.2-1.0); Blood Urea Nitrogen 23.0 mg/dl (6-23); Calcium 8.2 mg/dl (8.6-10.3); Carbon Dioxide 29.0 mmol/L (21-32); Chloride 107.0 mmol/L (98-107); Creatinine Clr Calc Pharmacy 58.6 ml/min; Globulin 2.1 gm/dl (2.5-4.0); Glucose 90.0 mg/dl (70-99(Fasting)); Potassium 4.2 mmol/L (3.5-5.1); Sodium 139.0 mmol/L (136-145); Total Protein 5.2 gm/dl (6.0-8.3)
[2025-02-02 07:54] LABS: INR 2.3 (0.9-1.1); Prothrombin Time 23.4 Seconds (9.0-12.0)
--- NOTE | 2025-02-02 08:56 | XRay Report ---
XR chest 1V portable HISTORY: 89 years-old Male hypoxia COMPARISON: CT chest 01/06/2025, chest radiograph 02/10/2023 TECHNIQUE: AP view of the chest FINDINGS: Cardiac silhouette is again enlarged. No pneumothorax, pleural effusion, airspace consolidation or ov ert pulmonary edema. Moderate-sized hiatal hernia. Cholecystectomy. Bones appear grossly intact. IMPRESSION: 1. Cardiomegaly without acute process. 2. Hiatal hernia. ACT 112: Negative or not required by law. The above report was generated using voice recognition software. It may contain grammatical, syntax o r spelling errors. Electronically signed by: Mychal Ortega M.D. 02/02/2025 8:54 AM
[2025-02-02 11:39] VITALS: BP 101/63; TEMP 98.4; O2SAT 92
--- NOTE | 2025-02-02 15:32 | Discharge Summary ---
Discharge Summary Date of Service February 02, 2025 Principal Dx & Hospital Course #1 = Principal Diagnosis (1) Right lumbar radiculopathy: (2) Tylenol toxicity: (3) Urine retention: (4) Transaminitis: (5) Supratherapeutic INR: (6) Gastro-esophageal reflux disease with esophagitis: (7) Chronic pain: (8) Stroke: (9) Paroxysmal atrial fibrillation: (10) Ulcerative colitis: Plan Mckinley Wynn is an 89 year old male admitted to [facility] from January 31 - 2024 due to worsening lower back pain. He was diagnosed with multiple conditions listed below: Day after admission he was having suprapubic pain and post void POCUS bladder scan for 1040ml. Avalos catheter was placed and he was started on tamsulosin. He should make an appointment for trial without catheter with urology for this. For the lower back and hip pain - suspect this is multifactorial with muscular pain (right gluteal muscle strain) but also coming from your severe spinal stenosis and lumbar radiculopathy from your back (this is the intermittent pain going down his leg). Recommend following up with your primary care physician for physical therapy evaluation and pain management for this. He should also consider following up with sport's medicine. Recommend also following up with orthopedic spine surgery (discussed case with Dr Purvis on day of discharge). We will prescribe tramadol as needed to help with the pain currently. He was diagnosed with Tylenol toxicity - this was treated with NAC while admitted. Recommend not exceeding Tylenol 2000mg/day in the future and none for the next week as his liver recovers. For the melena (black stool) - his stool was positive for blood but hemoglobin has been stable even with elevated INR. He should continue pantoprazole 40mg PO twice a day until you follow up with gastroenterology for further investigation of this. Hopefully if you INR stays within range this will resolve. Recommend you also follow with your primary care provider for intermittent hemoglobin checks until you are seen by gastroenterology Elevated INR - recommend reducing his warfarin dose to 5mg PO daily and follow up with the anticoagulation clinic for ongoing advice Notes For Next Care Provider Follow up ortho spine and pain management for his back pain Follow up anticoagulation clinic for warfarin dosing Follow up PCP to arrange outpatient PT Follow up with gastroenterology for black (heme positive) stool Intermittent hemoglobin checks due to ongoing black stool Medication Changes From Visit Reduce warfarin dose to 5mg PO daily due to elevated INR Stop baclofen as not effective Start tramadol for pain Start tamsulosin for urine retention Admission HPI Per Admitting Provider Mckinley Wynn is an 89yo male with history of GERD/Barretts Esophagus (per EGD 2014), Ulcerative colitis, PAF on Coumadin anticoagulation, HTN presenting with right hip and back pain as well as melenic stools. Patient reports chronic, longstanding history of back pain which has been worse in the last 3 weeks. He denies fall, trauma or strain. He has been taking Tylenol for his pain - approximately 1gm TID. Has seen pain management in the past. He has been taking Gabapentin and Baclofen at home with no improvement. Patient additionally describes episodic epigastric pain, sharp and stabbing in nature as well as two days of black, tarry stools. He has had some nausea but no vomiting. He is on ASA 81mg po daiy and does drink 1.5 drinks per day. No Ibuprofen or NSAID use, no steroids. In the ER patient afebrile, HD stable ER Course: Oxycodone x 2 tabs Protonix bolus and drip NAC Vitamin K 2.5mg PO Discharge Exam Constitutional WD/WN, vitals as above Respiratory normal respiratory effort, lungs clear to auscultation Cardiovascular RRR, no murmur, no edema Gastrointestinal (Abdomen) Inspection/Auscultation: + abdomen distended Percussion/Palpation: abdomen soft; abdomen nontender, no guarding and abdomen not rigid Skin no rashes, warm and dry Neurologic + focal motor deficit (4/5 left hip flexion, ankle plantar/dorsiflexion) Discharge Plan Discharge Items Patient Disposition: Home - Self-Care Reason For Visit: POSSIBLE UGIB, ?TYLENOL TOXICITY Discharge Diagnosis: Melena Acetaminophen toxicity Urine retention Lumbar radiculopathy pain Condition on Discharge: Serious Activity: Resume your previous activity Non-emergency contact: Primary Care Provider Call non-emergency contact if: you have any medication questions and your symptoms worsen Follow-up/Referrals: Will Mueller DO [Primary Care Provider] - 02/05/25 9:20 am Dave Davis MD [Physician] - (Follow up for urine retention) Vincent Purvis MD [Surgeon] - (Severe spinal stenosis) Zackary Harris MD [Physician] - (Follow up for melena) Diet: Regular Addtl Attending Provider Instructions: You were admitted to [facility] from January 31 - 2024 due to worsening lower back pain. You were diagnosed with multiple conditions listed below: For the lower back and hip pain - suspect this is multifactorial with muscular pain (right gluteal muscle strain) but also coming from your severe spinal stenosis and lumbar radiculopathy from your back (this is the intermittent pain going down your leg). Recommend following up with your primary care physician for physical therapy evaluation and pain management for this. You could also consider following up with sport's medicine. Recommend also follow up with orthopedic spine surgery. We will prescribe tramadol as needed to help with the pain currently. For the Tylenol toxicity - you were treated with NAC while admitted. Recommend not exceeding Tylenol 2000mg/day in the future and none for the next week as your liver recovers. For the melena (black stool) - your stool was positive for blood but anemia (hemoglobin) has been stable even with elevated INR. Please continue pantoprazole 40mg PO twice a day until you follow up with gastroenterology for further investigation of this. Hopefully if you INR stays within range this will resolve. Recommend you also follow with your primary care provider for intermittent hemoglobin checks until you are seen by gastroenterlogy Elevated INR - recommend reducing your warfarin dose to 5mg PO daily and follow up with the anticoagulation clinic for ongoing advice For the urine retention - you were found to have > 1000ml on post void residual ultrasound. Avalos catheter was placed and you were started on tamsulosin to help relax the prostatic urethra and help you pass urine. Please continue the avalos catheter until you follow up with urology. Kind regards, Dr Lazaro Weston Pending Studies at Discharge: No Stand-Alone Forms: My [facility], Pain - Opioid Pain Management, Smoking Cessation Medications and DC Order Prescriptions: New tamsulosin 0.4 mg Capsule 0.4 mg PO QAM Qty: 30 0RF tramadol 50 mg Tablet 50 mg PO Q4H PRN (Reason: pain) Qty: 30 0RF Continued atorvastatin 40 mg tablet 40 mg PO QAM Qty: 30 5RF aspirin [Enteric Coated Aspirin] 81 mg tablet,delayed release (DR/EC) 81 mg PO DAILY Qty: 90 3RF pantoprazole 40 mg tablet,delayed release (DR/EC) 40 mg PO AMHS lisinopril 20 mg tablet 20 mg PO QAM gabapentin 300 mg capsule 300 mg PO TID Rx Instructions: PER PT "DOESN'T WORK" mesalamine 0.375 gram capsule,extended release 24hr 0.75 g PO AMPM Rx Instructions: TAKE 2 CAPSULES IN AM & PM psyllium husk [Fiber-Caps (psyllium husk)] 0.52 gram Capsule 0.52 g PO QAM melatonin 3 mg Tablet 6 mg PO HS Changed warfarin [Jantoven] 5 mg tablet See Rx Instructions PO UD Qty: 115 0RF Rx Instructions: TAKE 1 TABLET ALL DAYS OF WEEK--- TAKES QAM. Discontinued baclofen 10 mg tablet 10 mg PO BID Qty: 60 1RF Rx Instructions: PER PT "DOESN'T WORK". Discharge Orders: Discharge Order (Routine); Ordered 02/02/25 Ordered By: Lazaro Givens/Other Patient Handouts: First Aid: Bleeding, Anatomy of a Normal Spine Admission Data Admit Date/Time: 01/31/25 20:40 Attending Provider: Lazaro Weston Admit Provider: Lashonda Best Primary Care Provider: Will Mueller Other Providers: Zackary Harris Other Interventions: Discharge Summary Assessment (RN) Last Done: 02/02/25 15:17 Hospital Stay Data Consultations 01/31/25 19:36 ED Decision to Admit Stat 01/31/25 20:40 Consult Gastroenterology Routine Diagnostic Imagining Performed 02/01/25 09:52 MRI Lumbar Spine [MR lumbar spine wo con] Urgent Pending Results Patient Have Any Pending Studies at Discharge: No Discharge Instructions Given to Patient (Per Discharging Provider) You were admitted to [facility] from January 31 - 2024 due to worsening lower back pain. You were diagnosed with multiple conditions listed below: For the lower back and hip pain - suspect this is multifactorial with muscular pain (right gluteal muscle strain) but also coming from your severe spinal stenosis and lumbar radiculopathy from your back (this is the intermittent pain going down your leg). Recommend following up with your primary care physician for physical therapy evaluation and pain management for this. You could also consider following up with sport's medicine. Recommend also follow up with orthopedic spine surgery. We will prescribe tramadol as needed to help with the pain currently. For the Tylenol toxicity - you were treated with NAC while admitted. Recommend not exceeding Tylenol 2000mg/day in the future and none for the next week as your liver recovers. For the melena (black stool) - your stool was positive for blood but anemia (hemoglobin) has been stable even with elevated INR. Please continue pantoprazole 40mg PO twice a day until you follow up with gastroenterology for further investigation of this. Hopefully if you INR stays within range this will resolve. Recommend you also follow with your primary care provider for intermittent hemoglobin checks until you are seen by gastroenterlogy Elevated INR - recommend reducing your warfarin dose to 5mg PO daily and follow up with the anticoagulation clinic for ongoing advice For the urine retention - you were found to have > 1000ml on post void residual ultrasound. Avalos catheter was placed and you were started on tamsulosin to help relax the prostatic urethra and help you pass urine. Please continue the avalos catheter until you follow up with urology. Kind regards, Dr Lazaro Weston Total Time Total Time Spent Total Time Spent (In Minutes): 70 Coding Level of Care Code 88647 INP/OBS DISCH >30 MIN Diagnoses Right lumbar radiculopathy M54.16 Tylenol toxicity T39.1X1A Urine retention R33.9 Transaminitis R74.01 Supratherapeutic INR R79.1 Gastro-esophageal reflux disease with esophagitis K21.00 Chronic pain G89.29 Stroke I63.9 Paroxysmal atrial fibrillation I48.0 Ulcerative colitis K51.90 Digestive disease complication type: without complication Ulcerative colitis location: unspecified ulcerative colitis location
[2025-02-02 15:33] VITALS: PULSE 83
[2025-02-02] MEDS: WARFARIN SOD 5 MG TAB PO SCH (15:45)
--- NOTE | 2025-02-04 14:26 | Coding Query ---
CODING QUERY To promote full compliance with coding requirements relating to patient care, provider participation is requested in all cases of pan washer hand uncertainty. Please assist us with the question(s) below: Coding Question(s): The patient was documented as having melena with a history of GERD/Barretts esophagus, on anticoagulation with Coumadin, and supratherapeutic INR. Please indicate, if known, the etiology of the melena. Physician's Response(s): Unknown Thank you Heavenly Cleary Principal Diagnosis: "that condition established after study, to be chiefly responsible for occasioning the admission of the patient to the hospital for care." Co-Existing Principal Diagnosis: "when two or more diagnoses equally meet the criteria for principal diagnosis as determined by the circumstances of admission, diagnostic work up, and/or therapy provided, and the Alphabetic Index, Tabular List, or another coding guideline does not provide sequencing direction, any one of the diagnoses may be sequenced first." "When the physician has documented what appears to be a current diagnosis in the body of the record, but has not included the diagnosis in the final diagnostic statement, the physician should be asked whether the diagnosis should be added." (Source Coding [facility] 2 QTR90. p3-4) GARY
== END 2025-02-02 16:00 | disposition home or self-care (01) | DRG 378 ==
LOC: ED 16:49 → EDINP 20:40 → SUATTDRO 20:40 → 2N 23:35

== ENCOUNTER 2025-02-12 10:03 | Observation (INO) ==
--- NOTE | 2025-02-08 08:39 | PAT Medication Instructions ---
Medication Instructions Date of Service February 08, 2025 Home Medications Medication Instructions Recorded atorvastatin 40 mg tablet 40 mg PO QAM #30 tabs 09/17/24 tamsulosin 0.4 mg capsule 0.4 mg PO QAM #30 caps 02/02/25 tramadol 50 mg tablet 50 mg PO Q4H PRN pain #30 tabs 02/02/25 warfarin 5 mg tablet ([facility]) See Rx Instructions PO UD #115 tabs 02/02/25 lisinopril 20 mg tablet 20 mg PO QAM pantoprazole 40 mg tablet,delayed release 40 mg PO AMHS atorvastatin 40 mg tablet 40 mg PO QAM mesalamine 0.375 gram capsule,extended release 24 hr 0.75 g PO AMPM psyllium husk 0.52 gram capsule (Fiber-Caps (psyllium husk)) 0.52 g PO QAM gabapentin 300 mg capsule 300 mg PO TID tamsulosin 0.4 mg capsule 0.4 mg PO QAM tramadol 50 mg tablet 50 mg PO Q4H PRN warfarin 5 mg tablet ([facility]) See Rx Instructions PO UD aspirin 81 mg tablet,delayed release (Enteric Coated Aspirin) 81 mg PO QAM ASK your prescriber and surgeon warfarin 5 mg tablet ([facility]) See Rx Instructions PO UD aspirin 81 mg tablet,delayed release (Enteric Coated Aspirin) 81 mg PO QAM DO NOT take the morning of surgery lisinopril 20 mg tablet 20 mg PO QAM mesalamine 0.375 gram capsule,extended release 24 hr 0.75 g PO AMPM psyllium husk 0.52 gram capsule (Fiber-Caps (psyllium husk)) 0.52 g PO QAM Take morning of surgery With a small sip of water, OTHERWISE NOTHING TO EAT OR DRINK AFTER MIDNIGHT: pantoprazole 40 mg tablet,delayed release 40 mg PO AMHS atorvastatin 40 mg tablet 40 mg PO QAM gabapentin 300 mg capsule 300 mg PO TID tamsulosin 0.4 mg capsule 0.4 mg PO QAM tramadol 50 mg tablet 50 mg PO Q4H PRN(if needed) Take evening before surgery pantoprazole 40 mg tablet,delayed release 40 mg PO AMHS mesalamine 0.375 gram capsule,extended release 24 hr 0.75 g PO AMPM gabapentin 300 mg capsule 300 mg PO TID tramadol 50 mg tablet 50 mg PO Q4H PRN(if needed) Other Notes If you have any questions please call us at [phone] or [phone] or [phone] or [phone]
--- NOTE | 2025-02-08 08:48 | Anesthesiology Consultation ---
Date of Service February 08, 2025 Assessment & Plan (1) Encounter for pre-operative examination: Plan - check coags and CBC with diff STAT am DOS-to assigned anesthesiologist evaluation am DOS. - Case discussed in detail with Dr. Perez including recent hospitalization/ER visits and noted anemia, positive hemoccult. He advised that as long as patient does not have recurrence of black, tarry stools and no episodes of hematemesis he can proceed as planned pending a morning of surgery re-check of anemia. Patient's Paulette made aware of this in detail and verbalized understanding, denied questions or concerns. - ER 02/04/25 [facility]: "...Penile swelling, hip pain...does not have any evidence of balanitis. Urinary catheter is draining appropriately. Do not believe he requires any specific care but may benefit from ice and monitoring the area for any signs of infection although they are currently not present. Regarding the patient's right hip pain the patient does have a known history of spinal c alluses now stenosis and does have a follow-up with Dr. Purvis on Tuesday. The patient had complained of some chest pain around time of arrival but the patient's EKG is unremarkable and troponin is negative chest x-ray was ordered which is also unremarkable. For the patient's hip pain the patient was ordered fluids Robaxin initially IV morphine was ordered 4 mg but did advise nursing to give 2 mg given the patient's age. The patient was also given a gram of Tylenol as the patient's transaminitis had improved...ED case management [facility] Gil and the patient was transferred..." - discharge summary 02/02/25 [facility]: "...admitted to [facility] from January 31 - 2024 due to worsening lower back pain...suprapubic pain and post void POCUS bladder scan for 1040ml. Saha catheter was placed and he was started on tamsulosin...appointment for trial without catheter with urology for this...lower back and hip pain - suspect this is multifactorial with muscular pain (right gluteal muscle strain) but also coming from your severe spinal stenosis and lumbar radiculopathy...Tylenol toxicity - this was treated with NAC while admitted. Recommend not exceeding Tylenol 2000mg/day in the future and none for the next week as his liver recovers...melena (black stool) - his stool was positive for blood but hemoglobin has been stable even with elevated INR...continue pantoprazole 40mg PO twice a day until...follow up with gastroenterology for further investigation of this..." Patient reports subsequent urology evaluation and catheter removal 02/07/25. - warfarin instructions: patient and his verbalize understanding they are to call the anticoagulation clinic managing his warfarin for instructions-his will call anticoagulation clinic today. Patient and his verbalized understanding if there is any issue to contact surgeon's office. [place] anticoagulation clinic advised Dr. Wong will review case later today including if they plan/are able to bridge patient. Surgeon's office made aware of this and confirmed surgeon is aware and they will remain in communication with patient/anticoagulation clinic and cardiology regarding patient's anticoagulation status and if it is acceptable for surgery. Chart Review Chart Review: Acceptable Risk for Surgery and Patient seen in Pre Admission Testing Teaching & Discussion Pre-Anesthesia Teaching/Discussion Notes: Instructed NPO after midnight before surgery, except medications with 15 cc of water. Medication instructions provided according to the PAT guidelines. History Surgery Operation Date: 02/12/25 11:50 Proposed Procedures p L4-5 Decompression - Vincent Purvis MD Height/Weight Height: 5 ft 8 in Weight: 72.9 kg Allergies Allergy/AdvReac Type Severity Reaction Status Date / Time red dye AdvReac Severe SEVERE Verified 02/08/25 08:11 MIGRAINES aspirin AdvReac Intermediate UPSETS Verified 02/08/25 08:11 STOMACH codeine AdvReac Intermediate felt Verified 02/08/25 09:58 disoriented cyclobenzaprine AdvReac Intermediate Hallucinati Verified 02/08/25 08:11 [From Flexeril] ng oxycodone AdvReac Intermediate hallucinati Verified 02/08/25 09:59 ons salicylates AdvReac Intermediate upsets Verified 02/08/25 09:58 stomach tramadol AdvReac Intermediate hallucinati Verified 02/08/25 09:59 ons steroids AdvReac Intermediate Facial & Uncoded 02/08/25 08:11 Extremity swelling Medications Home Medications Medication Instructions Recorded Confirmed Last Taken lisinopril 20 mg tablet 20 mg PO QAM 12/17/22 02/08/25 01/31/25 pantoprazole 40 mg tablet,delayed 40 mg PO AMHS 02/10/23 02/08/25 01/31/25 08:00 release atorvastatin 40 mg tablet 40 mg PO QAM #30 tabs 09/17/24 02/08/25 01/31/25 mesalamine 0.375 gram 0.75 g PO AMPM 12/01/24 02/08/25 01/31/25 08:00 capsule,extended release 24 hr psyllium husk 0.52 gram capsule 0.52 g PO QAM 12/01/24 02/08/25 01/31/25 (Fiber-Caps (psyllium husk)) gabapentin 300 mg capsule 300 mg PO TID 01/18/25 02/08/25 01/31/25 12:00 tamsulosin 0.4 mg capsule 0.4 mg PO QAM #30 caps 02/02/25 02/08/25 Unknown tramadol 50 mg tablet 50 mg PO Q4H PRN pain #30 tabs 02/02/25 02/08/25 Unknown warfarin 5 mg tablet (Jantoven) See Rx Instructions PO UD #115 tabs 02/02/25 02/08/25 01/31/25 aspirin 81 mg tablet,delayed 81 mg PO QAM 02/08/25 02/08/25 Unknown release (Enteric Coated Aspirin) Past Medical History Medical History (Updated 02/08/25 @ 11:19 by Vanessa Haley PA-C) Arthritis Canales esophagus Factor V Leiden Gastro-esophageal reflux disease with esophagitis controlled, stable per pt with medication increase Hiatal hernia History of DVT (deep vein thrombosis) (~2004) left leg > 2004 > no known cause History of rectal bleeding resolved History of stroke (~2022) 2022 > no residual effects > sees neuro [place] Hx of skin malignancy multiple, removed Hyperlipidemia Hypertension controlled, stable per pt-increased with pain Lumbar stenosis with neurogenic claudication Paroxysmal atrial fibrillation controlled per pt's , no cards Penile swelling improving SNHL (sensorineural hearing loss) 95% hearing loss per pt's Ulcerative colitis Patient denies h/o seizures, heart attack, heart failure, DM, or blood transfusions. Exercise / Class Metabolic Activity II 4-5 Yardwork/Stairs/Walk up hill (denies chest discomfort or shortness of br eath with one flight of stairs) Past Family History Family History Other Family history non-contributory Past Surgical History Surgical History History of cataract surgery bilat History of cholecystectomy History of colonoscopy History of esophagogastroduodenoscopy (EGD) History of tonsillectomy pt's unsure but thinks he had tonsillectomy History of tooth extraction Past Anesthesia History No Family Hx of Anesthesia Complications and Other (slowness to wake) History of PONV No Hx of PONV and No Hx of Motion Sickness Social History Smoking Status: Former smoker Smoking cigarettes per day: "alot" Do You Dip or Chew Tobacco: No Smoking End Date: 40 yrs ago Hx Alcohol Use: Yes Alcohol type: wine alcohol intake frequency: 0-2 drinks per day (-no alcohol for the past week- states is doing well-previously one glass of wine daily) Hx Substance Use: No substance use type: does not use Review of Systems Occasional snoring, denies witnessed apneas. Patient denies chest pain, shortness of breath, dyspnea on exertion, fever, chills, cough, wheezing, or palpitations. Physical Exam Vital Signs Vitals BP 146/78 P 71 TEMP 97.9 SP02 95% on RA RESP 19 Physical Patient resting comfortably in chair in no acute distress, alert and oriented, responding appropriately throughout visit Full cervical extension range of motion without pain TMD 3.5 finger breadths Mallampati Score 3 Dentition: full upper denture, denies chipped or loose teeth, caps/crowns, implants or bridges Lungs: normal respiratory effort. Good air movement, clear throughout to auscultation, no adventitious breath sounds Cardiac: regular rate and rhythm, no murmurs noted Carotid arteries: negative bruit bilat Lab Results Anesthesia Preop Results Results Anesthesia Widget: 2 WBC 5.34 K/ul (4.8-10.8) 02/04/25 Hgb 10.6 g/dl (14.0-18.0) L 02/04/25 Hct 33.6 % (42.0-52.0) L 02/04/25 Plt 157 K/uL (130-400) 02/04/25 Na 139 mmol/L (136-145) 02/04/25 K 4.1 mmol/L (3.5-5.1) 02/04/25 Cl 105 mmol/L (98-107) 02/04/25 CO2 29 mmol/L (21-32) 02/04/25 BUN 29 mg/dl (6-23) H 02/04/25 Creat 0.76 mg/dl (0.6-1.4) 02/04/25 Glucose Level 135 mg/dl (70-99(Fasting)) H 02/04/25 PT 22.2 Seconds (9.0-12.0) H 02/08/25 PTT 39 Seconds (21-31) H 02/08/25 INR 2.2 (0.9-1.1) H 02/08/25 HA1c 5.5 % (4.5-5.6) 02/08/25 Urine Color Yellow 02/01/25 Urine Appearance Clear (Clear) 02/01/25 Urine pH 6.5 (4.5-7.5) 02/01/25 Urine Specific [place] 1.010 (1.000-1.030) 02/01/25 Urine Protein Negative (Negative) 02/01/25 Urine Glucose (UA) Negative (Negative) 02/01/25 Urine Ketones Trace (Negative) H 02/01/25 Urine Blood Negative (Negative) 02/01/25 Urine Nitrite Negative (Negative) 02/01/25 Urine Bilirubin Negative (Negative) 02/01/25 Urine Urobilinogen Negative (Negative) 02/01/25 Urine Leukocyte Esterase Negative (Negative) 02/01/25 Blood Type O Positive 02/08/25 Antibody Screen NEGATIVE 02/08/25 Testing Electrocardiogram Date: 02/04/25 NSR, rate 80 bpm Chest X-Ray Date: 02/04/25 *1 view* No plain film evidence of an acute cardiopulmonary process. Echocardiogram Date: 02/13/23 EF 60-65% No regional wall motion abnormalities Mild cLVH Other Testing Chest CTA 01/06/25 Large esophageal hiatal hernia. No aneurysm No aortic dissection No pulmonary embolus Head and neck CTA 02/10/23 Negative CTA neck. Normal head CTA.
[~2025-02-12 10:03] MED LIST changes: -CYAN100T PO; +DEXAMETHASONE SOD INJ 4 MG/ML VIAL ONE; -ENOX120I BT; -FIBER PILL PO; +GLYCOPYRROLATE 0.2 MG/ML VIAL ONE; +LIDOCAINE 2% 2 ML VIAL/AMP(20MG/ML) INFIL ONE; -MESA1TAB4 PO; +ONDANSETRON INJ 2 MG/ML 2 ML VIAL ONE; -PRLSR20 PO; +PROPOFOL IV EMULSION 10 MG/ML 20 ML VIAL IV ONE; +ROCURONIUM BROMIDE 10 MG/ML 5 ML VIAL IV ONE; +SUGAMMADEX SODIUM 200 MG/2 ML VIAL IV ONE; -TURMERIC PO; -VITAMIN D PO; -VITATAB19 PO; -WARF5TAB7 PO
[2025-02-12 10:43] LABS: Hematocrit (blood only) 39.8 % (42.0-52.0); Hemoglobin 12.4 g/dl (14.0-18.0); Immature Granulocytes # (auto) 0.02 K/uL (0.01-0.20); Immature Granulocytes % (auto) 0.3 %; Mean Corpuscular Hemoglobin 28.2 pg (25.0-34.0); Mean Corpuscular Volume 90.5 fL (80.0-100.0); Platelet Count 267 K/uL (130-400); RDW Standard Deviation 49.8 fL (36.4-46.3); Red Blood Count 4.40 M/uL (4.70-6.10); White Blood Count 6.60 K/ul (4.8-10.8)
[2025-02-12] MEDS: LR 60ML/HR IV SCH (10:45)
[2025-02-12 11:10] LABS: INR 1.0 (0.9-1.1); Partial Thromboplastin Time 28 Seconds (21-31); Prothrombin Time 11.3 Seconds (9.0-12.0)
[2025-02-12] MEDS: ACETAMINOPHEN 500 MG TAB ONE (11:22)
[2025-02-12] MEDS: ACETAMINOPHEN 500 MG TAB PO STA (11:23)
--- NOTE | 2025-02-12 11:46 | History & Physical Bridge Note ---
Date of Service February 12, 2025 History & Physical Bridge Note I have examined the patient, reviewed the History & Physical and in the interval since the performance of the History & Physical I have noted the following changes of clinical significance: no changes noted
--- NOTE | 2025-02-12 11:47 | History & Physical Report ---
Date of Service February 12, 2025 History of Present Illness Chief Complaint: back and hip pain, lumbar stenosis/disc herniation Primary Care Provider: Will Mueller, 89-year-old gentleman referred here for combination of low back pain and right lower extremity symptoms. The patient, discomforted by his , reports that the symptoms began about 4 weeks ago, prior to that he was doing reasonably well. Surgical pain combination of pain right lumbosacral spine and around the right hip radiating down his leg more posterior posterolaterally but also in the lateral aspect of the right lower leg. He has been on some medications including oxycodone which caused some urinary retention, he also was given some oral steroids which did not provide a significant amount of relief, physical therapy at the rehab center has been not helpful, he is here for evaluation and recommendations. Exam reveals the patient to be able to stand up and hold onto the table and he can raise up on toes and heels he is not noting any specific weakness with either activity but the ankle dorsiflexion was slightly weaker for his efforts. While seated could not elicit any significant ankle reflexes but he had trace for the knee reflexes, EHL was relatively appropriate in terms of strength, straight leg raise was relatively unremarkable bilaterally. 4 views of the lumbar spine taken for today's office AP lateral flexion- extension views reveals on AP view the hip joints to be relatively unremarkable, the spine is relatively straight in AP view, lateral view reveals normal lordosis but degenerative changes at the lower thoracic spine and also the lower 2 lumbar levels, no spondylolisthesis present. Review of MRI images of the lumbar spine from [facility] from February 01, 2025, this is my separate interpretation, this reveals the patient to have combination findings at the L4-5 level which is facet arthrosis in combination with a lumbar disc broad-based bulge and/or central protrusion causing severe stenosis at this level. There is some foraminal stenosis moderate on the right with foraminal disc herniation and mild on the left at this level. There is notable loss of disc space height at this level also at L5-S1 but no significant central stenosis but there is some foraminal stenosis more so on the right. L3-4 shows some mild canal stenosis the upper level shows some limited degree degenerative findings. Impression: Lumbar stenosis at the L4-5 level with notable symptoms over the past 4 weeks, combination of findings including facet arthrosis and degenerative changes along with disc protrusion. Plan: Today at this time I reviewed the imaging studies with the patient and his went over these findings. At this time I told the patient that as he did not get any significant relief with the oral steroids, and due to the amount of stenosis he has, my thoughts are that the epidural steroid injections could be tried, I am not sure if they would provide any lasting relief due to the amount of stenosis that he has. For this reason I think operative intervention would be reasonable and appropriate, specifically should be a posterior lumbar decompression, also removal of any disc protrusion to expand the canal and foraminal regions. I do not think arthrodesis is necessary at this time, and with this I would hope for some improvement in the low back pain on the right side and the radicular symptoms in the lumbar spine. Discussed was the technique for the surgery along the technical details, potential risk complications associated with this type procedure. At this time they like to move ahead with this and we will work to try to get this scheduled in the near future, they are in agreement with this plan. Allergies Allergy/AdvReac Type Severity Reaction Status Date / Time red dye AdvReac Severe SEVERE Verified 02/12/25 10:30 MIGRAINES aspirin AdvReac Intermediate UPSETS Verified 02/12/25 10:30 STOMACH codeine AdvReac Intermediate felt Verified 02/12/25 10:30 disoriented cyclobenzaprine AdvReac Intermediate Hallucinati Verified 02/12/25 10:30 [From Flexeril] ng oxycodone AdvReac Intermediate hallucinati Verified 02/12/25 10:30 ons salicylates AdvReac Intermediate upsets Verified 02/12/25 10:30 stomach tramadol AdvReac Intermediate hallucinati Verified 02/12/25 10:30 ons steroids AdvReac Intermediate Facial & Uncoded 02/12/25 10:31 Extremity swelling Home Medications Medication Instructions Recorded Confirmed Type lisinopril 20 mg tablet 20 mg PO QAM 12/17/22 02/12/25 History pantoprazole 40 mg tablet,delayed 40 mg PO AMHS 02/10/23 02/12/25 History release atorvastatin 40 mg tablet 40 mg PO QAM #30 tabs 09/17/24 02/12/25 Rx mesalamine 0.375 gram 0.75 g PO AMPM 12/01/24 02/12/25 History capsule,extended release 24 hr psyllium husk 0.52 gram capsule 0.52 g PO QAM 12/01/24 02/12/25 History (Fiber-Caps (psyllium husk)) gabapentin 300 mg capsule 300 mg PO TID 01/18/25 02/12/25 History tamsulosin 0.4 mg capsule 0.4 mg PO QAM #30 caps 02/02/25 02/12/25 Rx tramadol 50 mg tablet 50 mg PO Q4H PRN pain #30 tabs 02/02/25 02/12/25 Rx aspirin 81 mg tablet,delayed 81 mg PO QAM 02/08/25 02/12/25 History release (Enteric Coated Aspirin) warfarin 5 mg tablet (Jantoven) See Rx Instructions PO UD 02/11/25 02/12/25 History Past Med/Surg History Problem List Encounter for pre-operative examination Low back pain radiating to right lower extremity Lumbar stenosis with neurogenic claudication Anemia (Acute) Penile swelling (Acute) Lumbar spinal stenosis (Acute) Right lumbar radiculopathy Urine retention Supratherapeutic INR (Acute) Elevated INR (Acute) Chronic pain (Acute) Gluteal pain Myofascial pain Fecal impaction Constipation History of colitis Anticoagulant long-term use (Acute) Vitamin B12 deficiency Subtherapeutic international normalized ratio (INR) Stroke Episodic weakness Paroxysmal atrial fibrillation Hiatal hernia (Acute) LUQ abdominal pain (Acute) Sensorineural hearing loss (SNHL) of both ears Atrial fibrillation (Chronic) Ulcerative colitis (Chronic) Barretts esophagus (Chronic) "EGD 07/29/2014-shows Barretts Esophagus with no CA; follows with GI, Dr. José Luis Richards" Factor V Leiden (Chronic) "on chronic anticoagulation" Medical History Hypertension controlled, stable per pt-increased with pain Hyperlipidemia Ulcerative colitis Arthritis Hx of skin malignancy multiple, removed SNHL (sensorineural hearing loss) 95% hearing loss per pt's Canales esophagus Factor V Leiden Hiatal hernia Paroxysmal atrial fibrillation controlled per pt's , no cards History of stroke (~2022) 2022 > no residual effects > sees neuro [place] History of rectal bleeding resolved Lumbar stenosis with neurogenic claudication Penile swelling improving Gastro-esophageal reflux disease with esophagitis controlled, stable per pt with medication increase History of DVT (deep vein thrombosis) (~2004) left leg > 2004 > no known cause Surgical History History of tonsillectomy pt's unsure but thinks he had tonsillectomy History of cholecystectomy History of tooth extraction History of cataract surgery bilat History of colonoscopy History of esophagogastroduodenoscopy (EGD) Family History Other Family history non-contributory Social History Smoking Status: Former smoker Tobacco Type: Cigarettes Age Started Using Tobacco: 17; Age Quit Using Tobacco: 47; packs per day: 0.5; Cigarettes Per Day: "alot"; Smoking End Date: 40 yrs ago; Second Hand Exposure: No; Do You Dip or Chew Tobacco: No; Tobacco Cessation Education Requested by Patient: No Hx Alcohol Use: Yes Alcohol type: wine Alcohol type Comment: "enough" Hx Substance Use: No Preferred Language: Mongolian Communication Ability: Effective Communication Ability Comment: deaf, 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, read writing Art Installer Required: No Beliefs That Will Affect Care: None marital status: Current Living Situation: Spouse Other Information That Helps Us Care for You: No Feels Safe at Home: Yes Safety Concerns: Feels Safe At This Time Assistive Devices: Cane, Denture - Upper, Denture - Lower, Glasses and Hearing Aid - Bilateral Results & Data Results & Data Vital Signs (Past 12 Hours) Vital Signs Temp Pulse Resp BP Pulse Ox O2 Del Method 02/12/25 10:32 36.7 C 67 20 153/85 H 95 Room Air
[2025-02-12] MEDS ORDERED: PHENYLEPHRINE HCL 10 MG/ML VIAL ONE (12:30)
[2025-02-12] MEDS: BUPIVACAINE/EPINEPHRINE 0.5% MPF 1:200,000 30 ML VIAL ONE (14:05)
[2025-02-12] MEDS: VANCOMYCIN HCL 1000MG/20ML VIAL ONE (14:12)
--- NOTE | 2025-02-12 14:14 | Post Operative Brief Note ---
PG Immediate Post Op with CF Date of Surgery February 12, 2025 Pre & Post Diagnosis Operation Date: 02/12/25 11:50 Pre-Op Diagnosis: Back and hip pain, lumbar stenosis/disc herniation Post-Op Diagnosis: Back and hip pain, lumbar stenosis/disc herniation I identified the patient and participated in the time-out.: Yes Procedure Operation Date: 02/12/25 11:50 Actual Procedures p L4-L5 Decompression(Not Applicable) - Vincent Purvis MD Surgeon Vincent Purvis MD Logging Engineer none Estimated Blood Loss 20 Findings Consistent with Post-Op Diagnosis
[2025-02-12] MEDS ORDERED: MAGNESIUM HYDROXIDE SUSP 30 ML UDC PO PRN (14:28)
[2025-02-12] MEDS ORDERED: DO NOT ADMINISTER FLU VACCINE PRN (14:28)
[2025-02-12] MEDS ORDERED: ONDANSETRON 4 MG OD TAB PO PRN (14:28)
[2025-02-12] MEDS ORDERED: LORazepam 0.5 MG TAB PO PRN (14:28)
[2025-02-12] MEDS ORDERED: HYDROmorphone INJ 1 MG/ML SYRINGE IV PRN ×2 (14:28→14:29)
[2025-02-12] MEDS ORDERED: NALOXONE HCL 0.4 MG/1 ML VIAL/CARP IV PRN (14:28)
[2025-02-12] MEDS ORDERED: FAMOTIDINE 20 MG TAB PO PRN (14:28)
[2025-02-12] MEDS ORDERED: diphenhydrAMINE Capsule 25 MG CAP PO PRN (14:28)
[2025-02-12] MEDS ORDERED: ACETAMINOPHEN 1,000 MG/100 ML VIAL IV PRN (14:28)
[2025-02-12] MEDS ORDERED: METOCLOPRAMIDE HCL INJ 5 MG/ML 2 ML VIAL IV PRN (14:28)
[2025-02-12] MEDS ORDERED: ACETAMINOPHEN 500 MG TAB PO PRN (14:28)
[2025-02-12] MEDS ORDERED: DO NOT ADMINISTER PNEUMOCOCCAL VACCINE PRN (14:28)
[2025-02-12] MEDS ORDERED: PROMETHAZINE 12.5 MG/50.5 ML BAG IV PRN (14:28)
[2025-02-12] MEDS ORDERED: SOD PHOSPHATE/SOD BIPHOSPHATE ENEMA 132 ML BTL PR PRN (14:28)
[2025-02-12] MEDS ORDERED: ALUMINUM/MAGNESIUM SUSP 30 ML UDC PO PRN (14:28)
[2025-02-12] MEDS ORDERED: HYDROmorphone INJ 0.5 MG/0.5 ML SYR IV PRN (14:28)
[2025-02-12] MEDS ORDERED: ONDANSETRON INJ 2 MG/ML 2 ML VIAL IV PRN (14:28)
[2025-02-12] MEDS ORDERED: ATROPINE SULFATE 0.1 MG/ML 10ML SYR IV PRN (14:29)
[2025-02-12] MEDS ORDERED: PROMETHAZINE HCL 6.25 MG in SODIUM CHLORIDE 0.9% 50 ML IV PRN (14:29)
--- NOTE | 2025-02-12 14:36 | Fluoroscopy Report ---
FL lumbar spine 2-3V CLINICAL HISTORY: L4-L5 DECOMPRESSION COMPARISON STUDY: None FLUOROSCOPY TIME: 19 seconds FLUOROSCOPY IMAGES: 5 EXPOSURE DOSE: 9 mGy FINDINGS: Fluoroscopy was provided for lumbar surgery. IMPRESSION: Intraoperative fluoroscopy. ACT 112: Negative or not required by law. Electronically signed by: Ozzy Holly M.D. 02/12/2025 2:35 PM
--- NOTE | 2025-02-12 15:44 | Anesthesiology Progress Note ---
Date of Service February 12, 2025 Anesthesia Post Procedure Vital Signs Vital Signs: Temp Pulse Resp BP Pulse Ox O2 Del Method O2 Flow Rate 02/12/25 15:20 71 16 142/78 H 94 Nasal Cannula 3 02/12/25 15:10 73 15 114/70 97 Nasal Cannula 3 02/12/25 15:00 67 15 135/74 94 Nasal Cannula 3 02/12/25 14:50 71 16 130/70 95 Nasal Cannula 3 02/12/25 14:40 78 17 110/46 L 97 Oxymask 4 02/12/25 14:30 82 19 128/66 98 Oxymask 6 02/12/25 14:23 36.2 C L 78 20 129/66 97 Oxymask 8 02/12/25 10:32 36.7 C 67 20 153/85 H 95 Room Air Pain Intensity Right Hip: Pain Intensity: 5 Back: Pain Intensity: 5 Transfer of Care Handoff Completed per policy Notes Mental Status: alert / awake / arousable Patient Amnestic to Procedure: Yes Nausea / Vomiting: adequately controlled Pain: adequately controlled Airway Patency, RR, SpO2: stable & adequate BP & HR: stable & adequate Hydration State: stable & adequate Anesthetic Complications: no major complications apparent
--- NOTE | 2025-02-12 17:54 | Hospitalist Consultation ---
Date of Consultation February 12, 2025 Assessment & Plan (1) Lumbar stenosis with neurogenic claudication: (2) Urine retention: (3) Paroxysmal atrial fibrillation: (4) Factor V Leiden: Plan This patient is an 89-year-old male with a history of lumbar spinal stenosis, urinary retention, factor V Leiden deficiency history of DVT on Coumadin, Canales's esophagus, UC, recent Tylenol toxicity, paroxysmal atrial fibrillation, HTN, who is admitted after undergoing L4-L5 decompression. #Factor V Leiden/Chronic anticoagulation/h/o DVT -as per d/w Ortho spine, wait to resume coumadin until 02/13 -once resumed, plan for 10mg on 02/13, then 15mg on 02/14, then resume home dose 10mg q Hernandez/We, 5mg x 5 other days -follow INR in [facility] clinic as scheduled on 02/19 -continue SCDs #PAF/HTN-in regular rhythm here, BPs controlled -holding coumadin and plan to resume tomorrow -hold lisinopril POD#1 until ensure BPs stable and renal function ok -check BMP in AM -resume home ASA on discharge -continue home statin #GERD/Ulcerative colitis/Canales's esophagus-no acute issues -continue home PPI bid -pepcid prn -continue mesalamine (needs to be brought in from home if not discharged 02/13) #Anemia-hgb mildly low, normocytic anemia. Has a h/o B12 deficiency but not checked in years. Does have known UC and Canales's, follows with GI -check B12, folate, Fe studies, and TSH in AM -follow post-op CBC #S/P Lumbar decompression L4-5/Lumbar radiculopathy- -pain control, bowel regimen as per Ortho -wound care as per Ortho -continue home gabapentin -change percocet to tramadol-he states he does not want opioid drugs but is ok with taking tramadol as he has been tolerating it without side effects for the last few weeks #BPH/Urine retention-recently had urine retention and required Saha for 2-3 weeks, passed TOV and now voiding regularly -continue Flomax -bladder scan PVR as needed DVT proph-SCDs, resume coumadin loading dose 02/13 as per my d/w Ortho Spine Dispo-continued stay on med/surg, hospitalist service will follow along History of Present Illness Reason for Consultation: Postoperative medical management Requesting Physician: Vincent Purvis MD Attending Physician: Vincent Purvis MD History of Present Illness This patient is an 89-year-old male with a history of lumbar spinal stenosis, urinary retention, factor V Leiden deficiency history of DVT on Coumadin, Canales's esophagus, UC, recent Tylenol toxicity, paroxysmal atrial fibrillation, HTN, who is admitted after undergoing L4-L5 decompression. He is having some pain in his back but overall no further radicular pains with which he is very happy. Denies CP, SOB. Is voiding without difficulty. Allergies Allergy/AdvReac Type Severity Reaction Status Date / Time red dye AdvReac Severe SEVERE Verified 02/12/25 10:30 MIGRAINES aspirin AdvReac Intermediate UPSETS Verified 02/12/25 10:30 STOMACH codeine AdvReac Intermediate felt Verified 02/12/25 10:30 disoriented cyclobenzaprine AdvReac Intermediate Hallucinati Verified 02/12/25 10:30 [From Flexeril] ng oxycodone AdvReac Intermediate hallucinati Verified 02/12/25 10:30 ons salicylates AdvReac Intermediate upsets Verified 02/12/25 10:30 stomach tramadol AdvReac Intermediate hallucinati Verified 02/12/25 10:30 ons steroids AdvReac Intermediate Facial & Uncoded 02/12/25 10:31 Extremity swelling Home Medications Medication Instructions Recorded Confirmed Type lisinopril 20 mg tablet 20 mg PO QAM 12/17/22 02/12/25 History pantoprazole 40 mg tablet,delayed 40 mg PO AMHS 02/10/23 02/12/25 History release atorvastatin 40 mg tablet 40 mg PO QAM #30 tabs 09/17/24 02/12/25 Rx mesalamine 0.375 gram 0.75 g PO AMPM 12/01/24 02/12/25 History capsule,extended release 24 hr psyllium husk 0.52 gram capsule 0.52 g PO QAM 12/01/24 02/12/25 History (Fiber-Caps (psyllium husk)) gabapentin 300 mg capsule 300 mg PO TID 01/18/25 02/12/25 History tamsulosin 0.4 mg capsule 0.4 mg PO QAM #30 caps 02/02/25 02/12/25 Rx tramadol 50 mg tablet 50 mg PO Q4H PRN pain #30 tabs 02/02/25 02/12/25 Rx aspirin 81 mg tablet,delayed 81 mg PO QAM 02/08/25 02/12/25 History release (Enteric Coated Aspirin) warfarin 5 mg tablet (Jantoven) See Rx Instructions PO UD 02/11/25 02/12/25 History Patient History Medical History Hypertension controlled, stable per pt-increased with pain Hyperlipidemia Ulcerative colitis Arthritis Hx of skin malignancy multiple, removed SNHL (sensorineural hearing loss) 95% hearing loss per pt's Canales esophagus Factor V Leiden Hiatal hernia Paroxysmal atrial fibrillation controlled per pt's , no cards History of stroke (~2022) 2022 > no residual effects > sees neuro [place] History of rectal bleeding resolved Lumbar stenosis with neurogenic claudication Penile swelling improving Gastro-esophageal reflux disease with esophagitis controlled, stable per pt with medication increase History of DVT (deep vein thrombosis) (~2004) left leg > 2004 > no known cause Surgical History History of tonsillectomy pt's unsure but thinks he had tonsillectomy History of cholecystectomy History of tooth extraction History of cataract surgery bilat History of colonoscopy History of esophagogastroduodenoscopy (EGD) Family History Other Family history non-contributory Social History Smoking Status: Former smoker Tobacco Type: Cigarettes Age Started Using Tobacco: 17; Age Quit Using Tobacco: 47; packs per day: 0.5; Cigarettes Per Day: "alot"; Smoking End Date: 40 yrs ago; Second Hand Exposure: No; Do You Dip or Chew Tobacco: No; Tobacco Cessation Education Requested by Patient: No Hx Alcohol Use: Yes Alcohol type: wine Alcohol type Comment: "enough" Hx Substance Use: No Preferred Language: Turkish Communication Ability: Effective Communication Ability Comment: deaf, 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, read writing 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 [employer] Loom Required: No Beliefs That Will Affect Care: None marital status: Current Living Situation: Spouse Other Information That Helps Us Care for You: No Feels Safe at Home: Yes Safety Concerns: Feels Safe At This Time Assistive Devices: Cane, Denture - Upper, Denture - Lower, Glasses and Hearing Aid - Bilateral Review of Systems Review of Systems: All systems reviewed & are unremarkable except as noted in HPI & below Physical Exam Constitutional: WD/WN, vitals as above Eyes: + anicteric sclerae ENMT: Ears: + hearing impairment Neck: trachea midline, no thyromegaly Respiratory: normal respiratory effort, lungs clear to auscultation Cardiovascular: RRR, no murmur, no edema Chest (Breasts): Chest: normal inspection of chest Gastrointestinal (Abdomen): normal bowel sounds, soft, nontender, no hepatosp lenomegaly Musculoskeletal: Extremities: extremities normal to inspection; no cyanosis and no clubbing Skin: no rashes, warm and dry Neurologic: moves all extremities and awake; no focal motor deficits Psychiatric: A+Ox3, euthymic affect Lymphatic: no lymphedema Results & Data Results & Data Vital Signs (Past 12 Hours) Vital Signs Temp Pulse Pulse Resp BP BP Pulse Ox 02/12/25 17:47 36.4 C L 75 18 126/68 100 02/12/25 16:47 36.4 C L 62 16 132/81 98 02/12/25 16:00 63 17 122/86 96 02/12/25 15:45 74 16 132/71 93 02/12/25 15:30 36.4 C L 66 14 137/78 94 02/12/25 15:20 71 16 142/78 H 94 02/12/25 15:10 73 15 114/70 97 02/12/25 15:00 67 15 135/74 94 02/12/25 14:50 71 16 130/70 95 02/12/25 14:40 78 17 110/46 L 97 02/12/25 14:30 82 19 128/66 98 02/12/25 14:23 36.2 C L 78 20 129/66 97 02/12/25 10:32 36.7 C 67 20 153/85 H 95 O2 Del Method O2 Flow Rate 02/12/25 17:47 Nasal Cannula 3 02/12/25 16:47 Nasal Cannula 3 02/12/25 16:00 Nasal Cannula 3 02/12/25 15:45 Nasal Cannula 3 02/12/25 15:30 Nasal Cannula 3 02/12/25 15:20 Nasal Cannula 3 02/12/25 15:10 Nasal Cannula 3 02/12/25 15:00 Nasal Cannula 3 02/12/25 14:50 Nasal Cannula 3 02/12/25 14:40 Oxymask 4 02/12/25 14:30 Oxymask 6 02/12/25 14:23 Oxymask 8 02/12/25 10:32 Room Air Laboratory Results CBC, PT/INR reviewed PG Care Time/CCT Total # of Minutes Spent Total Time Spent with Patient: Total time spent is greater than 50% in coordination of care (as documented) at patient's floor/unit and/or counseling patient: Coding Level of Care Code 98033 IN/OBS CONSULT LVL 3,45M Diagnoses Lumbar stenosis with neurogenic claudication M48.062 Urine retention R33.9 Paroxysmal atrial fibrillation I48.0 Factor V Leiden D68.51
[2025-02-12] MEDS: General Order Problem(s) SCH (18:07)
[2025-02-12] MEDS ORDERED: WARFARIN SOD 10 MG TAB PO ONE (19:00)
[2025-02-12] MEDS: GABAPENTIN 300 MG CAP PO SCH (21:45)
[2025-02-12] MEDS: DOCUSATE SODIUM/SENNA 50/8.6MG TAB PO SCH (21:45)
[2025-02-13] MEDS: POLYETHYLENE (MIRALAX) 17 GM PACK PO SCH (05:42)
[2025-02-13 06:12] LABS: Hematocrit (blood only) 36.9 % (42.0-52.0); Hemoglobin 11.6 g/dl (14.0-18.0); Immature Granulocytes # (auto) 0.04 K/uL (0.01-0.20); Immature Granulocytes % (auto) 0.4 %; Mean Corpuscular Hemoglobin 28.2 pg (25.0-34.0); Mean Corpuscular Volume 89.6 fL (80.0-100.0); Platelet Count 278 K/uL (130-400); RDW Standard Deviation 48.1 fL (36.4-46.3); Red Blood Count 4.12 M/uL (4.70-6.10); White Blood Count 10.42 K/ul (4.8-10.8)
[2025-02-13 06:29] LABS: Anion Gap 7.0 (3-11); Blood Urea Nitrogen 26.0 mg/dl (6-23); Calcium 8.6 mg/dl (8.6-10.3); Carbon Dioxide 26.0 mmol/L (21-32); Chloride 107.0 mmol/L (98-107); Creatinine Clr Calc Pharmacy 62.2 ml/min; Glucose 120.0 mg/dl (70-99(Fasting)); Iron 39.0 mcg/dl (35-175); Potassium 4.4 mmol/L (3.5-5.1); Sodium 140.0 mmol/L (136-145); Total Iron Binding Cap Calc 318.0 mcg/dl (250-450); Transferrin 227.0 mg/dl (200-360); Transferrin (FE) Percent Satur 12.0 % (20-50)
[2025-02-13 06:33] LABS: INR 1.0 (0.9-1.1); Prothrombin Time 11.0 Seconds (9.0-12.0)
[2025-02-13 06:43] LABS: Thyroid Stimulating Hormone 0.406 uIu/ml (0.300-4.500)
[2025-02-13 06:49] LABS: Ferritin 35.0 ng/ml (8-388)
[2025-02-13 06:55] LABS: Folate (Folic Acid),Ser orPlas 8.6 ng/ml (>5.38)
[2025-02-13 06:56] LABS: Vitamin B12 347.0 pg/ml (180-914)
--- NOTE | 2025-02-13 07:14 | Hospitalist Progress Note ---
Date of Service February 13, 2025 Assessment & Plan (1) Factor V Leiden: (2) Status post lumbar spine surgery for decompression of spinal cord: (3) Lumbar stenosis with neurogenic claudication: (4) Paroxysmal atrial fibrillation: Plan Nahid is an 89-year-old male with a history of lumbar spinal stenosis, urinary retention, factor V Leiden deficiency history of DVT on Coumadin, Canales's esophagus, UC, recent Tylenol toxicity, paroxysmal atrial fibrillation, HTN, admitted by orthopedic surgery team for L4-L5 decompression on 02/12/25. Procedure was successful, being discharged home today 02/13/25 by orthopedics team, and has been cleared by medicine team to do so. #Factor V Leiden/Chronic anticoagulation/ history of DVT - started back on warfarin at 10mg today (02/13/25) - to take warfarin 15mg tomorrow (02/14), and thereafter resume home dosing, namely 10mg on Hernandez/We, 5mg daily for the other 5 days - following INR in AC clinic as scheduled on 02/19, goal INR 2-3 #Anemia- hemoglobin mildly low, normocytic anemia. Has a h/o B12 deficiency but not checked in years. Does have known UC and Canales's, follows with GI - hemoglobin 12.4 -> 11.6 this AM, mild decrease but no concern for acute bleeding, asymptomatic - TSH, vitamin B12, and folate all within normal limits; ferritin and transferrin % low, consider oral iron supplementation and followup with PCP outpatient #Status/post Lumbar decompression L4-5 - continue tramadol as needed for pain control - bowel regimen as per Ortho - wound care as per Ortho - continue home gabapentin - outpatient orthopedic followup as instructed #Paroxysmal AFib/HTN- regular rhythm here, BPs controlled - restarted warfarin today 02/13 - may restart lisinopril rx on discharge - continue home aspirin rx on discharge - continue home statin #GERD/Ulcerative colitis/Canales's esophagus-no acute issues - continue home PPI twice daily - pepcid as needed - continue mesalamine #BPH/Urine retention-recently had urine retention and required Saha for 2-3 weeks, passed trial of void, now voiding regularly -continue Flomax Admission and Anticipated Discharge Date Admission Date: February 12, 2025 Supervising Physician Co-Signing Physician Notes I personally examined the patient and verified all leonard points of history and exam, discussed case, and agree with decision making with Dr. Nichole with the following additions/exceptions: S-Pt feeling very well, no pain and no concerns, voiding well, eating. O- Vitals Reviewed Gen: [AAOx3, NAD] HEENT: [anicteric sclerae, EOMI] CV: [RRR no mgr nl S1S2] Pulm: [CTAB no wcr] Abd: [+BS soft NT ND no masses or hernias] Ext: [no edema] Skin: [no rashes, warm/dry] Neuro: [full strength throughout] CBC, BMP, iron studies reviewed A/P: 89 yo amle here s/p lumbar decompression. Much improved, doing well, mild Fe def anemia, due for EGD fo r[facility]'s, just had colonoscopy in 11/2024 with colitis seen. Fe deficiency ikely from chronic occult GI blood loss but also with Canales's need to do EGD as outpt-has upcoming GI appt in a few weeks Stable for dc to home Subjective Nahid was seen and evaluated at bedside this AM, replies "what pain?" when asking how the pain is. Denies any discomfort at this time, had breakfast without issue today. No symptoms of chest pain, SOB, dizziness, lightheadedness reported. Wishes to go home today, willing to do so after lunch if he remains stable. Physical Exam Physical Exam: Gen: A&Ox3, no acute distress HEENT: EOM intact, moist mucus membranes CV: RRR, +s1/s2, no m/r/g, 2+ radial pulses b/l Resp: clear to auscultation b/l, no w/r/R GI/Abd: +BS, no abdominal tenderness to palpation MSK: dry dressing applied to lower back at area of procedure, tender to palpation, no significant swelling, did not remove dressing as it had just been replaced; no gross deformities, 5/5 strength in all ext Neuro: no facial droop, speech intact, no focal deficits, moves all extremities Results & Data Results & Data Vital Signs (Past 12 Hours) Vital Signs Temp Pulse Resp BP Pulse Ox O2 Del Method O2 Flow Rate 02/13/25 03:00 36.7 C 64 18 121/75 93 Room Air 02/12/25 23:36 36.4 C L 60 18 123/74 95 Room Air 02/12/25 19:20 36.5 C 71 18 132/73 99 Nasal Cannula 2 Resident Activity Tracking Resident Involvement: Resident Care Provided Care Provided: Adult Hospital Medicine
[2025-02-13] MEDS: PSYLLIUM HUSK 4GM PACKET PO SCH (07:54)
[2025-02-13] MEDS: TAMSULOSIN HCL 0.4 MG CAP PO SCH (07:54)
[2025-02-13] MEDS: ATORVASTATIN 40 MG TAB PO SCH (07:54)
[2025-02-13 08:44] VITALS: RESP 18
[2025-02-13] MEDS: WARFARIN SOD 10 MG TAB PO ONE (09:00)
--- NOTE | 2025-02-13 09:26 | Orthopedic Progress Note ---
Date of Service February 13, 2025 Assessment & Plan (1) Lumbar stenosis with neurogenic claudication: * Continue Current Treatment * Disposition: home * Dressing change PRN * Daily treatment: Physical Therapy/ Occupational Therapy per protocol * Weight bearing status: WBAT, activity as tolerated * Continue to monitor for ABLA * Pain control * Office/hospital f/u 2 weeks for progress check and staple/suture removal * Plan for discharge today pending PT/OT clearance * * Patient seen and examined, doing well postoperatively with resolution of right leg symptoms. Cleared for discharge once cleared by hospitalist and physical therapy. Subjective . Active Problems: S/p L4-5 decompression POD 1 89 y/o male s/p L4-5 decompression. Doing very well overall, pain managed and improved function. Denies fever/chills, chest pain/SOB, nausea/vomiting. Otherwise no complaints. Review of Systems All systems reviewed & are unremarkable except as noted in HPI & below. Physical Exam .General: Alert and oriented, no acute distress * Constitutional: well-developed, well-nourished. * Respiratory: Normal respiratory effort, no distress * Gastrointestinal: No tenderness to palpation, no rigidity or guarding. * Skin: No rash or lesion. * Neurologic: Grossly normal * Musculoskeletal: Surgical dressing CDI. Lumbar spine region without obvious deformity or overlying skin changes. Minimal tenderness of surgical region, otherwise no tenderness b/l buttock or LE. Lumbar flexion/extension and rotation ROM with minimal pain. AROM b/l hip flexion, knee flexion/extension, ankle flexion/extension intact. Sensation intact plantar/dorsal foot. Brisk capillary refill. Results & Data Results & Data Laboratory Results . Diagnostic Findings . PG Care Time/CCT Total # of Minutes Spent Total Time Spent with Patient: Total time spent is greater than 50% in coordination of care (as documented) at patient's floor/unit and/or counseling patient: Coding Level of Care Code 66701 Post Operative Follow-Up Diagnoses Lumbar stenosis with neurogenic claudication M48.062
--- NOTE | 2025-02-13 09:48 | Operative Report ---
PG Post Operative Report Pre & Post Diagnosis Operation Date: 02/12/25 11:50 Pre-Op Diagnosis: Back and hip pain, lumbar stenosis/disc herniation Post-Op Diagnosis: Back and hip pain, lumbar stenosis/disc herniation I identified the patient and participated in the time-out.: Yes Procedure Operation Date: 02/12/25 11:50 Actual Procedures p L4-L5 Decompression(Not Applicable) - Vincent Purvis MD Surgeon Vincent Purvis MD Exhibits Curator none Estimated Blood Loss 20 Findings Consistent with Post-Op Diagnosis Specimens none Description of Procedure 1. L4-5 posterior lumbar decompression/laminectomy. (56498) Patient was taken operating room and after adequate anesthesia was carefully positioned prone on the Pasha frame, preprep was performed followed by fluoroscopy brought in and marking for the approximate location of the incision followed by prep and drape. Longitudinal incision was made over the L4-5 region, from here I advanced down to the interlaminar region at L4-5, this is confirmed fluoroscopically. Retractors were set, I then moved ahead with the decompression with removal of the inferior aspect of the spinous process. The thickened ligamentum flavum was thinned, I then used a high-speed bur to perform bilateral hemilaminectomies along the inferior laminar edge of L4, superior laminar edge of L5 and along the medial facets bilaterally. The remaining thick ligamentum flavum was then thinned additionally and then removed with undercutting the lamina and the facets decompressing the nerve roots bilaterall y. The right lateral recess region was also inspected, additional work was made in the region of the posterior disc region to remove any notable protrusion on the exiting nerve root, upon completion no issues were noted, minimal amount of epidural bleeding was controlled with Floseal. Upon completion slight amount of steroid was placed along with Floseal, vancomycin powder. The operative area w as then closed using 2 layers of 0 Vicryl sutures, 2-0 Vicryl sutures, pinky for the skin and a sterile dressing was applied. Patient was taken recovery room in satisfactory condition. I attest to the content of the Intraoperative Record and any orders documented therein. Any exceptions are noted below.
--- NOTE | 2025-02-13 10:04 | Anesthesiology Consultation ---
Date of Service February 12, 2025 History Surgery Operation Date: 02/12/25 11:50 Proposed Procedures p L4-L5 Decompression - Vincent Purvis MD Height/Weight Height: 5 ft 8 in Weight: 156 lb 11.979 oz Allergies Allergy/AdvReac Type Severity Reaction Status Date / Time red dye AdvReac Severe SEVERE Verified 02/12/25 10:30 MIGRAINES aspirin AdvReac Intermediate UPSETS Verified 02/12/25 10:30 STOMACH codeine AdvReac Intermediate felt Verified 02/12/25 10:30 disoriented cyclobenzaprine AdvReac Intermediate Hallucinati Verified 02/12/25 10:30 [From Flexeril] ng oxycodone AdvReac Intermediate hallucinati Verified 02/12/25 10:30 ons salicylates AdvReac Intermediate upsets Verified 02/12/25 10:30 stomach tramadol AdvReac Intermediate hallucinati Verified 02/12/25 10:30 ons steroids AdvReac Intermediate Facial & Uncoded 02/12/25 10:31 Extremity swelling Medications Home Medications Medication Instructions Recorded Confirmed Last Taken lisinopril 20 mg tablet 20 mg PO QAM 12/17/22 02/12/25 02/11/25 07:00 pantoprazole 40 mg tablet,delayed 40 mg PO AMHS 02/10/23 02/12/25 02/12/25 06:30 release atorvastatin 40 mg tablet 40 mg PO QAM #30 tabs 09/17/24 02/12/25 02/11/25 07:00 mesalamine 0.375 gram 0.75 g PO AMPM 12/01/24 02/12/25 02/11/25 19:00 capsule,extended release 24 hr psyllium husk 0.52 gram capsule 0.52 g PO QAM 12/01/24 02/12/25 3 Days Ago (Fiber-Caps (psyllium husk)) ~02/09/25 gabapentin 300 mg capsule 300 mg PO TID 01/18/25 02/12/25 02/11/25 12:00 tamsulosin 0.4 mg capsule 0.4 mg PO QAM #30 caps 02/02/25 02/12/25 02/12/25 06:30 tramadol 50 mg tablet 50 mg PO Q4H PRN pain #30 tabs 02/02/25 02/12/25 Unknown aspirin 81 mg tablet,delayed 81 mg PO QAM 02/08/25 02/12/25 02/11/25 07:00 release (Enteric Coated Aspirin) warfarin 5 mg tablet (oRmeotoven) See Rx Instructions PO UD 02/11/25 02/12/25 02/06/25 oxycodone 5 mg tablet 5 mg PO Q6H PRN pain #15 tabs 02/13/25 Unknown Active Medications Generic Name Dose Route Start Last Admin Trade Name Freq PRN Reason Stop Dose Admin Atorvastatin Calcium 40 mg 02/13/25 09:00 02/13/25 07:54 Atorvastatin 40 Mg Tab PO 03/15/25 08:59 40 mg QAM RAI Administration Gabapentin 300 mg 02/12/25 21:00 02/13/25 07:56 Gabapentin 300 Mg Cap PO 03/14/25 20:59 Not Given TID RAI Miscellaneous 1 each 02/13/25 00:00 02/13/25 08:59 Order Awaiting Action [Mesalamine 0.375 Gram Capsule,Extended Release 24hr] N/A 03/15/25 00:00 Not Given QS RAI Pantoprazole Sodium 40 mg 02/13/25 09:00 02/13/25 07:54 Pantoprazole 40 Mg Tab PO 03/15/25 08:59 40 mg AMHS RAI Administration Polyethylene Glycol 17 gm 02/13/25 06:00 02/13/25 05:42 Polyethylene (Miralax) 17 Gm Pack PO 03/15/25 05:59 17 gm Q6 RAI Administration Psyllium Hydrophilic Mucilloid 2 gm 02/13/25 09:00 02/13/25 08:01 Psyllium Husk 4gm Packet PO 03/15/25 08:59 Not Given QAM RAI Senna/Docusate Sodium 2 tab 02/12/25 21:00 02/12/25 21:45 Docusate Sodium/Senna 50/8.6mg Tab PO 03/14/25 20:59 2 tab HS RAI Administration Tamsulosin HCl 0.4 mg 02/13/25 09:00 02/13/25 07:54 Tamsulosin Hcl 0.4 Mg Cap PO 03/15/25 08:59 0.4 mg QAM RAI Administration NPO Date Last Intake of Fluids: 02/11/25 Time Last Intake of Fluids: 16:45 Date Last Intake of Solids: 02/11/25 Time Last Intake of Solids: 16:45 Past Medical History Medical History Hypertension controlled, stable per pt-increased with pain Hyperlipidemia Ulcerative colitis Arthritis Hx of skin malignancy multiple, removed SNHL (sensorineural hearing loss) 95% hearing loss per pt's Canales esophagus Factor V Leiden Hiatal hernia Paroxysmal atrial fibrillation controlled per pt's , no cards History of stroke (~2022) 2022 > no residual effects > sees neuro [place] History of rectal bleeding resolved Lumbar stenosis with neurogenic claudication Penile swelling improving Gastro-esophageal reflux disease with esophagitis controlled, stable per pt with medication increase History of DVT (deep vein thrombosis) (~2004) left leg > 2004 > no known cause Past Family History Family History Other Family history non-contributory Past Surgical History Surgical History History of tonsillectomy pt's unsure but thinks he had tonsillectomy History of cholecystectomy History of tooth extraction History of cataract surgery bilat History of colonoscopy History of esophagogastroduodenoscopy (EGD) Social History Smoking Status: Former smoker Smoking cigarettes per day: "alot" Do You Dip or Chew Tobacco: No Smoking End Date: 40 yrs ago Hx Alcohol Use: Yes Alcohol type: wine alcohol intake frequency: 0-2 drinks per day (-no alcohol for the past week- states is doing well-previously one glass of wine daily) Hx Substance Use: No substance use type: does not use Physical Exam Vital Signs Last Vital Signs Temp 98.1 F 02/13/25 08:44 Pulse 73 02/13/25 08:44 Resp 18 02/13/25 08:44 BP 153/83 H 02/13/25 08:44 Pulse Ox 94 02/13/25 08:44 O2 Del Method Room Air 02/13/25 08:44 O2 Flow Rate 2 02/12/25 19:20 Testing Laboratory Results 02/13/25 05:38 02/13/25 05:38 PT 11.0 Seconds (9.0-12.0) 02/13/25 05:38 INR 1.0 (0.9-1.1) 02/13/25 05:38 APTT 28 Seconds (21-31) 02/12/25 10:27
[2025-02-13 11:32] VITALS: BP 128/74; PULSE 71; TEMP 97.9; O2SAT 93
--- NOTE | 2025-02-13 16:06 | Billing Data ---
Date of Service February 13, 2025 Coding Level of Care Code 24492 INP/OBS DISCH >30 MIN Time Spent (min) 35 Comment spent 35 min on face to face care, labs review,discharge planning
--- NOTE | 2025-02-13 16:07 | Billing Data ---
Date of Service February 13, 2025 Coding Level of Care Code 98646 SUB INP/OBS CARE
== END 2025-02-13 13:20 | disposition home or self-care (01) ==
LOC: ASU 10:03 → 3E 10:03

== ENCOUNTER 2025-03-14 07:18 | Inpatient (IN) ==
--- NOTE | 2025-03-14 07:37 | Emergency Department Note ---
Impression & Plan Weakness, Pneumonia, Fall, Leukocytosis, Anticoagulated ED Provider Note NAME: KIRBY ESTRELLA AGE: 89 SEX: M : 1935 ARRIVES VIA: Ambulance INFORMANT: [Patient][ems, nursing] ED PROVIDER(S): [Yrn Thomson MD] CHIEF COMPLAINT: Weakness HISTORY OF PRESENT ILLNESS: The patient is an 89-year-old male who presents to the ER after slumping to the ground when he tried to get out of bed. He did not suffer any trauma. He states his whole body was just weak. He could not get up on his own, he presents by ambulance. Patient currently complains of being thirsty, he has no chest pain. He is not short of breath. No abdominal pain. There has been no nausea or vomiting, no diarrhea, no urinary complaints. He does note a subtle cough lately. As per EMS, the patient does take warfarin. As per the nursing staff, the patient was febrile. PMHx/PSHx/Social Hx: See Below PHYSICAL EXAM: GENERAL: Patient is in no acute distress. HEENT: No acute trauma, normocephalic atraumatic, mucous membranes quite dry, no nasal congestion. NECK: No stridor, no adenopathy, no meningismus, trachea is midline. LUNGS: Crackles on the left, the right lung is clear. HEART: Without murmurs gallops or rubs, regular rate and rhythm. ABDOMEN: Soft, nontender, no peritonitis. EXTREMITIES: No cyanosis, full range of motion of all the joints without pain or difficulty. NEUROLOGIC: Oriented x 3, no acute motor or sensory deficits, no focal weakness. No speech slur. SKIN: No jaundice, no diaphoresis. DIFFERENTIAL DIAGNOSIS: Bacteremia or sepsis, viral illness, pneumonia, UTI, dehydration, among others. EMERGENCY DEPARTMENT PROCEDURES: MEDICAL DECISION MAKING: There is a mild leukocytosis, this would be consistent with infection. A mild anemia was seen however, the patient has a history of anemia. There was a normal platelet count. No bandemia. INR was high at 4.3, he is somewhat over anticoagulated. There is no renal failure or significant electrolyte abnormality. Lactic acid level was not elevated making severe sepsis less likely. No concerning liver enzyme elevation. Patient appeared to be in a euthyroid state. ECG showed a sinus rhythm, no ischemia or dysrhythmia. Cardiac enzyme testing x 1 was not consistent with acute cardiac injury. Respiratory BioFire was negative. Chest x-ray does show a left-sided pneumonia. On exam, patient seemed dehydrated. He had crackles noted to the left lung on auscultation. A brain CT was done because of his anticoagulation and reported fall. No intracranial bleeding noted. The patient received IV saline, 1 L. He received IV cefepime as antibiotic coverage. He was given IV Tylenol for his fever. Patient presents with weakness. He has slumped to the floor today because of his weakness, no injury reported, no loss of consciousness. When he arrived in the ED, he was febrile. There were no focal neurologic findings, his weakness was diffuse. The patient has pneumonia, I believe this has caused his fever and weakness. Given the circumstances, the patient deserves a hospital stay. Hydration therapy, IV antibiotic therapy and close monitoring is warranted. I spoke with the patient and his family. I did speak with case management. The on-call hospitalist was consulted. Prior/Outside records/notes reviewed: Today's EMS notes describing his presentation and transport at this hospital. ECG per my interpretation: Indication was weakness. The ECG shows a normal sinus rhythm with a rate of 91. There is no ST elevation, no PVCs. The QTc is 418. Continuous Cardiac Monitoring per my interpretation: An order was placed for continuous cardiac monitoring. The monitor shows a rate of 93 with normal sinus rhythm. Imaging/x-ray results per my interpretation: Chest x-ray shows a patchy left lung infiltrate, no pneumothorax. Chronic Medical/Social conditions affecting care: Advanced age, on warfarin therapy. Care/Management discussed with: Case management, the on-call hospitalist. Level of care consideration(s): After review of the information above and other included data: --I believe the patient requires escalation of care to admission Critical Care Note: I have personally spent 49 minutes of critical care time in the direct management of this patient. This includes bedside care, interpretation of diagnostic studies, and testing, discussion with consultants, patient, and family members, and other required patient management activities. This 49 minutes is in excess of all separately billable procedures. DISPOSITION: Admitted Past Med/Surg History Problem List (Updated 03/14/25 @ 15:40 by Yrn Thomson MD) Anticoagulated (Acute) Leukocytosis (Acute) Fall (Acute) Pneumonia (Acute) Weakness (Acute) Paroxysmal atrial fibrillation Ulcerative colitis Factor V Leiden mutation Metabolic encephalopathy Pneumonia Elevated LFTs Status post lumbar spine surgery for decompression of spinal cord Low back pain radiating to right lower extremity Lumbar stenosis with neurogenic claudication Anemia (Acute) Penile swelling (Acute) Lumbar spinal stenosis (Acute) Right lumbar radiculopathy Urine retention Supratherapeutic INR (Acute) Elevated INR (Acute) Chronic pain (Acute) Gluteal pain Myofascial pain Fecal impaction Constipation History of colitis Anticoagulant long-term use (Acute) Vitamin B12 deficiency Subtherapeutic international normalized ratio (INR) Stroke Episodic weakness Paroxysmal atrial fibrillation Hiatal hernia (Acute) LUQ abdominal pain (Acute) Sensorineural hearing loss (SNHL) of both ears Atrial fibrillation (Chronic) Ulcerative colitis (Chronic) Barretts esophagus (Chronic) "EGD 07/29/2014-shows Barretts Esophagus with no CA; follows with GI, Dr. José Luis Richards" Factor V Leiden (Chronic) "on chronic anticoagulation" Medical History Hypertension controlled, stable per pt-increased with pain Hyperlipidemia Ulcerative colitis Arthritis Hx of skin malignancy multiple, removed SNHL (sensorineural hearing loss) 95% hearing loss per pt's Canales esophagus Factor V Leiden Hiatal hernia Paroxysmal atrial fibrillation controlled per pt's , no cards History of stroke (~2022) 2022 > no residual effects > sees neuro [place] History of rectal bleeding resolved Lumbar stenosis with neurogenic claudication Penile swelling improving Gastro-esophageal reflux disease with esophagitis controlled, stable per pt with medication increase History of DVT (deep vein thrombosis) (~2004) left leg > 2004 > no known cause Surgical History History of tonsillectomy History of cholecystectomy History of tooth extraction History of cataract surgery History of colonoscopy History of esophagogastroduodenoscopy (EGD) Family History Other Family history non-contributory Social History Smoking Status: Former smoker Tobacco Type: Cigarettes Age Started Using Tobacco: 17; Age Quit Using Tobacco: 47; packs per day: 0.5; Second Hand Exposure: No; Do You Dip or Chew Tobacco: No; Hx Alcohol Use: Yes Alcohol type: wine Alcohol type Comment: "enough" Hx Substance Use: No Visual Impairment: No Limitations Hearing Ability: Use of Hearing Aid Veneer Joiner Required: No marital status: Current Living Situation: Spouse current occupational status: retired Feels Safe at Home: Yes Diet: regular caffeine: Yes Dental Care, Regularly: No Physical Activity Frequency: Does not Exercise Seatbelt Use: sometimes Sunscreen Use: No Assistive Devices: Denture - Upper, Glasses, Hearing Aid - Bilateral and Walker Allergies Allergies Allergy/AdvReac Type Severity Reaction Status Date / Time red dye AdvReac Severe SEVERE Verified 03/14/25 08:42 MIGRAINES aspirin AdvReac Intermediate UPSETS Verified 03/14/25 08:42 STOMACH codeine AdvReac Intermediate felt Verified 03/14/25 08:42 disoriented cyclobenzaprine AdvReac Intermediate Hallucinati Verified 03/14/25 08:42 [From Flexeril] ng oxycodone AdvReac Intermediate hallucinati Verified 03/14/25 08:42 ons salicylates AdvReac Intermediate upsets Verified 03/14/25 08:42 stomach tramadol AdvReac Intermediate hallucinati Verified 03/14/25 08:42 ons steroids AdvReac Intermediate Facial & Uncoded 03/14/25 08:42 Extremity swelling Home Meds Home Medications Medication Instructions Recorded Confirmed lisinopril 20 mg tablet 20 mg PO QAM 12/17/22 03/14/25 pantoprazole 40 mg tablet,delayed 40 mg PO AMHS 02/10/23 03/14/25 release aspirin 81 mg tablet,delayed 81 mg PO QAM 02/08/25 03/14/25 release (Enteric Coated Aspirin) warfarin 5 mg tablet (Jantoven) 5 mg PO 5XWK 02/28/25 03/14/25 pregabalin 200 mg capsule 200 mg PO BID 03/14/25 03/14/25 warfarin 5 mg tablet (Jantoven) 10 mg PO 2XWK 03/14/25 03/14/25 Previous Rx's Medication Instructions Recorded atorvastatin 40 mg tablet 40 mg PO QAM #30 tabs 09/17/24 tamsulosin 0.4 mg capsule 0.4 mg PO QAM #30 caps 09/15/25 mesalamine 0.375 gram 0.75 g (2 x 0.375 gram) PO AMPM 03/14/25 capsule,extended release 24 hr #360 caps Results & Data (ED) Vital Signs Vital Signs - 24 hr 03/14/25 07:36 03/14/25 07:37 03/14/25 07:42 Temperature 38.2 C H Temperature Source Oral Pulse Rate 87 92 H 88 Pulse Rate from SpO2 Sensor 88 85 Respiratory Rate 13 18 14 Respiratory Effort / Characteristics Non-Labored Spontaneous Respiratory Depth Normal Respiratory Pattern Regular Blood Pressure 158/90 H Blood Pressure Mean 112 Pulse Oximetry 92 98 90 Oxygen Delivery Method Room Air Room Air Room Air Sepsis Recent Fever Within 48 Hours No Sepsis New/Unexplained Change in Mental Status No Sepsis Action Taken by Nursing No Action Required 03/14/25 07:45 03/14/25 08:06 03/14/25 08:12 Temperature Temperature Source Pulse Rate 81 85 Pulse Rate from SpO2 Sensor 77 84 Respiratory Rate 17 24 Respiratory Effort / Characteristics Respiratory Depth Respiratory Pattern Blood Pressure 151/86 H Blood Pressure Mean 100 Pulse Oximetry 94 90 Oxygen Delivery Method Room Air Room Air Sepsis Recent Fever Within 48 Hours Sepsis New/Unexplained Change in Mental Status Sepsis Action Taken by Nursing 03/14/25 08:15 03/14/25 08:16 03/14/25 08:42 Temperature Temperature Source Pulse Rate 84 81 Pulse Rate from SpO2 Sensor 78 Respiratory Rate 19 Respiratory Effort / Characteristics Respiratory Depth Respiratory Pattern Blood Pressure 149/88 H Blood Pressure Mean 106 Pulse Oximetry 91 Oxygen Delivery Method Room Air Sepsis Recent Fever Within 48 Hours Sepsis New/Unexplained Change in Mental Status Sepsis Action Taken by Nursing 03/14/25 08:45 03/14/25 09:00 03/14/25 09:00 Temperature Temperature Source Pulse Rate 76 Pulse Rate from SpO2 Sensor 76 Respiratory Rate 13 Respiratory Effort / Characteristics Respiratory Depth Respiratory Pattern Blood Pressure 134/96 141/75 H Blood Pressure Mean 125 87 Pulse Oximetry 92 Oxygen Delivery Method Room Air Sepsis Recent Fever Within 48 Hours Sepsis New/Unexplained Change in Mental Status Sepsis Action Taken by Nursing 03/14/25 09:15 03/14/25 09:21 03/14/25 09:30 Temperature 37.2 C Temperature Source Oral Pulse Rate Pulse Rate from SpO2 Sensor Respiratory Rate Respiratory Effort / Characteristics Respiratory Depth Respiratory Pattern Blood Pressure 136/80 122/85 Blood Pressure Mean 86 96 Pulse Oximetry Oxygen Delivery Method Sepsis Recent Fever Within 48 Hours Sepsis New/Unexplained Change in Mental Status Sepsis Action Taken by Nursing 03/14/25 09:30 03/14/25 09:39 03/14/25 09:45 Temperature Temperature Source Pulse Rate 77 77 Pulse Rate from SpO2 Sensor Respiratory Rate 19 20 Respiratory Effort / Characteristics Respiratory Depth Respiratory Pattern Blood Pressure 127/79 Blood Pressure Mean 80 Pulse Oximetry Oxygen Delivery Method Sepsis Recent Fever Within 48 Hours Sepsis New/Unexplained Change in Mental Status Sepsis Action Taken by Custodial Medications Current Medication List: was personally reviewed by me Laboratory Data Attestation: I reviewed the patient's lab results. 03/14/25 07:35 03/14/25 07:35 Lab Results 03/14/25 03/14/25 03/14/25 Range/Units 07:35 08:02 08:41 WBC 11.60 H (4.8-10.8) K/ul RBC 4.44 L (4.70-6.10) M/uL Hgb 12.3 L (14.0-18.0) g/dl Hct 39.1 L (42.0-52.0) % MCV 88.1 (80.0-100.0) fL MCH 27.7 (25.0-34.0) pg MCHC 31.5 L (32.0-36.0) g/dL RDW Std Deviation 45.1 (36.4-46.3) fL RDW Coeff of Dmitri 14.0 (11.5-14.5) % Plt Count 198 (130-400) K/uL MPV 10.8 (9.4-12.4) fL Immature Gran % (Auto) 0.5 % Neut % (Auto) 89.6 % Lymph % (Auto) 4.9 % [place]ockley % (Auto) 3.5 % Eos % (Auto) 1.3 % Baso % (Auto) 0.2 % Neut # (Auto) 10.39 H (1.40-6.50) K/uL Lymph # (Auto) 0.57 L (1.20-3.40) K/uL [place] # (Auto) 0.41 (0.11-0.59) K/uL Eos # (Auto) 0.15 (0.00-0.50) K/uL Baso # (Auto) 0.02 (0.00-0.20) K/uL Immature Gran # (Auto) 0.06 (0.01-0.20) K/uL PT Cancelled 40.7 H INR Cancelled 4.3 H Sodium 141 (136-145) mmol/L Potassium 3.8 (3.5-5.1) mmol/L Chloride 109 H (98-107) mmol/L Carbon Dioxide 27 (21-32) mmol/L Anion Gap 5 (3-11) BUN 25 H (6-23) mg/dl Creatinine 0.70 (0.6-1.4) mg/dl Est Cr Clr Drug Dosing 70.6 ml/min eGFR 88.63 BUN/Creatinine Ratio 35.7 H (10-20) Glucose 100 H (70-99(Fasting)) mg/dl Lactate 1.3 (0.4-2.0) mmol/L Calcium 8.5 L (8.6-10.3) mg/dl Magnesium 2.0 (1.7-2.4) mg/dl Total Bilirubin 0.5 (0.2-1.0) mg/dl AST 18 (13-39) U/L ALT 13 (7-52) U/L Alkaline Phosphatase 93 (34-104) U/L Ammonia 21.0 (18-72) umol/L Troponin I High Sens 8.1 (0-20) pg/ml Total Protein 6.5 (6.0-8.3) gm/dl Albumin 3.9 (3.4-5.0) gm/dl Globulin 2.6 (2.5-4.0) gm/dl Albumin/Globulin Ratio 1.5 (0.9-2) Procalcitonin 0.06 (0-0.5) ng/ml TSH 0.884 (0.300-4.500) uIu/ml Adenovirus (PCR) Not Detected (NotDetected) B. pertussis DNA (PCR) Not Detected (NotDetected) B.parapertussis DNA PCR Not Detected (NotDetected) C. pneumoniae DNA (PCR) Not Detected (NotDetected) Coronavirus OC43 (PCR) Not Detected (NotDetected) Coronavirus HKU1 (PCR) Not Detected (NotDetected) Coronavirus 229E (PCR) Not Detected (NotDetected) SARS-CoV-2 (PCR) Not Detected (NotDetected) Coronavirus NL63 (PCR) Not Detected (NotDetected) Human Metapneumovir PCR Not Detected (NotDetected) Influenza Type A (PCR) Not Detected (NotDetected) Influenza Type B (PCR) Not Detected (NotDetected) M. pneumoniae (PCR) Not Detected (NotDetected) Parainfluenza 1 (PCR) Not Detected (NotDetected) Parainfluenza 2 (PCR) Not Detected (NotDetected) Parainfluenza 3 (PCR) Not Detected (NotDetected) Parainfluenza 4 (PCR) Not Detected (NotDetected) RSV (PCR) Not Detected (NotDetected) Entero/Rhino (PCR) Not Detected (NotDetected) Administered Medications Sodium Chloride (Nss) 1,000 mls @ 100 mls/hr IV .Q10H RAI Stop: 03/17/25 11:50 Last Admin: 03/14/25 12:25 Dose: 100 mls/hr Documented By: MTM Discontinued Medications Sodium Chloride (Nss) 1,000 mls @ 999 mls/hr IV .Q1H1M ONE Stop: 03/14/25 08:27 Last Infusion: 03/14/25 08:47 Dose: Infused Documented By: Admin: 03/14/25 07:47 Dose: 999 mls/hr Documented By: CAP Acetaminophen (Ofirmev) 1,000 mg in 100 mls @ 400 mls/hr IV NOW STA Stop: 03/14/25 07:41 Last Infusion: 03/14/25 09:20 Dose: Infused Documented By: Admin: 03/14/25 08:46 Dose: 400 mls/hr Documented By: CAP Cefepime HCl (Maxipime 2000mg) 2,000 mg in 20 mls @ 5 mls/min IV NOW STA; Protocol Stop: 03/14/25 09:14 Last Admin: 03/14/25 09:20 Dose: 5 mls/min Documented By: MARY ANN Imaging Data Radiologist's Impression: Chest X-Ray 03/14/25 07:22 EXAM: XR chest 1V portable CLINICAL HISTORY: weakness TECHNIQUE: An X-ray image of the chest is obtained in AP portable projection. COMPARISON: Chest x ray 02-04-2025. FINDINGS: Pulmonary Parenchyma: Newly developed left mid and lower zone faint opacities. No evidence of pleural effusion or pleural thickening. Heart and Mediastinum: Heart size and shape are normal. No mediastinal widening or masses. No hilar or mediastinal lymphadenopathy. Bony Thorax: Bony thorax appears intact without fractures or deformities. Soft Tissues: Soft tissues overlying the chest wall are unremarkable. IMPRESSION: Newly developed left mid and lower zone faint opacities can be related to consolidation; follow-up and correlation with clinical condition are recommended. Electronically signed by Juancarlos Flores 03-14-2025 08:[address] 03/14/25 07:27 EXAM: CT head/brain wo con CLINICAL HISTORY: weak, fall TECHNIQUE: An axial non-contrast CT scan of the brain was performed from the skull base to the high parietal region. One of the following dose reduction techniques was utilized for this exam: automated exposure control, adjustment of the mA and/or kV according to patient size, or use of iterative reconstruction. CTDI: 38.2 mGy, DLP: 625.8 mGy-cm. COMPARISON: 02/12/2023 CT. FINDINGS: Brain Parenchyma: Multiple subcortical and periventricular white matter hypodensities likely represent chronic microvascular ischemic changes. There is no evidence of acute infarct, hemorrhage, or mass effect. There are no abnormal areas of hyperattenuation. Ventricular System: A capacious ventricular system is noted, denoting atrophic changes. There is no evidence of hydrocephalus. Subarachnoid Spaces: Capacious CSF spaces denote atrophic changes. There is no evidence of subarachnoid hemorrhage or extra-axial fluid collections. Cerebellum and Brainstem: The cerebellum and brainstem are normal in size and attenuation. There are no masses, lesions, or areas of abnormal attenuation. Orbits: The globes, optic nerves, and extraocular muscles have a normal appearance. There is no evidence of orbital masses or abnormal attenuation. Sinuses: The paranasal sinuses are clear. There is no evidence of sinusitis or mucosal thickening. Mastoid Air Cells: The mastoid air cells are clear. There is no evidence of mastoiditis. Skull and Meninges: Skull morphology is normal. IMPRESSION: 1. There is no evidence of acute intracranial hemorrhage or abnormality. 2. Chronic microvascular ischemic changes and senile brain atrophy changes. 3. There are no significant interval changes compared to the prior study dated 02/12/2023. 4. Early changes of a stroke may not be detected on a CT scan. If there is strong clinical suspicion of stroke, MRI with diffusion-weighted imaging is suggested. Electronically signed by Juancarlos Flores 03-14-2025 08:40 AM Discharge Plan Visit Data Chief Complaint: Weakness Stated Complaint: LEG WEAKNESS, ED Provider: Yrn Thomson Discharge Problem: Weakness, Pneumonia, Fall, Leukocytosis, Anticoagulated Patient Disposition: Admitted As Inpatient Condition: Fair Discharge Problem: Pneumonia Qualifiers: Pneumonia type: due to unspecified organism Laterality: left Lung location: u nspecified part of lung Qualified Code(s): J18.9 - Pneumonia, unspecified organism Fall Qualifiers: Encounter type: initial encounter Qualified Code(s): W19.XXXA - Unspecified fall, initial encounter Leukocytosis Qualifiers: Leukocytosis type: unspecified Qualified Code(s): D72.829 - Elevated white blood cell count, unspecified
[2025-03-14] MEDS: SODIUM CHLORIDE 0.9% 1,000 ML IV ONE (07:47)
[2025-03-14 08:06] LABS: Hematocrit (blood only) 39.1 % (42.0-52.0); Hemoglobin 12.3 g/dl (14.0-18.0); Immature Granulocytes # (auto) 0.06 K/uL (0.01-0.20); Immature Granulocytes % (auto) 0.5 %; Mean Corpuscular Hemoglobin 27.7 pg (25.0-34.0); Mean Corpuscular Volume 88.1 fL (80.0-100.0); Platelet Count 198 K/uL (130-400); RDW Standard Deviation 45.1 fL (36.4-46.3); Red Blood Count 4.44 M/uL (4.70-6.10); White Blood Count 11.60 K/ul (4.8-10.8)
--- NOTE | 2025-03-14 08:31 | XRay Report ---
EXAM: XR chest 1V portable CLINICAL HISTORY: weakness TECHNIQUE: An X-ray image of the chest is obtained in AP portable projection. COMPARISON: Chest x ray 02-04-2025. FINDINGS: Pulmonary Parenchyma: Newly developed left mid and lower zone faint opacities. No evidence of pleural effusion or pleural thickening. Heart and Mediastinum: Heart size and shape are normal. No mediastinal widening or masses. No hilar or mediastinal lymphadenopathy. Bony Thorax: Bony thorax appears intact without fractures or deformities. Soft Tissues: Soft tissues overlying the chest wall are unremarkable. IMPRESSION: Newly developed left mid and lower zone faint opacities can be related to consolidation; follow-up and correlation with clinical condition are recommended. Electronically signed by Juancarlos Flores 03-14-2025 08:30 AM
[2025-03-14 08:33] LABS: Alanine Aminotransferase 13.0 U/L (7-52); Albumin Globulin Ratio 1.5 (0.9-2); Alkaline Phosphatase 93.0 U/L (34-104); Anion Gap 5.0 (3-11); Bilirubin,Total 0.5 mg/dl (0.2-1.0); Blood Urea Nitrogen 25.0 mg/dl (6-23); Calcium 8.5 mg/dl (8.6-10.3); Carbon Dioxide 27.0 mmol/L (21-32); Chloride 109.0 mmol/L (98-107); Creatinine Clr Calc Pharmacy 70.6 ml/min; Globulin 2.6 gm/dl (2.5-4.0); Glucose 100.0 mg/dl (70-99(Fasting)); Magnesium 2.0 mg/dl (1.7-2.4); Potassium 3.8 mmol/L (3.5-5.1); Sodium 141.0 mmol/L (136-145); Total Protein 6.5 gm/dl (6.0-8.3)
--- NOTE | 2025-03-14 08:40 | CT Scan Report ---
EXAM: CT head/brain wo con CLINICAL HISTORY: weak, fall TECHNIQUE: An axial non-contrast CT scan of the brain was performed from the skull base to the high parietal region. One of the following dose reduction techniques was utilized for this exam: automated exposure control, adjustment of the mA and/or kV according to patient size, or use of iterative reconstruction. CTDI: 38.2 mGy, DLP: 625.8 mGy-cm. COMPARISON: 02/12/2023 CT. FINDINGS: Brain Parenchyma: Multiple subcortical and periventricular white matter hypodensities likely represent chronic microvascular ischemic changes. There is no evidence of acute infarct, hemorrhage, or mass effect. There are no abnormal areas of hyperattenuation. Ventricular System: A capacious ventricular system is noted, denoting atrophic changes. There is no evidence of hydrocephalus. Subarachnoid Spaces: Capacious CSF spaces denote atrophic changes. There is no evidence of subarachnoid hemorrhage or extra-axial fluid collections. Cerebellum and Brainstem: The cerebellum and brainstem are normal in size and attenuation. There are no masses, lesions, or areas of abnormal attenuation. Orbits: The globes, optic nerves, and extraocular muscles have a normal appearance. There is no evidence of orbital masses or abnormal attenuation. Sinuses: The paranasal sinuses are clear. There is no evidence of sinusitis or mucosal thickening. Mastoid Air Cells: The mastoid air cells are clear. There is no evidence of mastoiditis. Skull and Meninges: Skull morphology is normal. IMPRESSION: 1. There is no evidence of acute intracranial hemorrhage or abnormality. 2. Chronic microvascular ischemic changes and senile brain atrophy changes. 3. There are no significant interval changes compared to the prior study dated 02/12/2023. 4. Early changes of a stroke may not be detected on a CT scan. If there is strong clinical suspicion of stroke, MRI with diffusion-weighted imaging is suggested. Electronically signed by Juancarlos Flores 03-14-2025 08:40 AM
[2025-03-14] MEDS: ACETAMINOPHEN 1,000 MG/100 ML VIAL IV STA (08:46)
[2025-03-14 08:49] LABS: Thyroid Stimulating Hormone 0.884 uIu/ml (0.300-4.500)
[2025-03-14 08:55] LABS: Chlamydia pneumoniae PCR Not Detected (NotDetected); Coronavirus 229E PCR Not Detected (NotDetected); Coronavirus CoV-2 (COVID19)PCR Not Detected (NotDetected); Coronavirus HKU1 PCR Not Detected (NotDetected); Coronavirus NL63 PCR Not Detected (NotDetected); Coronavirus OC43PCR Not Detected (NotDetected); Human Metapneumovirus PCR Not Detected (NotDetected); Parainfluenza Virus 1 PCR Not Detected (NotDetected); Parainfluenza Virus 2 PCR Not Detected (NotDetected); Parainfluenza Virus 3 PCR Not Detected (NotDetected); Parainfluenza Virus 4 PCR Not Detected (NotDetected); Respiratory Syncytial VirusPCR Not Detected (NotDetected); Rhinovirus/Enterovirus PCR Not Detected (NotDetected)
[2025-03-14] MEDS: CEFEPIME 2000MG 2,000 MG/20 ML SYR IV STA (09:20)
[2025-03-14 09:23] LABS: INR 4.3 (0.9-1.1); Prothrombin Time 40.7 Seconds (9.0-12.0)
--- NOTE | 2025-03-14 10:02 | History & Physical Report ---
Date of Service March 14, 2025 Assessment & Plan (1) Pneumonia: Plan: Community-acquired. Left-sided. Cefepime administered in the ED and will be continued. Sputum and blood cultures ordered and pending. Supportive care. Serial chest x-ray (2) Metabolic encephalopathy: Plan: Supportive care. Treat underlying pneumonia. Hold all MANAGER LVN affecting medications for now (3) Factor V Leiden mutation: Plan: He takes Coumadin chronically. INR is elevated at 4.3 and Coumadin is on hold (4) Ulcerative colitis: Plan: Stable. Continue mesalamine when taking p.o. (5) Paroxysmal atrial fibrillation: Plan: Currently in normal sinus rhythm. He takes Coumadin chronically. Coumadin is on hold for elevated INR of 4.3 Plan Eventual discharge back to home hopefully within the next 2 to 3 days History of Present Illness Chief Complaint: Pneumonia, encephalopathy Primary Care Provider: Will Mueller, DO 89-year-old white male who has been ill for the past 2 days according to his . He developed a fever nonproductive cough along with mental status changes and generalized weakness. He came to the ED for evaluation today, March 14. He was found to have left-sided pneumonia with fever and mildly elevated white blood cell count. He has acute metabolic encephalopathy. Fortunately, oxygen saturations are acceptable. INR is elevated at 4.3. He is on chronic Coumadin therapy for factor V Leiden deficiency. He apparently fell at home but no evidence of intracranial hemorrhage seen on head CT scan. Fortunately he is on room air. He is admitted for further evaluation and treatment Allergies Allergy/AdvReac Type Severity Reaction Status Date / Time red dye AdvReac Severe SEVERE Verified 03/14/25 08:42 MIGRAINES aspirin AdvReac Intermediate UPSETS Verified 03/14/25 08:42 STOMACH codeine AdvReac Intermediate felt Verified 03/14/25 08:42 disoriented cyclobenzaprine AdvReac Intermediate Hallucinati Verified 03/14/25 08:42 [From Flexeril] ng oxycodone AdvReac Intermediate hallucinati Verified 03/14/25 08:42 ons salicylates AdvReac Intermediate upsets Verified 03/14/25 08:42 stomach tramadol AdvReac Intermediate hallucinati Verified 03/14/25 08:42 ons steroids AdvReac Intermediate Facial & Uncoded 03/14/25 08:42 Extremity swelling Home Medications Medication Instructions Recorded Confirmed Type lisinopril 20 mg tablet 20 mg PO QAM 12/17/22 03/14/25 History pantoprazole 40 mg tablet,delayed 40 mg PO AMHS 02/10/23 03/14/25 History release atorvastatin 40 mg tablet 40 mg PO QAM #30 tabs 09/17/24 03/14/25 Rx aspirin 81 mg tablet,delayed 81 mg PO QAM 02/08/25 03/14/25 History release (Enteric Coated Aspirin) warfarin 5 mg tablet (Jantoven) 5 mg PO 5XWK 02/28/25 03/14/25 History tamsulosin 0.4 mg capsule 0.4 mg PO QAM #30 caps 03/11/25 03/14/25 Rx mesalamine 0.375 gram 0.75 g (2 x 0.375 gram) PO AMPM 03/14/25 03/14/25 Rx capsule,extended release 24 hr #360 caps pregabalin 200 mg capsule 200 mg PO BID 03/14/25 03/14/25 History warfarin 5 mg tablet (Jantoven) 10 mg PO 2XWK 03/14/25 03/14/25 History Past Med/Surg History Problem List (Updated 03/14/25 @ 10:07 by Rojas Germain MD) Paroxysmal atrial fibrillation Ulcerative colitis Factor V Leiden mutation Metabolic encephalopathy Pneumonia Elevated LFTs Status post lumbar spine surgery for decompression of spinal cord Low back pain radiating to right lower extremity Lumbar stenosis with neurogenic claudication Anemia (Acute) Penile swelling (Acute) Lumbar spinal stenosis (Acute) Right lumbar radiculopathy Urine retention Supratherapeutic INR (Acute) Elevated INR (Acute) Chronic pain (Acute) Gluteal pain Myofascial pain Fecal impaction Constipation History of colitis Anticoagulant long-term use (Acute) Vitamin B12 deficiency Subtherapeutic international normalized ratio (INR) Stroke Episodic weakness Paroxysmal atrial fibrillation Hiatal hernia (Acute) LUQ abdominal pain (Acute) Sensorineural hearing loss (SNHL) of both ears Atrial fibrillation (Chronic) Ulcerative colitis (Chronic) Barretts esophagus (Chronic) "EGD 07/29/2014-shows Barretts Esophagus with no CA; follows with GI, Dr. José Luis Richards" Factor V Leiden (Chronic) "on chronic anticoagulation" Medical History Hypertension controlled, stable per pt-increased with pain Hyperlipidemia Ulcerative colitis Arthritis Hx of skin malignancy multiple, removed SNHL (sensorineural hearing loss) 95% hearing loss per pt's Canales esophagus Factor V Leiden Hiatal hernia Paroxysmal atrial fibrillation controlled per pt's , no cards History of stroke (~2022) 2022 > no residual effects > sees neuro [place] History of rectal bleeding resolved Lumbar stenosis with neurogenic claudication Penile swelling improving Gastro-esophageal reflux disease with esophagitis controlled, stable per pt with medication increase History of DVT (deep vein thrombosis) (~2004) left leg > 2004 > no known cause Surgical History History of tonsillectomy History of cholecystectomy History of tooth extraction History of cataract surgery History of colonoscopy History of esophagogastroduodenoscopy (EGD) Family History Other Family history non-contributory Social History (Updated 03/11/25 @ 13:40 by Peggy Carbajal) Smoking Status: Former smoker Tobacco Type: Cigarettes Age Started Using Tobacco: 17; Age Quit Using Tobacco: 47; packs per day: 0.5; Cigarettes Per Day: "alot"; Second Hand Exposure: No; Do You Dip or Chew Tobacco: No; Hx Alcohol Use: Yes Alcohol type: wine Alcohol type Comment: "enough" Hx Substance Use: No Preferred Language: Honduran Communication Ability: Effective Communication Ability Comment: deaf, 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, read writing Visual Impairment: No Limitations Hearing Ability: Use of Hearing Aid Wine Merchant Required: No Beliefs That Will Affect Care: None marital status: Current Living Situation: Spouse Current Living Situation Comment: current occupational status: retired Feels Safe at Home: Yes Diet: regular caffeine: Yes Dental Care, Regularly: No Physical Activity Frequency: Does not Exercise Seatbelt Use: sometimes Sunscreen Use: No Assistive Devices: None Review of Systems 2 Review of Systems: The patient is very hard of hearing and encephalopathic and unable to reliably answer any questions regarding review of systems at this time Physical Exam 2 Physical Exam: General-awake but lethargic. Low-grade fever. HEENT-head atraumatic and normocephalic, pupils equal and reactive to light, extraocular muscles intact Neck-no lymphadenopathy or thyromegaly, trachea midline Chest-clear to auscultation. No rales, wheezing or rhonchi Cardiac-regular rate and rhythm, normal S1 and S2 Abdomen-normal bowel sounds, no hepatosplenomegaly Extremities-no cyanosis, clubbing, or edema Neuro-cranial nerves II through XII intact, motor and sensory function within normal limits, strength symmetrical with generalized weakness, no focal deficits Psych-encephalopathic. Cannot assess Results & Data Results & Data Vital Signs (Past 12 Hours) Vital Signs Temp Pulse Resp BP Pulse Ox O2 Del Method 03/14/25 09:21 37.2 C 03/14/25 08:16 84 03/14/25 07:37 38.2 C H 92 H 18 158/90 H 98 Room Air Laboratory Results 03/14/25 07:35 03/14/25 07:35 Code Status & VTE Plan Code Status Full code PG Care Time/CCT Total # of Minutes Spent Total Time Spent with Patient: Total time spent is greater than 50% in coordination of care (as documented) at patient's floor/unit and/or counseling patient: Coding Level of Care Code 78073 INT INP/OBS CARE 3/75MIN Diagnoses Pneumonia J18.9 Metabolic encephalopathy G93.41 Factor V Leiden mutation D68.51 Ulcerative colitis K51.90 Paroxysmal atrial fibrillation I48.0
[2025-03-14] MEDS ORDERED: ONDANSETRON INJ 2 MG/ML 2 ML VIAL IV PRN (11:51)
[2025-03-14] MEDS ORDERED: ACETAMINOPHEN 1,000 MG/100 ML VIAL IV PRN (11:51)
[2025-03-14] MEDS: SODIUM CHLORIDE 0.9% 1,000 ML IV SCH (12:25)
[2025-03-14] MEDS: CEFEPIME 2000MG 2,000 MG/20 ML SYR IV SCH (17:25)
[2025-03-14 21:29] LABS: Appearance Urine Clear (Clear); Bacteria Urine Automated None Seen (None Seen); Cast Urine Automated 0-2 /lpf (0-2); Epithelial Cell Urine Auto 0-2 /hpf (0-2); Glucose Urine UA Negative (Negative); RBC Urine Automated 0-2 /hpf (0-2); WBC Urine Automated 0-5 /hpf (0-5)
[2025-03-15 09:06] LABS: Hematocrit (blood only) 35.3 % (42.0-52.0); Hemoglobin 11.2 g/dl (14.0-18.0); Immature Granulocytes # (auto) 0.03 K/uL (0.01-0.20); Immature Granulocytes % (auto) 0.3 %; Mean Corpuscular Hemoglobin 27.8 pg (25.0-34.0); Mean Corpuscular Volume 87.6 fL (80.0-100.0); Platelet Count 167 K/uL (130-400); RDW Standard Deviation 44.3 fL (36.4-46.3); Red Blood Count 4.03 M/uL (4.70-6.10); White Blood Count 8.69 K/ul (4.8-10.8)
[2025-03-15 09:22] LABS: Anion Gap 4.0 (3-11); Blood Urea Nitrogen 18.0 mg/dl (6-23); Calcium 7.8 mg/dl (8.6-10.3); Carbon Dioxide 25.0 mmol/L (21-32); Chloride 110.0 mmol/L (98-107); Creatinine Clr Calc Pharmacy 81.0 ml/min; Glucose 89.0 mg/dl (70-99(Fasting)); Potassium 3.9 mmol/L (3.5-5.1); Sodium 139.0 mmol/L (136-145)
[2025-03-15 09:47] LABS: INR 4.9 (0.9-1.1); Prothrombin Time 46.1 Seconds (9.0-12.0)
[2025-03-15] MEDS: ASPIRIN 81 MG ECTAB PO SCH (12:19)
[2025-03-15] MEDS: MESALAMINE 800 MG TABCR PO SCH (12:19)
[2025-03-15] MEDS: TAMSULOSIN HCL 0.4 MG CAP PO SCH (12:19)
[2025-03-15] MEDS: ATORVASTATIN 40 MG TAB PO SCH (12:20)
[2025-03-15] MEDS: PREGABALIN 75 MG CAP PO SCH (12:23)
--- NOTE | 2025-03-15 13:56 | Hospitalist Progress Note ---
Date of Service March 15, 2025 Assessment & Plan (1) Pneumonia: Plan: Community-acquired. Left-sided. Cefepime administered in the ED and will be continued. Currently day 2. No sputum obtained for culture. Repeat chest x- ray again tomorrow, March 16. Fortunately he is on room air (2) Metabolic encephalopathy: Plan: Present on admission. Now resolved. Lyrica has been restarted at a lower dose (3) Factor V Leiden mutation: Plan: He takes Coumadin chronically. INR is higher today at 4.9. No active bleeding. Coumadin remains on hold (4) Ulcerative colitis: Plan: Stable. Continue mesalamine therapy (5) Paroxysmal atrial fibrillation: Plan: Currently in normal sinus rhythm. He takes Coumadin chronically. Coumadin is on hold for elevated INR Plan Hopeful discharge back to home tomorrow, March 16 Admission and Anticipated Discharge Date Admission Date: March 14, 2025 Subjective Alert and oriented now. He is requesting his usual medications. He remains on intravenous cefepime, day 2. Will repeat chest x-ray again tomorrow, March 16. INR is risen further to 4.9. No active bleeding however. Coumadin remains on hold. He is on room air Review of Systems 2 Review of Systems: Constitutionalno fever or chills ENTno blurred vision, no double vision, no epistaxis, no sore throat Respiratorynonproductive cough. No hemoptysis. No wheezing. No shortness of breath at rest Cardiacno palpitations, no chest pain, no syncope Yang nausea, vomiting, diarrhea, melena, hematochezia GUno urinary retention, no urinary incontinence, no dysuria, no hematuria Musculoskeletalno joint pain, no muscle tenderness Skinno bruising, no rashes, no pruritus Neurono isolated weakness, no paresthesia, no weakness Psychno depression, no anxiety Physical Exam 2 Physical Exam: General-alert and oriented x3, no fever, no chills HEENT-head atraumatic and normocephalic, pupils equal and reactive to light, extraocular muscles intact Neck-no lymphadenopathy or thyromegaly, trachea midline Chest-rhonchi noted left lung posteriorly. No inspiratory rales or wheezing Cardiac -regular rate and rhythm, normal S1 and S2 Abdomen-normal bowel sounds, no hepatosplenomegaly Extremities-no cyanosis, clubbing, or edema Neuro-cranial nerves II through XII intact, motor and sensory function within normal limits, strength symmetrical, no focal deficits Psych-normal affect, normal mood Results & Data Results & Data Vital Signs (Past 12 Hours) Vital Signs Temp Pulse Pulse Pulse Resp BP Pulse Ox 03/15/25 11:20 36.7 C 62 18 160/81 H 96 03/15/25 07:56 37.3 C 66 18 145/82 H 93 03/15/25 07:22 68 03/15/25 03:30 37.2 C 64 16 157/84 H 95 O2 Del Method 03/15/25 11:20 Room Air 03/15/25 07:56 Room Air 03/15/25 07:22 03/15/25 03:30 Room Air Laboratory Results 03/15/25 08:31 03/15/25 08:31 PG Care Time/CCT Total # of Minutes Spent Total Time Spent with Patient: Total time spent is greater than 50% in coordination of care (as documented) at patient's floor/unit and/or counseling patient: Coding Level of Care Code 04551 SUB INP/OBS CARE 2/35MIN Diagnoses Pneumonia J18.9 Metabolic encephalopathy G93.41 Factor V Leiden mutation D68.51 Ulcerative colitis K51.90 Paroxysmal atrial fibrillation I48.0
[2025-03-16 04:12] VITALS: RESP 18
[2025-03-16 06:14] LABS: Hematocrit (blood only) 36.6 % (42.0-52.0); Hemoglobin 11.3 g/dl (14.0-18.0); Immature Granulocytes # (auto) 0.02 K/uL (0.01-0.20); Immature Granulocytes % (auto) 0.3 %; Mean Corpuscular Hemoglobin 26.7 pg (25.0-34.0); Mean Corpuscular Volume 86.5 fL (80.0-100.0); Platelet Count 174 K/uL (130-400); RDW Standard Deviation 43.8 fL (36.4-46.3); Red Blood Count 4.23 M/uL (4.70-6.10); White Blood Count 7.16 K/ul (4.8-10.8)
[2025-03-16 06:27] LABS: Anion Gap 6.0 (3-11); Blood Urea Nitrogen 15.0 mg/dl (6-23); Calcium 8.2 mg/dl (8.6-10.3); Carbon Dioxide 26.0 mmol/L (21-32); Chloride 107.0 mmol/L (98-107); Creatinine Clr Calc Pharmacy 73.7 ml/min; Glucose 86.0 mg/dl (70-99(Fasting)); Potassium 3.7 mmol/L (3.5-5.1); Sodium 139.0 mmol/L (136-145)
--- NOTE | 2025-03-16 06:32 | Electrocardiogram Report ---
Test Reason : Blood Pressure : */* mmHG Vent. Rate : 91 BPM Atrial Rate : 91 BPM P-R Int : 164 ms QRS Dur : 82 ms QT Int : 340 ms P-R-T Axes : 41 8 55 degrees QTcB Int : 418 ms Normal sinus rhythm Low voltage QRS Borderline ECG When compared with ECG of 04-Feb-2025 14:56, No significant change was found Confirmed by Geovany De La Cruz ([id number]) on 03/16/2025 6:32:00 AM Referred By: REFERRED SELF Confirmed By: Geovany De La Cruz
[2025-03-16 06:38] LABS: INR 3.3 (0.9-1.1); Prothrombin Time 31.9 Seconds (9.0-12.0)
[2025-03-16 07:17] VITALS: BP 163/88; TEMP 98.2; O2SAT 96
--- NOTE | 2025-03-16 09:37 | XRay Report ---
Clinical History: Pneumonia Technique: PA and lateral views of the chest were obtained Comparison is made to the prior examination dated 03/14/2025 Findings: There has been partial resolution of the previously seen left lung pneumonia with mild left lower lobe infiltrate remaining. The heart size is within normal limits. No pleural effusion or pneumothorax is seen. There is no definite pulmonary nodule. No fracture is noted. There is a large hiatal hernia Impression: 1. Left lower lobe pneumonia, somewhat improved from before 2. Large hiatal hernia ACT 112: Positive. There are findings on this exam that require communication between the performing entity and the patient following Patient Test Result Information Act ([place] ACT 112) guidelines. Electronically signed by Tod Lindquist 03-16-2025 09:37 AM
--- NOTE | 2025-03-16 10:25 | Discharge Summary ---
Discharge Summary Date of Service March 16, 2025 Principal Dx & Hospital Course #1 = Principal Diagnosis (1) Pneumonia: Community-acquired. Left-sided. Treated with cefepime while hospitalized. No sputum obtained for culture. He will continue with Augmentin for 10 more days at discharge. Repeat chest x-ray done today, March 16, looks better. Fortunately he is on room air (2) Metabolic encephalopathy: Present on admission. Now resolved. Lyrica has been restarted at a lower dose (3) Factor V Leiden mutation: He takes Coumadin chronically. INR has improved now to 3.3. Will restart Co umadin tomorrow, March 17. (4) Ulcerative colitis: Stable. Continue mesalamine therapy (5) Paroxysmal atrial fibrillation: Currently in normal sinus rhythm. He takes Coumadin chronically. Coumadin was held while hospitalized due to elevated INR and will be restarted tomorrow, March 17. Plan Home today, March 16 Admission HPI Per Admitting Provider 89-year-old white male who has been ill for the past 2 days according to his . He developed a fever nonproductive cough along with mental status changes and generalized weakness. He came to the ED for evaluation today, March 14. He was found to have left-sided pneumonia with fever and mildly elevated white blood cell count. He has acute metabolic encephalopathy. Fortunately, oxygen saturations are acceptable. INR is elevated at 4.3. He is on chronic Coumadin therapy for factor V Leiden deficiency. He apparently fell at home but no evidence of intracranial hemorrhage seen on head CT scan. Fortunately he is on room air. He is admitted for further evaluation and treatment Discharge Exam General-alert and oriented x3, no fever, no chills HEENT-head atraumatic and normocephalic, pupils equal and reactive to light, extraocular muscles intact Neck-no lymphadenopathy or thyromegaly, trachea midline Chest-rhonchi noted left lung posteriorly. No inspiratory rales or wheezing Cardiac -regular rate and rhythm, normal S1 and S2 Abdomen-normal bowel sounds, no hepatosplenomegaly Extremities-no cyanosis, clubbing, or edema Neuro-cranial nerves II through XII intact, motor and sensory function within normal limits, strength symmetrical, no focal deficits Psych-normal affect, normal mood Discharge Plan Discharge Items Patient Disposition: Home - Self-Care Reason For Visit: PNEUMONIA, ENCEPHALOPATHY Discharge Diagnosis: Community-acquired pneumonia, metabolic encephalopathy, Coumadin toxicity Condition on Discharge: Good Activity: Resume your previous activity Non-emergency contact: Primary Care Provider Call non-emergency contact if: your symptoms worsen Follow-up/Referrals: Will Mueller DO [Primary Care Provider] - Diet: Regular and Heart Healthy Addtl Attending Provider Instructions: Take amoxicillin/clavulanate twice daily for 10 more days. Do not take Coumadin today but start Coumadin tomorrow, March 17. All other medications remain the same with decrease in Lyrica dosage back to 75 mg twice daily. Follow-up with primary care provider soon as possible Pending Studies at Discharge: No Stand-Alone Forms: My [facility] [employer], Smoking Cessation Medications and DC Order Prescriptions: New amoxicillin-pot clavulanate 875-125 mg tablet 1 tab PO BID Qty: 20 0RF Continued warfarin [Jantoven] 5 mg tablet 5 mg PO 5XWK Rx Instructions: Hold x4(02/28/25 thru 03/03/25), then 10mg q Tuesday, Tuesday; 5mg x 5 days per [facility] orally use as directed; in the morning atorvastatin 40 mg tablet 40 mg PO QAM Qty: 30 5RF mesalamine 0.375 gram capsule,extended release 24hr 0.75 g PO AMPM Qty: 360 0RF Rx Instructions: TAKE 2 CAPSULES IN AM & PM tamsulosin 0.4 mg capsule 0.4 mg PO QAM Qty: 30 0RF pantoprazole 40 mg tablet,delayed release (DR/EC) 40 mg PO AMHS lisinopril 20 mg tablet 20 mg PO QAM warfarin [Jantoven] 5 mg tablet 10 mg PO 2XWK Rx Instructions: Hold x4(02/28/25 thru 03/03/25), then 10mg q Tuesday, Tuesday; 5mg x 5 days per [facility] orally use as directed; In the mornings pregabalin 200 mg capsule 200 mg PO BID Patient Comments: Pt started this new dose on 03/12/25 per PCP instruction. 03/14/25 aspirin [Enteric Coated Aspirin] 81 mg tablet,delayed release (DR/EC) 81 mg PO QAM Discharge Orders: Discharge Order (Routine); Ordered 03/16/25 Ordered By: Rojas Germain Admission Data Admit Date/Time: 03/14/25 09:54 Attending Provider: Rojas Germain Admit Provider: Rojas Germain Primary Care Provider: Will Mueller Other Providers: Rojas Germain Hospital Stay Data Consultations 03/14/25 09:12 ED Decision to Admit Stat Diagnostic Imagining Performed 03/14/25 07:27 CT head/brain wo con Stat Pending Results Patient Have Any Pending Studies at Discharge: No Discharge Instructions Given to Patient (Per Discharging Provider) Take amoxicillin/clavulanate twice daily for 10 more days. Do not take Coumadin today but start Coumadin tomorrow, March 17. All other medications remain the same with decrease in Lyrica dosage back to 75 mg twice daily. Follow-up with primary care provider soon as possible Total Time Total Time Spent Total Time Spent (In Minutes): 45-minute Coding Level of Care Code 79402 INP/OBS DISCH >30 MIN Diagnoses Pneumonia J18.9 Metabolic encephalopathy G93.41 Factor V Leiden mutation D68.51 Ulcerative colitis K51.90 Paroxysmal atrial fibrillation I48.0
[2025-03-16 11:19] VITALS: PULSE 69
== END 2025-03-16 12:11 | disposition home or self-care (01) | DRG 193 ==
LOC: SUATTDRO → ED 07:18 → 2N 09:54

== ENCOUNTER 2025-04-15 08:24 | Inpatient (IN) ==
--- NOTE | 2025-04-08 11:31 | Anesthesiology Consultation ---
Date of Service April 08, 2025 Assessment & Plan (1) Encounter for pre-operative examination: Plan - Case discussed in detail with Dr. Perez who advised sending workload note to MD PCP for clearance given hospitalization/pneumonia with improving symptoms at 03/25 visit. Workload note sent. Surgeon's office made aware. - check coags STAT am DOS. - PCP hospital f/u 03/25/25 [facility]: "...doing well following hospital discharge. He h as about 1-2 days left of antibiotics to take following pneumonia infection. No concerns regarding pneumonia hospitalization. Pt does note that he is having ongoing R hip pain. He is scheduled to see Dr. Purvis on 03/29..." - discharge summary 03/14/25 [facility]: "...Pneumonia: Community-acquired. Left- sided. Treated with cefepime while hospitalized. No sputum obtained for c ulture. He will continue with Augmentin for 10 more days at discharge. Repeat chest x-ray done today, March 16, looks better. Fortunately he is on room air. Metabolic encephalopathy: Present on admission. Now resolved. Lyrica has been restarted at a lower dose...INR has improved now to 3.3. Will restart Coumadin tomorrow, March 17..." Chart Review Chart Review: Pending: Refer to Additional Notes / Consult section and Patient NOT seen in Pre Admission Testing History Surgery Operation Date: 04/15/25 10:05 Proposed Procedures p L4-5 Lateral Interbody Fusion Posterior Percutaneous Screws Spinal Cord Monitoring - Vincent Purvis MD Height/Weight Height: 5 ft 8 in Weight: 72.575 kg Allergies Allergy/AdvReac Type Severity Reaction Status Date / Time red dye AdvReac Severe Severe Verified 04/08/25 10:19 Migraines aspirin AdvReac Intermediate Upset Verified 04/08/25 10:19 Stomach codeine AdvReac Intermediate felt Verified 04/08/25 10:19 disoriented cyclobenzaprine AdvReac Intermediate Hallucinati Verified 04/08/25 10:19 [From Flexeril] ng oxycodone AdvReac Intermediate hallucinati Verified 04/08/25 10:19 ons salicylates AdvReac Intermediate upsets Verified 04/08/25 10:19 stomach tramadol AdvReac Intermediate hallucinati Verified 04/08/25 10:19 ons steroids AdvReac Intermediate Facial & Uncoded 04/08/25 10:19 Extremity swelling Medications Home Medications Medication Instructions Recorded Confirmed Last Taken lisinopril 20 mg tablet 20 mg PO QAM 12/17/22 04/08/25 03/14/25 pantoprazole 40 mg tablet,delayed 40 mg PO AMHS 02/10/23 04/08/25 03/14/25 release aspirin 81 mg tablet,delayed 81 mg PO QAM 02/08/25 04/08/25 03/14/25 release (Enteric Coated Aspirin) tamsulosin 0.4 mg capsule 0.4 mg PO QAM #30 caps 03/11/25 04/08/25 03/14/25 mesalamine 0.375 gram 0.75 g (2 x 0.375 gram) PO AMPM 03/14/25 04/08/25 03/14/25 capsule,extended release 24 hr #360 caps atorvastatin 40 mg tablet 40 mg PO QAM #30 tabs 03/19/25 04/08/25 Unknown warfarin 5 mg tablet (Jantoven) 5 mg PO [id number] 03/25/25 04/08/25 Unknown hydrocodone 5 mg-acetaminophen 325 1 tab PO BID PRN pain #20 tabs 04/03/25 04/08/25 Unknown mg tablet polyethylene glycol 3350 17 17 g PO DAILY 04/08/25 04/08/25 Unknown gram/dose oral powder (Miralax) pregabalin 75 mg capsule (Lyrica) 75 mg PO TID 04/08/25 04/08/25 Unknown Past Medical History Medical History (Updated 04/08/25 @ 11:16 by Vanessa Haley PA-C) Adverse effect of anesthesia "Long time ago with toe surgery, slow to wake" no issues since Anemia no blood transfusion/iron infusion Anticoagulated [facility] - warfarin Arthritis Canales esophagus Factor V Leiden [facility] Gastro-esophageal reflux disease with esophagitis controlled, stable per pt with medication increase Hiatal hernia History of abdominal pain denies at this time History of DVT (deep vein thrombosis) (~2004) left leg > 2004 > no known cause History of fall 02/2025 - [facility] ER - no falls since History of pneumonia 02/2025 - resolved History of rectal bleeding resolved History of stroke (~2022) 2022 > no residual effects > [facility] History of weakness pts denies at this time for patient Hx of skin malignancy multiple, removed Hyperlipidemia Hypertension controlled, stable per pt-increased with pain Lumbar stenosis with neurogenic claudication Metabolic encephalopathy emr 02/2025 - pts unsure Paroxysmal atrial fibrillation controlled per pt's , doesn't follow with Cardiology Penile swelling Resolved - reason for tamsulosin SNHL (sensorineural hearing loss) 95% hearing loss per pt's - Bilateral Hearing Aids Ulcerative colitis Past Family History Family History Other Family history non-contributory Past Surgical History Surgical History History of cataract surgery bilateral History of cholecystectomy History of colonoscopy most recently 11/2024 History of esophagogastroduodenoscopy (EGD) History of foot surgery Left - toe amputation History of lumbar spinal fusion (02/12/25) pts denies hardware History of tonsillectomy pt's unsure but thinks he had tonsillectomy History of tooth extraction Upper Partial Social History Smoking Status: Never smoker Do You Dip or Chew Tobacco: No Hx Alcohol Use: Yes Alcohol type: wine alcohol intake frequency: a few times a month Hx Substance Use: No substance use type: does not use Lab Results Anesthesia Preop Results Results Anesthesia Widget: WBC 7.16 K/ul (4.8-10.8) 03/16/25 Hgb 11.3 g/dl (14.0-18.0) L 03/16/25 Hct 36.6 % (42.0-52.0) L 03/16/25 Plt 174 K/uL (130-400) 03/16/25 Na 139 mmol/L (136-145) 03/16/25 K 3.7 mmol/L (3.5-5.1) 03/16/25 Cl 107 mmol/L (98-107) 03/16/25 CO2 26 mmol/L (21-32) 03/16/25 BUN 15 mg/dl (6-23) 03/16/25 Creat 0.67 mg/dl (0.6-1.4) 03/16/25 Glucose Level 86 mg/dl (70-99(Fasting)) 03/16/25 PT 31.9 Seconds (9.0-12.0) H 03/16/25 PTT 28 Seconds (21-31) 02/12/25 INR 3.3 (0.9-1.1) H 03/16/25 TSH 0.884 uIu/ml (0.300-4.500) 03/14/25 HA1c 5.5 % (4.5-5.6) 02/08/25 Urine Color Yellow 03/14/25 Urine Appearance Clear (Clear) 03/14/25 Urine pH 6.0 (4.5-7.5) 03/14/25 Urine Specific Steele 1.018 (1.000-1.030) 03/14/25 Urine Protein Negative (Negative) 03/14/25 Urine Glucose (UA) Negative (Negative) 03/14/25 Urine Ketones Negative (Negative) 03/14/25 Urine Blood Negative (Negative) 03/14/25 Urine Nitrite Negative (Negative) 03/14/25 Urine Bilirubin Negative (Negative) 03/14/25 Urine Urobilinogen Negative (Negative) 03/14/25 Urine Leukocyte Esterase Trace (Negative) H 03/14/25 Urine WBC (Auto) 0-5 /hpf (0-5) 03/14/25 Urine RBC (Auto) 0-2 /hpf (0-2) 03/14/25 Urine Hyaline Casts (Auto) 0-2 /lpf (0-2) 03/14/25 Urine Epithelial Cells (Auto) 0-2 /hpf (0-2) 03/14/25 Urine Bacteria (Auto) None Seen (None Seen) 03/14/25 Coronavirus OC43 (PCR) Not Detected (NotDetected) 03/14/25 Coronavirus HKU1 (PCR) Not Detected (NotDetected) 03/14/25 Coronavirus 229E (PCR) Not Detected (NotDetected) 03/14/25 COVID-19 PCR Not Detected (NotDetected) 03/14/25 Coronavirus NL63 (PCR) Not Detected (NotDetected) 03/14/25 Blood Type O Positive 02/08/25 Antibody Screen NEGATIVE 02/08/25 Testing Electrocardiogram Date: 03/14/25 NSR, rate 91 bpm Low voltage QRS Chest X-Ray Date: 03/16/25 1. Left lower lobe pneumonia, somewhat improved from before 2. Large hiatal hernia Echocardiogram Date: 02/13/23 EF 60-65% No regional wall motion abnormalities Mild cLVH Other Testing Head CT 03/14/25 1. There is no evidence of acute intracranial hemorrhage or abnormality. 2. Chronic microvascular ischemic changes and senile brain atrophy changes. 3. There are no significant interval changes compared to the prior study dated 02/12/2023. 4. Early changes of a stroke may not be detected on a CT scan. If there is strong clinical suspicion of stroke, MRI with diffusion-weighted imaging is suggested. Abdomen pelvis CTA 01/06/25 Large esophageal hiatal hernia. Head and neck CTA 02/10/23 Negative CTA neck Normal head CTA
[~2025-04-15 08:24] MED LIST changes: -DEXAMETHASONE SOD INJ 4 MG/ML VIAL ONE; +HYDROmorphone INJ 2 MG/ML SYR/VIAL ONE; +KETAMINE HCL 10MG/ML SYR ONE; +METOCLOPRAMIDE HCL INJ 5 MG/ML 2 ML VIAL ONE; +MIDAZOLAM HCL 1 MG/ML 2ML VIAL ONE; +PROPOFOL IV EMULSION 10 MG/ML 100 ML VIAL IV ONE; +REMIFENTANIL HCL 1 MG VIAL IV ONE; -SUGAMMADEX SODIUM 200 MG/2 ML VIAL IV ONE
[2025-04-15] MEDS: LR 15ML/HR IV SCH (09:20)
[2025-04-15] MEDS: LR 60ML/HR IV SCH (09:20)
[2025-04-15] MEDS: ACETAMINOPHEN 500 MG TAB PO SCH (09:20)
[2025-04-15] MEDS ORDERED: ATROPINE SULFATE 0.1 MG/ML 10ML SYR IV PRN (09:21)
[2025-04-15] MEDS ORDERED: PROMETHAZINE HCL 6.25 MG in SODIUM CHLORIDE 0.9% 50 ML IV PRN (09:21)
[2025-04-15 09:32] LABS: INR 1.4 (0.9-1.1); Partial Thromboplastin Time 31 Seconds (21-31); Prothrombin Time 15.0 Seconds (9.0-12.0)
[2025-04-15] MEDS ORDERED: SUCCINYLCHOLINE CHLORIDE 20 MG/ML 10 ML VIAL IV ONE (09:43)
--- NOTE | 2025-04-15 10:45 | History & Physical Bridge Note ---
Date of Service April 15, 2025 History & Physical Bridge Note I have examined the patient, reviewed the History & Physical and in the interval since the performance of the History & Physical I have noted the following changes of clinical significance: no changes noted
[2025-04-15] MEDS ORDERED: PHENYLEPHRINE 100MCG/ML 5ML SYR ONE (11:21)
[2025-04-15] MEDS ORDERED: ROCURONIUM BROMIDE 10 MG/ML 5 ML VIAL IV ONE (11:54)
[2025-04-15] MEDS: VANCOMYCIN HCL 1000MG/20ML VIAL ONE (12:38)
[2025-04-15] MEDS ORDERED: REMIFENTANIL HCL 1 MG VIAL IV ONE (12:47)
[2025-04-15] MEDS ORDERED: PROPOFOL IV EMULSION 10 MG/ML 100 ML VIAL IV ONE (13:42)
[2025-04-15] MEDS ORDERED: METOPROLOL TARTRATE 1 MG/ML VIAL IV ONE (14:00)
[2025-04-15] MEDS: TRANEXAMIC ACID / 0.7% NACL 1000MG/100ML BAG IV ONE (14:15)
[2025-04-15] MEDS ORDERED: ceFAZolin 330 MG/ML 1 GM VIAL ONE (14:45)
[2025-04-15] MEDS: TRANEXAMIC ACID 100 MG/ML 10 ML VIAL IV ONE (15:21)
[2025-04-15] MEDS: GELATIN SPONGE 12-7MM ONE (15:28)
[2025-04-15] MEDS: FLOSEAL HEMOSTATIC MATRIX 10ML TOP ONE (15:28)
[2025-04-15] MEDS: BUPIVACAINE/EPINEPHRINE 0.5% MPF 1:200,000 30 ML VIAL ONE (15:28)
[2025-04-15] MEDS: FLOSEAL HEMOSTATIC MATRIX 5ML TOP ONE (15:28)
[2025-04-15] MEDS: THROMBIN 5000 UNITS KIT ONE (15:29)
[2025-04-15] MEDS ORDERED: NEOSTIGMINE METHYLSULFATE 1 MG/ML 10ML VIAL ONE (15:32)
--- NOTE | 2025-04-15 15:43 | Fluoroscopy Report ---
INTRAOPERATIVE RADIOGRAPHS CLINICAL HISTORY: L4-L5 spinal fusion. Fluoro time: 30 seconds Ka,r: 15.20 mGy FINDINGS: 5 spot fluoroscopic views of the lumbar spine are presented. Discectomy change is seen at L 4-L5 with laminectomy and posterior fusion at this level. Interpedicular screws are in place. The ort hopedic hardware appears intact. IMPRESSION: Intraoperative images from lumbar spinal fusion surgery as above. Electronically signed by: Yrn Strong M.D. 04/15/2025 3:42 PM
[2025-04-15] MEDS ORDERED: LORazepam Inj 0.5 MG in SYRINGE 0.25 ML IV PRN (16:08)
[2025-04-15] MEDS ORDERED: METOCLOPRAMIDE HCL INJ 5 MG/ML 2 ML VIAL IV PRN (16:08)
[2025-04-15] MEDS ORDERED: DO NOT ADMINISTER FLU VACCINE PRN (16:08)
[2025-04-15] MEDS ORDERED: HYDROmorphone INJ 0.5 MG/0.5 ML SYR IV PRN (16:08)
[2025-04-15] MEDS ORDERED: DO NOT ADMINISTER PNEUMOCOCCAL VACCINE PRN (16:08)
[2025-04-15] MEDS ORDERED: NALOXONE HCL 0.4 MG/1 ML VIAL/CARP IV PRN (16:08)
[2025-04-15] MEDS ORDERED: MAGNESIUM HYDROXIDE SUSP 30 ML UDC PO PRN (16:08)
[2025-04-15] MEDS ORDERED: PROMETHAZINE 12.5 MG/50.5 ML BAG IV PRN (16:08)
[2025-04-15] MEDS ORDERED: FAMOTIDINE 20 MG TAB PO PRN (16:08)
[2025-04-15] MEDS ORDERED: SOD PHOSPHATE/SOD BIPHOSPHATE ENEMA 132 ML BTL PR PRN (16:08)
[2025-04-15] MEDS ORDERED: diphenhydrAMINE Capsule 25 MG CAP PO PRN (16:08)
[2025-04-15] MEDS ORDERED: ALUMINUM/MAGNESIUM SUSP 30 ML UDC PO PRN (16:08)
[2025-04-15] MEDS ORDERED: ONDANSETRON 4 MG OD TAB PO PRN (16:08)
--- NOTE | 2025-04-15 16:08 | Post Operative Brief Note ---
PG Immediate Post Op with CF Date of Surgery April 15, 2025 Pre & Post Diagnosis Operation Date: 04/15/25 10:00 Pre-Op Diagnosis: Status Post Lumbar Spinal Surgery for Decompression of Spinal Stenosis Post-Op Diagnosis: Status Post Lumbar Spinal Surgery for Decompression of Spinal Stenosis I identified the patient and participated in the time-out.: Yes Procedure Operation Date: 04/15/25 10:00 Actual Procedures p L4-L5 Fusion/Instrumentation, Revision Decompression, Posterior Interbody Cage/Fusion with Spinal Cord Monitoring(Not Applicable) - Vincent Purvis MD Surgeon Vincent Purvis MD Early Childhood Teacher none Estimated Blood Loss 300 Findings Consistent with Post-Op Diagnosis Specimens Specimen Description: No specimen per surgeon Drains Avalos Catheter (Presented to OR with avalos; leg bag changed to regular avalos bag by Omar Gibbs RN)
[2025-04-15] MEDS: HYDROmorphone INJ 2 MG/ML SYR/VIAL IV PRN (16:49)
[2025-04-15] MEDS: HYDROmorphone INJ 1 MG/ML SYRINGE IV PRN (16:49)
--- NOTE | 2025-04-15 18:48 | Anesthesiology Progress Note ---
Date of Service April 15, 2025 Anesthesia Post Procedure Vital Signs Vital Signs: Temp Pulse Pulse Resp BP Pulse Ox O2 Del Method 04/15/25 18:39 98.1 F 80 18 140/80 96 Nasal Cannula 04/15/25 17:56 98.1 F 76 16 153/84 H 95 Nasal Cannula 04/15/25 17:45 69 16 137/74 97 Nasal Cannula 04/15/25 17:30 64 15 135/71 97 Nasal Cannula 04/15/25 17:15 73 10 L 155/84 H 99 Nasal Cannula 04/15/25 17:05 64 14 162/87 H 100 Nasal Cannula 04/15/25 16:55 63 14 154/88 H 99 Nasal Cannula 04/15/25 16:45 97.5 F L 69 14 155/87 H 94 Nasal Cannula 04/15/25 16:35 66 14 141/92 H 95 Room Air 04/15/25 16:25 63 14 159/94 H 95 Oxymask 04/15/25 16:15 61 14 172/92 H 100 Oxymask 04/15/25 16:07 97.2 F L 68 17 169/101 H 99 Oxymask 04/15/25 08:48 97.9 F 63 18 168/90 H 97 Room Air O2 Flow Rate 04/15/25 18:39 2 04/15/25 17:56 2 04/15/25 17:45 2 04/15/25 17:30 2 04/15/25 17:15 4 04/15/25 17:05 4 04/15/25 16:55 4 04/15/25 16:45 4 04/15/25 16:35 04/15/25 16:25 6 04/15/25 16:15 6 04/15/25 16:07 6 04/15/25 08:48 Pain Intensity Right Back: Pain Intensity: 5 Transfer of Care Handoff Completed per policy Notes Mental Status: alert / awake / arousable and participated in evaluation Patient Amnestic to Procedure: Yes Nausea / Vomiting: adequately controlled Pain: adequately controlled Airway Patency, RR, SpO2: stable & adequate BP & HR: stable & adequate Hydration State: stable & adequate Anesthetic Complications: no major complications apparent and Pt Satisfied with anesthetic care
[2025-04-15] MEDS: ONDANSETRON INJ 2 MG/ML 2 ML VIAL IV PRN (18:49)
[2025-04-15] MEDS: ACETAMINOPHEN 1,000 MG/100 ML VIAL IV PRN (19:30)
[2025-04-15] MEDS: LORazepam 0.5 MG TAB PO PRN (20:57)
[2025-04-15] MEDS: DOCUSATE SODIUM/SENNA 50/8.6MG TAB PO SCH (20:58)
[2025-04-16] MEDS: POLYETHYLENE (MIRALAX) 17 GM PACK PO SCH ×2 (05:52→07:36)
[2025-04-16] MEDS: TAMSULOSIN HCL 0.4 MG CAP PO SCH (07:36)
[2025-04-16] MEDS: ACETAMINOPHEN 500 MG TAB PO PRN (07:37)
[2025-04-16] MEDS: ASPIRIN 81 MG ECTAB PO SCH (07:39)
--- NOTE | 2025-04-16 08:12 | Hospitalist Consultation ---
Date of Consultation April 16, 2025 Assessment & Plan (1) Anemia: (2) Urine retention: (3) Factor V Leiden: (4) Lumbar stenosis with neurogenic claudication: Plan This patient is an 89-year-old male with a history of urinary retention with chronic Saha catheter, history of DVT, factor V Leiden mutation on Coumadin, ulcerative colitis, paroxysmal atrial fibrillation, CVA, HTN, GERD/Canales's, constipation, HLD, anemia, and lumbar spinal stenosis who is admitted in the hospital after undergoing an L4-L5 fusion/instrumentation, revision decompression, and posterior interbody cage/fusion with Dr. Purvis on 04/15. The hospitalist service was consulted for postoperative medical management. #BPH/Urine retention-recently had urine retention as an outpt after taking hydrocodone for back pain and required Saha placed by urology on 04/09 -continue Flomax - Discussed with urology team-they recommend keeping catheter in on discharge and will arrange outpatient trial of void in the urology office around 04/19 #Factor V Leiden/Chronic anticoagulation/h/o DVT-follows with Coumadin clinic. As per d/w Ortho spine, wait to resume coumadin until 04/17 -once resumed, continue home dose 10mg qSun, 5mg all other days as per written instructions from Coumadin clinic -follow INR in AC clinic as scheduled on 04/26 at 10 AM -continue SCDs if patient can tolerate #Anemia-hgb mildly low, normocytic anemia at baseline. Has a h/o B12 deficiency but not checked in years. Does have known UC and Canales's, follows with GI. Hgb now dropped postoperatively to 9.9 but he is hemodynamically stable -check B12, folate, Fe studies, and TSH in AM -follow CBC in a.m. #PAF/HTN-in regular rhythm here, BPs controlled -holding coumadin and plan to resume 04/17 - Continue lisinopril -check BMP in AM - Continue home ASA - Restart home statin #GERD/Ulcerative colitis/Canales's esophagus-no acute issues -continue home PPI bid -pepcid prn -continue mesalamine (needs to be brought in from home) DVT proph-SCDs, resume coumadin 04/17 Dispo-continued stay on med/surg, hospitalist service will follow along History of Present Illness Reason for Consultation: Medical management Requesting Physician: Dr. Purvis Attending Physician: Vincent Purvis MD History of Present Illness This patient is an 89-year-old male with a history of urinary retention with current Saha catheter, history of DVT, factor V Leiden mutation on Coumadin, ulcerative colitis, paroxysmal atrial fibrillation, CVA, HTN, GERD/Canales's, constipation, HLD, anemia, and lumbar spinal stenosis who is admitted in the hospital after undergoing an L4-L5 fusion/instrumentation, revision decompression, and posterior interbody cage/fusion with Dr. Purvis on 04/15. The hospitalist service was consulted for postoperative medical management. Patient reports some pain in the back and down to the right hip. He is not wanting to use SCDs as it caused him to have some swelling in his distal leg where it was cutting into the leg. He reports tramadol did not help the pain but he is fearful of urinary retention and severe constipation with any stronger opioids. He had a small amount of bleeding around his urethral meatus but that has stopped. No bowel movement since admission. Denies chest pain or shortness of breath. Allergies Allergy/AdvReac Type Severity Reaction Status Date / Time red dye AdvReac Severe Severe Verified 04/15/25 08:45 Migraines aspirin AdvReac Intermediate Upset Verified 04/15/25 08:45 Stomach codeine AdvReac Intermediate felt Verified 04/15/25 08:45 disoriented cyclobenzaprine AdvReac Intermediate Hallucinati Verified 04/15/25 08:45 [From Flexeril] ng oxycodone AdvReac Intermediate hallucinati Verified 04/15/25 08:45 ons salicylates AdvReac Intermediate upsets Verified 04/15/25 08:45 stomach tramadol AdvReac Intermediate hallucinati Verified 04/15/25 08:45 ons steroids AdvReac Intermediate Facial & Uncoded 04/15/25 08:45 Extremity swelling Home Medications Medication Instructions Recorded Confirmed Type lisinopril 20 mg tablet 20 mg PO QAM 12/17/22 04/15/25 History pantoprazole 40 mg tablet,delayed 40 mg PO AMHS 02/10/23 04/15/25 History release aspirin 81 mg tablet,delayed 81 mg PO QAM 02/08/25 04/15/25 History release (Enteric Coated Aspirin) mesalamine 0.375 gram 0.75 g (2 x 0.375 gram) PO AMPM 03/14/25 04/15/25 Rx capsule,extended release 24 hr #360 caps atorvastatin 40 mg tablet 40 mg PO QAM #30 tabs 03/19/25 04/15/25 Rx polyethylene glycol 3350 17 17 g PO DAILY 04/08/25 04/15/25 History gram/dose oral powder (Miralax) warfarin 5 mg tablet (Jantoven) 5 mg PO UD 04/09/25 04/15/25 History tamsulosin 0.4 mg capsule 0.4 mg PO QAM #30 caps 04/11/25 04/15/25 Rx Patient History Medical History History of abdominal pain denies at this time Adverse effect of anesthesia "Long time ago with toe surgery, slow to wake" no issues since History of weakness pts denies at this time for patient Metabolic encephalopathy emr 02/2025 - pts unsure Anemia no blood transfusion/iron infusion History of pneumonia 02/2025 - resolved History of fall 02/2025 - [facility] ER - no falls since Anticoagulated [facility] - warfarin Hypertension controlled, stable per pt-increased with pain Hyperlipidemia Ulcerative colitis Arthritis Hx of skin malignancy multiple, removed SNHL (sensorineural hearing loss) 95% hearing loss per pt's - Bilateral Hearing Aids Canales esophagus Factor V Leiden [facility] Hiatal hernia Paroxysmal atrial fibrillation controlled per pt's , doesn't follow with Cardiology History of stroke (~2022) 2022 > no residual effects > [facility] [place] Neurology History of rectal bleeding resolved Lumbar stenosis with neurogenic claudication Penile swelling Resolved - reason for tamsulosin Gastro-esophageal reflux disease with esophagitis controlled, stable per pt with medication increase History of DVT (deep vein thrombosis) (~2004) left leg > 2004 > no known cause Surgical History History of foot surgery Left - toe amputation History of lumbar spinal fusion (02/12/25) pts denies hardware History of tonsillectomy pt's unsure but thinks he had tonsillectomy History of cholecystectomy History of tooth extraction Upper Partial History of cataract surgery bilateral History of colonoscopy most recently 11/2024 History of esophagogastroduodenoscopy (EGD) Family History Other Family history non-contributory Social History Smoking Status: Never smoker Tobacco Type: Cigarettes Age Started Using Tobacco: 17; Age Quit Using Tobacco: 47; packs per day: 0.5; Second Hand Exposure: No; Do You Dip or Chew Tobacco: No; Tobacco Cessation Education Requested by Patient: No Hx Alcohol Use: Yes Alcohol type: wine Alcohol type Comment: "enough" Hx Substance Use: No Preferred Language: Vincentian Communication Ability: Effective Visual Impairment: No Limitations Hearing Ability: Use of Hearing Aid Home Office Claims Examiner Required: No Beliefs That Will Affect Care: None marital status: Current Living Situation: Spouse current occupational status: retired Other Information That Helps Us Care for You: No Feels Safe at Home: Yes Safety Concerns: Feels Safe At This Time Diet: regular caffeine: Yes Dental Care, Regularly: No Physical Activity Frequency: Does not Exercise Seatbelt Use: sometimes Sunscreen Use: No Assistive Devices: Cane and Walker Assistive Devices Comment: Upper Partial Review of Systems Review of Systems: All systems reviewed & are unremarkable except as noted in HPI & below Physical Exam Constitutional: WD/WN, vitals as above Neck: trachea midline, no thyromegaly Respiratory: normal respiratory effort, lungs clear to auscultation Cardiovascular: Rate/Rhythm: regular rate and regular rhythm Heart Sounds: no murmur Extremities: + edema (trace edema bilat LEs) Chest (Breasts): Chest: normal inspection of chest Gastrointestinal (Abdomen): normal bowel sounds, soft, nontender, no hepatosplenomegaly Musculoskeletal: Extremities: extremities normal to inspection; no cyanosis and no clubbing Skin: no rashes, warm and dry Neurologic: moves all extremities and awake; no focal motor deficits Psychiatric: A+Ox3, euthymic affect Genitourinary: Saha catheter in place draining clear yellow urine Results & Data Results & Data Vital Signs (Past 12 Hours) Vital Signs Temp Pulse Pulse Resp BP Pulse Ox O2 Del Method 04/16/25 07:42 36.7 C 62 19 133/72 95 Room Air 04/16/25 03:00 36.7 C 72 16 122/68 95 Room Air 04/15/25 23:58 36.5 C 68 16 131/73 98 Nasal Cannula 04/15/25 21:00 Nasal Cannula 04/15/25 20:55 36.6 C 68 18 113/67 95 Nasal Cannula O2 Flow Rate 04/16/25 07:42 04/16/25 03:00 04/15/25 23:58 2 04/15/25 21:00 2 04/15/25 20:55 2 Laboratory Results CBC, BMP, INR reviewed PG Care Time/CCT Total # of Minutes Spent Total Time Spent with Patient: Total time spent is greater than 50% in coordination of care (as documented) at patient's floor/unit and/or counseling patient: Coding Level of Care Code 45461 IN/OBS CONSULT LVL 3,45M Diagnoses Anemia D64.9 Anemia type: unspecified type Urine retention R33.9 Factor V Leiden D68.51 Lumbar stenosis with neurogenic claudication M48.062 (1) Anemia Anemia type: unspecified type Qualified Code(s): D64.9 - Anemia, unspecified
[2025-04-16] MEDS: ATORVASTATIN 40 MG TAB PO SCH (08:59)
[2025-04-16 09:09] LABS: Hematocrit (blood only) 32.5 % (42.0-52.0); Hemoglobin 9.9 g/dl (14.0-18.0); Immature Granulocytes # (auto) 0.05 K/uL (0.01-0.20); Immature Granulocytes % (auto) 0.4 %; Mean Corpuscular Hemoglobin 25.9 pg (25.0-34.0); Mean Corpuscular Volume 85.1 fL (80.0-100.0); Platelet Count 179 K/uL (130-400); RDW Standard Deviation 44.2 fL (36.4-46.3); Red Blood Count 3.82 M/uL (4.70-6.10); White Blood Count 12.17 K/ul (4.8-10.8)
[2025-04-16 09:36] LABS: INR 1.3 (0.9-1.1); Prothrombin Time 13.9 Seconds (9.0-12.0)
[2025-04-16] MEDS: MESALAMINE ER 0.375 GM PO SCH (11:56)
--- NOTE | 2025-04-16 16:18 | Operative Report ---
PG Post Operative Report Pre & Post Diagnosis Operation Date: 04/15/25 10:00 Pre-Op Diagnosis: Status Post Lumbar Spinal Surgery for Decompression of Spinal Stenosis Post-Op Diagnosis: Status Post Lumbar Spinal Surgery for Decompression of Spinal Stenosis I identified the patient and participated in the time-out.: Yes Procedure Operation Date: 04/15/25 10:00 Actual Procedures p L4-L5 Fusion Instrumentation, Revision Decompression, Posterior Interbody Cage Fusion with Spinal Cord Monitoring(Not Applicable) - Vincent Purvis MD Surgeon Vincent Purvis MD Drainage Engineer none Estimated Blood Loss 300 Findings Consistent with Post-Op Diagnosis Specimens None Description of Procedure 1. L4-5 posterior lumbar revision decompression/discectomy. (93731) 2. L4-5 posterior and posterior interbody fusion. (95068) 3. L4-5 posterior nonsegmental instrumentation, [employer] modular X. (21023) 4. Insertion of intervertebral cage, [employer] modulus TLIFO 8 x 10 x 30 mm 8 degrees (73479) 5. Utilization of products of decompression for fusion purposes. (91934) 6. Stereotactic CT-guided navigation for instrumentation. (54241) I attest to the content of the Intraoperative Record and any orders documented therein. Any exceptions are noted below.
[2025-04-17 00:34] VITALS: RESP 16
--- NOTE | 2025-04-17 07:23 | Hospitalist Progress Note ---
Date of Service April 17, 2025 Assessment & Plan Admission and Anticipated Discharge Date Admission Date: April 15, 2025 Results & Data Results & Data Vital Signs (Past 12 Hours) Vital Signs Temp Pulse Resp BP Pulse Ox O2 Del Method 04/17/25 00:33 36.8 C 65 16 116/68 95 Room Air PG Care Time/CCT Total # of Minutes Spent Total Time Spent with Patient: Total time spent is greater than 50% in coordination of care (as documented) at patient's floor/unit and/or counseling patient: Coding
[2025-04-17 07:42] VITALS: PULSE 72; TEMP 98.4; O2SAT 94
[2025-04-17 07:51] LABS: Hematocrit (blood only) 28.0 % (42.0-52.0); Hemoglobin 8.7 g/dl (14.0-18.0); Immature Granulocytes # (auto) 0.02 K/uL (0.01-0.20); Immature Granulocytes % (auto) 0.2 %; Mean Corpuscular Hemoglobin 26.4 pg (25.0-34.0); Mean Corpuscular Volume 84.8 fL (80.0-100.0); Platelet Count 150 K/uL (130-400); RDW Standard Deviation 44.7 fL (36.4-46.3); Red Blood Count 3.30 M/uL (4.70-6.10); White Blood Count 8.36 K/ul (4.8-10.8)
[2025-04-17 08:05] LABS: Anion Gap 3.0 (3-11); Blood Urea Nitrogen 26.0 mg/dl (6-23); Calcium 8.1 mg/dl (8.6-10.3); Carbon Dioxide 30.0 mmol/L (21-32); Chloride 107.0 mmol/L (98-107); Creatinine Clr Calc Pharmacy 63.3 ml/min; Glucose 98.0 mg/dl (70-99(Fasting)); Iron 27.0 mcg/dl (35-175); Potassium 3.7 mmol/L (3.5-5.1); Sodium 140.0 mmol/L (136-145); Total Iron Binding Cap Calc 266.0 mcg/dl (250-450); Transferrin 190.0 mg/dl (200-360); Transferrin (FE) Percent Satur 10.0 % (20-50)
--- NOTE | 2025-04-17 08:17 | Orthopedic Progress Note ---
Date of Service April 17, 2025 Assessment & Plan (1) Status post lumbar spine surgery for decompression of spinal cord: * Continue Current Treatment * Disposition: home * Daily treatment: Physical Therapy/ Occupational Therapy per protocol * Weight bearing status: WBAT * Continue to monitor for ABLA * Discussed avalos management with Dr Holland (urology), to continue until seen in office * Pain control * DVT prophylaxis, SCDs * Office/hospital f/u 2 weeks for progress check and staple/suture removal * Plan for discharge today pending PT/OT clearance Subjective .Active Problems: S/p L4-L5 Fusion Instrumentation, Revision Decompression, P osterior Interbody Cage Fusion POD 2 89 y/o male s/p L4-L5 Fusion Instrumentation, Revision Decompression, Posterior Interbody Cage Fusion. Doing well overall, pain managed and improved function. Denies fever/chills, chest pain/SOB, nausea/vomiting. Otherwise no complaints. Review of Systems All systems reviewed & are unremarkable except as noted in HPI & below. Physical Exam . * General: Alert and oriented, no acute distress * Constitutional: well-developed, well-nourished. * Respiratory: Normal respiratory effort, no distress * Gastrointestinal: No tenderness to palpation, no rigidity or guarding. * Skin: No rash or lesion. * Neurologic: Grossly normal * Musculoskeletal: Surgical dressing CDI. Lumbar spine region without obvious deformity or overlying skin changes. Minimal tenderness of surgical region, otherwise no tenderness b/l buttock or LE. Lumbar flexion/extension and rotation ROM with minimal pain. AROM b/l hip flexion, knee flexion/extension, ankle flexion/extension intact. Sensation intact plantar/dorsal foot. Brisk capillary refill. Results & Data Results & Data Laboratory Results . Diagnostic Findings . PG Care Time/CCT Total # of Minutes Spent Total Time Spent with Patient: Total time spent is greater than 50% in coordination of care (as documented) at patient's floor/unit and/or counseling patient: Coding Level of Care Code 41712 Post Operative Follow-Up Diagnoses Status post lumbar spine surgery for decompression of spinal cord Z98.890
[2025-04-17 08:21] LABS: INR 1.3 (0.9-1.1); Prothrombin Time 14.0 Seconds (9.0-12.0)
[2025-04-17 08:24] LABS: Ferritin 23.2 ng/ml (8-388)
[2025-04-17 08:34] LABS: Folate (Folic Acid),Ser orPlas 4.33 ng/ml (>5.38)
[2025-04-17 08:35] LABS: Vitamin B12 222.0 pg/ml (180-914)
[2025-04-17 08:55] VITALS: BP 99/64
--- NOTE | 2025-04-18 09:28 | Operative Report ---
PG Post Operative Report Pre & Post Diagnosis Operation Date: 04/15/25 10:00 Pre-Op Diagnosis: Status Post Lumbar Spinal Surgery for Decompression of Spinal Stenosis Post-Op Diagnosis: Status Post Lumbar Spinal Surgery for Decompression of Spinal Stenosis I identified the patient and participated in the time-out.: Yes Procedure Operation Date: 04/15/25 10:00 Actual Procedures p L4-L5 Fusion Instrumentation, Revision Decompression, Posterior Interbody Cage Fusion with Spinal Cord Monitoring(Not Applicable) - Vincent Purvis MD Surgeon Vincent Purvis MD [employer] Crewmember none Estimated Blood Loss 300 Findings Consistent with Post-Op Diagnosis Specimens none Description of Procedure 1. L4-5 posterior lumbar revision decompression/discectomy. (00880) 2. L4-5 posterior and posterior interbody fusion. (12853) 3. L4-5 posterior nonsegmental instrumentation, [employer] modular X. (29233) 4. Insertion of intervertebral cage, NuV[employer] modulus TLIFO 8 x 10 x 30 mm 8 degrees (57331) 5. Utilization of products of decompression for fusion purposes. (32598) 6. Stereotactic CT-guided navigation for instrumentation. (12025) Patient was taken to the operating room after adequate anesthesia was carefully positioned prone on the Pasha frame and carefully checked for positioning. After doing so fluoroscopy was brought in where I marked for the incision, preprep was performed followed by prepping and draping. Procedure started with a midline incision incorporating the prior incision at L4-5 and with extension in both directions to allow for the procedure. I advanced this down to the posterior interlaminar region at L4-5, confirmed our location with fluoroscopy. I then exposed the appropriate surfaces including the left posterior area out to the facet joints, and on the right side in a similar fashion and out onto the transverse processes. A pin was then inserted into the right iliac crest posteriorly, the navigation attachment was applied, and then at this time we then did a spin with the O-arm for the navigation. With the appropriate bony surfaces exposed, I then used navigation to the start point for the pedicle screws first at L5, high-speed bur was utilized for the initial start point followed by the gearshift probe and then the tap, 6.5 millimeter screws were then inserted at L5 and then the same process was then performed for L4 with excellent positioning of the screws. A post screw insertion spin was then performed revealing excellent position of the pedicle screws. I then moved to the patient's right side, and from here the revision decompression was performed. This decompression and discectomy was beyond what was needed for insertion of a cage, this included removal of the inferior articulating facet at L4 and the superior articulating facet of L5. Additionally the remaining right lamina region was then thinned and removed, I did utilize the [employer] bone industrial hygiene technician to retain as much of the bone dust from the decompression as possible. I then continued with the revision decompression exposing the exiting L4 nerve root and the dural sac more medially. This was then mobilized superiorly and I was then able to access the disc space. From here I then remove the disc herniation in the extraforaminal region, and then moved into the disc space removing additional disc material. This process continued with utilization of mariana to remove cartilage and additional disc material until a thorough discectomy was completed. At this time I then utilized the mariana as trials, I initially selected a larger interbody cage, but as this was not advancing as anticipated, I downsized to a second cage, which then inserted and rotated elevated the interspace appropriately. Prior to insertion of the cage, fusion materials were placed in the interspace and within the cage itself. Upon completion Floseal was applied for the epidural bleeding, I then moved ahead with the instrumentation. The screw heads were then attached, followed by rods and these were all torqued down properly. Fusion materials were then placed in the left side along the lamina of L4 and L5 and facet region. The operative site had been previously irrigated, I then applied some additional Floseal in the area of the cage insertion region followed by vancomycin powder. The operative site was closed with 0 Vicryl sutures followed by an additional layer of 2-0 Vicryl sutures and pinky for the skin. Sterile dressing was applied, the patient was taken to recovery room in satisfactory condition. I attest to the content of the Intraoperative Record and any orders documented therein. Any exceptions are noted below.
== END 2025-04-17 09:52 | disposition home or self-care (01) | DRG 451 ==
LOC: ASU 08:24 → 3N 16:08